=== PATIENT | male | born 1960 | race Caucasian/White ===

== ENCOUNTER 2023-10-23 06:37 | Inpatient (IN) | payer OTHER, SELFPAY ==
[2023-10-23] VITALS (85 sets, daily range): BP systolic 65–123; BP diastolic 31–94; BMI 23.8; BMI 25.6
--- NOTE | 2023-10-23 04:37 | ED.GENMED ---
History of Present Illness
General
Chief Complaint: Fever
Source: patient and ambulance crew
Exam Limitations: none
Time Seen by Provider: 10/23/23 04:33
Nursing documentation reviewed up to this point in time: agreed with
Travel History
Have you had any contact with someone who has COVID-19?: Unable to Answer
Do you have any symptoms of coronavirus? Fever > 100 degrees, chills, cough, shortness of breath, sore throat, loss of taste or smell, muscle aches, or headache?: Unable to Answer
History of Present Illness
History of Present Illness:
63-year-old male presents emergency department due to weakness. He woke up with a fever and his heart rate was in the 150s. Temperature by EMS 101.5. EMS gave 1700 mL normal saline en route. He was also given push dose epinephrine, and Benadryl.
On Tuesday he had a prostate ablation, aqua ablation at [facility].
Past History
Past History
ED Past Medical History: None
ED Past Surgical History: Orthopedic (lumbar laminectomy, right knee) and Urological (Aqua ablation prostate)
Social History
Tobacco: Non-smoker
Alcohol: None
Living: with family
Review of Systems
Review of Systems
Allergies reviewed?: Yes
All Other Systems: Not applicable
Constitutional: Reports fever
EENT: Reports no symptoms
Respiratory: Reports no symptoms
Cardiac: Reports no symptoms
ABD/GI: Reports vomiting
: Reports no symptoms
Musculoskeletal: Reports no symptoms
Skin: Reports no symptoms
Neurological: Reports weakness
Endocrine: Reports no symptoms
Hematologic/Lymphatic: Reports no symptoms
Psychiatric: Reports no symptoms
Phy Exam
Physical Exam
Physical Exam:
Physical Exam
General: Appears uncomfortable, hypotensive 91/43, temperature 98.9 orally
Neck: supple. no meningeal signs. normal posterior pharynx
Heart: s1/s2 tachycardia, no murmur. equal radial
pulses.
HEENT: Pupils equal round reactive to light, EOMI
Lungs: no acute respiratory distress. clear bilaterally
Abdomen: normal bowel sounds. not tender. no CVAT
Neuro: alert and oriented. no focal neurological deficits cranial nerves II through XII intact
Skin: no rash
Psychiatric: well kept. interactive and cooperative
Extremities: no edema. no calf tenderness. negative homans. good distal pulses
Course
Orders/Labs/Results
Orders:
Orders
10/23/23 04:33
Ondansetron Injectable [Zofran] 4 mg IV NOW STA
10/23/23 04:34
Straight cath- Treatment ONCE
Acetaminophen [Tylenol/Feverall] 650 mg RECTAL NOW STA
NORepinephrine 4 MG/250 ML [Levophed] 4 mg in 250 ml IV NOW
Initial dose in mcg/min, then titrate:: 4
Titrate to keep:: MAP > 65 mmHg
Titrate by mcg/min:: 1-2 mcg/min
Frequency of titrations (minutes):: 5
Maximum dose in ICU in mcg/min:: 30
Maximum dose in IMU in mcg/min:: 8
Maximum dose in IVU in mcg/min:: 4
Begin to taper infusion when:: Remained at goal for 4hrs
Taper by mcg/min:: 1-2 mcg/min
Frequency of taper (minutes) if patient maintains goal:: 30
Taper to off?: Yes
If infusion off & no longer maintaining goal:: Contact Provider
10/23/23 04:35
CR Chest Portable - 1 View Urgent
Comment:
Reason For Exam: fever
Reason Study Needs to be Portable: Patient Unstable
10/23/23 04:42
Complete Blood Count/With Diff Urgent
Comprehensive Metabolic Panel Urgent
Lactic Acid Q4H
Comment: CANCEL 2nd LACTIC ACID IF 1st LACTIC ACID IS LESS THAN 2
Lipase Urgent
Magnesium Urgent
Comment: ADD ON
Manual Differential Urgent
PTT Urgent
Prothrombin Time Urgent
Blood Culture Q30M
[place] Source: Blood/Venous
Specimen Description:
10/23/23 04:59
Urinalysis Reflex To Culture Urgent
Date Specimen was Collected: 10/23/23
Time Specimen was Collected: 04:53
Urine Microscopic Reflex Cult Urgent
10/23/23 05:01
COVID-19 Antigen Urgent
Source: Nasal Swab
Influenza A+B Rapid Molecular Urgent
[place] Source: Nasal Swab
Specimen Description:
0.9% Sodium Chloride 1000 ml [Nss] 1,000 ml IV BOLUS
Piperacillin/Tazo 4.5 Gram [Zosyn] 4.5 gram in 100 ml IV NOW
10/23/23 05:06
Vancomycin [Vancocin] 2,000 mg 0.9% Sodium Chloride 500 ml [Nss] 500 ml IV NOW
10/23/23 05:07
Blood Culture Q30M
[place] Source: Blood/Venous
Specimen Description:
10/23/23 05:23
Lidocaine 2% [Lidocaine Uro-Jet 2%] 1 syringe .ROUTE .K-MED ONE
10/23/23 06:27
Admit/Transfer Patient As Directed
Co-Sign Provider:
Level of Care: Inpatient admission
Assign to:: ICU
Physician / Group: Matthias
Diagnosis: Septic Shock
Reason for Hospitalization: Septic Shock
Expected length of stay greater than two midnights?: Yes
ELOS- Estimated Length of Stay in days: 5
I certify the patient meets the requirements for IP care: Yes
10/23/23 06:29
Code Status As Directed
Resuscitation Status: Full Code
10/23/23 08:45
Lactic Acid Q4H
Comment: CANCEL 2nd LACTIC ACID IF 1st LACTIC ACID IS LESS THAN 2
Abnormal Lab Results
10/23/23 10/23/23
04:42 04:59
WBC 1.7 L* 10^3/uL
(4.8-10.8)
RBC 3.94 L 10^6/uL
(4.70-6.10)
Hgb 12.2 L g/dL
(13.0-18.0)
Hct 35.2 L %
(39.0-52.0)
Band Neutrophils 14 H %
(0-3)
Lymphocytes (Manual) 12 L %
(20-51)
PT 23.4 H Sec
(11.4-14.6)
APTT 65.4 H Sec
(23.4-35.0)
Potassium 3.2 L mmol/L
(3.5-5.1)
Chloride 112 H mmol/L
(98-107)
Carbon Dioxide 17 L mmol/L
(22-30)
BUN 22 H mg/dl
(9-20)
Creatinine 2.3 H mg/dL
(0.7-1.3)
Glucose 108 H mg/dl
(70-99)
Lactic Acid 9.1 H* mmol/L
(0.7-2.0)
Calcium 8.2 L mg/dl
(8.4-10.2)
AST 424 H U/L
(17-59)
ALT 190 H U/L
(0-50)
Alkaline Phosphatase 152 H U/L
(38-126)
Total Protein 5.2 L g/dl
(6.3-8.2)
Albumin 3.2 L g/dl
(3.5-5.0)
Ur Occult Blood Reflex 3+ A
(Negative)
Urine RBC >100 A /HPF
(0-2)
Urine Albumin (Reflex) 3+ A
(Neg - Trace)
10/23/23 04:42
10/23/23 04:42
Vital Signs
Initial and Last Documented VS:
Initial Vital Signs
Temp Pulse Resp BP Pulse Ox
98.9 F 123 32 91/43 97
10/23/23 04:29 10/23/23 04:29 10/23/23 04:29 10/23/23 04:29 10/23/23 04:29
Last Documented Vital Signs
Temp Pulse Resp BP Pulse Ox
103.2 F H 97 22 83/48 100
10/23/23 04:46 10/23/23 06:55 10/23/23 06:55 10/23/23 06:55 10/23/23 06:55
MDM/Problems Addressed
Differential Diagnosis Includes:
Sepsis, UTI
MDM/Problems Addressed:
63-year-old male with sepsis, UTI likely, probably related to recent instrumentation from prostate procedure. Admit to hospitalist, Avalos catheter placed by Dr. Michaud.
Chronic conditions affecting care: Other (BPH)
Acute Exacerbation and/or Progression of Chronic Illness: Other (BPH)
*Radiology
Radiology exam reviewed: preliminary read by ED provider (Chest x-ray viral pattern)
*Pulse Oximetry
Patient hypoxic: no
*EKG
Interpreted by ED Provider?: NA
*Licensed Mortgage Loan Officer Interpretation
Rate: normal
Interpretation: normal
Heart Rate: 97
Rhythm: sinus
*Critical Care Note
Total Time (30-74mins, 75-104mins- exclusive of procedures): 30
comment:
Critical care statement: A total of 30 minutes of critical care time was provided for this patient. This includes management of unstable vital signs, evaluation of the patient at bedside, reviewing the patient's pertinent medical records, discussion
with consultants, review of old EKGs and review of pertinent medical records. This time with separate from time utilized to perform the aforementioned documented procedures
Patient Management
Social determinants of health affecting care: Living situation and Strong social support
Discussion with other providers: Hospitalist and International Organizer (Urology)
Escalation/DeEscalation of care consider admission/obs:
Admit indicated
ED Attending Note
-
Portions of this chart may have been created with voice recognition software.� Occasional wrong word or��sound alike� substitutions may have occurred due to the inherent limitations of voice recognition software.
Discharge Plan
Departure
Patient Disposition: Admit
Date of Disposition: 10/23/23
Time of Disposition: 05:13
Admit to: ICU
Presentation/result/management discussed w/ accepting MD/DO: Hospitalist
Patient with high blood pressure during this ER visit?: No
Condition: Fair
Discharge Problem:
Sepsis, Leukopenia, Hematuria
Interventions
Interventions:
*Risk Screen - Suicide Last Done: 10/23/23 04:33
*General Assessment Last Done: 10/23/23 04:33
*Neglect/Abuse Screening Last Done: 10/23/23 04:33
*ED COVID-19 Vaccine History Last Done: 10/23/23 04:33
ED- Neurological Assessment Last Done: 10/23/23 05:12
ED-Skin Assessment Last Done: 10/23/23 05:12
[2023-10-23] MEDS: ZOFRAN 4 MG IV ×2 (04:38→10:39)
[2023-10-23] MEDS: LEVOPHED 250 IV ×5 (04:45→21:05)
[2023-10-23] MEDS: TYLENOL/FEVERALL 650 MG RECTAL (04:47)
[2023-10-23 04:54] LABS: Hematocrit 35.2 % (39.0-52.0); Hemoglobin 12.2 g/dL (13.0-18.0); Mean Corp Hgb Conc. 34.7 g/dL (33.0-37.0); Mean Corpuscular Volume 89.3 fL (80.0-94.0); Mean Platelet Volume 9.7 fL (7.4-10.4); Platelet Count 230 10^3/uL (130-400); Red Blood Cell Count 3.94 10^6/uL (4.70-6.10); Red Cell Dist. Width 12.3 % (11.5-14.5)
[2023-10-23 04:58] LABS: White Blood Cell Count 1.7 10^3/uL (4.8-10.8)
[2023-10-23 05:06] LABS: INR 2.05; PT 23.4 Sec (11.4-14.6)
[2023-10-23 05:07] LABS: APTT 65.4 Sec (23.4-35.0)
[2023-10-23] MEDS: ZOSYN 100 IV (05:07)
[2023-10-23] MEDS: NSS 1000 IV ×3 (05:07→11:54)
[2023-10-23 05:10] LABS: Lactic Acid 9.1 mmol/L (0.7-2.0)
[2023-10-23 05:15] LABS: ALT (SGPT) 190 U/L (0-50); AST (SGOT) 424 U/L (17-59); Albumin 3.2 g/dl (3.5-5.0); Alkaline Phosphatase 152 U/L (38-126); Blood Urea Nitrogen 22 mg/dl (9-20); Calcium 8.2 mg/dl (8.4-10.2); Carbon Dioxide 17 mmol/L (22-30); Chloride 112 mmol/L (98-107); Estimated Creatinine Clearance 41 ml/min; Glucose 108 mg/dl (70-99); Lipase 115 U/L (23-300); Potassium 3.2 mmol/L (3.5-5.1); Total Bilirubin 1.1 mg/dl (0.2-1.3); Total Protein 5.2 g/dl (6.3-8.2); eGFR 31.13
[2023-10-23 05:21] LABS: Sodium 142 mmol/L (135-145)
[2023-10-23 05:24] LABS: Urine Albumin 3+ (Neg - Trace); Urine Bilirubin Negative (Negative); Urine Character Bloody (Clear); Urine Color Red; Urine Glucose Negative (Negative); Urine Ketone Negative (Negative); Urine Leukocyte Negative (Negative); Urine Nitrite Negative (Negative); Urine Occult Blood 3+ (Negative); Urine Specific Gravity 1.015 (<1.030); Urine Urobilinogen Negative (Neg - 1+)
[2023-10-23 05:28] LABS: COVID-19 Antigen Negative (Negative)
[2023-10-23] MEDS: VANCOCIN 540 MG IV (05:36)
[2023-10-23 05:40] LABS: Urine Red Blood Cell >100 /HPF (0-2)
[2023-10-23 05:51] LABS: Absolute Neutrophils -Man Diff 1.4 10^3/uL (1.4-6.5); Band Neutrophils 14 % (0-3); Lymphocytes 12 % (20-51); Monocytes 2 % (2-9); Normal RBC Morphology Yes; Platelets Checked Yes; Segmented Neutrophils 72 % (42-75); Total Cells Counted 100
--- NOTE | 2023-10-23 06:36 | HPS.HSE ---
Family Physician
-
Family Physician: Ron Ba
Chief Complaint
-
Fevers / Chills
History of Present Illness
Patient is a 63y M with PMH significant for BPH who presents to ED complaining of fevers and chills. Patient presented to [facility] for aqua ablation of the prostate on Tuesday. On Tuesday, he developed a large bladder clot which required return
to the OR for evacuation. He was discharged to home on and his urine has remained clear since that time. He removed his Avalos catheter around 4-5 PM this evening. He had dinner consisting of 2 glasses of wine and pizza / stromboli. He
felt well when he went to bed around 10 PM.
Patient states that he woke around 1 AM in cold sweat. He was flushed and had shaking chills. His symptoms persisted / gradually worsened over the next few hours and patient was brought to the ED for further evaluation.
Patient complains of discomfort, but it is genera myalgias / diffuse aches and pains. No localized pain / tenderness / etc.
He has urinated since Avalos was removed and urine here in the ED is grossly bloody appearing.
Patient denies any cough or diarrhea. He did have N/V at home and one episode here in the ED.
Medical History
Past Medical History
Past Medical History: Reports Other
Additional Past Medical History:
BPH
DDD / DJD
Past Surgical History: Reports Other
Additional Past Surgical History:
Lumbar Discectomy x 2
Knee Arthroscopy
Right MARY LOU
Appendectomy
Social History
Tobacco: Non-smoker
Alcohol: Occasional
Drug: None
Personal:
Living: With Family
Family History
Family History: Not pertinent
Allergies / Home Medications
Allergies reflects when Allergies were last updated in [facility].
Home Medications with original date entered in [facility]
Allergy/Medication List:
Allergies
Allergy/AdvReac Type Severity Reaction Status Date / Time
NKA - No Known Allergies Allergy Unknown Uncoded 10/23/23 04:48
Home Medications
oxybutynin chloride 5 mg tablet,extended release 24 hr 5 mg PO DAILY 10/23/23
phenazopyridine 100 mg tablet 200 mg PO TID PRN pain 10/23/23
Review of Systems
-
History Source: Patient and Family
A 12 point ROS was completed and negative except as noted: Yes
Constitutional: Reports Fever, Fatigue and Chills
EENT: Denies Sore Throat
Respiratory: Reports Trouble Breathing; Denies Cough
Cardiac: Reports Diaphoresis; Denies Chest Pain, Palpitations or Syncope
Abdomen/GI: Reports Nausea and Vomiting; Denies Abdominal Pain, Diarrhea, Constipated, Bloody Stools or Black Stools
: Reports Bleeding; Denies Dysuria or Flank Pain
Musculoskeletal: Reports Muscle Pain; Denies Edema
Neurological: Reports Headache; Denies Dizzy
Psych: Denies Depression or Anxiety
Physical Exam
Vital Signs
Vital Signs
Temp Pulse Resp BP Pulse Ox
103.2 F H 102 29 96/51 90
10/23/23 04:46 10/23/23 06:05 10/23/23 06:05 10/23/23 06:05 10/23/23 06:05
Physical Exam
General: Other (63y M in moderate distress due to chills / myalgias.)
HEENT: PERRLA and Other (Dry MM.)
Respiratory: Clear; No Wheezes, Rales or Rhonchi
Cardiac: S1/S2 and Tachycardia; No Murmur
GI: Soft, Non Distended, Normal Bowel Sounds and Other (Mildly diffusely tender. No rebound / guarding. Pos bowel sounds.)
Genito-urinary: No costovertebral tender
Musculoskeletal: No Clubbing, No Cyanosis and No Edema
Neuro: Awake, Alert and Oriented
Laboratory Results
-
10/23/23 04:42
10/23/23 04:42
Laboratory Results
PT 23.4 Sec (11.4-14.6) H 10/23/23 04:42
INR 2.05 10/23/23 04:42
APTT 65.4 Sec (23.4-35.0) H 10/23/23 04:42
Lactic Acid 9.1 mmol/L (0.7-2.0) H* 10/23/23 04:42
Total Bilirubin 1.1 mg/dl (0.2-1.3) 10/23/23 04:42
AST 424 U/L (17-59) H 10/23/23 04:42
ALT 190 U/L (0-50) H 10/23/23 04:42
Alkaline Phosphatase 152 U/L (38-126) H 10/23/23 04:42
Lipase 115 U/L (23-300) 10/23/23 04:42
Impression/Plan
-
A/P: Patient is a 63y M with PMH significant for BPH s/p aqua ablation of the prostate on 10/18/23 who presents to ED with fevers / chills.
Septic Shock
- Admit for further evaluation and treatment.
- Patient presents with fever to 103.2, leukopenia, tachycardia and hypotension refractory to volume replacement.
- Suspected source of infection is likely given recent intervention.
- Urology evaluating in the ED for Avalos placement / further recommendations.
- Continue IV abx with Zosyn.
- Aggressive IVF support.
- Pressor support to maintain MAP > 65.
- Supportive care including antipyretics, pain control, etc.
- Follow-up culture data and adjust treatment as needed.
- Check CT A/P for further evaluation.
- Filler Leaf Cutter Long evaluation.
- Follow for clinical improvement.
Hematuria
s/p Aqua Ablation of the Prostate on 10/18/23
- Gross hematuria noted in the ED.
- Urology to place Avalos.
- source seems most likely for sepsis as noted above.
[place]
- SCr = 2.3 with no prior history of renal disease.
- Likely secondary to septic shock, hypoperfusion, etc.
- +/- component of obstructive uropathy - follow for results of Avalos placement.
- IVF support / Avalos drainage as noted above.
- Follow for return to baseline renal function.
Abnormal LFTs
- Also likely secondary to septic shock / decreased perfusion.
- Perhaps some degree of alcohol component with 2 glasses of wine last PM.
- Follow for improvement.
- f/u results of CT scan to rule out other etiology.
Hypokalemia
- Replace via IV route for now.
- Check magnesium.
- Follow for improvement.
DVT Prophylaxis: SCDs
Code Status: Full
[2023-10-23] MEDS: EMLA CREAM 2 GRAM TOPICAL (07:18)
[2023-10-23] MEDS: VALIUM INJECTION 5 MG IV (07:21)
[2023-10-23 07:25] LABS: Magnesium 1.7 mg/dl (1.6-2.3)
--- NOTE | 2023-10-23 07:36 | CON.MD ---
Consultation - Medical
-
see dictated note
pt with long hx of prostatism- elevated psa and at least one epidose of retention
very large gland
underwent aqua-ablation at [facility] on tuesday- taken back to OR tue for cysto/clot retention and fulguration- remained on cbi- discharged tuesday- was to keep march until tuesday- but removed last night because of discomfort
said urine had generally been clear
brought to ER by ambulance
febrile- hypotensive
has received fluids and on pressors/antibx
had straight cath for urine- reports very bloody
in pain all over- but asking for water
exam
abd benign
3 way march placed- advanced into bladder easily- 50cc of blood drained- but then with hand irrigation no clots/irrigated easily and on moderate drip cbi urine clear
plan
reviewed with pt/ and med team
being admitted to med service/icu for presumptive urosepsis
cx's obtained
ct scan to r/o other process
continue march/cbi/antispasmodics
will follow
[2023-10-23] MEDS: KCL 270 MEQ IV (07:40)
--- NOTE | 2023-10-23 08:22 | W.PN.HOSP.TC ---
Today's Communication/Plan
-
Add on cortisol level
Keep MAP over 65 mmHg with IV fluids and pressors
Repeat BMP in a few hours-change fluids to fluids with bicarb
Follow lactate
Continue antibiotics
Follow cultures
Repeat PT/INR
Replace electrolytes
Assessment / Plan
Assessment / Plan
63-year-old male prostate recently was seen at [facility] for aqua ablation of prostate on Tuesday. Tuesday had large bladder clot which required evacuation in the OR. He was discharged home on . Catheter was removed on 10/22/2023. Patient
was supposed to probably on 10/23/2023. business objects he woke up with fevers and chills. Urine bloody appearing in the ER
Awake alert and conversant
Muscular discomfort
No abdominal pain, no right upper quadrant tenderness
Cardiovascular system S1-S2 appreciated
Chest clear to auscultation
Abdomen soft and nontender
CBI with pink urine
No pedal edema
CT of the abdomen and pelvis mild asymmetric left adrenal gland diffuse thickening and. Renal fat stranding possible adrenal congestion. 1 mm calcific focus in each kidney no ureteral calculus no hydronephrosis. Mild perinephric soft tissue
stranding left greater than right nonspecific. Possible mid small bowel ileus/nonspecific enteritis. No small bowel obstruction. Avalos catheter in the bladder. Diffuse bladder wall thickening indicating cystitis. General prostatic enlargement.
# Septic shock
-Seen in ICU
-Likely source
-Chest x-ray reviewed by me-mild interstitial prominence-normal echo 10/26/2022. COVID and influenza negative.
-Continue IV antibiotics-Zosyn. Also got a dose of Vanco in the ER
-IV fluids-maintain MAP over 65
-Pressors-Levophed
-CT abdomen pelvis as above
-Add on a cortisol level
-Urology evaluation
# Leukopenia-likely secondary to sepsis-follow
# Lactic acidosis
# Hematuria
-Status post aqua ablation of the prostate 10/18/2023 at [facility]
-Large clot in the bladder on 10/19/2023 needed OR evacuation
-Avalos placed in the [id number] urine on CBI
# Acute kidney injury-creatinine 2.3
-Likely secondary to septic shock and renal hypoperfusion/prerenal
-Also rule out postrenal-Avalos catheter placed
-Continue IV fluids and keep MAP over 65 mmHg
-Follow creatinine
# Coagulopathy-repeat labs
# Elevated LFTs-likely secondary to septic shock and decreased perfusion
-Follow clinically for improvement
-CT scan of the abdomen and pelvis
# Hypokalemia-replace and also replace magnesium
# History of back surgery for disc herniation
# Alcohol use 3 to 4 glasses 3 times a week
# DVT prophylaxis-SCDs given bleeding
# Full code
D/W RN
D/W at bed side
Total Critical Care Time 31 minutes. I was immediately available to the patient and staff. I personally examined, reviewed labs, diagnostic images/reports, interpretations, treatment plans, discussed patient care with other providers and family ,
entered orders as appropriate and documented the medical record.
Anticipated Discharge: > 48 hours
Subjective/Interval History
-
Date of Service: October 23, 2023
Objective Data
-
Labs:
Laboratory Results
10/23/23
04:42
WBC 1.7 L*
Hgb 12.2 L
Hct 35.2 L
Plt Count 230
PT 23.4 H
INR 2.05
APTT 65.4 H
Sodium 142
Potassium 3.2 L
Chloride 112 H
Carbon Dioxide 17 L
BUN 22 H
Creatinine 2.3 H
Glucose 108 H
Calcium 8.2 L
Total Bilirubin 1.1
AST 424 H
ALT 190 H
Alkaline Phosphatase 152 H
Vital Signs:
Vital Signs
Temp Pulse Resp BP Pulse Ox
103.2 F H 97 22 83/48 100
10/23/23 04:46 10/23/23 06:55 10/23/23 06:55 10/23/23 06:55 10/23/23 06:55
I&O
10/22/23 10/23/23 10/24/23
06:59 06:59 06:59
Output Total 1999
Balance -1999
--- NOTE | 2023-10-23 08:37 | EDRN ---
Care of patient assumed at 7am at shift change, pt on Levophed, Vancomycin, CBI. Started Kcl, took pt to CT scan and then to ICU bed [id number]
--- NOTE | 2023-10-23 09:16 | CON.INTV ---
Consultation
Consultation Request
Date/Time Consultation Requested: 10/23/2023828
Date/Time Consultation Performed: 10/23/2023954
Requesting Provider: Dr. Rizzo
Performing Provider: Dr. Ballesteros
Reason for Consultation: Shock on vasopressors
Medical History
-
History of Present Illness:
63-year-old male never smoker with a past medical history of below who presents with tachycardia, and fever. He had a recent prostate ablation done on Tuesday at [place]. March catheter was removed yesterday and patient reports he has been
urinating, however this morning he awoken with fever and his heart rate was elevated. EMS says heart rate was in 150s and temperature 101.5F. En route here to the ER, he was given a 200mcg push dose of epinephrine, 4 mg Zofran and 50 mg Benadryl
plus 1.7L of IVF (per ORDER SCHEDULE CLERK per her report). In the ER he was febrile to 103.2 �F, tachycardic to 110, hypotensive to 90/47, and saturating 92% on room air. Labs showed hypokalemia 3.2, metabolic acidosis with preserved anion gap, creatinine 2.3,
WBC 1.7 with 14% bands and ANC of 1400. COVID antigen was negative. Urinalysis showed >100 RBCs with no evidence of UTI. CXR showed no focal consolidation, however there was mild�moderate interstitial prominence in the mid�lower lung zones. CT
abdomen/pelvis without contrast showed mild perinephric soft tissue stranding (left greater than sign right), and suspected mild small bowel ileus versus nonspecific enteritis without evidence of bowel obstruction. Also 1 mm calcific focus in each
kidney with differential including arterial calcification versus nonobstructive calculi. No ureteral calculus seen or hydronephrosis seen. Diffuse urinary bladder wall thickening suggested, indicative of cystitis. Also generalized prostatic
enlargement. Patient was given IV fluids with 1 L NS 0.9%, antibiotics with vancomycin/Zosyn, and due to persistent hypotension with BP in the 80s/40s, Levophed was started. Patient being admitted to the ICU and air brush artist service is consulted
for additional management/recommendations.
Pt was seen by me at bedside. He feels weak. Remains on levophed and vasopressin, and SBP in low 90s-low 100s. He is awake, alert, denies SOB, chest pain, abd pain, N/V/f/c. He says he was admitted to [facility] on Tuesday where
they did the prostate ablation, and had a march in since that operation. That evening there was a large blood clot in his bladder causing bladder obstruction, so they had to go back to OR for cystoscopy with clot retention and fulguration. He
remained on CBI and DC'd home on Tuesday. Was told to keep March until Tuesday but his (an RN) removed it 1 day early due to discomfort. When his symptoms started at home he was nauseous, was vomiting and thought he had food poisoning. He then
got concerned when his symptoms got worse and he developed severe chills/rigors, and that is when he called 911 and was brought here to the hospital. He denies having a rash at the time that his symptoms started.
PMHx: BPH; DDD; Raynaud's phenomenon
PSHx: Herniated disc surgery � L4-5 (February 2016); back surgery; right knee surgery; hip surgery; prostate ablation (September 2022); appendectomy; cataracts
Past Medical History
Past Medical History: Other (Above as per HPI)
Past Surgical History: Other (Above as per HPI)
Social History
Tobacco: Non-smoker
Alcohol: None
Drug: None
Personal:
Living: With Family
Family History
Family History: Reviewed & Not Pertinent
Allergies / Home Medications
Allergies
Allergy/AdvReac Type Severity Reaction Status Date / Time
NKA - No Known Allergies Allergy Unknown Uncoded 10/23/23 04:48
Home Medications
Medication Instructions Recorded Confirmed Last Taken Type
docusate sodium 100 mg capsule 100 mg PO DAILY PRN constipation 10/23/23 10/23/23 10/23/23 History
oxybutynin chloride 5 mg 5 mg PO DAILY 10/23/23 10/23/23 Unknown History
tablet,extended release 24 hr
phenazopyridine 100 mg tablet 200 mg PO TID PRN pain 10/23/23 10/23/23 Unknown History
Review of Systems
-
History Source: Patient
All other systems: Negative unless noted (12 point ROS performed and is negative unless mentioned above.)
Vitals / Labs / Diagnostic Testing
Vital Signs
Temp Pulse Resp BP Pulse Ox
98.5 F 86 22 117/57 95
10/23/23 09:38 10/23/23 10:30 10/23/23 10:30 10/23/23 10:30 10/23/23 10:42
Lab Data
10/23/23 04:42
Laboratory Results
10/23/23
04:42
PT 23.4 H
INR 2.05
APTT 65.4 H
Microbiology
10/23/23 05:01 Nasal Swab Influenza Types A & B (VANESA) - Final
Negative for Influenza A & B, NAAT
Negative results must be combined with clinical observations
and patient history.
Nucleic Acid Amplification test (NAAT)performed on the
[employer] platform.
Diagnostic Testing:
Physical Exam
-
HEENT: Normocephalic and Anicteric
Cardiovascular: S1/S2 and Peripheral Edema (negative)
Respiratory: Clear, Wheeze (negative), Rales (negative), Rhonchi (negative) and Accessory Resp Muscle Use (negative)
GI: Soft, Non Distended, Non Tender and Normal Bowel Sounds
Neurology: AO x 3
Skin: Warm and Dry
General: Other (3-way march on CBI with pink colored urine this AM) and Other (appears uncomfortable)
Assessment
-
Assessment: 63-year-old male never smoker with a PMHx of BPH and DDD presents with tachycardia and fever. He had a recent prostate ablation done on Tuesday at [place]. March catheter was removed yesterday and patient reports he has been urinating,
however this morning he awoken with fever and his heart rate was elevated. EMS says heart rate was in 150s and temperature 101.5F. En route here to the ER, he was given a 200mcg push dose of epinephrine, 4 mg Zofran and 50 mg Benadryl plus 1.7L of
IVF (per ORDER SCHEDULE CLERK per her report). He was febrile in the ER and tachycardic, also hypotensive. Labs showed lactic acidosis with leukopenia and bandemia. CT abdomen/pelvis was concerning for perinephric stranding bilaterally and possible small bowel
ileus versus nonspecific enteritis. Patient given fluids with 1 L NS 0.9% as well as antibiotics however patient remained hypotensive requiring Levophed. Patient admitted to the ICU and air brush artist services consulted for additional
management/recommendations.
Chronic conditions PHYSICIAN CODING SPECIALIST: BPH, DDD
Impression:
#Septic shock due to UTI/pyelo
#Complicated UTI/pyelo with recent prostate ablation c/b clot s/p retention and fulguration
#Acute respiratory failure with hypoxemia due to sepsis with acute organ dysfunction
#Hypokalemia
#Enteritis vs mild small bowel ileus - he did endorse nausea/vomiting PHYSICIAN CODING SPECIALIST
#Acute kidney injury
#Lactic acidosis
#Elevated LFTs
#Leukopenia with mild neutropenia
#Anemia
#BPH with recent prostate ablation now on CBI
Plan:
- Continue vasopressors and insert PICC
- Broad-spectrum antibiotics (zosyn) and follow-up infectious workup with urine and blood cultures
- Urology consulted --> they placed 3-way march and he is currently on CBI on moderate drip rate
- Maintain SpO2 >90-94% with supplemental O2 as needed
- pain control
- Trend serum Cr and UOP with goal >0.5cc/kg/hr (may be difficult to accurately quantify I/O as he is on CBI at a moderate rate)
- anti-pyretics as needed with tylenol; avoid NSAIDs given recent bladder clot
- anti-emetics as needed
- Maintain MAP>65
- trend ANC
- Transfuse blood products as needed to keep Hb>7, plt>50k and INR<1.8
- Replete K>4, Mg>2, PO4>3
- Maintain euglycemia with goal BG 140�180
- DVT prophylaxis
Critical care statement: A total of 40 minutes of critical care time was provided for this patient today. This includes management of unstable vital signs, evaluation of the patient at bedside, reviewing the patient's pertinent medical records
including radiographs, microbiology, laboratory evaluations, and discussion with primary team, consultants, pharmacy, nutrition, physical therapy, case management, charge nurse, critical care nursing, and respiratory therapy.
Data:
CXR 10-23-2023: No focal dense consolidation. However, mild to moderate interstitial prominence is noted in the mid to lower lung zones, right greater than left. The upper lung zones are clear. Cannot exclude viral respiratory syndrome.
CT A/P 10-23-2023:
Mild asymmetric left adrenal gland diffuse thickening and periadrenal fat stranding. Although nonspecific, this could reflect adrenal congestion as result of physiologic stress. No focal adrenal mass.
1 mm calcific focus in each kidney. . Differential includes arterial calcification versus nonobstructing calculi. No ureteral calculus, bilaterally. No hydronephrosis to suggest obstructive uropathy. There is, however, mild perinephric soft tissue
stranding, left slightly greater than right. Nonspecific. Cannot exclude changes related to urinary tract infection.
Possible mild small bowel ileus or nonspecific enteritis. No evidence to suggest bowel obstruction.
March catheter within the urinary bladder, which is collapsed. Diffuse urinary bladder wall thickening suggested. This could indicate cystitis. Generalized prostatic enlargement.
[2023-10-23] MEDS: DETROL LA 4 MG PO (09:21)
[2023-10-23] MEDS: MORPHINE SULFATE 2 MG IV (09:22)
--- NOTE | 2023-10-23 09:40 | PTCARENOTE ---
all vss from prior to 829 from ED
[2023-10-23] MEDS: PROTONIX IV 40 MG IV (10:09)
[2023-10-23] MEDS: NSS (PRESERVATIVE FREE) 10 ML IV (10:09)
[2023-10-23] MEDS: MAGNESIUM SULFATE 102 GRAMS IV (10:09)
[2023-10-23] MEDS: PITRESSIN 100 IV ×2 (10:10→19:39)
--- NOTE | 2023-10-23 10:35 | PTCARENOTE ---
Received pt from ED around 829 with CBI infusing, vanco and k rider via peripheral access. Pt c/o all over feeling weak, c/o back pain, denied sob/nausea/bladder or back spasms, shortly after pt got clearance for clear liquids, guzzled some amparo
kanwal and felt nauseous. Gave zofran with improvement. Admisstion completed. Otherwise see flowsheet.
--- NOTE | 2023-10-23 11:38 | W.PN.UPDATE ---
Update Note
Progress Note Update
Got called by nurse to patient's room as right hand appears more pale and reduced pulsation in the radial artery. I went to see patient immediately and he was having pain at the right hand where the IV was located on the dorsal aspect. Pressors
were being instilled through there as well as potassium repletion. Both these drips were switched to the other hand. I was able to palpate a radial pulse but it was +1, where as his left radial pulse is +2 to +3. Heating pad on his right hand to
help with the pain. Considering he received only 2.7 L total IV fluids including fluids given to him en route to the hospital, I will administer another liter bolus in an effort to wean off the vasopressors. I will also start stress dose steroids
as he remains on Levophed and vasopressin. Advised RN to not use vasopressors on that right hand IV anymore. Additional IV access is needed, vasopressor should only be used on a larger vein preferably in the AC. He may require central line due to
inadequate IV access and frequent blood draws.
[2023-10-23] MEDS: SOLU-CORTEF 50 MG IV ×2 (11:55→17:37)
[2023-10-23] MEDS: ZOSYN 50 IV ×2 (11:56→17:37)
[2023-10-23 11:58] LABS: Cortisol, Random 71.1 ug/dl
--- NOTE | 2023-10-23 12:05 | VATNOTE ---
Called to assess pt's IV site in his R hand. Per PCN Candelaria Hidalgo pt's hand is white and c/o numbness/burning sensation. Upon assessment, pt hand noted to be pale, pt c/o of burning sensation, and IV site in tact. IV site flushed without issue,
no s/s of infiltration. IV discontinued and warm blanket wrapped around pt's hand. After discussing with pt, states that he has 'that thing where the blood rushes out of his hands when they get cold.' Ice had been applied to hand after complaints of
burning secondary to potassium infusion. After heat applied for a few minutes, pink color returned to extremity and pt stated it was feeling better. New access started in pt's L forearm to replace discontinued R hand line.
[2023-10-23] MEDS: TYLENOL 650 MG PO (12:49)
[2023-10-23 13:47] LABS: INR 1.78; PT 21.1 Sec (11.4-14.6)
[2023-10-23 13:48] LABS: Creatine Phosphokinase 394 U/L (55-170)
[2023-10-23 13:53] LABS: Blood Urea Nitrogen 33 mg/dl (9-20); Calcium 7.9 mg/dl (8.4-10.2); Carbon Dioxide 14 mmol/L (22-30); Chloride 109 mmol/L (98-107); Estimated Creatinine Clearance 26 ml/min; Glucose 168 mg/dl (70-99); Potassium 4.5 mmol/L (3.5-5.1); Sodium 138 mmol/L (135-145); eGFR 18.18
[2023-10-23 14:33] LABS: Magnesium 1.8 mg/dl (1.6-2.3); Phosphorus 2.1 mg/dl (2.5-4.5)
[2023-10-23] MEDS: SODIUM BICARBONATE 1150 MEQ IV (14:40)
--- NOTE | 2023-10-23 15:27 | PTCARENOTE ---
IV team at bedside to place picc line, having difficulty threading wire. They will be trying again
--- NOTE | 2023-10-23 15:48 | W.PN.UPDATE ---
Update Note
Progress Note Update
Maintained on 2 pressors still.
Positive blood cultures ysdab-[id number]-ysexdsqk bacilli
Repeat blood cultures tomorrow
Continue antibiotics
Lactate coming down
INR better
Repeat lactate
--- NOTE | 2023-10-23 15:49 | PTCARENOTE ---
Dr Loya called and was given update.
[2023-10-23 17:01] LABS: Lactic Acid 4.6 mmol/L (0.7-2.0)
--- NOTE | 2023-10-23 17:17 | PTCARENOTE ---
Dr Ballesteros in to see pt, reviewed cxr s/p picc and said picc was ok to use. IV switched to picc after lactic acid drawn and sent. Peripheral sites removed per protocol.
[2023-10-23] MEDS: NEUTRA-PHOS POWDER PACKET 250 MG PO ×2 (17:37→21:49)
--- NOTE | 2023-10-23 18:15 | PTCARENOTE ---
urine that had been pink is now yellow via cbi, pressors remain as charted, bicarb gtt has been increased to 100 ml/hr. Pt flushed, tired, but otherwise no changes. Has been tolerating clear liquids with some intermittent nausea, no vomiting.
and son at bedside and updated.
--- NOTE | 2023-10-23 21:00 | PTCARENOTE ---
Pt resting comfortably. Oriented/sleepy. Afebrile, Tylenol given on previous shift for rigors. NSR ST on monitor. FLASHER ADJUSTER being controlled with VASO/LEVO via left UE PICC. Lactic sent as ordered, trending down. Room air, tachypnea at times. Lungs
decreased, encouraged to take deep breaths. CBI infusing as ordered, pink yellow urine. Will continue to monitor.
[2023-10-23] MEDS: COLACE 100 MG PO (21:49)
[2023-10-23 22:16] LABS: Lactic Acid 4.3 mmol/L (0.7-2.0)
[2023-10-24] VITALS (55 sets, daily range): BP systolic 68–151; BP diastolic 48–104; BMI 26.0
[2023-10-24] MEDS: ZOSYN 50 IV ×2 (00:59→05:32)
[2023-10-24] MEDS: SOLU-CORTEF 50 MG IV ×5 (00:59→23:49)
--- NOTE | 2023-10-24 01:00 | PTCARENOTE ---
Temp 101.3, PO. Tylenol given as ordered. Will monitor.
[2023-10-24] MEDS: LEVOPHED 250 IV ×2 (01:03→09:11)
[2023-10-24] MEDS: SODIUM BICARBONATE 1150 MEQ IV ×2 (01:03→11:17)
[2023-10-24] MEDS: TYLENOL 650 MG PO (01:09)
[2023-10-24 01:26] LABS: Glucose - Point of Care 138 mg/dl (70-99)
[2023-10-24] MEDS: ZOFRAN 4 MG IV ×2 (02:25→16:17)
[2023-10-24] MEDS: VALIUM INJECTION 5 MG IV ×2 (03:22→21:16)
[2023-10-24 04:04] LABS: Hematocrit 27.2 % (39.0-52.0); Mean Corp Hgb Conc. 36.8 g/dL (33.0-37.0); Mean Corpuscular Hgb 31.6 pg (27.0-31.0); Mean Corpuscular Volume 86.1 fL (80.0-94.0); Mean Platelet Volume 11.1 fL (7.4-10.4); Platelet Count 142 10^3/uL (130-400); Red Blood Cell Count 3.16 10^6/uL (4.70-6.10); Red Cell Dist. Width 12.5 % (11.5-14.5); White Blood Cell Count 21.5 10^3/uL (4.8-10.8)
[2023-10-24 04:10] LABS: ALT (SGPT) 160 U/L (0-50); AST (SGOT) 192 U/L (17-59); Albumin 2.4 g/dl (3.5-5.0); Alkaline Phosphatase 94 U/L (38-126); Blood Urea Nitrogen 53 mg/dl (9-20); Calcium 7.3 mg/dl (8.4-10.2); Carbon Dioxide 13 mmol/L (22-30); Chloride 102 mmol/L (98-107); Estimated Creatinine Clearance 16 ml/min; Glucose 142 mg/dl (70-99); Magnesium 1.4 mg/dl (1.6-2.3); Phosphorus 2.8 mg/dl (2.5-4.5); Potassium 4.7 mmol/L (3.5-5.1); Sodium 132 mmol/L (135-145); Total Bilirubin 1.3 mg/dl (0.2-1.3); Total Protein 4.3 g/dl (6.3-8.2); eGFR 10.05
[2023-10-24 04:13] LABS: INR 1.84; PT 21.6 Sec (11.4-14.6)
[2023-10-24 04:50] LABS: Hepatitis C Antibody Negative (Negative)
--- NOTE | 2023-10-24 05:00 | PTCARENOTE ---
Pt with elevated temp, RR 30s, tachycardia. Spoke with DRUG SAFETY ASSISTANT Shameka regarding alcohol history on top of sepsis. Valium given along with Ofirmev. Labs sent and treated with AMP of bicarb & Mag rider. Repeat lactic at 0900. Will monitor.
[2023-10-24] MEDS: MAGNESIUM SULFATE 50 IV (05:32)
[2023-10-24] MEDS: SODIUM BICARBONATE 50 MEQ IV ×4 (05:32→17:50)
[2023-10-24] MEDS: OFIRMEV 100 IV ×2 (05:57→20:06)
--- NOTE | 2023-10-24 06:02 | W.PN.URO.CBU ---
Today's Communication / Plan
-
continue march and cbi
continue supportive medical care
Assessment / Plan
-
post op gram negative spesis after aqua-ablation
hematuria- well managed with cbi
now developing renal failure
ct scan did not indicated any evid of obstruction/abscess or leak
from urologic standpoint- continue march and cbi
antibx pending cx's
may need renal consult with rising cr level
hgb down- no active indication of gu bleeding- transfuse as needed
Diagnosis
-
Date of Service: October 24, 2023
-
Patient Diagnosis:
s/p aqua-ablation
post op sepsis
hematuria
renal failure
Subjective
-
pt asleep after being sedated
blood cx's gram negative rods
wbc up
cr rising
still on pressors
Objective
-
Vital Signs
Temp Pulse Resp BP Pulse Ox
101.3 F H 106 37 94/58 93
10/24/23 01:33 10/24/23 02:30 10/24/23 02:30 10/24/23 02:30 10/24/23 02:30
Intake and Output
10/22/23 10/23/23 10/24/23
06:59 06:59 06:59
Intake Total 5955.1 / 5955.1
Output Total 3475 / 3475
Balance 2480.1 / 2480.1
Intake:
Oral fluids 540 / 540
IV fluids (Total) 3995.1 / 3995.1
Nss 1,000 ml @ 150 mls/hr IV . 900 / 900
Q6H40M MICHAEL Rx#:[id number]
Sterile Water For Injection 1275 / 1275
1000 ml 1,000 ml @ 100 mls/hr
IV .P10M06I MICHAEL with Sodium
Bicarbonate 150 Meq Rx#:
[id number]
kcl 270.0 / 270.0
levo 1297.1 / 1297.1
mag 100 / 100
vaso 153 / 153
IV piggybacks 1420 / 1420
Output:
Drain Output (Total) 1999
True Urine Output from CBI 1475 / 1475
Laboratory Results
10/24/23 03:29
10/24/23 03:29
Physical Exam
-
General - ill appearing
Abdomen - soft, non-tender
Genitalia - 3 way march in pace- urine willian on slow drip cbi
--- NOTE | 2023-10-24 07:37 | W.PN.INTV ---
Today's Communication / Plan
Recommendations
O2
IVFs
Atbs
Pressors
HC
Assessment
-
Assessment: 63-year-old male never smoker with a PMHx of BPH and DDD presents with tachycardia and fever. He had a recent prostate ablation done on Tuesday at [place]. March catheter was removed yesterday and patient reports he has been urinating,
however this morning he awoken with fever and his heart rate was elevated. EMS says heart rate was in 150s and temperature 101.5F. En route here to the ER, he was given a 200mcg push dose of epinephrine, 4 mg Zofran and 50 mg Benadryl plus 1.7L of
IVF (per KNITTING MACHINE TENDER per her report). He was febrile in the ER and tachycardic, also hypotensive. Labs showed lactic acidosis with leukopenia and bandemia. CT abdomen/pelvis was concerning for perinephric stranding bilaterally and possible small bowel
ileus versus nonspecific enteritis. Patient given fluids with 1 L NS 0.9% as well as antibiotics however patient remained hypotensive requiring Levophed. Patient admitted to the ICU and keno writer / runner services consulted for additional
management/recommendations.
Chronic conditions SHOP FITTER: BPH, DDD
Impression:
#Septic shock due to E coli bacteriemia, suspected origin from UTI/pyelo (UCx GNB)
#Complicated UTI/pyelo with recent prostate ablation c/b clot s/p retention and fulguration
#Acute respiratory failure with hypoxemia due to sepsis with acute organ dysfunction
#Hypokalemia
#Enteritis vs mild small bowel ileus - he did endorse nausea/vomiting SHOP FITTER
#Acute kidney injury
#Metabolic/lLactic acidosis
#Elevated LFTs
#Leukopenia with mild neutropenia
#Anemia
#BPH with recent prostate ablation now on CBI
Plan:
- Continue vasopressors: NE/vasopressin
LUE PICC placed
- Broad-spectrum antibiotics: zosyn since adm, transitioned to meropenem 10-24 per ID
Follow-up infectious workup with urine and blood cultures
U cx GNB
Blood cxs positive for E coli 10-23
Started empiric stress dose CS: HC 50 mg IV q6, continue
- Urology following --> placed 3-way march and he is currently on CBI on moderate drip rate
Tolterodine po
- Maintain SpO2 >90-94% with supplemental O2 as needed
Currently on O2 NC 3L, POx 95%
- pain control
[place] with Cr trending up
Trend serum Cr and UOP with goal >0.5cc/kg/hr (try to accurately quantify I/O as he is on CBI at a moderate rate, d/w RN)
Metabolic/lactic acidosis, hyperkalemia
Continue bicarbonate gtt
Nephrology following, may need CRRT
Refractory hypocalcemia in spite of 2 g Ca, redose 10-24
Likely cause is sepsis
- anti-pyretics as needed with tylenol; avoid NSAIDs given recent bladder clot and [place]
- anti-emetics as needed
- Transfuse blood products as needed to keep Hb>7, plt>50k and INR<1.8
- Replete K>4, Mg>2, PO4>3
- Maintain euglycemia with goal BG 140�180
- DVT prophylaxis
GI proph: IV PPI
Full code status
Guarded prognosis at this juncture
D/w MDT
Critical care time: 35 min
Data:
CXR 10-23-2023: No focal dense consolidation. However, mild to moderate interstitial prominence is noted in the mid to lower lung zones, right greater than left. The upper lung zones are clear. Cannot exclude viral respiratory syndrome.
CT A/P 10-23-2023:
Mild asymmetric left adrenal gland diffuse thickening and periadrenal fat stranding. Although nonspecific, this could reflect adrenal congestion as result of physiologic stress. No focal adrenal mass.
1 mm calcific focus in each kidney. . Differential includes arterial calcification versus nonobstructing calculi. No ureteral calculus, bilaterally. No hydronephrosis to suggest obstructive uropathy. There is, however, mild perinephric soft tissue
stranding, left slightly greater than right. Nonspecific. Cannot exclude changes related to urinary tract infection.
Possible mild small bowel ileus or nonspecific enteritis. No evidence to suggest bowel obstruction.
March catheter within the urinary bladder, which is collapsed. Diffuse urinary bladder wall thickening suggested. This could indicate cystitis. Generalized prostatic enlargement.
Subjective Dataa
Subjective Data
Date of Service:
Date of Service: October 24, 2023
Chief Complaint: Dynamics Ax Technical Architect Follow Up
Subjective:
Continues on pressors, CS, atbs,IVFs
Received LUE PICC
General malaise continues
Review of Systems
Cardiopulmonary: Dyspnea, Cough (n), Chest Pain (n) and Edema (n)
GI: Abdominal Pain (n)
Neuro: Weakness
Objective Data
Data Reviewed
Vital Signs / I&O / Oxygen:
Vital Signs
Temp Pulse Resp BP Pulse Ox
100.1 F 98 24 92/58 94
10/24/23 05:00 10/24/23 06:00 10/24/23 06:00 10/24/23 06:00 10/24/23 06:00
Intake and Output
10/23/23 10/24/23 10/25/23
06:59 06:59 06:59
Intake Total 6651.0 / 6651.0
Output Total 4025 / 4025
Balance 2626.0 / 2626.0
SaO2 94
Physical Exam
General: Respiratory Distress (very mild)
HEENT: Normocephalic and Moist Mucous Membranes
Cardiovascular: Regular Rhythm, Murmur (n), Peripheral Edema (n) and Calf Tenderness (n)
Respiratory: Clear, Non-Labored Respirations and Stridor (n)
GI: Soft, Non Distended and Non Tender
Neurology: Awake, Oriented and No Motor Deficits
Skin: Dry
Labs/Micro/Reports
Lab Data
10/24/23 03:29
10/24/23 03:29
Laboratory Results
10/23/23 10/24/23
13:22 03:29
PT 21.1 H 21.6 H
INR 1.78 1.84
Microbiology
10/23/23 05:07 Blood/Venous Blood Culture - Preliminary
Positive culture in progress
10/23/23 05:07 Blood/Venous Gram Stain - Preliminary
10/23/23 04:42 Blood/Venous Blood Culture - Preliminary
Positive culture in progress
10/23/23 04:42 Blood/Venous Gram Stain - Preliminary
10/23/23 05:01 Nasal Swab Influenza Types A & B (VANESA) - Final
Negative for Influenza A & B, NAAT
Negative results must be combined with clinical observations
and patient history.
Nucleic Acid Amplification test (NAAT)performed on the
[employer] platform.
[2023-10-24] MEDS: COLACE PO ×2 (07:40→19:12)
[2023-10-24] MEDS: NSS (PRESERVATIVE FREE) 10 ML IV (08:02)
[2023-10-24] MEDS: DETROL LA 4 MG PO (08:02)
[2023-10-24] MEDS: PROTONIX IV 40 MG IV (08:02)
--- NOTE | 2023-10-24 09:00 | PTCARENOTE ---
Rec'd pt at 0700 resting in bed needing to use the bedpan. Rec'd pt moaning stating he just doesn't feel well. Denied pain but admits to generalized achiness. Rec'd Ofermiv at 0600. Denies a headache. Speech is clear. ZHAO. Skin is pale pink wm and
dry. Does have dk purple area on R hand. Respirs are tachypnic in the 20's. Rec'd pt on simple mask that was changed to 4l nc at 0800 with sats of 94-95%. BS are decreased at the bases with bibase crackles. Monitor SR-ST. VS as documented. Rec'd pt
on IV Levophed at 15 mcg and Vasopressin at 0.03units. Currently titrating Levophed to MAP of 65. Both infusing along with Bicarb gtt via L TL PICC. + pulses. PT and DP pulses are weak but + with the doppler. No edema. Denies chest pain. Abd is
soft- pt states he has no appetite. On the bedpan twice this morning for a large then mod amt of loose brownish mucoid stool. NSS CBI continues via 3way march. Urine is yellow. Repositioned. Skin care given. Dr. Bhandari in seeing pt currently. Will send
labs shortly. Call damon in reach.
--- NOTE | 2023-10-24 09:09 | CON.ID ---
Consultation
-
Date/Time Consultation Requested: October 24, 2023 08
Date/Time Consultation Performed: October 24, 2023 0910
Requesting Provider: Dr. Poonam Loya
Performing Provider: Dr. Melissa Walton
Reason for Consultation: Septic shock
Chief Complaint / Past History
Chief Complaint
Fever and chills
History of Present Illness
63-year-old male with BPH who recently underwent aqua ablation of the prostate on October 18 at [facility]. Postprocedure complicated by gross hematuria with clots requiring OR cystoscopy and evacuation on October 19. He was
discharged to home on October 20. Urine was clear. However he was complaining of bladder discomfort from the Avalos. The Avalos was removed on October 22 at home. Bladder felt much improved. However that evening he suddenly developed chills,
fever and weakness. He came to the ER right away and October 23. Temperature 103.2, white count of 1.7, lactic acid 9.0, patient noted to be in [place]. Patient was hypotensive requiring 2 pressors. He was started on Zosyn. Straight cath in the ED
showed gross hematuria. Three-way Avalos catheter placed for bladder irrigation. Today patient reports he still feels very poorly. He does not feel any better. No history of recurrent UTIs. He reports no recent antibiotic. Since being in the
hospital his had loose stools today. No abdominal pain.
Past History
Additional Past Medical History:
BPH s/p aqua ablation 10/18/23
DJD
Right total hip replacement
Appendectomy
Arthroscopic knee surgery
Lumbar discectomy x 2
Allergy History:
NKA - No Known Allergies Allergy (Uncoded 10/23/23 04:48)
Unknown
Medications Reviewed: Yes
Current Antibiotics:
Zosyn
Social History
Tobacco: Non-Smoker
Alcohol: None
Drug: None
Personal:
Family History
Family History: Not Pertinent
Review of Systems
Review of Systems
General: Fever, Chills and Change in Appetite
HEENT: Negative Sinus Problems, Headache or Pharyngitis
Cardiovascular: Negative Chest Pain
Respiratory: Negative Dyspnea or Cough
Gasteroenterology: Negative Nausea or Vomiting
Endocrine: Weakness and Fatigue
Neurological: Negative Headache or Dizziness
All systems: All other systems were reviewed and were negative
Vital Signs
Temp Pulse Resp BP Pulse Ox
98.7 F 98 24 92/58 94
10/24/23 07:59 10/24/23 06:00 10/24/23 06:00 10/24/23 06:00 10/24/23 06:00
Selected Entries
10/24/23
01:33
Temp 101.3 F H
Physical Exam
Physical Exam
Constitutional: Acutely Ill
Eyes: No Conjunctival Hemorrhage and Sclera Anicteric
Oral: Negative No Thrush
Cardiovascular: Regular Rate and S1/S2
Pulmonary: Clear
Gastrointestinal: Soft, Non Tender, Non Distended and Normal Bowel Sounds
Genito-Urinary: Avalos and Turbid Urine; Negative CVA Tenderness
Extremities: Negative Edema
Neurological: AO x 3
Lab / Diagnostic Study Results
10/24/23 03:29
10/24/23 03:29
Total Counted 100 10/23/23 04:42
Abs Neuts (Manual) 1.4 10^3/uL (1.4-6.5) 10/23/23 04:42
Segmented Neutrophils 72 % (42-75) 10/23/23 04:42
Band Neutrophils 14 % (0-3) H 10/23/23 04:42
Lymphocytes (Manual) 12 % (20-51) L 10/23/23 04:42
PT 21.6 Sec (11.4-14.6) H 10/24/23 03:29
INR 1.84 10/24/23 03:29
Lactic Acid 5.0 mmol/L (0.7-2.0) H* 10/24/23 03:29
Microbiology Results
Micro:
10/23/23 05:07 Blood Culture - Preliminary
Blood/Venous Escherichia coli
Gram Stain - Preliminary
10/23/23 04:42 Blood Culture - Preliminary
Blood/Venous Escherichia coli
Gram Stain - Final
10/24/23 03:29 Blood Culture - Pending
Blood/Venous
10/23/23 04:59 Urine Culture - Pending
Urine
10/23/23 05:01 Influenza Types A & B (VANESA) - Final
Nasal Swab Negative for Influenza A & B, NAAT
Negative results must be combined with clinical observations
and patient history.
Nucleic Acid Amplification test (NAAT)performed on the
[email or web address] platform.
10/23/23 CXR: No acute disease of the chest.
10/23/23 CT a/p: 1 mm calcific focus in each kidney. . Differential includes arterial calcification versus nonobstructing calculi. No ureteral calculus, bilaterally. No hydronephrosis to suggest obstructive uropathy. There is, however, mild
perinephric soft tissue stranding, left slightly greater than right. Nonspecific. Cannot exclude changes related to urinary tract infection. Possible mild small bowel ileus or nonspecific enteritis. No evidence to suggest bowel obstruction. Avalos
catheter within the urinary bladder, which is collapsed. Diffuse urinary bladder wall thickening suggested. This could indicate cystitis. Generalized prostatic enlargement.
Assessment / Plan
# E. coli bacteremia from source, recent BPH procedure 10/18 at [facility]
# Septic shock
# [place] due to septic shock
- Replace Zosyn with meropenem pending susceptibility data.
Abx dose renally adjusted.
-Repeat blood cx's x 2
- Follow temps/wbc/vitals.
Care Review
Plan reviewed with: Nurse (Mita)
[2023-10-24] MEDS: NEUTRA-PHOS POWDER PACKET PO (09:17)
--- NOTE | 2023-10-24 09:22 | CON.MD ---
Consultation - Medical
-
Assessment
-Septic shock
-Ecoli sepsis s/p prostate aquaablation
-hypotension
-metabolic/lactic acidosis
-hypomagnesemia
-urinary retention
-[place]
Plan
-continue IVF
-bicarb amp
-serial BMP
-follow phos
-concentrate pressors
-keep MAP>65
-CBI per urology
-d/w potential for dialysis, would use CRRT if needed
-Abx per primary team
-follow LFTs
-critical care time 31 minutes
-[id number]
--- NOTE | 2023-10-24 09:40 | PTCARENOTE ---
Per Dr. Bhandari goal for MAP is 68. Currently at 18 mcg
[2023-10-24 09:54] LABS: Glycohemoglobin (HgbA1c) 5.7 % (4.0-5.6)
--- NOTE | 2023-10-24 10:05 | PTCARENOTE ---
States he is generally achy. 1 amp 50 meq Na HCO3 given IV via L PICC. Labs sent. IV fluids increased at 0930 to 150 mls/hr. Will continue to monitor.
[2023-10-24 10:39] LABS: Albumin 2.6 g/dl (3.5-5.0); Blood Urea Nitrogen 57 mg/dl (9-20); Calcium 6.6 mg/dl (8.4-10.2); Carbon Dioxide 16 mmol/L (22-30); Chloride 100 mmol/L (98-107); Estimated Creatinine Clearance 14 ml/min; Glucose 122 mg/dl (70-99); Phosphorus 5.3 mg/dl (2.5-4.5); Potassium 5.2 mmol/L (3.5-5.1); Sodium 131 mmol/L (135-145); eGFR 8.19
[2023-10-24] MEDS: STERILE WATER FOR INJECTION 20 ML IV (11:18)
[2023-10-24] MEDS: MERREM 1000 MG IV (11:19)
[2023-10-24] MEDS: LEVOPHED 258 MG IV ×2 (11:20→20:08)
--- NOTE | 2023-10-24 11:23 | W.PN.HOSP.TC ---
Today's Communication/Plan
-
IV fluids with bicarb
Follow labs
Nephrology and ID evaluations requested this morning
Keep MAP over 65 mmHg
Assessment / Plan
Assessment / Plan
63-year-old male prostate recently was seen at [facility] for aqua ablation of prostate on Tuesday. Tuesday had large bladder clot which required evacuation in the OR. He was discharged home on . Catheter was removed on 10/22/2023. Patient
was supposed to probably on 10/23/2023. 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 Urine bloody appearing in the ER
Awake alert and conversant
Muscular discomfort
No abdominal pain, no right upper quadrant tenderness
Cardiovascular system S1-S2 appreciated
Chest clear to auscultation
Abdomen soft and nontender
CBI with pink urine
No pedal edema
CT of the abdomen and pelvis mild asymmetric left adrenal gland diffuse thickening and. Renal fat stranding possible adrenal congestion. 1 mm calcific focus in each kidney no ureteral calculus no hydronephrosis. Mild perinephric soft tissue
stranding left greater than right nonspecific. Possible mid small bowel ileus/nonspecific enteritis. No small bowel obstruction. Avalos catheter in the bladder. Diffuse bladder wall thickening indicating cystitis. General prostatic enlargement.
# Septic shock
-Gram-negative bacteremia
-Likely source
-Chest x-ray reviewed by me-mild interstitial prominence-normal echo 10/26/2022. COVID and influenza negative.
-Continue IV antibiotics-Zosyn changed to meropenem pending cultures
-Repeat blood cultures
-IV fluids-maintain MAP over 65
-Pressors-Levophed, vasopressin
-CT abdomen pelvis as above
-Cortisol levels are okay do not think needs stress doses but leave up to floor molder
-ID and nephrology consulted
# Leukocytosis/leukopenia-secondary sepsis
# Lactic acidosis-follow with IV fluids and pressors
Fluids with bicarb
# Hematuria
-Status post aqua ablation of the prostate 10/18/2023 at [facility]
-Large clot in the bladder on 10/19/2023 needed OR evacuation
-Avalos placed in the [id number] urine on CBI
# Acute kidney injury-creatinine 5.9
-Likely secondary to septic shock and renal hypoperfusion/prerenal
-Also rule out postrenal-Avalos catheter placed
-Continue IV fluids and keep MAP over 65 mmHg
-Follow creatinine
-Nephrology evaluation
-May need dialysis temporarily if not improving
# Coagulopathy-secondary to sepsis-follow
# Hyponatremia
# Elevated LFTs-likely secondary to septic shock and decreased perfusion
-Improving
-CT scan of the abdomen and pelvis
# Hypokalemia-replace
# Hypomagnesemia-replace
# History of back surgery for disc herniation
# Hypoalbuminemia
# Alcohol use 3 to 4 glasses 3 times a week
# DVT prophylaxis-SCDs given bleeding
# Full code
D/W RN
Discussed with ICU team
Total Critical Care Time 32 minutes. I was immediately available to the patient and staff. I personally examined, reviewed labs, diagnostic images/reports, interpretations, treatment plans, discussed patient care with other providers and family ,
entered orders as appropriate and documented the medical record.
Anticipated Discharge: > 48 hours
Subjective/Interval History
-
Date of Service: October 24, 2023
Objective Data
-
Labs:
Laboratory Results
10/24/23 10/24/23 10/24/23
03:29 10:13 16:00
WBC 21.5 H
Hgb 10.0 L
Hct 27.2 L
Plt Count 142 D
PT 21.6 H
INR 1.84
Sodium 132 L 131 L Pending
Potassium 4.7 5.2 H Pending
Chloride 102 100 Pending
Carbon Dioxide 13 L* 16 L Pending
BUN 53 H 57 H Pending
Creatinine 5.9 H* 7.0 H* Pending
Glucose 142 H 122 H Pending
Calcium 7.3 L 6.6 L* Pending
Total Bilirubin 1.3
AST 192 H
ALT 160 H
Alkaline Phosphatase 94
Vital Signs:
Vital Signs
Temp Pulse Resp BP Pulse Ox
98.7 F 84 23 97/57 97
10/24/23 07:59 10/24/23 10:30 10/24/23 10:30 10/24/23 10:30 10/24/23 10:30
I&O
10/23/23 10/24/23 10/25/23
06:59 06:59 06:59
Intake Total 6651.0 / 6816.3 829.9 / 829.9
Output Total 4025 / 4025
Balance 2626.0 / 2791.3 829.9 / 829.9
[2023-10-24] MEDS: NOVOLIN R 10 UNITS IV (11:40)
[2023-10-24] MEDS: DEXTROSE 50% SYRINGE 25 GRAMS IV (11:43)
[2023-10-24 11:51] LABS: Glucose - Point of Care 97 mg/dl (70-99)
[2023-10-24] MEDS: CALCIUM GLUCONATE 290 MG IV (11:56)
[2023-10-24] MEDS: MORPHINE SULFATE 2 MG IV (11:59)
--- NOTE | 2023-10-24 12:15 | PTCARENOTE ---
Dozing off and on. Dr. Bhandari updated earlier on 1000 labs. Per MD orders -1140 given Regular Insulin 10 units IV along with 25 gms of D50 at 1143. 50 meq Sodium Bicarb given at 1150 and Ca++ Gluconate 4 gm rider hung at 1200. Levophed changed to
double concentrated- remains at 20 mcg. Does moan intermittently and admits to generalized achiness and being uncomfortable. Medicated at 1200 with Morphine 2 mg IV. in to see pt and updated. Call damon remains in reach.
--- NOTE | 2023-10-24 13:55 | PTCARENOTE ---
Dozing intermittently. Still moans when awake. Needs reassurance. Levophed decreased to [address] Bhandari on Urine output of 100 mls for the day.
--- NOTE | 2023-10-24 14:16 | PTCARENOTE ---
Starting to wean the Levophed as BP MAP permits. Pt c/o light sensitivity eye shield given
--- NOTE | 2023-10-24 15:54 | CM ---
TC to spouse.
Patient lives with spouse in a 2 story home.
Independent prior to admission.
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
Patient also has a row machine at home.
Keeps very active.
No hx vn or skilled.
Watching BUN/Creat.
Plan: home no needs anticipated.
--- NOTE | 2023-10-24 16:20 | PTCARENOTE ---
Resting. Light sensitivity has subsided. C/O nausea- Medicated currently with Zofran 4 mg IV. Back on bedpan for small amt of brown, loose, liquid less mucoid stool. Respirs are shallow and fast but non-labored. O2 decreased to 2l nc with sats of
97%. Weaning IV Levophed as BP permits. Currently at 14 mcg. Labs sent as ordered. No changes. Call damon in reach. Pt frequently updated on plan of care.
[2023-10-24 16:33] LABS: Lactic Acid 6.4 mmol/L (0.7-2.0)
[2023-10-24 16:38] LABS: Blood Urea Nitrogen 62 mg/dl (9-20); Calcium 7.3 mg/dl (8.4-10.2); Carbon Dioxide 17 mmol/L (22-30); Chloride 97 mmol/L (98-107); Estimated Creatinine Clearance 13 ml/min; Glucose 99 mg/dl (70-99); Potassium 5.1 mmol/L (3.5-5.1); Sodium 129 mmol/L (135-145); eGFR 7.91
[2023-10-24] MEDS: PITRESSIN 100 IV (16:58)
[2023-10-24 17:47] LABS: Glucose - Point of Care 93 mg/dl (70-99)
[2023-10-24] MEDS: CALCIUM GLUCONATE 100 IV (17:49)
[2023-10-24] MEDS: FLUSH (NSS) 2 FLUSH IV (17:50)
--- NOTE | 2023-10-24 17:50 | PTCARENOTE ---
Dr. Bhandari updated on 1600 labs and orders obtained. Bicarb gtt dc'd at 1730. Currently 1 amp NaHCO3 given. Calcium Gluconate 2 gm rider hung. Carefully weaning Levophed keeping MAP >68. Currently at 12 mcg.Pt dozes intermittently but when awake states
he just feels weak and tired. Had some additional dry heaving despite earlier Zofran that has since subsided. Respirs when dozing are in the 24-25 range and when awake closer to 30 with more audible grunting/moaning. Sats 95%. CBI is yellowish with
very light pink tinge. Will continue to monitor
[2023-10-24] MEDS: SODIUM BICARBONATE IV (19:29)
--- NOTE | 2023-10-24 21:00 | PTCARENOTE ---
Pt anxious, all questions answered regarding plan of care. Febrile, Ofirmev given. Remains on Vaso and Levo, titrating levo to clinical endpoints. Labs q6h. 2L nasal cannula, crackles at bases, tachypneic. Intermittent nausea. Zofran PRN. CBI as
ordered. Will monitor and support pt.
[2023-10-24 23:00] LABS: Lactic Acid 7.1 mmol/L (0.7-2.0)
[2023-10-24 23:18] LABS: Blood Urea Nitrogen 77 mg/dl (9-20); Calcium 7.5 mg/dl (8.4-10.2); Carbon Dioxide 17 mmol/L (22-30); Chloride 92 mmol/L (98-107); Estimated Creatinine Clearance 12 ml/min; Glucose 74 mg/dl (70-99); Potassium 5.1 mmol/L (3.5-5.1); Sodium 130 mmol/L (135-145)
[2023-10-25] VITALS (56 sets, daily range): BP systolic 101–138; BP diastolic 59–88; BMI 26.8
[2023-10-25] MEDS: VALIUM INJECTION 5 MG IV ×2 (00:46→17:43)
[2023-10-25] MEDS: ZOFRAN 4 MG IV (00:46)
[2023-10-25] MEDS: DILAUDID 0.5 MG IV (03:18)
[2023-10-25 03:29] LABS: Hematocrit 29.2 % (39.0-52.0); Hemoglobin 10.3 g/dL (13.0-18.0); Mean Corp Hgb Conc. 35.3 g/dL (33.0-37.0); Mean Corpuscular Hgb 31.3 pg (27.0-31.0); Mean Corpuscular Volume 88.8 fL (80.0-94.0); Mean Platelet Volume 12.3 fL (7.4-10.4); Platelet Count 81 10^3/uL (130-400); Red Blood Cell Count 3.29 10^6/uL (4.70-6.10); Red Cell Dist. Width 12.9 % (11.5-14.5); White Blood Cell Count 25.8 10^3/uL (4.8-10.8)
[2023-10-25 03:46] LABS: Lactic Acid 6.9 mmol/L (0.7-2.0)
[2023-10-25 04:27] LABS: ALT (SGPT) 135 U/L (0-50); AST (SGOT) 160 U/L (17-59); Albumin 2.7 g/dl (3.5-5.0); Alkaline Phosphatase 94 U/L (38-126); Blood Urea Nitrogen 79 mg/dl (9-20); Calcium 7.1 mg/dl (8.4-10.2); Carbon Dioxide 15 mmol/L (22-30); Chloride 97 mmol/L (98-107); Glucose 84 mg/dl (70-99); Magnesium 1.8 mg/dl (1.6-2.3); Potassium 5.4 mmol/L (3.5-5.1); Sodium 132 mmol/L (135-145); Total Protein 4.6 g/dl (6.3-8.2)
[2023-10-25] MEDS: MAGNESIUM SULFATE 102 GRAMS IV (04:46)
[2023-10-25] MEDS: CALCIUM GLUCONATE 100 IV (04:46)
[2023-10-25 04:48] LABS: Estimated Creatinine Clearance 13 ml/min; eGFR 7.42
--- NOTE | 2023-10-25 05:02 | PTCARENOTE ---
Pt in new onset AFIB 120-130. BP 112/78 on 2 pressors. WHEEL BLOCKER Burgos aware. EKG done. Mag and Calcium repleted, along with AMP bicarb. Cards consulted. Await further orders. Will monitor.
[2023-10-25] MEDS: SOLU-CORTEF 50 MG IV (05:09)
[2023-10-25] MEDS: SODIUM BICARBONATE 50 MEQ IV (05:09)
--- NOTE | 2023-10-25 07:26 | W.PN.INTV ---
Today's Communication / Plan
Recommendations
O2
Atbs
Diuretic
Lyte replacement
Assessment
-
Assessment: 63-year-old male never smoker with a PMHx of BPH and DDD presents with tachycardia and fever. He had a recent prostate ablation done on Tuesday at [place]. March catheter was removed yesterday and patient reports he has been urinating,
however this morning he awoken with fever and his heart rate was elevated. EMS says heart rate was in 150s and temperature 101.5F. En route here to the ER, he was given a 200mcg push dose of epinephrine, 4 mg Zofran and 50 mg Benadryl plus 1.7L of
IVF (per SKEIN YARN DYER per her report). He was febrile in the ER and tachycardic, also hypotensive. Labs showed lactic acidosis with leukopenia and bandemia. CT abdomen/pelvis was concerning for perinephric stranding bilaterally and possible small bowel
ileus versus nonspecific enteritis. Patient given fluids with 1 L NS 0.9% as well as antibiotics however patient remained hypotensive requiring Levophed. Patient admitted to the ICU and professor of political science services consulted for additional
management/recommendations.
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
Impression:
#Septic shock due to E coli bacteriemia, suspected origin from UTI/pyelo (UCx GNB)
#Complicated UTI/pyelo with recent prostate ablation c/b clot s/p retention and fulguration
#Acute respiratory failure with hypoxemia due to sepsis with acute organ dysfunction
#Hypokalemia
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
#Acute kidney injury
#Metabolic/lLactic acidosis
#Elevated LFTs
#Leukopenia with mild neutropenia
#Anemia
#BPH with recent prostate ablation now on CBI
Plan:
- Continue vasopressors: NE currently at low dose/vasopressin
LUE PICC placed
- Broad-spectrum antibiotics: zosyn since adm, transitioned to meropenem 10-24 per ID
Follow-up infectious workup with urine and blood cultures
U cx E coli
Blood cxs positive for E coli 10-23, keating-S, atbs changed to high dose ceftriaxone 10-25
Started empiric stress dose CS: HC 50 mg IV q6, will d/c 10-25. Normal random cortisol
- Urology following --> placed 3-way march and he is currently on CBI on moderate drip rate
Tolterodine po
- Maintain SpO2 >90-94% with supplemental O2 as needed
Currently on O2 NC 3L, POx 95%
New onset AFib
HR low 120s, no hypotensive on low dose NE, will wean down as tolerated (vasopressin on hold since 7 am)
Not for AC as d/w Urology
- pain control
[place] with Cr trending up
Trend serum Cr and UOP with goal >0.5cc/kg/hr (try to accurately quantify I/O as he is on CBI at a moderate rate, d/w RN)
Metabolic/lactic acidosis, hyperkalemia
Diuretic trial 10-25
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
Refractory hypocalcemia in spite of 2 g Ca, redose
Likely cause is sepsis
Transaminitis, mild, likely due to sepsis, improving
- anti-pyretics as needed with tylenol; avoid NSAIDs given recent bladder clot and [place]
- anti-emetics as needed
- Transfuse blood products as needed to keep Hb>7, plt>50k and INR<1.8
- Replete K>4, Mg>2, PO4>3
- Maintain euglycemia with goal BG 140�180
- DVT prophylaxis
GI proph: IV PPI
Full code status
Guarded prognosis at this juncture
D/w MDT
Critical care time: 35 min
Data:
CXR 10-23-2023: No focal dense consolidation. However, mild to moderate interstitial prominence is noted in the mid to lower lung zones, right greater than left. The upper lung zones are clear. Cannot exclude viral respiratory syndrome.
CT A/P 10-23-2023:
Mild asymmetric left adrenal gland diffuse thickening and periadrenal fat stranding. Although nonspecific, this could reflect adrenal congestion as result of physiologic stress. No focal adrenal mass.
1 mm calcific focus in each kidney. . Differential includes arterial calcification versus nonobstructing calculi. No ureteral calculus, bilaterally. No hydronephrosis to suggest obstructive uropathy. There is, however, mild perinephric soft tissue
stranding, left slightly greater than right. Nonspecific. Cannot exclude changes related to urinary tract infection.
Possible mild small bowel ileus or nonspecific enteritis. No evidence to suggest bowel obstruction.
March catheter within the urinary bladder, which is collapsed. Diffuse urinary bladder wall thickening suggested. This could indicate cystitis. Generalized prostatic enlargement.
Subjective Dataa
Subjective Data
Date of Service:
Date of Service: October 25, 2023
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
Subjective:
Continues on NE
Continues on low flow O2, 2L, POx 92%
CBI drainage clear
Review of Systems
General: Other (limited historian due to acuity)
Objective Data
Data Reviewed
Vital Signs / I&O / Oxygen:
Vital Signs
Temp Pulse Resp BP Pulse Ox
97.2 F 111 14 115/84 92
10/25/23 04:00 10/25/23 07:00 10/25/23 07:00 10/25/23 07:00 10/25/23 07:00
Intake and Output
10/24/23 10/25/23 10/26/23
06:59 06:59 06:59
Intake Total 6651.0 / 6816.3 3530.1 / 3530.1
Output Total 4025 / 4025 400 / 400
Balance 2626.0 / 2791.3 3130.1 / 3130.1
SaO2 92
Nasal Cannula flow liters per 2
minute
Physical Exam
General: Respiratory Distress (very mild)
HEENT: Normocephalic and Moist Mucous Membranes
Cardiovascular: Regular Rhythm, Murmur (n), Peripheral Edema (n) and Calf Tenderness (n)
Respiratory: Clear, Non-Labored Respirations and Stridor (n)
GI: Soft, Non Distended and Non Tender
Neurology: Awake, Oriented and No Motor Deficits
Skin: Dry
Labs/Micro/Reports
Lab Data
10/25/23 03:14
10/25/23 03:14
Microbiology
10/24/23 03:29 Blood/Venous Blood Culture - Preliminary
No Growth in 24 hours- Final report to follow
10/23/23 04:59 Urine Urine Culture - Preliminary
Gram negative bacilli
10/23/23 04:42 Blood/Venous Blood Culture - Preliminary
Escherichia coli
10/23/23 04:42 Blood/Venous Gram Stain - Final
10/23/23 05:07 Blood/Venous Blood Culture - Preliminary
Escherichia coli
10/23/23 05:07 Blood/Venous Gram Stain - Final
10/23/23 05:01 Nasal Swab Influenza Types A & B (VANESA) - Final
Negative for Influenza A & B, NAAT
Negative results must be combined with clinical observations
and patient history.
Nucleic Acid Amplification test (NAAT)performed on the
[employer] platform.
--- NOTE | 2023-10-25 07:42 | W.PN.URO.CBU ---
Today's Communication / Plan
-
continue march and cbi
continue medical support
Assessment / Plan
-
post op gram negative spesis- ECOLI- after aqua-ablation
hematuria- well managed with cbi
now developing renal failure
ct scan did not indicated any evid of obstruction/abscess or leak- abd exam benign and pt with no specific abd complaints
from urologic standpoint- continue march and cbi
HE IS NOT A CANDIDATE FOR ANTICOAGULATION AT THE CURRENT TIME GIVEN RECENT SURGERY AND ALREADY UNDERGOING A TAKEBACK FOR BLEEDING- asa would be ok
continuing broad spectrum antibx and medical suppost
may need dialysis- no evid of obstruction on ct scan
I did speak to his surgeon dr reid at [facility]- he did not have any other specific rec and has been communicating with pt's
left message for yesterday and today
Diagnosis
-
Date of Service: October 25, 2023
-
Patient Diagnosis:
s/p aqua-ablation
post op sepsis- ecoli
hematuria
renal failure
Subjective
-
no specific events but no sig improvement
did go into afib overnight
wbc remain elevated
cr also rising
urine clear on minimal drip cbi
no abd pain and exam benign
Objective
-
Vital Signs
Temp Pulse Resp BP Pulse Ox
97.2 F 111 14 115/84 92
10/25/23 04:00 10/25/23 07:00 10/25/23 07:00 10/25/23 07:00 10/25/23 07:00
Intake and Output
10/24/23 10/25/23 10/26/23
06:59 06:59 06:59
Intake Total 6651.0 / 6816.3 3530.1 / 3530.1
Output Total 4025 / 4025 400 / 400
Balance 2626.0 / 2791.3 3130.1 / 3130.1
Intake:
Oral fluids 540 / 540 350 / 350
IV fluids (Total) 4491.0 / 4656.3 2830.1 / 2830.1
Marcela Gluconate 390 / 390
Nss 1,000 ml @ 150 mls/hr IV . 900 / 900
Q6H40M MICHAEL Rx#:[id number]
Sterile Water For Injection 1575 / 1675 1500 / 1500
1000 ml 1,000 ml @ 100 mls/hr
IV .[id number] MICHAEL with Sodium
Bicarbonate 150 Meq Rx#:
[id number]
kcl 270.0 / 270.0
levo 1466.0 / 1522.3 724.1 / 724.1
mag 100 / 100
vaso 180 / 189 216 / 216
IV piggybacks 1620 / 1620 350 / 350
Output:
Drain Output (Total) 1999 / 1999
True Urine Output from CBI 2024 / 2024 400 / 400
Laboratory Results
10/25/23 03:14
10/25/23 03:14
Physical Exam
-
General - no acute distress
Abdomen - soft, non-tender
Genitalia - normal- [address]
Skin - warm & dry with no rash
Neuro - AOx3, no motor deficits
Extremities - no clubbing, no cyanosis, no edema
[2023-10-25] MEDS: DETROL LA 4 MG PO (08:49)
[2023-10-25] MEDS: NSS (PRESERVATIVE FREE) 10 ML IV (08:49)
[2023-10-25] MEDS: COLACE PO (08:49)
[2023-10-25] MEDS: PROTONIX IV 40 MG IV (08:49)
--- NOTE | 2023-10-25 09:18 | W.PN.NEPH.PH ---
Today's Communication / Plan
-
lasix trial
Assessment/Plan
-
Assessment
-Septic shock
-Ecoli sepsis s/p prostate aquaablation
-hypotension
-metabolic/lactic acidosis
-hypomagnesemia
-urinary retention
-[place]
Plan
-no IVF
-bicarb amp
-serial BMP/lactate
-concentrate pressors
-keep MAP>65
-CBI per urology
-no emergent HD needs currently
-Abx per primary team
-follow LFTs
-critical care time 31 minutes
-
-
Date of Service: October 25, 2023
CC / HPI / ROS
-
Chief Complaint:
[place]
History of Present Illness:
[place]/Cr stable 7.6
critically ill in ICU on pressors, but down to one
acidosis persists
lactic acidosis persists
K slightly high 5.4
CBI continues
on abx for ecoli sepsis
afib overnight
Review of Systems:
no CP/SOB
mild suprapubic discomfort
Labs
-
Labs:
WBC 25.8 10^3/uL (4.8-10.8) H 10/25/23 03:14
RBC 3.29 10^6/uL (4.70-6.10) L 10/25/23 03:14
Hgb 10.3 g/dL (13.0-18.0) L 10/25/23 03:14
Hct 29.2 % (39.0-52.0) L 10/25/23 03:14
Plt Count 81 10^3/uL (130-400) L D 10/25/23 03:14
Sodium 132 mmol/L (135-145) L 10/25/23 03:14
Potassium 5.4 mmol/L (3.5-5.1) H 10/25/23 03:14
Chloride 97 mmol/L (98-107) L 10/25/23 03:14
Carbon Dioxide 15 mmol/L (22-30) L 10/25/23 03:14
BUN 79 mg/dl (9-20) H 10/25/23 03:14
Creatinine 7.6 mg/dL (0.7-1.3) H* 10/25/23 03:14
eGFR 7.42 10/25/23 03:14
Glucose 84 mg/dl (70-99) 10/25/23 03:14
Calcium 7.1 mg/dl (8.4-10.2) L 10/25/23 03:14
Phosphorus 5.3 mg/dl (2.5-4.5) H 10/24/23 10:13
Albumin 2.7 g/dl (3.5-5.0) L 10/25/23 03:14
Physical Exam
-
Vital Signs:
Vital Signs
Temp Pulse Resp BP Pulse Ox
97.6 F 111 14 115/84 92
10/25/23 08:12 10/25/23 07:00 10/25/23 07:00 10/25/23 07:00 10/25/23 07:00
Cardiovascular:: Regular rate and rhythm
Respiratory:: Bilateral: Coarse
Lung Excursion:: Normal
Abdomen:: Nontender and Soft
Bowel Sounds:: Normal (high pitched)
Extremity Edema:: +1: Bilateral:
--- NOTE | 2023-10-25 09:43 | W.PN.HOSP.TC ---
Addendum entered and electronically signed by Poonam Loya MD 10/25/23 15:10:
LFTS - qualify as shock liver
Addendum entered and electronically signed by Poonam Loya MD 10/25/23 11:40:
Met with patient's and son at bedside and reviewed his medical condition. Updated. All questions answered to the best of my knowledge.
Original Note:
Today's Communication/Plan
-
AB
Lasix
ECHO
Cards eval
Assessment / Plan
Assessment / Plan
63-year-old male prostate recently was seen at [facility] for aqua ablation of prostate on Tuesday. Tuesday had large bladder clot which required evacuation in the OR. He was discharged home on . Catheter was removed on 10/22/2023. Patient
was supposed to probably on 10/23/2023. 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 Urine bloody appearing in the ER
Awake alert and conversant
Muscular discomfort
No abdominal pain, no right upper quadrant tenderness
Cardiovascular system S1-S2 irregular
Chest decreased at bases
Abdomen distended, bs diminished
CBI with pink urine
No pedal edema
CT of the abdomen and pelvis mild asymmetric left adrenal gland diffuse thickening and. Renal fat stranding possible adrenal congestion. 1 mm calcific focus in each kidney no ureteral calculus no hydronephrosis. Mild perinephric soft tissue
stranding left greater than right nonspecific. Possible mid small bowel ileus/nonspecific enteritis. No small bowel obstruction. Avalos catheter in the bladder. Diffuse bladder wall thickening indicating cystitis. General prostatic enlargement.
# Septic shock
-E Coli Sepsis
-Likely source
-Chest x-ray reviewed by me-mild interstitial prominence-normal echo 10/26/2022. COVID and influenza negative.
-Continue IV antibiotics-Zosyn changed to meropenem to Rocephin
-Repeat blood cultures neg
-Maintain MAP over 65
-Pressors-Levophed, Off vasopressin
-CT abdomen pelvis as above
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
-ID ,Urology and nephrology also following
#New Afib
Rates acceptable now
Not a candidate for AC per D/W Urology given recent bleed
will get an echo
Cards eval
# Leukocytosis/leukopenia-secondary sepsis
Partially also from steroids
# Mucous in stool and diarrhea, Bloating
Possible ileus
Check C diff
# Lactic acidosis-follow with IV fluids and pressors
Fluids with bicarb
# Hematuria
-Status post aqua ablation of the prostate 10/18/2023 at [facility]
-Large clot in the bladder on 10/19/2023 needed OR evacuation
-Avalos placed in the [id number] urine on CBI
# Acute kidney injury-creatinine 5.9
-Likely secondary to septic shock and renal hypoperfusion/prerenal
-ATN Possible
-Also rule out postrenal-Avalos catheter placed
-Keep MAP over 65 mmHg
-Follow creatinine
-May need dialysis temporarily if not improving
-Trial of Lasix today
# Coagulopathy-secondary to sepsis-follow
# Hyponatremia-Volume OL now
Lasix
# Elevated LFTs-likely secondary to septic shock and decreased perfusion
-Improving
-CT scan of the abdomen and pelvis
# Hypokalemia-replaced, now hyper
# Hypomagnesemia-replaced
# History of back surgery for disc herniation
# Hypoalbuminemia
# Alcohol use 3 to 4 glasses 3 times a week
# DVT prophylaxis-SCDs given bleeding
# Full code
D/W Urology
Discussed with ICU team
Left a message for
Total Critical Care Time 31 minutes. I was immediately available to the patient and staff. I personally examined, reviewed labs, diagnostic images/reports, interpretations, treatment plans, discussed patient care with other providers and left
message for family , entered orders as appropriate and documented the medical record.
Anticipated Discharge: > 48 hours
Subjective/Interval History
-
Date of Service: October 25, 2023
Objective Data
-
Labs:
Laboratory Results
10/24/23 10/25/23 10/25/23
22:34 03:14 08:13
WBC 25.8 H
Hgb 10.3 L
Hct 29.2 L
Plt Count 81 L D
PT Pending
INR Pending
Sodium 130 L 132 L
Potassium 5.1 5.4 H
Chloride 92 L 97 L
Carbon Dioxide 17 L 15 L
BUN 77 H 79 H
Creatinine 7.7 H* 7.6 H*
Glucose 74 84
Calcium 7.5 L 7.1 L
Total Bilirubin 1.0
AST 160 H
ALT 135 H
Alkaline Phosphatase 94
10/25/23 10/25/23
09:42 15:00
WBC
Hgb
Hct
Plt Count
PT
INR
Sodium Pending Pending
Potassium Pending Pending
Chloride Pending Pending
Carbon Dioxide Pending Pending
BUN Pending Pending
Creatinine Pending Pending
Glucose Pending Pending
Calcium Pending Pending
Total Bilirubin
AST
ALT
Alkaline Phosphatase
Vital Signs:
Vital Signs
Temp Pulse Resp BP Pulse Ox
97.6 F 111 14 115/84 92
10/25/23 08:12 10/25/23 07:00 10/25/23 07:00 10/25/23 07:00 10/25/23 07:00
I&O
10/24/23 10/25/23 10/26/23
06:59 06:59 06:59
Intake Total 6651.0 / 6816.3 3530.1 / 3539.5 68.2 / 68.2
Output Total 4025 / 4025 400 / 400
Balance 2626.0 / 2791.3 3130.1 / 3139.5 68.2 / 68.2
--- NOTE | 2023-10-25 09:46 | W.PN.ID1 ---
Date of Service
Date of Service: October 25, 2023
Today's Communication
Narrow meropenem to cefttriaxone.
Assessment / Plan
# E. coli bacteremia from source, recent prostate ablation procedure 10/18 at [facility]
# Septic shock
remains on one pressor; fever trending down, leukocytosis trending up
# [place] worse
-Repeat blood cx's x 2 neg to date.
-Narrow meropenem to ceftriaxone.
- Remains critically ill.
- Follow temps/wbc/vitals.
#Additional Past Medical History:
BPH s/p aqua ablation 10/18/23
DJD
Right total hip replacement
Appendectomy
Arthroscopic knee surgery
Lumbar discectomy x 2
Allergy History:
Chief Complaint
-: Clinical Sepsis and Bacteremia
Subjective / Review of Systems
Drowsy/tired.
Vital Signs / Physical Exam
Vital Signs
Vital Signs
Temp Pulse Resp BP Pulse Ox
97.6 F 111 14 115/84 92
10/25/23 08:12 10/25/23 07:00 10/25/23 07:00 10/25/23 07:00 10/25/23 07:00
Physical Exam
Constitutional: Acutely Ill
Eyes: Sclera Anicteric
Cardiovascular: S1/S2 and Other (tachycardic)
Pulmonary: Clear (anterior)
Gastrointestinal: Soft, Non Tender and Non Distended
Genito-Urinary: Avalos and Clear Urine
Extremities: Negative Edema
Neurological: Other (drowsy)
Objective Data
Lab Data
Lab Results
10/25/23 03:14
PT 21.6 Sec (11.4-14.6) H 10/24/23 03:29
INR 1.84 10/24/23 03:29
APTT 65.4 Sec (23.4-35.0) H 10/23/23 04:42
Estimated Creat Clear 13 ml/min 10/25/23 03:14
Lactic Acid 6.9 mmol/L (0.7-2.0) H* 10/25/23 03:14
Total Bilirubin 1.0 mg/dl (0.2-1.3) 10/25/23 03:14
AST 160 U/L (17-59) H 10/25/23 03:14
ALT 135 U/L (0-50) H 10/25/23 03:14
Alkaline Phosphatase 94 U/L (38-126) 10/25/23 03:14
Most recent labs reviewed.
Micro Results:
10/23/23 05:07 Blood Culture - Preliminary
Blood/Venous Escherichia coli
Gram Stain - Final
10/23/23 04:42 Blood Culture - Final
Blood/Venous Escherichia coli
Gram Stain - Final
10/23/23 04:59 Urine Culture - Preliminary
Urine Escherichia coli
10/24/23 03:29 Blood Culture - Preliminary
Blood/Venous No Growth in 24 hours- Final report to follow
10/25/23 03:14 Blood Culture - Pending
Blood/Venous
10/23/23 05:01 Influenza Types A & B (VANESA) - Final
Nasal Swab Negative for Influenza A & B, NAAT
Negative results must be combined with clinical observations
and patient history.
Nucleic Acid Amplification test (NAAT)performed on the
[employer] platform.
10/23/23 CXR: No acute disease of the chest.
10/23/23 CT a/p: 1 mm calcific focus in each kidney. . Differential includes arterial calcification versus nonobstructing calculi. No ureteral calculus, bilaterally. No hydronephrosis to suggest obstructive uropathy. There is, however, mild
perinephric soft tissue stranding, left slightly greater than right. Nonspecific. Cannot exclude changes related to urinary tract infection. Possible mild small bowel ileus or nonspecific enteritis. No evidence to suggest bowel obstruction. Avalos
catheter within the urinary bladder, which is collapsed. Diffuse urinary bladder wall thickening suggested. This could indicate cystitis. Generalized prostatic enlargement.
[2023-10-25 10:27] LABS: Lactic Acid 5.1 mmol/L (0.7-2.0)
[2023-10-25 10:28] LABS: INR 1.21; PT 15.6 Sec (11.4-14.6)
[2023-10-25] MEDS: ROCEPHIN 2000 MG IV (10:28)
[2023-10-25] MEDS: LASIX 80 MG IV (10:28)
[2023-10-25] MEDS: STERILE WATER FOR INJECTION 20 ML IV (10:28)
[2023-10-25 10:33] LABS: Blood Urea Nitrogen 87 mg/dl (9-20); Carbon Dioxide 18 mmol/L (22-30); Chloride 97 mmol/L (98-107); Glucose 96 mg/dl (70-99); Magnesium 2.3 mg/dl (1.6-2.3); Potassium 5.2 mmol/L (3.5-5.1); Sodium 131 mmol/L (135-145)
[2023-10-25 10:47] LABS: Estimated Creatinine Clearance 11 ml/min; eGFR 6.58
[2023-10-25 12:00] LABS: Glucose - Point of Care 92 mg/dl (70-99)
--- NOTE | 2023-10-25 12:55 | W.PN.CD ---
Today's Communication / Plan
-
Consult to be dictated
Suggest:
- If AFib persists once off Levophed for a period of time then we will consider a short course of amiodarone
- Echo once heart rate better controlled
- No anticoagulation needed chronically. If we cardiovert him after AFib duration exceeds 48 hrs we will need 28 days of anticoagulation but urology does not feel he is ready for anticoagulation
Impression / Plan
-
New onset AFib with rapid ventricular response precipitated by urologic sepsis
- [id number] is zero.
- I would not say he has vascular disease based on an elevated coronary calcium score with no significant CAD at cor angio. But if a point is awarded for that his score would be 1.
Sepsis from E. Coli bacteremia after recent prostate procedure
Prostate cancer
Physical Exam
Vital Signs/Labs
Vital Signs
Temp Pulse Resp BP Pulse Ox
97.8 F 122 16 112/76 95
10/25/23 11:22 10/25/23 11:30 10/25/23 11:30 10/25/23 11:30 10/25/23 11:30
10/24/23 10/25/23 10/26/23
06:59 06:59 06:59
Actual Weight 99.3 kg 102.4 kg
10/25/23 03:14
PT 15.6 Sec (11.4-14.6) H 10/25/23 10:06
INR 1.21 10/25/23 10:06
APTT 65.4 Sec (23.4-35.0) H 10/23/23 04:42
Magnesium 2.3 mg/dl (1.6-2.3) 10/25/23 10:06
Data Reviewed
-
Date of Service: October 25, 2023
--- NOTE | 2023-10-25 13:22 | PTCARENOTE ---
Pt assisted oob to chair. Initially lightheaded, but recovered without intervention. Increased belching while sitting on side of bed. Tolerated well. Sats 89-90 while in chair. Instructed on use of IS to encourage deep breathing. Echo
currently held given rapid afib. Weaning levo as able. Dr Bhandari updated to am labs, I/O etc
--- NOTE | 2023-10-25 13:44 | W.PN.UPDATE ---
Update Note
Progress Note Update
RTSP: d/w pt, , and son. progressive [place], essentially anuric. remains hypotense on pressors. He will need to start diaylsis, will do CRRT given hypotension.
They are in agreement.
--- NOTE | 2023-10-25 14:27 | PN.CDI ---
Addendum entered and electronically signed by Poonam Loya MD 10/25/23 15:09:
ask urology
Original Note:
CDI
- -
CDI:
Physician Documentation Request
Admit Date: 10/23/23 06:37
Dear Doctor Shalini,
Please review the following and provide your response in the progress notes.
Clinical Indicators:
Pt admitted with Septic Shock 2/2 UTI
Documented per ED, ' sepsis, UTI likely, probably related to recent instrumentation from prostate procedure...'
Progress note 10/23, ' aqua ablation of prostate on Tuesday. Tuesday had large bladder clot which required evacuation in the OR. He was discharged home on . Catheter was removed on 10/22/2023. ...'
Please provide the suspected Etiology of the documented UTI:
Multifactorial due to Recent Avalos Catheter / instrumentation from prostate procedure.
Due to recent Avalos catheter
Due to recent instrumentation from prostate procedure
Other
Use of terms such as suspected, likely, concern for, or probable (associated with a specific diagnosis that is being evaluated, monitored, or treated as if it exists) are acceptable and can be coded in the inpatient setting, when documented at the
time of discharge.
Thank you,
Radha Hunter RN
CDI Specialist
[facility]
Please use your independent medical judgment in providing your response.
--- NOTE | 2023-10-25 14:36 | PN.CDI ---
CDI
- -
CDI:
Physician Documentation Request
Admit Date: 10/23/23 06:37
Dear Doctor Shalini,
Please review the following and provide your response in the progress notes.
Clinical Indicators:
Pt admitted with Septic Shock 2/2 UTI
Documented per H&P, Progress notes 10/23-10/25,' Abnormal LFTs Also likely secondary to septic shock / decreased perfusion.'
Pt was on multiple pressors /LFTs below
10/23/23 10/23/23 10/24/23
04:42 04:42 03:29
AST 424 H 192 H
ALT 190 H
10/24/23 10/25/23 10/25/23
03:29 03:14 03:14
AST 160 H
ALT 160 H 135 H
Based on the above, could you clarify in the progress notes, the appropriate diagnosis, if significant, that supports the above abnormalities and additional evaluation, monitoring and/or treatment rendered:
Shock liver
Elevated LFTs only
Other
Use of terms such as suspected, likely, concern for, or probable (associated with a specific diagnosis that is being evaluated, monitored, or treated as if it exists) are acceptable and can be coded in the inpatient setting, when documented at the
time of discharge.
Thank you,
Radha Hunter RN
CDI Specialist
[place] [facility]
Please use your independent medical judgment in providing your response.
--- NOTE | 2023-10-25 14:44 | CM ---
CM following re: discharge planning.
Discussed in Rounds, reviewed pt's chart, met with pt. pt's spouse and pt's son at bedside. Per Rounds meeting, CRRT will be started today, nephrology and cardiology following.
Pt admitted feeling awful, support offered and provided. Both pt and his family are aware of treatment plan, expressed their agreement.
Pt's spouse stated she works as outpatient physical therapist here at and she would like her gets the best PT/OT upon the discharge.
Pt will be evaluated by PT and OT to determine a level of care at discharge.
D/c plan: uncertain at this time and will depend on pt's progress.
CM will follow with discharge plan updates as hospitalization progresses.
[2023-10-25] MEDS: RFP-400 Hemodialysis Solution (K+ 2 mEq/L) 15000 ML CRRT-IRR (15:38)
--- NOTE | 2023-10-25 16:41 | PTCARENOTE ---
CRRT initiated as ordered. Labs entered for 2200 per protocol. Pt is sleeping comfortably Weaning levo as tolerated
--- NOTE | 2023-10-25 17:01 | W.PN.UPDATE ---
Update Note
Progress Note Update
Seen on CRRT. no issues.
-100ml/hr
2K
BP stable, still weaning pressors
anuric
[2023-10-25 17:51] LABS: Glucose - Point of Care 80 mg/dl (70-99)
--- NOTE | 2023-10-25 17:59 | PTCARENOTE ---
pt now off pressors. was c/o bladder/abd spasms, valium given with improvement in symptoms. Pt encouraged to use IS. Then assisted with turning to his side. called and was given update
--- NOTE | 2023-10-25 20:00 | PTCARENOTE ---
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 intermittent tremors noted, denies pain, afebrile. Afib HR 120-140, L PICC WNL, no gtt infusing. Sat 96% on 2LNC. RIJ HD cath with CRRT per MD order, tolerating. 3 way march with CBI,
output appears clear. pt assisted with repositioning, POC discussed, updated on phone. call marisol w/patient.
--- NOTE | 2023-10-25 22:00 | PTCARENOTE ---
pt initially with no UO, 3 way march appeared clear, now appears yellow, dumped march for 800cc after 350cc in for CBI, UF increased, will monitor pt output from march and adjust UF accordingly.
[2023-10-25 22:25] LABS: Hemoglobin 9.9 g/dL (13.0-18.0); Mean Corp Hgb Conc. 36.7 g/dL (33.0-37.0); Mean Corpuscular Volume 84.6 fL (80.0-94.0); Red Blood Cell Count 3.19 10^6/uL (4.70-6.10); Red Cell Dist. Width 13.2 % (11.5-14.5); White Blood Cell Count 27.7 10^3/uL (4.8-10.8)
[2023-10-25 22:38] LABS: Mean Platelet Volume 12.2 fL (7.4-10.4); Platelet Count 56 10^3/uL (130-400)
[2023-10-25 22:51] LABS: Blood Urea Nitrogen 97 mg/dl (9-20); Calcium 6.9 mg/dl (8.4-10.2); Carbon Dioxide 22 mmol/L (22-30); Chloride 94 mmol/L (98-107); Glucose 82 mg/dl (70-99); Magnesium 2.3 mg/dl (1.6-2.3); Phosphorus 7.3 mg/dl (2.5-4.5); Potassium 4.3 mmol/L (3.5-5.1); Sodium 132 mmol/L (135-145)
[2023-10-25 22:57] LABS: Estimated Creatinine Clearance 13 ml/min; eGFR 7.66
--- NOTE | 2023-10-25 23:15 | PTCARENOTE ---
pt am labs w/K+ 5.2, CRRT started today, 2200 sched labs K+ 4.3, dialysate to switch from K+ 2meq/L to K+4 meq/L per Dr Bhandari, verbal order sent to pharmacy.
[2023-10-25 23:38] LABS: Glucose - Point of Care 81 mg/dl (70-99)
[2023-10-26] VITALS (55 sets, daily range): BP systolic 95–143; BP diastolic 56–98; BMI 26.7
[2023-10-26] MEDS: RFP-401 Hemodialysis Solution (K+ 4 mEq/L) 20000 ML CRRT-IRR (01:10)
--- NOTE | 2023-10-26 02:50 | PTCARENOTE ---
CRRT filter clotted around 0145, unsuccessful attempts made to return blood, disconnected, new cartridge.
--- NOTE | 2023-10-26 05:20 | PTCARENOTE ---
turned, am care, repositioned, no changes in assessment.
[2023-10-26 05:31] LABS: INR 1.13; Lactic Acid 2.2 mmol/L (0.7-2.0); PT 14.7 Sec (11.4-14.6)
[2023-10-26 05:41] LABS: ALT (SGPT) 92 U/L (0-50); AST (SGOT) 77 U/L (17-59); Albumin 2.3 g/dl (3.5-5.0); Alkaline Phosphatase 141 U/L (38-126); Blood Urea Nitrogen 93 mg/dl (9-20); Calcium 6.9 mg/dl (8.4-10.2); Carbon Dioxide 23 mmol/L (22-30); Chloride 97 mmol/L (98-107); Glucose 70 mg/dl (70-99); Magnesium 2.4 mg/dl (1.6-2.3); Phosphorus 6.1 mg/dl (2.5-4.5); Sodium 133 mmol/L (135-145); Total Bilirubin 1.2 mg/dl (0.2-1.3); Total Protein 4.2 g/dl (6.3-8.2)
[2023-10-26 05:51] LABS: Hematocrit 26.9 % (39.0-52.0); Hemoglobin 9.6 g/dL (13.0-18.0); Mean Corp Hgb Conc. 35.7 g/dL (33.0-37.0); Mean Corpuscular Volume 86.8 fL (80.0-94.0); Platelet Count 42 10^3/uL (130-400); Red Cell Dist. Width 13.2 % (11.5-14.5); White Blood Cell Count 21.4 10^3/uL (4.8-10.8)
[2023-10-26 05:56] LABS: Estimated Creatinine Clearance 13 ml/min; eGFR 7.91
[2023-10-26 06:30] LABS: Glucose - Point of Care 72 mg/dl (70-99)
--- NOTE | 2023-10-26 06:58 | W.PN.URO.CBU ---
Today's Communication / Plan
-
antibx
dialysis
supportive medical care
continue cbi for now to prevent hematuria/clotting given minimal urine outpt
Assessment / Plan
-
post op gram negative spesis- ECOLI- after aqua-ablation
hematuria- well managed with cbi
renal failure- no evidence of hydro on ct and no flank pain c/w obstruction
ct scan did not indicated any evid of obstruction/abscess or leak- abd exam benign
from urologic standpoint- continue march and cbi
HE IS NOT A CANDIDATE FOR ANTICOAGULATION AT THE CURRENT TIME GIVEN RECENT SURGERY AND ALREADY UNDERGOING A TAKEBACK FOR BLEEDING- asa would be ok
continuing broad spectrum antibx and medical support
dialysis initiated- no evid of obstruction on ct scan
I did speak to his surgeon dr reid at [facility]- he did not have any other specific rec and has been communicating with pt's
spoke to yesterday and updated from urologic perspective
Diagnosis
-
Date of Service: October 26, 2023
-
Patient Diagnosis:
s/p aqua-ablation
post op sepsis- ecoli
hematuria
renal failure
Subjective
-
pt currently on dialysis
ecoli sepsis- keating sensitive
no sig urine output- although some yellow urine is now noted in bag along with cbi- no sig hematuria
no fevers last 24hrs/wbc slight improvement/off pressors and holding BP
c/o of abd distension- exam benign- abd film c/w mild ileus
Objective
-
Vital Signs
Temp Pulse Resp BP Pulse Ox
98.0 F 131 17 126/76 98
10/26/23 03:35 10/26/23 06:00 10/26/23 06:00 10/26/23 06:00 10/26/23 06:00
Intake and Output
10/24/23 10/25/23 10/26/23
06:59 06:59 06:59
Intake Total 6651.0 / 6816.3 3530.1 / 3539.5 130.8 / 130.8
Output Total 4025 / 4025 400 / 400 1246 / 1246
Balance 2626.0 / 2791.3 3130.1 / 3139.5 -1115.2 / -1115.2
Intake:
Oral fluids 540 / 540 350 / 350
IV fluids (Total) 4491.0 / 4656.3 2830.1 / 2839.5 90.8 / 90.8
Marcela Gluconate 390 / 390
Nss 1,000 ml @ 150 mls/hr IV . 900 / 900
[id number] MICHAEL Rx#:[id number]
Sterile Water For Injection 1575 / 1675 1500 / 1500
1000 ml 1,000 ml @ 100 mls/hr
IV .[id number] MICHAEL with Sodium
Bicarbonate 150 Meq Rx#:
[id number]
kcl 270.0 / 270.0
levo 1466.0 / 1522.3 724.1 / 733.5 90.8 / 90.8
mag 100 / 100
vaso 180 / 189 216 / 216
IV piggybacks 1620 / 1620 350 / 350 40 / 40
Output:
Drain Output (Total) 1999
True Urine Output from CBI 2024 400 / 400 135 / 135
CRRT - Actual ultrafiltration 1111 / 1111
volume
Laboratory Results
10/26/23 06:00
Physical Exam
-
General - ill appearing
Abdomen - soft, mildly distended- no rebound or guarding
Genitalia - normal- [address]
Skin - warm & dry with no rash
Neuro - AOx3, no motor deficits
Extremities - no clubbing, no cyanosis, no edema
[2023-10-26] MEDS: CALCIUM GLUCONATE 290 MG IV (07:23)
--- NOTE | 2023-10-26 08:00 | W.PN.INTV ---
Today's Communication / Plan
Recommendations
O2
Atbs
CRRT
Hem eval
Assessment
-
Assessment: 63-year-old male never smoker with a PMHx of BPH and DDD presents with tachycardia and fever. He had a recent prostate ablation done on 10-18 at [facility]. March catheter was removed yesterday and patient reports he has been
urinating, however this morning he awoken with fever and his heart rate was elevated. EMS says heart rate was in 150s and temperature 101.5F. En route here to the ER, he was given a 200mcg push dose of epinephrine, 4 mg Zofran and 50 mg Benadryl
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 He was febrile in the ER and tachycardic, also hypotensive. Labs showed lactic acidosis with leukopenia and bandemia. CT abdomen/pelvis was concerning for perinephric stranding bilaterally and
possible small bowel ileus versus nonspecific enteritis. Patient given fluids with 1 L NS 0.9% as well as antibiotics however patient remained hypotensive requiring Levophed. 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
additional management/recommendations.
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
Impression:
#Septic shock due to E coli bacteriemia, suspected origin from UTI/pyelo (UCx GNB)
#Complicated UTI/pyelo with recent prostate ablation c/b clot s/p retention and fulguration
#Acute respiratory failure with hypoxemia due to sepsis with acute organ dysfunction
#Hypokalemia
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
#Acute kidney injury
#Metabolic/lLactic acidosis
#Elevated LFTs
#Leukopenia with mild neutropenia
Thrombocytopenia
#Anemia
#BPH with recent prostate ablation now on CBI
Plan:
- Continue vasopressors: NE low dose/vasopressin off since 10-25
LUE PICC placed
- Broad-spectrum antibiotics: zosyn since adm, transitioned to meropenem 10-24 per ID
Follow-up infectious workup with urine and blood cultures
U cx E coli
Blood cxs positive for E coli 10-23, keating-S, atbs changed to high dose ceftriaxone 10-25
Started empiric stress dose CS: HC 50 mg IV q6, will d/c 10-25. Normal random cortisol
- Urology following --> placed 3-way march and he is currently on CBI on moderate drip rate
Tolterodine po
- Maintain SpO2 >90-94% with supplemental O2 as needed
Currently on O2 NC 3L, POx 95%
New onset AFib
HR low 120s, no hypotensive on low dose NE, will wean down as tolerated (vasopressin on hold since 7 am)
Not for AC as d/w Urology
- pain control
V[place] with Cr trending up
Trend serum Cr and UOP with goal >0.5cc/kg/hr (try to accurately quantify I/O as he is on CBI at a moderate rate, d/w RN)
Metabolic/lactic acidosis, hyperkalemia
Diuretic trial 10-25
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
Interim thrombocytopenia since 10-25, worsening
Multifactorial: sepsis, CRRT, ceftriaxone
Has not received heparin since adm
Had a brief adm to [facility] from 10-18 to for prostate ablation
Hem consulted 10-26
Refractory hypocalcemia in spite of 2 g Ca, redose
Likely cause is sepsis
Transaminitis, mild, likely due to sepsis, improving
- anti-pyretics as needed with tylenol; avoid NSAIDs given recent bladder clot and V[place]
- anti-emetics as needed
- Transfuse blood products as needed to keep Hb>7, plt>50k and INR<1.8
- Replete K>4, Mg>2, PO4>3
- Maintain euglycemia with goal BG 140�180
- DVT prophylaxis
GI proph: IV PPI
Full code status
Guarded prognosis at this juncture
D/w MDT
D/w in detail with Mr and Mrs Romero and their son at bedside, all questions answered to their satisfaction with information available
Critical care time: 35 min
Data:
CXR 10-23-2023: No focal dense consolidation. However, mild to moderate interstitial prominence is noted in the mid to lower lung zones, right greater than left. The upper lung zones are clear. Cannot exclude viral respiratory syndrome.
CT A/P 10-23-2023:
Mild asymmetric left adrenal gland diffuse thickening and periadrenal fat stranding. Although nonspecific, this could reflect adrenal congestion as result of physiologic stress. No focal adrenal mass.
1 mm calcific focus in each kidney. . Differential includes arterial calcification versus nonobstructing calculi. No ureteral calculus, bilaterally. No hydronephrosis to suggest obstructive uropathy. There is, however, mild perinephric soft tissue
stranding, left slightly greater than right. Nonspecific. Cannot exclude changes related to urinary tract infection.
Possible mild small bowel ileus or nonspecific enteritis. No evidence to suggest bowel obstruction.
March catheter within the urinary bladder, which is collapsed. Diffuse urinary bladder wall thickening suggested. This could indicate cystitis. Generalized prostatic enlargement.
Subjective Dataa
Subjective Data
Date of Service:
Date of Service: October 26, 2023
Chief Complaint: Antenna Rigger Follow Up
Objective Data
Data Reviewed
Vital Signs / I&O / Oxygen:
Vital Signs
Temp Pulse Resp BP Pulse Ox
97.4 F 131 17 126/76 98
10/26/23 07:48 10/26/23 06:00 10/26/23 06:00 10/26/23 06:00 10/26/23 06:00
Intake and Output
10/25/23 10/26/23 10/27/23
06:59 06:59 06:59
Intake Total 3530.1 / 3539.5 130.8 / 130.8
Output Total 400 / 400 1246 / 1344 98 / 98
Balance 3130.1 / 3139.5 -1115.2 / -1213.2 -98 / -98
SaO2 98
Nasal Cannula flow liters per 2
minute
Physical Exam
General: Respiratory Distress (very mild)
HEENT: Normocephalic and Moist Mucous Membranes
Cardiovascular: Regular Rhythm, Murmur (n), Peripheral Edema (n) and Calf Tenderness (n)
Respiratory: Clear, Non-Labored Respirations and Stridor (n)
GI: Soft, Non Distended and Non Tender
Neurology: Awake, Oriented and No Motor Deficits
Skin: Dry
Labs/Micro/Reports
Lab Data
10/26/23 06:00
Laboratory Results
10/25/23 10/26/23
10:06 04:20
PT 15.6 H 14.7 H
INR 1.21 1.13
Microbiology
10/24/23 03:29 Blood/Venous Blood Culture - Preliminary
No Growth in 48 hours- Final report to follow
10/25/23 03:14 Blood/Venous Blood Culture - Preliminary
No Growth in 24 hours- Final report to follow
10/23/23 05:07 Blood/Venous Blood Culture - Preliminary
Escherichia coli
10/23/23 05:07 Blood/Venous Gram Stain - Final
10/23/23 04:42 Blood/Venous Blood Culture - Final
Escherichia coli
10/23/23 04:42 Blood/Venous Gram Stain - Final
10/23/23 04:59 Urine Urine Culture - Preliminary
Escherichia coli
10/23/23 05:01 Nasal Swab Influenza Types A & B (VANESA) - Final
Negative for Influenza A & B, NAAT
Negative results must be combined with clinical observations
and patient history.
Nucleic Acid Amplification test (NAAT)performed on the
[employer] platform.
[2023-10-26] MEDS: NSS (PRESERVATIVE FREE) 10 ML IV (08:34)
[2023-10-26] MEDS: DETROL LA 2 MG PO (08:34)
[2023-10-26] MEDS: PROTONIX IV 40 MG IV (08:35)
--- NOTE | 2023-10-26 09:11 | W.PN.HOSP.TC ---
Today's Communication/Plan
-
AB
CRRT
Watch BP
Stool studies
Assessment / Plan
Assessment / Plan
63-year-old male prostate recently was seen at [facility] for aqua ablation of prostate on Tuesday. Tuesday had large bladder clot which required evacuation in the OR. He was discharged home on . Catheter was removed on 10/22/2023. Patient
was supposed to probably on 10/23/2023. 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 Urine bloody appearing in the ER
Awake alert and conversant
Muscular discomfort
No abdominal pain, no right upper quadrant tenderness
Cardiovascular system S1-S2 irregular
Chest decreased at bases
Abdomen distended, bs diminished
CBI with clear urine
No pedal edema
CT of the abdomen and pelvis mild asymmetric left adrenal gland diffuse thickening and. Renal fat stranding possible adrenal congestion. 1 mm calcific focus in each kidney no ureteral calculus no hydronephrosis. Mild perinephric soft tissue
stranding left greater than right nonspecific. Possible mid small bowel ileus/nonspecific enteritis. No small bowel obstruction. Avalos catheter in the bladder. Diffuse bladder wall thickening indicating cystitis. General prostatic enlargement.
# Septic shock
-E Coli Sepsis
-Likely source
-Chest x-ray reviewed by me-mild interstitial prominence-normal echo 10/26/2022. COVID and influenza negative.
-Continue IV antibiotics-Zosyn changed to meropenem to Rocephin
-Repeat blood cultures neg
-Maintain MAP over 65
-Off Pressors-Levophed and vasopressin
-CT abdomen pelvis as above
-Cortisol levels , off HC
-ID ,Urology and nephrology also following
#New Afib
Rates acceptable now
Not a candidate for AC per D/W Urology given recent bleed
will get an echo repeated later when HR stable
Cards eval appreciated.
# Leukocytosis/leukopenia-secondary sepsis
Partially also from steroids
# Mucous in stool and diarrhea, Bloating
Possible ileus
Check C diff and cultures
# Lactic acidosis-almost normalized
# Hematuria
-Status post aqua ablation of the prostate 10/18/[address] [facility]
-Large clot in the bladder on 10/19/2023 needed OR evacuation
-Avalos placed in the [id number] urine on CBI
-Clear now
# Acute kidney injury-creatinine 5.9
-Likely secondary to septic shock and renal hypoperfusion/prerenal
-ATN Possible
-Also rule out postrenal-Avalos catheter placed
-Keep MAP over 65 mmHg
-Follow creatinine
-Trial of Lasix on 10/25/2023 did not help make urine
-Urine output 411
-CRRT started on 10/25/2023
# Coagulopathy-secondary to sepsis-follow
# Hyponatremia-Volume OL now
Lasix
# Thrombocytopenia secondary to sepsis
# Anemia likely secondary to acute blood loss secondary to hematuria
# Elevated LFTs-likely secondary to septic shock and decreased perfusion
-Improving
-CT scan of the abdomen and pelvis
# Hypokalemia-replaced, now hyper
# Vitamin D deficiency-replace
# Hypomagnesemia-replaced
# History of back surgery for disc herniation
# Hypoalbuminemia
# Alcohol use 3 to 4 glasses 3 times a week
# DVT prophylaxis-SCDs given bleeding
# Full code
Discussed with ICU team
Total Critical Care Time 32 minutes. I was immediately available to the patient and staff. I personally examined, reviewed labs, diagnostic images/reports, interpretations, treatment plans, discussed patient care with other providers and left
message for family , entered orders as appropriate and documented the medical record.
Anticipated Discharge: > 48 hours
Subjective/Interval History
-
Date of Service: October 26, 2023
Objective Data
-
Labs:
Laboratory Results
10/25/23 10/26/23 10/26/23
22:19 04:20 06:00
WBC 27.7 H 21.4 H
Hgb 9.9 L 9.6 L
Hct 27.0 L 26.9 L
Plt Count 56 L D 42 L D
PT 14.7 H
INR 1.13
Sodium 132 L 133 L Cancelled
Potassium 4.3 4.0 Cancelled
Chloride 94 L 97 L Cancelled
Carbon Dioxide 22 23 Cancelled
BUN 97 H 93 H Cancelled
Creatinine 7.4 H* 7.2 H* Cancelled
Glucose 82 70 Cancelled
Calcium 6.9 L* 6.9 L* Cancelled
Total Bilirubin 1.2 Cancelled
AST 77 H Cancelled
ALT 92 H Cancelled
Alkaline Phosphatase 141 H Cancelled
10/26/23 10/26/23 10/26/23
10:00 16:00 22:00
WBC Pending Pending Pending
Hgb Pending Pending Pending
Hct Pending Pending Pending
Plt Count Pending Pending Pending
PT
INR
Sodium
Potassium
Chloride
Carbon Dioxide
BUN
Creatinine
Glucose
Calcium
Total Bilirubin
AST
ALT
Alkaline Phosphatase
Vital Signs:
Vital Signs
Temp Pulse Resp BP Pulse Ox
97.4 F 126 19 109/85 95
10/26/23 07:48 10/26/23 08:30 10/26/23 08:30 10/26/23 08:30 10/26/23 08:30
I&O
10/25/23 10/26/23 10/27/23
06:59 06:59 06:59
Intake Total 3530.1 / 3539.5 130.8 / 130.8
Output Total 400 / 400 1246 / 1344 595 / 595
Balance 3130.1 / 3139.5 -1115.2 / -1213.2 -595 / -595
--- NOTE | 2023-10-26 09:19 | PN.CDI ---
CDI
- -
CDI:
Physician Documentation Request
Admit Date: 10/23/23 06:37
Dear Doctor
Please review the following and provide your response in the progress notes.
Clinical Indicators:
Pt admitted with Septic Shock 2/2 UTI
Documented per ED, ' sepsis, UTI likely, probably related to recent instrumentation from prostate procedure...'
Progress note 10/23, ' aqua ablation of prostate on Tuesday. Tuesday had large bladder clot which required evacuation in the OR. He was discharged home on . Catheter was removed on 10/22/2023. ...'
Progress note 10/26, ' post op gram negative spesis- ECOLI- after aqua-ablation..'
Please provide the suspected Etiology of the documented UTI:
Multifactorial due to Recent Avalos Catheter / instrumentation from prostate procedure.
Due to recent Avalos catheter
Due to recent instrumentation from prostate procedure
Other
Use of terms such as suspected, likely, concern for, or probable (associated with a specific diagnosis that is being evaluated, monitored, or treated as if it exists) are acceptable and can be coded in the inpatient setting, when documented at the
time of discharge.
Thank you,
Radha Hunter RN
CDI Specialist
[facility]
Please use your independent medical judgment in providing your response.
--- NOTE | 2023-10-26 09:42 | W.PN.CD ---
Addendum entered and electronically signed by Naga Diallo MD 10/26/23 11:20:
-
Our new A-fib guidelines July 2023 will permit proceeding to cardioversion without prior transesophageal echocardiogram given his low risk score but the newest guidelines favor anticoagulation for all patients for 4 weeks without interruption.
At this patient clinical only tolerating atrial fibrillation we will not proceed with elective cardioversion. Urgent cardioversion can be pursued if there is clinical decline related to poor control of A-fib heart rate. I still am hopeful that he
will convert to sinus rhythm as he clinically improves. Will use amiodarone for heart rate control.
We will not proceed with elective cardioversion.
-
-
Original Note:
Today's Communication / Plan
-
Anticipate cardioversion today and short course amiodarone.
Impression / Plan
-
New onset AFib with rapid ventricular response precipitated by urologic sepsis
- QAE7LY7-ACLy is zero.
- I would not say he has vascular disease based on an elevated coronary calcium score with no significant CAD at cor angio. But if a point is awarded for that his score would be 1.
- Afib started about 0300 to 0400 on 10/25/2023. The newest AFib guidelines from Jul 2023 permit this approach but note more data available for earlier cardioversion. No known benefit of preprocedure ITALO in this setting. I will quote the patient
less than a 1% risk of stroke. The benefit of cardioversion seem to outweigh the small risks.
Sepsis from E. Coli bacteremia after recent prostate procedure
Acute severe renal failure requiring hemodialysis
Correction BPH (Not prostate cancer)
Physical Exam
Vital Signs/Labs
Vital Signs
Temp Pulse Resp BP Pulse Ox
97.4 F 126 19 109/85 95
10/26/23 07:48 10/26/23 08:30 10/26/23 08:30 10/26/23 08:30 10/26/23 08:30
10/25/23 10/26/23 10/27/23
06:59 06:59 06:59
Actual Weight 102.4 kg 102.2 kg
10/26/23 06:00
PT 14.7 Sec (11.4-14.6) H 10/26/23 04:20
INR 1.13 10/26/23 04:20
APTT 65.4 Sec (23.4-35.0) H 10/23/23 04:42
Magnesium 2.4 mg/dl (1.6-2.3) H 10/26/23 04:20
Physical Exam
Constitutional: No acute distress
EENT: Anicteric
Cardiovascular: Rhythm/rate is irregular
Respiratory: Respiratory effort normal and Lungs clear to auscul.
GI: Soft and Distention absent
Neuro/Psych: AO x 3
Data Reviewed
-
Date of Service: October 26, 2023
[2023-10-26] MEDS: CORDARONE 518 MG IV (09:58)
[2023-10-26] MEDS: CORDARONE 103 MG IV (09:58)
--- NOTE | 2023-10-26 10:04 | PTCARENOTE ---
amiod bolus initiated with drip to follow per protocol
[2023-10-26] MEDS: ROCEPHIN 2000 MG IV (10:10)
[2023-10-26] MEDS: STERILE WATER FOR INJECTION 20 ML IV (10:11)
--- NOTE | 2023-10-26 11:43 | W.PN.NEPH.PH ---
Today's Communication / Plan
-
resume CRRT once line functions
Assessment/Plan
-
Assessment
-Septic shock
-Ecoli sepsis s/p prostate aquaablation
-hypotension
-metabolic/lactic acidosis
-hypomagnesemia
-urinary retention
-V[place]
Plan
V[place]-suspect ATN now on CRRT initiated on 10/25
monitor UOP, off CRRT now
line clotted today, heparin lock of the catheter and retry CRRT-no IVF
no heparin with thrombocytopenia
off pressors since last night
-CBI per urology
-Abx per primary team
afib with RVR per cards, no CV at this time-on Amio gtt
-d/w nursing
-
-
Date of Service: October 26, 2023
CC / HPI / ROS
-
Chief Complaint:
V[place]
History of Present Illness:
V[place]/Cr peak at 8.4
off pressor, bp stable
acidosis improving
lactic acidosis better
CBI continues
on abx for ecoli sepsis
afib still
sodium 133, plt low 42k
leucocytosis 21.4 better
Review of Systems:
no CP/SOB
nausea+
Labs
-
Labs:
Sodium Cancelled 10/26/23 06:00
Potassium Cancelled 10/26/23 06:00
Chloride Cancelled 10/26/23 06:00
Carbon Dioxide Cancelled 10/26/23 06:00
BUN Cancelled 10/26/23 06:00
Creatinine Cancelled 10/26/23 06:00
eGFR Cancelled 10/26/23 06:00
Glucose Cancelled 10/26/23 06:00
Calcium Cancelled 10/26/23 06:00
Albumin Cancelled 10/26/23 06:00
Physical Exam
-
Vital Signs:
Vital Signs
Temp Pulse Resp BP Pulse Ox
97.4 F 122 16 118/80 94
10/26/23 07:48 10/26/23 10:00 10/26/23 10:00 10/26/23 10:00 10/26/23 10:00
Cardiovascular:: Irregular rate and rhythm
Respiratory:: Bilateral: CTA
Lung Excursion:: Normal
Abdomen:: Nontender and Soft
Extremity Edema:: None: Bilateral: (trace)
Avalos Catheter: Yes
--- NOTE | 2023-10-26 11:59 | PTCARENOTE ---
Pt was reading high arterial pressures, clotting noted on filter, attempted to flush line which did not clear alarm. attempted to give back blood, but alarm persisted. when attempting to disconnect and manually flush line, clot noted on circuit.
dr troncoso made aware. Heparin currently indwelling to attempt to clear line. Labs drawn and set per protocol. Amio gtt continues. Pt remains afib. Otherwise no changes.
[2023-10-26 12:04] LABS: Glucose - Point of Care 84 mg/dl (70-99)
[2023-10-26 12:06] LABS: Hematocrit 27.7 % (39.0-52.0); Hemoglobin 9.6 g/dL (13.0-18.0); Mean Corp Hgb Conc. 34.7 g/dL (33.0-37.0); Mean Corpuscular Hgb 30.6 pg (27.0-31.0); Mean Corpuscular Volume 88.2 fL (80.0-94.0); Red Blood Cell Count 3.14 10^6/uL (4.70-6.10); Red Cell Dist. Width 13.3 % (11.5-14.5); White Blood Cell Count 21.9 10^3/uL (4.8-10.8)
[2023-10-26 12:25] LABS: Mean Platelet Volume 13.2 fL (7.4-10.4)
[2023-10-26 12:26] LABS: Platelet Count 29 10^3/uL (130-400)
--- NOTE | 2023-10-26 12:51 | W.PN.ID1 ---
Date of Service
Date of Service: October 26, 2023
Today's Communication
Continue Ceftriaxone.
Assessment / Plan
# E. coli bacteremia from source, recent prostate ablation procedure 10/18 at [facility]
# Septic shock off pressors
Fever resolved.
Leukocytosis trending down.
# [place] - now on CRRT
# New Afib with RVR
# Acute thrombocytopenia (preceded ceftriaxone), continues to trend down. ? due to sepsis
-Repeat blood cx's x 2 neg to date.
- Continue ceftriaxone (d4 abx).
-Follow wbc.
#Additional Past Medical History:
BPH s/p aqua ablation 10/18/23
DJD
Right total hip replacement
Appendectomy
Arthroscopic knee surgery
Lumbar discectomy x 2
Allergy History:
Chief Complaint
-: Clinical Sepsis and Bacteremia
Subjective / Review of Systems
Drowsy
Vital Signs / Physical Exam
Vital Signs
Vital Signs
Temp Pulse Resp BP Pulse Ox
98.0 F 111 17 118/76 98
10/26/23 11:47 10/26/23 12:00 10/26/23 12:00 10/26/23 12:00 10/26/23 12:00
Physical Exam
Constitutional: Acutely Ill
Eyes: Sclera Anicteric
Cardiovascular: Irregular Rate and Other (tachycardic)
Pulmonary: Clear (anteriorly)
Gastrointestinal: Soft, Non Tender and Non Distended
Genito-Urinary: Avalos; Negative Hematuria
Extremities: Negative Edema
Objective Data
Lab Data
PT 14.7 Sec (11.4-14.6) H 10/26/23 04:20
INR 1.13 10/26/23 04:20
APTT 65.4 Sec (23.4-35.0) H 10/23/23 04:42
Estimated Creat Clear Cancelled 10/26/23 06:00
Lactic Acid 2.2 mmol/L (0.7-2.0) H 10/26/23 04:20
Total Bilirubin Cancelled 10/26/23 06:00
AST Cancelled 10/26/23 06:00
ALT Cancelled 10/26/23 06:00
Alkaline Phosphatase Cancelled 10/26/23 06:00
Most recent labs reviewed.
Micro Results:
10/26/23 08:28 C. difficile GDH Antigen & Toxins - Final
Feces/Stool Negative for toxigenic C.difficile
- Final
Negative for Norovirus GI and GII.
10/23/23 05:07 Blood Culture - Final
Blood/Venous Escherichia coli
Gram Stain - Final
10/26/23 08:28 Salmonella/Shigella Culture - Pending
Feces/Stool Campylobacter Culture - Pending
Shiga Toxin Test - Pending
10/23/23 04:59 Urine Culture - Final
Urine Escherichia coli
10/24/23 03:29 Blood Culture - Preliminary
Blood/Venous No Growth in 48 hours- Final report to follow
10/25/23 03:14 Blood Culture - Preliminary
Blood/Venous No Growth in 24 hours- Final report to follow
10/23/23 04:42 Blood Culture - Final
Blood/Venous Escherichia coli
Gram Stain - Final
10/23/23 05:01 Influenza Types A & B (VANESA) - Final
Nasal Swab Negative for Influenza A & B, NAAT
Negative results must be combined with clinical observations
and patient history.
Nucleic Acid Amplification test (NAAT)performed on the
[employer] platform.
10/23/23 CXR: No acute disease of the chest.
10/23/23 CT a/p: 1 mm calcific focus in each kidney. . Differential includes arterial calcification versus nonobstructing calculi. No ureteral calculus, bilaterally. No hydronephrosis to suggest obstructive uropathy. There is, however, mild
perinephric soft tissue stranding, left slightly greater than right. Nonspecific. Cannot exclude changes related to urinary tract infection. Possible mild small bowel ileus or nonspecific enteritis. No evidence to suggest bowel obstruction. Avalos
catheter within the urinary bladder, which is collapsed. Diffuse urinary bladder wall thickening suggested. This could indicate cystitis. Generalized prostatic enlargement.
Care Review
Plan reviewed with: Physician (Dr. Basurto)
[2023-10-26 13:16] LABS: Blood Urea Nitrogen 90 mg/dl (9-20); Calcium 7.6 mg/dl (8.4-10.2); Carbon Dioxide 23 mmol/L (22-30); Chloride 96 mmol/L (98-107); Glucose 76 mg/dl (70-99); Magnesium 2.4 mg/dl (1.6-2.3); Phosphorus 5.2 mg/dl (2.5-4.5); Potassium 3.9 mmol/L (3.5-5.1); Sodium 132 mmol/L (135-145)
[2023-10-26 13:32] LABS: Estimated Creatinine Clearance 14 ml/min; eGFR 8.48
[2023-10-26] MEDS: DRISDOL (VITAMIN D2) 50000 UNITS PO (14:09)
[2023-10-26 14:27] LABS: Fibrinogen 339 MG/DL (199-459)
[2023-10-26 14:28] LABS: APTT 52.7 Sec (23.4-35.0)
--- NOTE | 2023-10-26 14:40 | PTCARENOTE ---
pt is having echo at bedside.
--- NOTE | 2023-10-26 15:30 | PTCARENOTE ---
Pt assisted oob to chair to eat. He tolerated well, but is weak.
[2023-10-26] MEDS: NEURONTIN PO (16:10)
--- NOTE | 2023-10-26 16:10 | PTCARENOTE ---
pt assisted back back to bed with the help of Vippra from IR. IR at bedside to replace HD catheter. Pt enjoyed clear liquids, also drank supplement that was provided. Will initiate CRRT once placed.
--- NOTE | 2023-10-26 17:45 | PTCARENOTE ---
Pt is back on CRRT. Vitals are stable. Pt has been sleeping since catheter exchange. Amio gtt has also been reduced to 0.5mg/hr per protocol. Pt remains afib rates 100-130s. BP remains stable off pressors. CBI continues. Urine is not bloody.
Otherwise no changes.
[2023-10-26 18:09] LABS: Glucose - Point of Care 166 mg/dl (70-99)
--- NOTE | 2023-10-26 18:37 | W.PN.NEPH.HD ---
Assessment
-
Pt seen on CRRT -restarted ~ ago
temp line exchanged by IR, appt help
dialysate 1.5lit/hr
bld flow 250-300cc/min
net neg 100cc/hr
BP stable
CVC functions well
no heparin
d/w nursing
Progress Note - Hemodialysis
-
Date of Service: October 26, 2023
--- NOTE | 2023-10-26 20:19 | PTCARENOTE ---
Handoff report received from off going RN. Bedside gtt and CRRT reconciliation completed. Amiodarone gtt at 0.5 mg/hr (16.7ml/hr). The patient is asleep but arousable to verbal commands. AAOx4 and able to make his needs known. Plan of care for the
shift reviewed with the patient. Questions regarding CRRT continuation answered. Pt's Afib on the monitor with HR 110. +2 generalized edema. Clear breath sounds. SpO2 at 95% on 2L/O2. IS max 2000 ml x3 attempts. Audible BS. CBI on going. All needs
are met at this time. Full assessment as noted on the flowsheet.
[2023-10-26 23:07] LABS: Hematocrit 26.6 % (39.0-52.0); Hemoglobin 9.6 g/dL (13.0-18.0); Mean Corp Hgb Conc. 36.1 g/dL (33.0-37.0); Mean Corpuscular Hgb 30.9 pg (27.0-31.0); Mean Corpuscular Volume 85.5 fL (80.0-94.0); Mean Platelet Volume 13.2 fL (7.4-10.4); Red Blood Cell Count 3.11 10^6/uL (4.70-6.10); Red Cell Dist. Width 13.3 % (11.5-14.5); White Blood Cell Count 21.7 10^3/uL (4.8-10.8)
[2023-10-26 23:14] LABS: Platelet Count 24 10^3/uL (130-400)
[2023-10-26 23:22] LABS: Blood Urea Nitrogen 83 mg/dl (9-20); Calcium 7.3 mg/dl (8.4-10.2); Carbon Dioxide 24 mmol/L (22-30); Chloride 100 mmol/L (98-107); Glucose 76 mg/dl (70-99); Magnesium 2.6 mg/dl (1.6-2.3); Phosphorus 5.1 mg/dl (2.5-4.5); Potassium 4.1 mmol/L (3.5-5.1); Sodium 131 mmol/L (135-145)
[2023-10-26 23:35] LABS: Estimated Creatinine Clearance 15 ml/min; eGFR 9.29
[2023-10-27] VITALS (39 sets, daily range): BP systolic 105–165; BP diastolic 69–97; BMI 26.1
[2023-10-27 00:13] LABS: Glucose - Point of Care 66 mg/dl (70-99)
[2023-10-27 00:24] LABS: Glucose - Point of Care 77 mg/dl (70-99)
--- NOTE | 2023-10-27 00:26 | PTCARENOTE ---
Patient reassessed. Lethargic but remains AAOx4. Questions about lab resulted answered. CUSTOM SEAMSTRESS made aware of lab results. Pt's fingerstick BG 66. 4 oz orange juice provided. Recheck BG 77. The patient remains in Afib with HR 119. Amiodarone gtt ongoing.
--- NOTE | 2023-10-27 04:54 | PTCARENOTE ---
Patient reassessed. Remains in AFib and 2L/o2. No other changes from previous assessment.
[2023-10-27 05:00] LABS: Ionized Calcium 1.02 mMOL/L (1.15-1.33)
[2023-10-27 05:02] LABS: Hematocrit 28.3 % (39.0-52.0); Hemoglobin 10.1 g/dL (13.0-18.0); Mean Corp Hgb Conc. 35.7 g/dL (33.0-37.0); Mean Corpuscular Hgb 30.9 pg (27.0-31.0); Mean Corpuscular Volume 86.5 fL (80.0-94.0); Mean Platelet Volume 13.5 fL (7.4-10.4); Red Blood Cell Count 3.27 10^6/uL (4.70-6.10); Red Cell Dist. Width 13.2 % (11.5-14.5); White Blood Cell Count 22.2 10^3/uL (4.8-10.8)
[2023-10-27 05:04] LABS: Platelet Count 22 10^3/uL (130-400)
[2023-10-27 05:11] LABS: Lactic Acid 1.1 mmol/L (0.7-2.0)
[2023-10-27 05:32] LABS: Blood Urea Nitrogen 80 mg/dl (9-20); Calcium 7.6 mg/dl (8.4-10.2); Carbon Dioxide 24 mmol/L (22-30); Chloride 97 mmol/L (98-107); Estimated Creatinine Clearance 16 ml/min; Glucose 98 mg/dl (70-99); Magnesium 2.6 mg/dl (1.6-2.3); Potassium 3.8 mmol/L (3.5-5.1); Sodium 131 mmol/L (135-145); eGFR 9.66
[2023-10-27] MEDS: CALCIUM GLUCONATE 100 IV (06:17)
[2023-10-27] MEDS: CORDARONE 518 MG IV (06:20)
[2023-10-27 06:24] LABS: Glucose - Point of Care 86 mg/dl (70-99)
[2023-10-27] MEDS: PROTONIX IV 40 MG IV (07:48)
[2023-10-27] MEDS: VITAMIN D3 (cholecalciferol) 25 MCG PO (07:48)
[2023-10-27] MEDS: NEURONTIN 100 MG PO ×2 (07:48→19:52)
[2023-10-27] MEDS: DETROL LA 2 MG PO (07:48)
[2023-10-27] MEDS: NSS (PRESERVATIVE FREE) 10 ML IV (07:49)
--- NOTE | 2023-10-27 07:54 | W.PN.INTV ---
Today's Communication / Plan
Recommendations
Atb
HD
Amiod
BB
Pain control
Assessment
-
Assessment: 63-year-old male never smoker with a PMHx of BPH and DDD presents with tachycardia and fever. He had a recent prostate aqua ablation done on 10-18 at [place]. March catheter was removed yesterday and patient reports he has been
urinating, however this morning he awoken with fever and his heart rate was elevated. EMS says heart rate was in 150s and temperature 101.5F. En route here to the ER, he was given a 200mcg push dose of epinephrine, 4 mg Zofran and 50 mg Benadryl
plus 1.7L of IVF (per BATTERY TEST ENGINEER per her report). He was febrile in the ER and tachycardic, also hypotensive. Labs showed lactic acidosis with leukopenia and bandemia. CT abdomen/pelvis was concerning for perinephric stranding bilaterally and
possible small bowel ileus versus nonspecific enteritis. Patient given fluids with 1 L NS 0.9% as well as antibiotics however patient remained hypotensive requiring Levophed. Patient admitted to the ICU and male impersonator services consulted for
additional management/recommendations.
Chronic conditions IT ARCHITECTURE CONSULTANT: BPH, DDD
Impression:
#Septic shock due to E coli bacteriemia, suspected origin from UTI/pyelo (UCx GNB)
#Complicated UTI/pyelo with recent prostate ablation c/b clot s/p retention and fulguration
#Acute respiratory failure with hypoxemia due to sepsis with acute organ dysfunction
#Hypokalemia
#Enteritis vs mild small bowel ileus - he did endorse nausea/vomiting IT ARCHITECTURE CONSULTANT
#Acute kidney injury
#Metabolic/lactic acidosis
#Elevated LFTs
#Leukopenia with mild neutropenia
Thrombocytopenia
#Anemia
#BPH with recent prostate ablation now on CBI
Plan:
- NE low dose/vasopressin off since 10-25
LUE PICC placed
- Broad-spectrum antibiotics: zosyn since adm, transitioned to meropenem 10-24 per ID
Follow-up infectious workup with urine and blood cultures
U cx E coli
Blood cxs positive for E coli 10-23, keating-S, atbs changed to high dose ceftriaxone 10-25
Started empiric stress dose CS upon adm: HC 50 mg IV q6, will d/c 10-25. Normal random cortisol
- Urology following --> placed 3-way march and he is currently on CBI on moderate drip rate
Tolterodine po
- Maintain SpO2 >90-94% with supplemental O2 as needed
Currently on RA, POx 93%
New onset AFib 10-25
Not for AC as d/w Urology
IV amiodarone
Oral BB
TSH pending
Pain control, low dose hydromorphone
[place] with Cr trending up
Trend serum Cr and UOP with goal >0.5cc/kg/hr (try to accurately quantify I/O as he is on CBI at a moderate rate)
Metabolic/lactic acidosis, hyperkalemia
Diuretic trial 10-25
Nephrology following, started SAMPLE WASHER 10-25
Difficulties with CRRT due to circuit clotting
To change to regular HD 10-28
Interim thrombocytopenia since 10-25, worsening
Multifactorial: sepsis, CRRT
Normal fibrinogen
Has not received heparin since adm
Had a brief adm to [facility] from 10-18 to for prostate ablation
Hem consulted, following plt, no transfusion unless plt<20 or active bleeding. Checking direct plt abs, antiphospholipid abs
Refractory hypocalcemia in spite of 2 g Ca, redose and 10-27
Likely cause is sepsis
Transaminitis, mild, likely due to sepsis, improving
- anti-pyretics as needed with tylenol; avoid NSAIDs given recent bladder clot and VIRGINIA
- anti-emetics as needed
- Transfuse blood products as needed to keep Hb>7, plt>50k and INR<1.8
- Replete K>4, Mg>2, PO4>3
- Maintain euglycemia with goal BG 140�180
- DVT prophylaxis
GI proph: IV PPI, changed to po 10-27
Full code status
Guarded prognosis at this juncture
D/w MDT
D/w in detail with Mr and Mrs Romero and their son at bedside, all questions answered to their satisfaction with information available
Critical care time: 35 min
Data:
CXR 10-23-2023: No focal dense consolidation. However, mild to moderate interstitial prominence is noted in the mid to lower lung zones, right greater than left. The upper lung zones are clear. Cannot exclude viral respiratory syndrome.
CT A/P 10-23-2023:
Mild asymmetric left adrenal gland diffuse thickening and periadrenal fat stranding. Although nonspecific, this could reflect adrenal congestion as result of physiologic stress. No focal adrenal mass.
1 mm calcific focus in each kidney. . Differential includes arterial calcification versus nonobstructing calculi. No ureteral calculus, bilaterally. No hydronephrosis to suggest obstructive uropathy. There is, however, mild perinephric soft tissue
stranding, left slightly greater than right. Nonspecific. Cannot exclude changes related to urinary tract infection.
Possible mild small bowel ileus or nonspecific enteritis. No evidence to suggest bowel obstruction.
March catheter within the urinary bladder, which is collapsed. Diffuse urinary bladder wall thickening suggested. This could indicate cystitis. Generalized prostatic enlargement.
Subjective Dataa
Subjective Data
Date of Service:
Date of Service: October 27, 2023
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
Subjective:
Events noted, clotted CRRT circuit again, RIJ HD cath exchanged yesterday afternoon
CRRT resumed, circuit clotted again
Review of Systems
General: Fever (n), Sweats (n), Chills (n) and Satisfactory Appetite (n)
HEENT: Epistaxis (n) and Dysphagia (n)
Cardiopulmonary: Dyspnea (mild), Cough (n), Wheezing (n) and Chest Pain
GI: Abdominal Pain (n), Nausea (n) and Vomiting (n)
Neuro: Weakness
Objective Data
Data Reviewed
Vital Signs / I&O / Oxygen:
Vital Signs
Temp Pulse Resp BP Pulse Ox
97.6 F 110 23 135/80 94
10/27/23 04:56 10/27/23 04:48 10/27/23 04:48 10/27/23 04:48 10/27/23 04:48
Intake and Output
10/26/23 10/27/23 10/28/23
06:59 06:59 06:59
Intake Total 130.8 / 130.8 1154.9 / 1245.6 90.7 / 90.7
Output Total 1246 / 1344 2683 / 2744 61 / 61
Balance -1115.2 / -1213.2 -1528.1 / -1498.4 29.7 / 29.7
SaO2 94
Nasal Cannula flow liters per 2
minute
Physical Exam
General: Respiratory Distress (very mild)
HEENT: Normocephalic and Moist Mucous Membranes
Cardiovascular: Regular Rhythm, Murmur (n), Peripheral Edema (n), Calf Tenderness (n) and Other (RIJ HD cath)
Respiratory: Clear, Non-Labored Respirations and Stridor (n)
GI: Soft, Non Distended and Non Tender
Neurology: Awake, Oriented and No Motor Deficits
Skin: Dry
Labs/Micro/Reports
Laboratory Results
10/26/23
14:00
APTT 52.7 H
Microbiology
10/24/23 03:29 Blood/Venous Blood Culture - Preliminary
No Growth in 72 hours- Final report to follow
10/25/23 03:14 Blood/Venous Blood Culture - Preliminary
No Growth in 48 hours- Final report to follow
10/26/23 08:28 Feces/Stool C. difficile GDH Antigen & Toxins - Final
Negative for toxigenic C.difficile
10/26/23 08:28 Feces/Stool - Final
Negative for Norovirus GI and GII.
10/23/23 05:07 Blood/Venous Blood Culture - Final
Escherichia coli
10/23/23 05:07 Blood/Venous Gram Stain - Final
10/23/23 04:59 Urine Urine Culture - Final
Escherichia coli
10/23/23 04:42 Blood/Venous Blood Culture - Final
Escherichia coli
10/23/23 04:42 Blood/Venous Gram Stain - Final
--- NOTE | 2023-10-27 08:51 | W.PN.HOSP.TC ---
Addendum entered and electronically signed by Poonam Loya MD 10/27/23 09:19:
D/W and updated.
Original Note:
Today's Communication/Plan
-
Amiodarone
Consider low-dose of metoprolol
CRRT
Replace electrolytes
Follow platelets
Continue antibiotics
Encourage IS
Assessment / Plan
Assessment / Plan
63-year-old male prostate recently was seen at [facility] for aqua ablation of prostate on Tuesday. Tuesday had large bladder clot which required evacuation in the OR. He was discharged home on . Catheter was removed on 10/22/2023. Patient
was supposed to probably on 10/23/2023. rayon tester he woke up with fevers and chills. Urine bloody appearing in the ER
Awake alert and conversant
No abdominal pain, no right upper quadrant tenderness, mild distention bowel sounds appreciated
Cardiovascular system S1-S2 irregular, sm apex
Chest decreased at bases
CBI with clear urine
Mild anasarca
CT of the abdomen and pelvis mild asymmetric left adrenal gland diffuse thickening and. Renal fat stranding possible adrenal congestion. 1 mm calcific focus in each kidney no ureteral calculus no hydronephrosis. Mild perinephric soft tissue
stranding left greater than right nonspecific. Possible mid small bowel ileus/nonspecific enteritis. No small bowel obstruction. Avalos catheter in the bladder. Diffuse bladder wall thickening indicating cystitis. General prostatic enlargement.
Echo 10/26/2023-normal LV systolic function. EF 55% mild concentric LVH. Mild to moderate MR. Mild TR
# Septic shock
-E Coli Sepsis
- source
-Likely secondary to recent procedure
-Continue IV antibiotics-Zosyn changed to meropenem to Rocephin
-Repeat blood cultures neg
-Maintain MAP over 65
-Off Pressors-Levophed and vasopressin
-CT abdomen pelvis as above
-Cortisol levels , off HC
-ID ,Urology and nephrology also following
#New Afib
Rates slightly high
Not a candidate for AC per D/W Urology given recent bleed
Consider rate controlling [id number] metoprolol
Amiodarone running
# Leukocytosis/leukopenia-secondary sepsis
Partially also from steroids
# Mucous in stool and diarrhea, Bloating
Possible ileus
C. difficile negative, norovirus negative
# Lactic acidosis-almost normalized
# Hematuria
-Status post aqua ablation of the prostate 10/18/2023 at [facility]
-Large clot in the bladder on 10/19/2023 needed OR evacuation
-Avalos placed in the [place]-gqii-yvssrut urine on CBI
-Clear now
# Acute kidney injury-creatinine 6.3
-Likely secondary to septic shock and renal hypoperfusion/prerenal
-ATN Possible
-Also rule out postrenal-Avalos catheter placed
-Keep MAP over 65 mmHg
-Follow creatinine
-Trial of Lasix on 10/25/2023 did not help make urine
-CRRT started on 10/25/2023
# Coagulopathy-secondary to sepsis-follow
# Hyponatremia-Volume OL now
# Thrombocytopenia secondary to sepsis
Normal fibrinogen level
Possibly also consumptive from clotting of the filter
# Anemia likely secondary to acute blood loss secondary to hematuria
# Elevated LFTs-likely secondary to septic shock and decreased perfusion
-Improving
-CT scan of the abdomen and pelvis
# Hypokalemia-replaced,
# Hypocalcemia-p.o. replacement given ceftriaxone
Replace vitamin D
# Vitamin D deficiency-replace
# Hypomagnesemia-replaced
# History of back surgery for disc herniation
# Hypoalbuminemia
# Alcohol use 3 to 4 glasses 3 times a week
# DVT prophylaxis-SCDs given bleeding
# Full code
Left message for
D/W Cards
Discussed with ICU team
Total Critical Care Time 31 minutes. I was immediately available to the patient and staff. I personally examined, reviewed labs, diagnostic images/reports, interpretations, treatment plans, discussed patient care with other providers and left
message for family , entered orders as appropriate and documented the medical record.
Anticipated Discharge: > 48 hours
Subjective/Interval History
-
Date of Service: October 27, 2023
Objective Data
-
Labs:
Laboratory Results
10/26/23 10/27/23 10/27/23
23:00 04:49 04:50
WBC 21.7 H 22.2 H
Hgb 9.6 L 10.1 L
Hct 26.6 L 28.3 L
Plt Count 24 L* 22 L*
Sodium 131 L 131 L
Potassium 4.1 3.8
Chloride 100 97 L
Carbon Dioxide 24 24
BUN 83 H 80 H
Creatinine 6.3 H* 6.1 H*
Glucose 76 98
Calcium 7.3 L 7.6 L
10/27/23 10/27/23 10/27/23
11:00 17:00 23:00
WBC Pending Pending Pending
Hgb Pending Pending Pending
Hct Pending Pending Pending
Plt Count Pending Pending Pending
Sodium Pending Pending Pending
Potassium Pending Pending Pending
Chloride Pending Pending Pending
Carbon Dioxide Pending Pending Pending
BUN Pending Pending Pending
Creatinine Pending Pending Pending
Glucose Pending Pending Pending
Calcium Pending Pending Pending
Vital Signs:
Vital Signs
Temp Pulse Resp BP Pulse Ox
98.0 F 122 25 134/75 94
10/27/23 07:30 10/27/23 08:30 10/27/23 08:30 10/27/23 08:30 10/27/23 08:30
I&O
10/26/23 10/27/23 10/28/23
06:59 06:59 06:59
Intake Total 130.8 / 130.8 1154.9 / 1245.6 338.4 / 338.4
Output Total 1246 / 1344 2683 / 2744 380 / 380
Balance -1115.2 / -1213.2 -1528.1 / -1498.4 -41.6 / -41.6
--- NOTE | 2023-10-27 08:53 | PTCARENOTE ---
recd pt CRRT/CVVHD continues, see flowsheet. CBI continues. taking oral fluids, using IS with encouragement. amio infusing, remains afib VR 110 range. asking questions of providers, staff, answered - support given. taken to room air with sats
remaining mid 90s. on bedpan for small green/clear liquid. Hyperactive bowel sounds. repositioned.
--- NOTE | 2023-10-27 09:05 | W.PN.CD ---
Today's Communication / Plan
-
add metoprolol tartrate 25mg bid
Impression / Plan
-
New onset AFib with rapid ventricular response precipitated by urologic sepsis
-echo: EF 55%, mild/mod MR
- [id number] is zero.
- I would not say he has vascular disease based on an elevated coronary calcium score with no significant CAD at cor angio. But if a point is awarded for that his score would be 1.
- no AC, especially given hematuria
-BP was low previously: continue IV amiodarone for rate control
-BP better today: add metoprolol tartrate 25mg bid, and may be able to titrate this, and stop amiodarone based on BP trend
Sepsis from E. Coli bacteremia after recent prostate procedure: continues on IV Abx
Acute severe renal failure requiring hemodialysis: now on CRRT with close monitoring in ICU
BPH (Not prostate cancer)
CCT 32 minutes
Physical Exam
Vital Signs/Labs
Vital Signs
Temp Pulse Resp BP Pulse Ox
98.0 F 122 25 134/75 94
10/27/23 07:30 10/27/23 08:30 10/27/23 08:30 10/27/23 08:30 10/27/23 08:30
10/26/23 10/27/23 10/28/23
06:59 06:59 06:59
Actual Weight 102.2 kg 99.9 kg
PT 14.7 Sec (11.4-14.6) H 10/26/23 04:20
INR 1.13 10/26/23 04:20
APTT 52.7 Sec (23.4-35.0) H 10/26/23 14:00
Magnesium 2.6 mg/dl (1.6-2.3) H 10/27/23 04:49
Physical Exam
Constitutional: No acute distress
EENT: Moist mucous membranes
Cardiovascular: Pedal edema is absent, JVD pressure is normal, Systolic murmur absent and Rhythm/rate is irregular
Respiratory: Respiratory effort normal and Lungs clear to auscul.
GI: Soft and Distention absent
Neuro/Psych: Other (lethargic but arousable)
Data Reviewed
-
Date of Service: October 27, 2023
EKG: Other (Tele: A fib 110s)
Echo: Report Reviewed by me (EF 55%, mild/mod MR)
Labs: Labs Reviewed by me
Old Records: Reviewed
Critical Care Time (in minutes): 32
--- NOTE | 2023-10-27 09:31 | PN.CDI ---
CDI
- -
CDI:
Physician Documentation Request
Admit Date: 10/23/23 06:37
Dear Doctor
Please review the following and provide your response in the progress notes.
Clinical Indicators:
Pt admitted with Septic Shock 2/2 UTI
Documented per ED, ' sepsis, UTI likely, probably related to recent instrumentation from prostate procedure...'
Progress note 10/23, ' aqua ablation of prostate on Tuesday. Tuesday had large bladder clot which required evacuation in the OR. He was discharged home on . Catheter was removed on 10/22/2023. ...'
Progress note 10/26, ' post op gram negative spesis- ECOLI- after aqua-ablation..'
Please provide the suspected Etiology of the documented UTI:
Multifactorial due to Recent Avalos Catheter / instrumentation from prostate procedure.
Due to recent Avalos catheter
Due to recent instrumentation from prostate procedure
Other
Use of terms such as suspected, likely, concern for, or probable (associated with a specific diagnosis that is being evaluated, monitored, or treated as if it exists) are acceptable and can be coded in the inpatient setting, when documented at the
time of discharge.
Thank you,
Radha Hunter RN
CDI Specialist
[place] [facility]
Please use your independent medical judgment in providing your response.
--- NOTE | 2023-10-27 09:47 | W.PN.ID1 ---
Date of Service
Date of Service: October 27, 2023
Today's Communication
Continue ceftriaxone.
Assessment / Plan
# E. coli bacteremia from source, recent prostate ablation procedure 10/18 at [facility]
# s/p Septic shock off pressors
-Fever resolved.
-Leukocytosis stable
-Repeat blood cx's x 2 neg
- Continue ceftriaxone (d5 abx).
-Follow wbc.
# Acute thrombocytopenia (preceded ceftriaxone), continues to trend down.
Unclear source. Stool negative shigatoxin. Hem/Onc on board.
# [place] - on CRRT to HD
# New Afib with RVR, on amiodarone
#Additional Past Medical History:
BPH s/p aqua ablation 10/18/23
DJD
Right total hip replacement
Appendectomy
Arthroscopic knee surgery
Lumbar discectomy x 2
Allergy History:
Chief Complaint
-: Clinical Sepsis and Bacteremia
Subjective / Review of Systems
Feeling a little better.
Vital Signs / Physical Exam
Vital Signs
Vital Signs
Temp Pulse Resp BP Pulse Ox
98.0 F 122 25 134/75 94
10/27/23 07:30 10/27/23 08:30 10/27/23 08:30 10/27/23 08:30 10/27/23 08:30
Physical Exam
Constitutional: Comfortable
Eyes: Sclera Anicteric
Cardiovascular: Irregular Rate, S1/S2 and Other (Tachycardic)
Pulmonary: Clear (anteriorly)
Gastrointestinal: Soft, Non Tender, Non Distended and Normal Bowel Sounds
Genito-Urinary: Avalos and Clear Urine
Extremities: Negative Edema
Lines: HD Cath (intact)
Objective Data
Lab Data
PT 14.7 Sec (11.4-14.6) H 10/26/23 04:20
INR 1.13 10/26/23 04:20
APTT 52.7 Sec (23.4-35.0) H 10/26/23 14:00
Estimated Creat Clear 16 ml/min 10/27/23 04:49
Lactic Acid 1.1 mmol/L (0.7-2.0) 10/27/23 04:50
Total Bilirubin Cancelled 10/26/23 06:00
AST Cancelled 10/26/23 06:00
ALT Cancelled 10/26/23 06:00
Alkaline Phosphatase Cancelled 10/26/23 06:00
Most recent labs reviewed.
Micro Results:
10/26/23 08:28 Salmonella/Shigella Culture - Pending
Feces/Stool Campylobacter Culture - Pending
Shiga Toxin Test - Final
No E. coli Shiga Toxin 1 or 2 detected.
10/24/23 03:29 Blood Culture - Preliminary
Blood/Venous No Growth in 72 hours- Final report to follow
10/25/23 03:14 Blood Culture - Preliminary
Blood/Venous No Growth in 48 hours- Final report to follow
10/26/23 08:28 C. difficile GDH Antigen & Toxins - Final
Feces/Stool Negative for toxigenic C.difficile
- Final
Negative for Norovirus GI and GII.
10/23/23 05:07 Blood Culture - Final
Blood/Venous Escherichia coli
Gram Stain - Final
10/23/23 04:59 Urine Culture - Final
Urine Escherichia coli
10/23/23 04:42 Blood Culture - Final
Blood/Venous Escherichia coli
Gram Stain - Final
10/23/23 05:01 Influenza Types A & B (VANESA) - Final
Nasal Swab Negative for Influenza A & B, NAAT
Negative results must be combined with clinical observations
and patient history.
Nucleic Acid Amplification test (NAAT)performed on the
[employer] platform.
10/23/23 CXR: No acute disease of the chest.
10/23/23 CT a/p: 1 mm calcific focus in each kidney. . Differential includes arterial calcification versus nonobstructing calculi. No ureteral calculus, bilaterally. No hydronephrosis to suggest obstructive uropathy. There is, however, mild
perinephric soft tissue stranding, left slightly greater than right. Nonspecific. Cannot exclude changes related to urinary tract infection. Possible mild small bowel ileus or nonspecific enteritis. No evidence to suggest bowel obstruction. Avalos
catheter within the urinary bladder, which is collapsed. Diffuse urinary bladder wall thickening suggested. This could indicate cystitis. Generalized prostatic enlargement.
--- NOTE | 2023-10-27 09:48 | PTCARENOTE ---
effluent pressures increased approx 0915, rest of circuit evaluated, within approx 10 min alarming no flow, attempt to flush access and resume ineffective. circuit clotted, disconnected per protocol, removed. Dr. Ramos notified, to evaluate
shortly for CRRT vs HD. Holding on therapies for now. Pt seen by Shalini Torres, Anton, Sherine. on bedpan again for small amt mucoid liquid pale green. sleeping when observed and undisturbed.
[2023-10-27] MEDS: LOPRESSOR 25 MG PO ×2 (09:58→19:52)
[2023-10-27] MEDS: ROCEPHIN 2000 MG IV (10:03)
[2023-10-27] MEDS: STERILE WATER FOR INJECTION 20 ML IV (10:03)
--- NOTE | 2023-10-27 10:19 | CON.ONC ---
Impression
Impression
Thrombocytopenia with septicemia
Anemia
E. coli sepsis
Exposure to cephalosporin antibiotics
Acute renal failure
Recent prostate procedure with hematuria complication
Atrial fibrillation
Plan
Plan
No indication of heparin exposure
Suspect primary etiology acute septicemia
Evaluate for direct platelet antibodies
Transfuse platelet count less than 20 K or with active bleeding
Anemia also likely secondary to acute illness now with superimposed acute renal failure
Evaluate substrates given low albumin
Patient History
History of Present Illness
63-year-old male with BPH who recently underwent aqua ablation of the prostate on October 18 at [facility].� Postprocedure complicated by gross hematuria with clots requiring OR cystoscopy and evacuation on October 19.� He was
discharged to home on October 20 with Avalos intact.�He suddenly developed chills, fever and weakness and presented to the emergency room on October 23.� Temperature 103.2, white count of 1.7, lactic acid 9.0, patient noted to be in [place].� Patient was
hypotensive requiring 2 pressors.� He was started on Zosyn.� Straight cath in the ED showed gross hematuria.� Three-way Avalos catheter placed for bladder irrigation which is now clear despite thrombocytopenia. Today patient reports he still feels
slightly improved. Platelet count began to fall prior to antibiotic exposure suggesting a clear component associated with septicemia.
Past-Medical/Surgical History
Past Medical History
BPH s/p aqua ablation 10/18/23
DJD
Right total hip replacement
Appendectomy
Arthroscopic knee surgery
Lumbar discectomy x 2
Allergy History:
NKA - No Known Allergies Allergy (Uncoded 10/23/23 04:48)
Unknown
Social History
Tobacco: Non-Smoker
Alcohol: None
Drug: None
Personal:
Family History
Family History: Not Pertinent
Patient Medication
Medication Instructions Recorded Confirmed Last Taken Type
docusate sodium 100 mg capsule 100 mg PO DAILY PRN constipation 10/23/23 10/23/23 10/23/23 History
oxybutynin chloride 5 mg 5 mg PO DAILY Urinary Issue 10/23/23 10/23/23 Unknown History
tablet,extended release 24 hr
phenazopyridine 100 mg tablet 200 mg PO TID PRN pain 10/23/23 10/23/23 Unknown History
Active Medications
Generic Name Dose Route Start Last Admin
Trade Name Freq PRN Reason Stop Dose Admin
Acetaminophen 650 mg 10/23/23 08:29 10/24/23 01:09
Acetaminophen 325 Mg Tablet PO 11/20/23 08:28 650 mg
Q4HPRN PRN Administration
Mild Pain / Temp > 101
Calcium Carbonate 500 mg 10/27/23 16:00
Calcium Carbonate 500 Mg Tablet PO 11/24/23 15:59
TID MICHAEL
Ceftriaxone Sodium 2,000 mg 10/25/23 10:00 10/27/23 10:03
Ceftriaxone 2,000 Mg/20 Ml Vial IV 2,000 mg
Q24H MICHAEL Administration
Cholecalciferol 25 mcg 10/27/23 08:00 10/27/23 07:48
Cholecalciferol (Vitamin D3) 25 Mcg Tablet (1,000 Units) PO 11/24/23 07:59 25 mcg
DAILY MICHAEL Administration
Dextrose 12.5 grams 10/23/23 21:01
Dextrose 50% (0.5 Grams/Ml) 50 Ml Syringe IV 11/20/23 21:00
[id number] PRN
hypoglycemia
Protocol
Diazepam 5 mg 10/23/23 06:51 10/25/23 17:43
Diazepam 10 Mg/2 Ml Inj IV 11/20/23 06:50 5 mg
Q4HPRN PRN Administration
refractory bladder spasms
Docusate Sodium 100 mg 10/25/23 10:53
Docusate Sodium 100 Mg Capsule PO 11/22/23 10:52
BIDPRN PRN
CONSTIPATION
Gabapentin 100 mg 10/26/23 15:00 10/27/23 07:48
Gabapentin 100 Mg Capsule PO 11/23/23 14:59 100 mg
BID MICHAEL Administration
Glucagon 1 mg 10/23/23 21:01
Glucagon 1 Mg Vial IM 11/20/23 21:00
PRN PRN
hypoglycemia
Protocol
Hemodialysis Solution 0 ml 10/26/23 16:30
Nxstage Rfp-401 (K+ 4 Meq/L) Hemodialysis Solution 5 L Bag CRRT-IRR 10/27/23 16:29
ORDERED RATE MICHAEL
Hydromorphone HCl 0.5 mg 10/24/23 20:03 10/25/23 03:18
Hydromorphone 0.5 Mg/0.5 Ml Syringe IV 11/07/23 20:02 0.5 mg
Q4HPRN PRN Administration
severe pain
Hydromorphone HCl 0.25 mg 10/26/23 12:28
Hydromorphone 0.5 Mg/0.5 Ml Syringe IV 11/09/23 12:27
Q4HPRN PRN
MODERATE PAIN
Potassium Chloride 40 meq in 100 mls @ 50 mls/hr 10/25/23 15:00
Kcl IV 11/22/23 14:59
Q4HPRN PRN
K+ level < 3.6 mEq/L
Magnesium Sulfate 4 gram in 100 mls @ 50 mls/hr 10/25/23 15:00
Magnesium Sulfate IV 11/22/23 14:59
Q4HPRN PRN
Mag level < 2 mg/dL
Potassium Phosphate 40 meq/ 259.0909 mls @ 64.773 mls/hr 10/25/23 15:00
Sodium Chloride IV 11/22/23 14:59
PRN PRN
Phos < 2.7 and K+ < 3.6
Sodium Phosphate 40 meq/ 260 mls @ 65 mls/hr 10/25/23 15:00
Dextrose IV 11/22/23 14:59
PRN PRN
Phosphorus < 2.7 mg/dL
Sodium Chloride 50 mls @ 0 mls/hr 10/26/23 16:22
Nss CRRT-ART
PRN PRN
circuit clotting
As Directed
Amiodarone HCl 900 mg/ 518 mls @ 17.267 mls/hr 10/27/23 10:16
Dextrose/Water IV 10/28/23 16:15
NOW STA
Protocol
0.5 MG/MIN
Insulin Aspart 0 units 10/24/23 00:00 10/27/23 06:14
Insulin Aspart Low Resistance 300 Units/3 Ml Pen.Injctr SC 11/21/23 00:00 Not Given
Q6 MICHAEL
Protocol
Lidocaine/Prilocaine 2 gram 10/23/23 06:51 10/23/23 07:18
Lidocaine 2.5%/Prilocaine 2.5% (Cream) 5 Gram Tube TOPICAL 11/20/23 06:50 2 gram
DAILYPRN PRN Administration
penis pain
Metoprolol Tartrate 25 mg 10/27/23 10:00 10/27/23 09:58
Metoprolol 25 Mg Regular Release Tablet PO 11/24/23 09:59 25 mg
BID MICHAEL Administration
Ondansetron HCl 4 mg 10/23/23 08:29 10/25/23 00:46
Ondansetron 4 Mg/2 Ml Vial IV 11/20/23 08:28 4 mg
Q6HPRN PRN Administration
nausea and vomiting
Pantoprazole Sodium 40 mg 10/23/23 08:29 10/27/23 07:48
Pantoprazole Sodium 40 Mg/10 Ml Vial IV 11/20/23 08:28 40 mg
DAILY MICHAEL Administration
Sennosides 17.2 mg 10/25/23 10:53
Sennosides (Senokot) 8.6 Mg Tablet PO 11/22/23 10:52
HSPRN PRN
CONSTIPATION
Sodium Chloride 0 flush 10/23/23 08:00 10/24/23 17:50
Sodium Chloride 0.9% (Flush) Syringe IV 11/20/23 07:59 2 flush
PER PROTOCOL MICHAEL Administration
Sodium Chloride 10 ml 10/23/23 08:29 10/27/23 07:49
Sodium Chloride 0.9% (Preservative Free) 10 Ml Vial IV 11/20/23 08:28 10 ml
DAILY MICHAEL Administration
Sodium Chloride 0 flush 10/26/23 16:22
Sodium Chloride 0.9% (Flush) Syringe IV 11/23/23 16:21
PRN PRN
disconnect from dialysis
Sterile Water 20 ml 10/25/23 10:00 10/27/23 10:03
Sterile Water For Injection 20 Ml Vial IV 11/22/23 09:59 20 ml
Q24H MICHAEL Administration
Tolterodine Tartrate 2 mg 10/26/23 08:00 10/27/23 07:48
Tolterodine 2 Mg Extended Release Capsule PO 11/23/23 07:59 2 mg
DAILY MICHAEL Administration
Review of Systems
-
Review of Systems
General: Fever, Chills and Change in Appetite
HEENT: Negative Sinus Problems, Headache or Pharyngitis
Cardiovascular: Negative Chest Pain
Respiratory: Negative Dyspnea or Cough
Gasteroenterology: Negative Nausea or Vomiting
Endocrine: Weakness and Fatigue
Neurological: Negative Headache or Dizziness
All systems: All other systems were reviewed and were negative
Physical Exam
-
Physical Exam
Constitutional: Acutely Ill
Eyes: No Conjunctival Hemorrhage and Sclera Anicteric
Oral: Negative No Thrush
Cardiovascular: Regular Rate and S1/S2
Pulmonary: Clear
Gastrointestinal: Soft, Non Tender, Non Distended and Normal Bowel Sounds
Genito-Urinary: Avalos and Turbid CBI clear
Extremities: Negative Edema
Skin: No new lesions catheter site without bruising/oozing
Neurological: AO x 3
Labs
Lab Results
WBC 22.2 10^3/uL (4.8-10.8) H 10/27/23 04:50
RBC 3.27 10^6/uL (4.70-6.10) L 10/27/23 04:50
Hgb 10.1 g/dL (13.0-18.0) L 10/27/23 04:50
Hct 28.3 % (39.0-52.0) L 10/27/23 04:50
MCV 86.5 fL (80.0-94.0) 10/27/23 04:50
MCH 30.9 pg (27.0-31.0) 10/27/23 04:50
MCHC 35.7 g/dL (33.0-37.0) 10/27/23 04:50
RDW 13.2 % (11.5-14.5) 10/27/23 04:50
Plt Count 22 10^3/uL (130-400) L* 10/27/23 04:50
MPV 13.5 fL (7.4-10.4) H 10/27/23 04:50
Creatinine 6.1 mg/dL (0.7-1.3) H* 10/27/23 04:49
Vital Signs
Vital Signs
Temp Pulse Resp BP Pulse Ox
98.0 F 119 23 145/90 93
10/27/23 07:30 10/27/23 10:15 10/27/23 10:15 10/27/23 10:00 10/27/23 10:15
--- NOTE | 2023-10-27 10:46 | W.PN.NEPH.PH ---
Today's Communication / Plan
-
HD tomorrow
Assessment/Plan
-
Assessment
-Septic shock
-Ecoli sepsis s/p prostate aquaablation
-hypotension
-metabolic/lactic acidosis
-hypomagnesemia
-urinary retention
-[place]
Plan
[place]-suspect ATN , CRRT initiated on 10/25
difficult to measure UOP on CBI, filter clotted hence off CRRT now
line exchange 10/26 functionig well
plan IHD tomorrow
no heparin with thrombocytopenia
BP stable , remains in afib
-CBI per urology
-Abx per primary team
-d/w nursing
-
-
Date of Service: October 27, 2023
CC / HPI / ROS
-
Chief Complaint:
[place]
History of Present Illness:
[place]/Cr peak at 8.4
off pressor, bp stable
acidosis improved
CBI continues
on abx for ecoli sepsis
afib still
sodium 133, plt low 22k
leucocytosis 22 same
Review of Systems:
no CP/SOB
falls sleep easily
Labs
-
Labs:
eGFR 9.66 10/27/23 04:49
Albumin Cancelled 10/26/23 06:00
Physical Exam
-
Vital Signs:
Vital Signs
Temp Pulse Resp BP Pulse Ox
98.0 F 119 23 145/90 93
10/27/23 07:30 10/27/23 10:15 10/27/23 10:15 10/27/23 10:00 10/27/23 10:15
Cardiovascular:: Regular rate and rhythm
Respiratory:: Bilateral: CTA
Lung Excursion:: Normal
Abdomen:: Nontender and Soft
Extremity Edema:: None: Bilateral:
Avalos Catheter: Yes
Other Findings::
UE edema improving
--- NOTE | 2023-10-27 11:33 | W.PN.URO.CBU ---
Today's Communication / Plan
-
continue march and cbi
continue ICU/medical support
Assessment / Plan
-
post op gram negative spesis- ECOLI- after aqua-ablation
hematuria- well managed with cbi
renal failure- no evidence of hydro on ct and no flank pain c/w obstruction
ct scan did not indicated any evid of obstruction/abscess or leak- abd exam benign
from urologic standpoint- continue march and cbi
HE IS NOT A CANDIDATE FOR ANTICOAGULATION AT THE CURRENT TIME GIVEN RECENT SURGERY AND ALREADY UNDERGOING A TAKEBACK FOR BLEEDING
continuing broad spectrum antibx and medical support
dialysis initiated- no evid of obstruction on ct scan
I did speak to his surgeon dr reid at [facility]- he did not have any other specific rec and has been communicating with pt's
will follow
Diagnosis
-
Date of Service: October 27, 2023
-
Patient Diagnosis:
s/p aqua-ablation
post op sepsis- ecoli
hematuria
renal failure
NOTE- URINARY TRACT INFECTION/SEPSIS SUSPECT DUE TO RECENT PROSTATE PROCEDURE AND MARCH CATHETER REQUIREMENT
Subjective
-
pt looks better
off pressors- systolic blood pressure now above 130's
still in rapid afib- on amiod drip
has element of DIC with dropping platelet count
no fevers- wbc still elevated but lactic acid normalizing
urine clear on slow drip cbi- some minimal urine output
Objective
-
Vital Signs
Temp Pulse Resp BP Pulse Ox
98.0 F 119 23 145/90 93
10/27/23 07:30 10/27/23 10:15 10/27/23 10:15 10/27/23 10:00 10/27/23 10:15
Intake and Output
01/31/24 02/01/24 02/02/24
06:59 06:59 06:59
Intake Total 130.8 / 130.8 1154.9 / 1245.6 691.2 / 691.2
Output Total 1246 / 1344 2683 / 2744 689 / 689
Balance -1115.2 / -1213.2 -1528.1 / -1498.4 2.2 / 2.2
Intake:
Oral fluids 620 / 620 250 / 250
Amount of oral supplement(s) 240 / 240
consumed
IV fluids (Total) 90.8 / 90.8 534.9 / 551.3 66.3 / 66.3
amio 534.9 / 551.3 66.3 / 66.3
levo 90.8 / 90.8
IV piggybacks 40 / 40 134.9 / 134.9
Output:
Liquid stool amount 50 / 50 30 / 30
Rectum 50 / 50 30 / 30
True Urine Output from CBI 135 / 135 275 / 215 30 / 30
CRRT - Actual ultrafiltration 1111 / 1209 6058 / 5829 629 / 629
volume
Other:
Number of unmeasured liquid
stools
Rectum 1
Laboratory Results
10/27/23 23:00
10/27/23 23:00
Review of Systems
-
Constitutional: Fatigue
Respiratory: No Symptoms
Cardiac: No Symptoms
Abdomen/GI: No Symptoms and Other (bloated)
Physical Exam
-
General - looks better, no acute distress
Abdomen - soft, non-tender
Genitalia - normal- [address] way [address]
Skin - warm & dry with no rash
Neuro - AOx3, no motor deficits
[2023-10-27 12:07] LABS: Glucose - Point of Care 103 mg/dl (70-99)
--- NOTE | 2023-10-27 13:15 | PTCARENOTE ---
family present, OOB eating lunch, gait was steady on transfer. discussed plan of care.
[2023-10-27 13:18] LABS: APTT 41.3 Sec (23.4-35.0)
--- NOTE | 2023-10-27 13:59 | PTCARENOTE ---
ambulated in hallway, back to bed, presently resting.
--- NOTE | 2023-10-27 14:18 | CM ---
M following re: discharge planning.
Discussed in Rounds, reviewed pt's chart, met with pt. Pt's spouse and pt's son at bedside. Per Rounds meeting, HD tomorrow, nephrology and cardiology following. Per RN pt was walking on the henry without any difficulties.
Pt will be evaluated by PT and OT to determine a level of care at discharge.
D/c plan: most likely home with family vs outpatient PT/OT
CM will follow with discharge plan updates as hospitalization progresses.
[2023-10-27 15:01] LABS: Iron 37 ug/dl (49-181)
[2023-10-27 15:03] LABS: Imm Run PTT 1:10 Mix 41.6 SEC
[2023-10-27 15:04] LABS: 60 Min PTT 1:10 Mix 54.1 SEC; 60 Min PTT 1:2 Mix 43.2; 60 Minute PTT Control 39.8 SEC; Control Immediate PTT 40.2 SEC; Imm Run PTT 1:2 Mix 36.1
[2023-10-27 15:10] LABS: Percent Saturation 17 % (20-50); Total Iron Binding Capacity 210 ug/dl (261-462)
[2023-10-27 16:04] LABS: Folate 4.5 ng/ml (2.76-20); Vitamin B12 > 1000 pg/ml (239-931)
[2023-10-27] MEDS: OSCAL CAL 500 500 MG PO ×2 (17:22→21:40)
[2023-10-27 17:33] LABS: Glucose - Point of Care 93 mg/dl (70-99)
--- NOTE | 2023-10-27 19:20 | PTCARENOTE ---
ambulated to bathroom, BM on toilet, washed face and brushed teeth. gait steady, slow. to chair, presently eating dinner, in good spirits. CBI continues. for HD tomorrow, orders noted in computer.
--- NOTE | 2023-10-27 20:17 | PTCARENOTE ---
Bedside report received from off going RN. The patient is OOB to chair and eating his dinner tray. Pt remains on Amiodarone gtt at 0.5 mg (16.7ml/hr) via left PICC line. The patient is AAOx4 and able to make his needs know. Patient transferred back
to the bed. HR 130s and Afib on the monitor. HR settled to 110s-120s once the patient settled in the bed. Weak movement but pt is motivated. Questions answered. Clear breath sounds on room air. SpO2 @ 94%. Audible BS. Fluid restriction communicated
with the patient. CBI is ongoing. All needs are met at this time. Safety measures in place. Bed in the lowest position. Call damon and personal belongings are within reach.
[2023-10-27 23:26] LABS: Glucose - Point of Care 197 mg/dl (70-99)
[2023-10-28] VITALS (32 sets, daily range): BP systolic 107–139; BP diastolic 65–91; BMI 26.4
--- NOTE | 2023-10-28 00:26 | PTCARENOTE ---
Patient reassessed. Asleep but arouses to verbal and tactile stimuli. HR 102 and afib. RR 18. SpO2 @95% on room air. Even chest rise. Unlabored breathing. CBI continued.
[2023-10-28 03:42] LABS: Hematocrit 28.4 % (39.0-52.0); Hemoglobin 10.1 g/dL (13.0-18.0); Mean Corp Hgb Conc. 35.6 g/dL (33.0-37.0); Mean Corpuscular Hgb 30.5 pg (27.0-31.0); Mean Corpuscular Volume 85.8 fL (80.0-94.0); Mean Platelet Volume 13.6 fL (7.4-10.4); Red Blood Cell Count 3.31 10^6/uL (4.70-6.10); Red Cell Dist. Width 13.5 % (11.5-14.5); White Blood Cell Count 25.2 10^3/uL (4.8-10.8)
[2023-10-28 04:04] LABS: Platelet Count 30 10^3/uL (130-400)
[2023-10-28 04:38] LABS: Blood Urea Nitrogen 87 mg/dl (9-20); Calcium 7.8 mg/dl (8.4-10.2); Carbon Dioxide 21 mmol/L (22-30); Chloride 95 mmol/L (98-107); Estimated Creatinine Clearance 13 ml/min; Glucose 102 mg/dl (70-99); Magnesium 2.7 mg/dl (1.6-2.3); Phosphorus 4.5 mg/dl (2.5-4.5); Potassium 4.1 mmol/L (3.5-5.1); Sodium 129 mmol/L (135-145); eGFR 7.54
--- NOTE | 2023-10-28 04:56 | PTCARENOTE ---
Patient reassessed. AAOx4 with generalized weakness. Patient able to turn and reposition. Patient cleansed with CHG wipes and pads changed. Remains Afib on the monitor. CBI ongoing. No changes from the previous assessment.
--- NOTE | 2023-10-28 08:05 | PTCARENOTE ---
Assumed care of pt at 0715 following shift report. Pt asleep and woken to name for physical assessment and comfort care. Denies any c/o pain. No SOB on RA w/ Pox 93%. CBI running at parameters marked by . Pt aware of plans for HD this AM.
Urologist in room to talk w/ pt. Call marisol w/in pt reach.
--- NOTE | 2023-10-28 08:40 | W.PN.URO.CBU ---
Today's Communication / Plan
-
continue medical support/march and cbi
Assessment / Plan
-
post op gram negative spesis- ECOLI- after aqua-ablation
hematuria- well managed with cbi
renal failure- no evidence of hydro on ct and no flank pain c/w obstruction
ct scan did not indicated any evid of obstruction/abscess or leak- abd exam benign
from urologic standpoint- continue march and cbi
continuing broad spectrum antibx and medical support
dialysis initiated- no evid of obstruction on ct scan
is clinically much improved- but still with elevated wbc
would continue current medical support- if no decline in wbc in next 24-48hrs- consider repeat ct of chest/abd/pelvis- would have to be done without contrast so somewhat limited
if urine outpt improves also revisit anticoagulation
will follow
Diagnosis
-
Date of Service: October 28, 2023
-
Patient Diagnosis:
s/p aqua-ablation
post op sepsis- ecoli
hematuria
renal failure
NOTE- URINARY TRACT INFECTION/SEPSIS SUSPECT DUE TO RECENT PROSTATE PROCEDURE AND MARCH CATHETER REQUIREMENT
Subjective
-
pt feels ok today and looks much better
af- still afib but lower rate and bp's good
did make about 400cc of urine
wbc still elevated
exam benign
Objective
-
Vital Signs
Temp Pulse Resp BP Pulse Ox
97.8 F 107 14 116/88 93
10/28/23 08:00 10/28/23 08:00 10/28/23 08:00 10/28/23 08:00 10/28/23 08:05
Intake and Output
10/27/23 10/28/23 10/29/23
06:59 06:59 06:59
Intake Total 1154.9 / 1245.6 1505.2 / 1521.9 33.4 / 33.4
Output Total 2683 / 2744 1089 / 1089
Balance -1528.1 / -1498.4 416.2 / 432.9 33.4 / 33.4
Intake:
Oral fluids 620 / 620 730 / 730
Amount of oral supplement(s) 240 / 240
consumed
IV fluids (Total) 534.9 / 551.3 400.3 / 417.0 33.4 / 33.4
amio 534.9 / 551.3 400.3 / 417.0 33.4 / 33.4
IV piggybacks 134.9 / 134.9
Output:
Liquid stool amount 50 / 50 30 / 30
Rectum 50 / 50 30 / 30
True Urine Output from CBI 275 / 215 430 / 430
CRRT - Actual ultrafiltration 2358 / 2479 629 / 629
volume
Other:
Number of unmeasured liquid
stools
Rectum 1
Laboratory Results
10/28/23 03:29
10/28/23 03:29
Review of Systems
-
Constitutional: Fatigue
Respiratory: No Symptoms
Cardiac: No Symptoms
Abdomen/GI: No Symptoms
Physical Exam
-
General - no acute distress
Abdomen - soft, non-tender
Genitalia - normal- [address]
Skin - warm & dry with no rash
Neuro - AOx3, no motor deficits
Extremities - no clubbing, no cyanosis, no edema
[2023-10-28 08:43] LABS: Glucose - Point of Care 108 mg/dl (70-99)
--- NOTE | 2023-10-28 08:53 | W.PN.INTV ---
Today's Communication / Plan
Recommendations
IS
HD
BB
CBI
Stable for IMU
Assessment
-
Assessment: 63-year-old male never smoker with a PMHx of BPH and DDD presents with tachycardia and fever. He had a recent prostate aqua ablation done on 10-18 at [facility]. March catheter was removed yesterday and patient reports he has been
urinating, however this morning he awoken with fever and his heart rate was elevated. EMS says heart rate was in 150s and temperature 101.5F. En route here to the ER, he was given a 200mcg push dose of epinephrine, 4 mg Zofran and 50 mg Benadryl
plus 1.7L of IVF (per CITRUS FRUIT COLORER per her report). He was febrile in the ER and tachycardic, also hypotensive. Labs showed lactic acidosis with leukopenia and bandemia. CT abdomen/pelvis was concerning for perinephric stranding bilaterally and
possible small bowel ileus versus nonspecific enteritis. Patient given fluids with 1 L NS 0.9% as well as antibiotics however patient remained hypotensive requiring Levophed. Patient admitted to the ICU and flight paramedic services consulted for
additional management/recommendations.
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
Impression:
#Septic shock due to E coli bacteriemia/UTI
#Complicated UTI/pyelo with recent prostate ablation c/b clot s/p retention and fulguration
#Acute respiratory failure with hypoxemia due to sepsis with acute organ dysfunction
#Hypokalemia
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
#Acute kidney injury
#Metabolic/lactic acidosis
#Elevated LFTs
#Leukopenia with mild neutropenia
Thrombocytopenia
#Anemia
#BPH with recent prostate ablation now on CBI
Plan:
- NE low dose/vasopressin, both off since 10-25
LUE PICC placed
- Broad-spectrum antibiotics: zosyn since , transitioned to meropenem 10-24 per ID
Follow-up infectious workup with urine and blood cultures
U cx E coli
Blood cxs positive for E coli 10-23, keating-S, atbs changed to high dose ceftriaxone 10-25
Blood cxs 10-24 and so far negative
Started empiric stress dose CS upon adm: HC 50 mg IV q6, will d/c 10-25. Normal random cortisol
- Urology following --> placed 3-way march and contines CBI on moderate drip rate
Tolterodine po
- Maintain SpO2 >90-94% with supplemental O2 as needed
Currently on RA, POx 95%
IS encouraged
New onset AFib 10-25
Not for AC as d/w Urology
IV amiodarone, now d/c 10-28
Oral BB: metoprolol, dosing increased 10-28
TSH normal
Observing off AC due to thrombocytopenia and hematuria
Pain control, low dose hydromorphone
[place] with Cr trending up
Trend serum Cr and UOP with goal >0.5cc/kg/hr (try to accurately quantify I/O as he is on CBI at a moderate rate)
Metabolic/lactic acidosis, hyperkalemia
Diuretic trial 10-25
Nephrology following, started LATEX FASHIONS DESIGNER 10-25
Difficulties with CRRT due to circuit clotting
Started regular HD 10-28
Interim thrombocytopenia since 10-25, worsening
Multifactorial: sepsis, CRRT
Normal fibrinogen
Has not received heparin since adm
Had a brief adm to [facility] from 10-18 to for prostate ablation
Hem consulted, following plt, no transfusion unless plt<20 or active bleeding. Checking direct plt abs, antiphospholipid abs
Hypocalcemia in spite of 2 g Ca, IV redosed and 10-27, currently on oral supplementation
Likely cause is sepsis
Transaminitis, mild, likely due to sepsis, resolving
- anti-pyretics as needed with tylenol; avoid NSAIDs given recent bladder clot and VIRGINIA
- anti-emetics as needed
Off brief use of gabapentin for hiccups
- Transfuse blood products as needed to keep Hb>7, plt>50k and INR<1.8
- Maintain euglycemia with goal BG 140�180
- DVT pharmacoprophylaxis on hold due to thrombocytopenia and hematuria
GI proph: IV PPI, changed to po 10-27, continue for now given thrombocytopenia
Full code status
D/w MDT
D/w in detail with Mr and Mrs Romero and their son at bedside, all questions answered to their satisfaction with information available
Stable for transfer to IMU level of care, will sign off then
Data:
CXR 10-23-2023: No focal dense consolidation. However, mild to moderate interstitial prominence is noted in the mid to lower lung zones, right greater than left. The upper lung zones are clear. Cannot exclude viral respiratory syndrome.
CT A/P 10-23-2023:
Mild asymmetric left adrenal gland diffuse thickening and periadrenal fat stranding. Although nonspecific, this could reflect adrenal congestion as result of physiologic stress. No focal adrenal mass.
1 mm calcific focus in each kidney. . Differential includes arterial calcification versus nonobstructing calculi. No ureteral calculus, bilaterally. No hydronephrosis to suggest obstructive uropathy. There is, however, mild perinephric soft tissue
stranding, left slightly greater than right. Nonspecific. Cannot exclude changes related to urinary tract infection.
Possible mild small bowel ileus or nonspecific enteritis. No evidence to suggest bowel obstruction.
March catheter within the urinary bladder, which is collapsed. Diffuse urinary bladder wall thickening suggested. This could indicate cystitis. Generalized prostatic enlargement.
Subjective Dataa
Subjective Data
Date of Service:
Date of Service: October 28, 2023
Chief Complaint: Fitness Specialist Follow Up
Subjective:
No major events reported overnight
Tolerating extended hemodialysis this morning
Off O2, respiratory núñez stable
Did PT yesterday, was able to walk in the hallways with the help of a walker
Review of Systems
General: Fever (n), Sweats (n), Chills (n) and Satisfactory Appetite (n)
HEENT: Dysphagia (n)
Cardiopulmonary: Dyspnea, Cough (n), Wheezing (n), Chest Pain and Hemoptysis (n)
GI: Abdominal Pain (n), Nausea (n) and Vomiting
Neuro: Weakness
Objective Data
Data Reviewed
Vital Signs / I&O / Oxygen:
Vital Signs
Temp Pulse Resp BP Pulse Ox
97.8 F 107 14 116/88 93
10/28/23 08:00 10/28/23 08:00 10/28/23 08:00 10/28/23 08:00 10/28/23 08:38
Intake and Output
10/27/23 10/28/23 10/29/23
06:59 06:59 06:59
Intake Total 1154.9 / 1245.6 1505.2 / 1521.9 33.4 / 33.4
Output Total 2683 / 2744 1089 / 1089
Balance -1528.1 / -1498.4 416.2 / 432.9 33.4 / 33.4
SaO2 93
Nasal Cannula flow liters per 2
minute
Physical Exam
General: Respiratory Distress (very mild)
HEENT: Normocephalic and Moist Mucous Membranes
Cardiovascular: Regular Rhythm, Murmur (n), Peripheral Edema (n), Calf Tenderness (n) and Other (RIJ HD cath)
Respiratory: Clear, Non-Labored Respirations and Stridor (n)
GI: Soft, Non Distended and Non Tender
Neurology: Awake, AO x 3 and No Motor Deficits
Skin: Dry
Labs/Micro/Reports
Lab Data
10/28/23 03:29
10/28/23 03:29
Laboratory Results
10/27/23
12:56
APTT 41.3 H
Microbiology
10/24/23 03:29 Blood/Venous Blood Culture - Preliminary
No Growth in 4 days- Final report to follow
10/25/23 03:14 Blood/Venous Blood Culture - Preliminary
No Growth in 72 hours- Final report to follow
10/26/23 08:28 Feces/Stool Salmonella/Shigella Culture - Preliminary
Culture in Progress
10/26/23 08:28 Feces/Stool Campylobacter Culture - Preliminary
Culture in Progress
10/26/23 08:28 Feces/Stool Shiga Toxin Test - Final
No E. coli Shiga Toxin 1 or 2 detected.
10/26/23 08:28 Feces/Stool C. difficile GDH Antigen & Toxins - Final
Negative for toxigenic C.difficile
10/26/23 08:28 Feces/Stool - Final
Negative for Norovirus GI and GII.
10/23/23 05:07 Blood/Venous Blood Culture - Final
Escherichia coli
10/23/23 05:07 Blood/Venous Gram Stain - Final
10/23/23 04:59 Urine Urine Culture - Final
Escherichia coli
10/23/23 04:42 Blood/Venous Blood Culture - Final
Escherichia coli
10/23/23 04:42 Blood/Venous Gram Stain - Final
[2023-10-28] MEDS: EPOGEN 4000 UNITS IV (09:19)
--- NOTE | 2023-10-28 09:35 | W.PN.NEPH.HD ---
Assessment
-
Seen on HD. no complaints. VSS, no pressors. Access temp CVC
Progress Note - Hemodialysis
-
Date of Service: October 28, 2023
Duration: 30 minutes and 3 hours
Potassium Bath: 3
Calcium Bath: 2.5
Opti-Dialyzer: 160
Ultrafiltration: Other (2kg)
Blood Flow: 400
Dialysate Flow: 600
Heparin: no
EPO: 4000 UNITS
[2023-10-28 09:49] LABS: Hepatitis B Surface Antigen Negative (Negative)
[2023-10-28 10:08] LABS: Hepatitis B Core Ab, Total Negative (Negative); Hepatitis B Surface Antibody Negative
--- NOTE | 2023-10-28 10:36 | W.PN.HOSP.TC ---
Today's Communication/Plan
-
Dialysis
Once CBI is stopped we will get it good idea on the urine output
He is making some urine
Continue antibiotics
Supportive care
Encourage incentive spirometry
Advance diet
Assessment / Plan
Assessment / Plan
63-year-old male prostate recently was seen at [facility] for aqua ablation of prostate on Tuesday. Tuesday had large bladder clot which required evacuation in the OR. He was discharged home on . Catheter was removed on 10/22/2023. Patient
was supposed to probably on 10/23/2023. 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 Urine bloody appearing in the ER
Awake alert and conversant
No abdominal pain, no right upper quadrant tenderness, mild distention bowel sounds appreciated
Cardiovascular system S1-S2 irregular, sm apex
Chest decreased at bases
CBI with clear urine
Anasarca
CT of the abdomen and pelvis mild asymmetric left adrenal gland diffuse thickening and. Renal fat stranding possible adrenal congestion. 1 mm calcific focus in each kidney no ureteral calculus no hydronephrosis. Mild perinephric soft tissue
stranding left greater than right nonspecific. Possible mid small bowel ileus/nonspecific enteritis. No small bowel obstruction. Avalos catheter in the bladder. Diffuse bladder wall thickening indicating cystitis. General prostatic enlargement.
Echo 10/26/2023-normal LV systolic function. EF 55% mild concentric LVH. Mild to moderate MR. Mild TR
# Septic shock
-E Coli Sepsis
- source
-Likely secondary to recent procedure
-Continue IV antibiotics-Zosyn changed to meropenem to Rocephin
-Repeat blood cultures neg
-Maintain MAP over 65
-Off Pressors-Levophed and vasopressin
-CT abdomen pelvis as above
-Cortisol levels , off HC
-ID ,Urology and nephrology also following
#New Afib
Rates slightly high
Not a candidate for AC per D/W Urology given recent bleed
Consider rate controlling [id number] metoprolol
Amiodarone running
# Leukocytosis/leukopenia-secondary sepsis
Unclear why white count went up
# Mucous in stool and diarrhea, Bloating
Possible ileus
C. difficile negative, norovirus negative
Cultures pending
# Lactic acidosis-almost normalized
# Hematuria
-Status post aqua ablation of the prostate 10/18/2023 at [facility]
-Large clot in the bladder on 10/19/2023 needed OR evacuation
-Avalos placed in the [id number] urine on CBI
-Clear now
# Acute kidney injury-creatinine 6.3
-Likely secondary to septic shock and renal hypoperfusion/prerenal
-ATN Possible
-Also rule out postrenal-Avalos catheter placed
-Keep MAP over 65 mmHg
-Follow creatinine
-Trial of Lasix on 10/25/2023 did not help make urine
-CRRT started on 10/25/2023
-HD started 2-11-19
# Coagulopathy-secondary to sepsis-follow
# Hyponatremia-Volume OL now
# Thrombocytopenia secondary to sepsis
Normal fibrinogen level
Possibly also consumptive from clotting of the filter
Getting better
# Anemia likely secondary to acute blood loss secondary to hematuria
# Elevated LFTs-likely secondary to septic shock and decreased perfusion
-Improving
-CT scan of the abdomen and pelvis
# Hypokalemia-replaced,
# Hypocalcemia-p.o. replacement given ceftriaxone
Replace vitamin D
# Vitamin D deficiency-replace
# Hypomagnesemia-replaced
# History of back surgery for disc herniation
# Hypoalbuminemia
# Alcohol use 3 to 4 glasses 3 times a week
# DVT prophylaxis-SCDs given bleeding
# Full code
D/W Cards
Spoke to and updated. She is very appreciative of all the care the patient is receiving for 2 weeks in hospital. All questions were answered.
Discussed with ICU team
Total Critical Care Time 31 minutes. I was immediately available to the patient and staff. I personally examined, reviewed labs, diagnostic images/reports, interpretations, treatment plans, discussed patient care with other providers and left
message for family , entered orders as appropriate and documented the medical record.
Anticipated Discharge: > 48 hours
Subjective/Interval History
-
Date of Service: October 28, 2023
Objective Data
-
Labs:
Laboratory Results
10/28/23
03:29
WBC 25.2 H
Hgb 10.1 L
Hct 28.4 L
Plt Count 30 L D
Sodium 129 L
Potassium 4.1
Chloride 95 L
Carbon Dioxide 21 L
BUN 87 H
Creatinine 7.5 H*
Glucose 102 H
Calcium 7.8 L
Vital Signs:
Vital Signs
Temp Pulse Resp BP Pulse Ox
97.8 F 107 14 116/88 93
10/28/23 08:00 10/28/23 08:00 10/28/23 08:00 10/28/23 08:00 10/28/23 08:38
I&O
10/27/23 10/28/23 10/29/23
06:59 06:59 06:59
Intake Total 1154.9 / 1245.6 1505.2 / 1521.9 33.4 / 33.4
Output Total 2683 / 2744 1089 / 1089
Balance -1528.1 / -1498.4 416.2 / 432.9 33.4 / 33.4
--- NOTE | 2023-10-28 10:39 | PTCARENOTE ---
HD continues w/o complication. Pt tolerating well. Pt used bedpan to pass moderate amount of clear mucous per rectum. No complaints received or changes noted from previous assessment findings.
--- NOTE | 2023-10-28 11:12 | W.PN.CD ---
Today's Communication / Plan
-
I stopped amiodarone
I increased metoprolol
High risk situation
Impression / Plan
-
New onset AFib with rapid ventricular response precipitated by urologic sepsis
- BP will allow more BB. Will stop Amio
- If AFib persists we can pursue cardioversion once he is a candidtate for systemic anticoagulation
- [id number] zero
Mild to moderate mitral regurgitation
Elevated coronary calcium score but no obstructive CAD ([facility])
E. Coli sepsis from after recent prostate procedure for BPH (outside hospital, aqua ablation with subsequent return to OR for bleeding
Acute severe renal failure requiring hemodialysis
- Presumably from sepsis
Severe thrombocytopenia
- Presumable from sepsis
BPH
Multifactorial anemia
Subjective:
No CP or dyspnea, no palps
Physical Exam
Vital Signs/Labs
Vital Signs
Temp Pulse Resp BP Pulse Ox
97.8 F 107 14 116/88 93
10/28/23 08:00 10/28/23 08:00 10/28/23 08:00 10/28/23 08:00 10/28/23 08:38
10/27/23 10/28/23 10/29/23
06:59 06:59 06:59
Actual Weight 99.9 kg 100.9 kg
10/28/23 03:29
10/28/23 03:29
PT 14.7 Sec (11.4-14.6) H 10/26/23 04:20
INR 1.13 10/26/23 04:20
APTT 41.3 Sec (23.4-35.0) H 10/27/23 12:56
Magnesium 2.7 mg/dl (1.6-2.3) H 10/28/23 03:29
TSH 4.20 uIU/ml (0.47-4.68) 02/01/24 12:56
Physical Exam
Constitutional: No acute distress
EENT: Anicteric
Cardiovascular: Rhythm/rate is irregular and Rub absent
GI: Soft and Distention absent
Neuro/Psych: Alert
Data Reviewed
-
Date of Service: October 28, 2023
--- NOTE | 2023-10-28 12:01 | W.PN.ID1 ---
Date of Service
Date of Service: October 28, 2023
Today's Communication
Continue ceftriaxone for now.
Assessment / Plan
# E. coli bacteremia from source, recent prostate ablation procedure 10/18 at [facility]
# s/p Septic shock off pressors
-Fever resolved.
-Leukocytosis persists
-Repeat blood cx's x 2 neg
- Continue ceftriaxone (d6 abx).
-Follow wbc.
# Acute thrombocytopenia (preceded ceftriaxone), slight improvement.
- Stool negative shiga toxin. Hem/Onc on board.
# [place] - now on HD
# New Afib with RVR, off amiodarone
#Additional Past Medical History:
BPH s/p aqua ablation 10/18/23
DJD
Right total hip replacement
Appendectomy
Arthroscopic knee surgery
Lumbar discectomy x 2
Allergy History:
Chief Complaint
-: Clinical Sepsis and Bacteremia
Subjective / Review of Systems
Feels OK.
Vital Signs / Physical Exam
Vital Signs
Vital Signs
Temp Pulse Resp BP Pulse Ox
97.8 F 118 14 127/69 97
10/28/23 08:00 10/28/23 11:30 10/28/23 11:30 10/28/23 11:30 10/28/23 11:30
Physical Exam
Constitutional: Comfortable
Eyes: No Conjunctival Hemorrhage and Sclera Anicteric
Cardiovascular: Irregular Rate and Other (tachycardic)
Gastrointestinal: Soft, Non Tender and Non Distended
Genito-Urinary: Avalos and Clear Urine
Extremities: Negative Edema
Neurological: AO x 3
Objective Data
Lab Data
Lab Results
10/28/23 03:29
10/28/23 03:29
PT 14.7 Sec (11.4-14.6) H 10/26/23 04:20
INR 1.13 10/26/23 04:20
APTT 41.3 Sec (23.4-35.0) H 10/27/23 12:56
Estimated Creat Clear 13 ml/min 10/28/23 03:29
Lactic Acid 1.1 mmol/L (0.7-2.0) 10/27/23 04:50
Total Bilirubin Cancelled 10/26/23 06:00
AST Cancelled 10/26/23 06:00
ALT Cancelled 10/26/23 06:00
Alkaline Phosphatase Cancelled 10/26/23 06:00
Most recent labs reviewed.
Micro Results:
10/26/23 08:28 Salmonella/Shigella Culture - Final
Feces/Stool No Salmonella, Shigella, Aeromonas or Plesiomonas species
isolated.
Campylobacter Culture - Final
No Campylobacter species isolated.
Shiga Toxin Test - Final
No E. coli Shiga Toxin 1 or 2 detected.
10/24/23 03:29 Blood Culture - Preliminary
Blood/Venous No Growth in 4 days- Final report to follow
10/25/23 03:14 Blood Culture - Preliminary
Blood/Venous No Growth in 72 hours- Final report to follow
10/26/23 08:28 C. difficile GDH Antigen & Toxins - Final
Feces/Stool Negative for toxigenic C.difficile
- Final
Negative for Norovirus GI and GII.
10/23/23 05:07 Blood Culture - Final
Blood/Venous Escherichia coli
Gram Stain - Final
10/23/23 04:59 Urine Culture - Final
Urine Escherichia coli
10/23/23 04:42 Blood Culture - Final
Blood/Venous Escherichia coli
Gram Stain - Final
10/23/23 05:01 Influenza Types A & B (VANESA) - Final
Nasal Swab Negative for Influenza A & B, NAAT
Negative results must be combined with clinical observations
and patient history.
Nucleic Acid Amplification test (NAAT)performed on the
[employer] ID NOW platform.
10/23/23 CXR: No acute disease of the chest.
10/23/23 CT a/p: 1 mm calcific focus in each kidney. . Differential includes arterial calcification versus nonobstructing calculi. No ureteral calculus, bilaterally. No hydronephrosis to suggest obstructive uropathy. There is, however, mild
perinephric soft tissue stranding, left slightly greater than right. Nonspecific. Cannot exclude changes related to urinary tract infection. Possible mild small bowel ileus or nonspecific enteritis. No evidence to suggest bowel obstruction. Avalos
catheter within the urinary bladder, which is collapsed. Diffuse urinary bladder wall thickening suggested. This could indicate cystitis. Generalized prostatic enlargement.
[2023-10-28] MEDS: PROTONIX 40 MG PO (12:10)
[2023-10-28] MEDS: DETROL LA 2 MG PO (12:10)
[2023-10-28] MEDS: VITAMIN D3 (cholecalciferol) 25 MCG PO (12:11)
[2023-10-28] MEDS: OSCAL CAL 500 500 MG PO ×3 (12:11→21:08)
[2023-10-28] MEDS: LOPRESSOR 50 MG PO ×2 (12:12→19:55)
[2023-10-28] MEDS: ROCEPHIN 2000 MG IV (12:13)
[2023-10-28] MEDS: STERILE WATER FOR INJECTION 20 ML IV (12:13)
[2023-10-28 12:39] LABS: Glucose - Point of Care 88 mg/dl (70-99)
[2023-10-28] MEDS: NEURONTIN PO (13:14)
[2023-10-28] MEDS: LOPRESSOR PO (13:14)
--- NOTE | 2023-10-28 13:17 | PTCARENOTE ---
HD completed. Pt reports feeling fatigued and declined offer to assist w/ getting OOB 'maybe later'. Amio d/c'ed per order. Ordered PO meds administered including Lopressor. Pt used bedpan to pass small amount clear mucous per rectum. Pt's and
son here to visit- updated on plan of care and questions answered.
--- NOTE | 2023-10-28 14:06 | CM ---
CM following re: discharge planning.
Discussed in Rounds, reviewed pt's chart, met with pt. Pt's spouse and pt's son at bedside. Per Rounds meeting, continue medical support/Avalos and cbi, dialysis.
Pt will be evaluated by PT and OT to determine a level of care at discharge.
D/c plan: most likely home with family vs outpatient PT/OT
CM will follow with discharge plan updates as hospitalization progresses.
--- NOTE | 2023-10-28 15:38 | PTCARENOTE ---
Pt OOB to chair w/ assist. Pt c/o initial lightheadedness upon sitting at bedside but reported resolved w/in <1min. Generalized weakness noted. Pt's and son continue to visit. Pt sitting in chair, encouraged to use IS. No complaints or changes
from previous assessment findings.
[2023-10-28 23:49] LABS: Beta-2-Glycoprotein I Ab. IgA <10 SAU (<=20); Beta-2-Glycoprotein I Ab. IgG <10 SGU (<=20); Beta-2-Glycoprotein I Ab. IgM <10 SMU (<=20)
[2023-10-29] VITALS (25 sets, daily range): BP systolic 120–145; BP diastolic 70–101; BMI 26.5
[2023-10-29 04:12] LABS: Hematocrit 29.4 % (39.0-52.0); Hemoglobin 10.1 g/dL (13.0-18.0); Mean Corp Hgb Conc. 34.4 g/dL (33.0-37.0); Mean Corpuscular Hgb 30.2 pg (27.0-31.0); Mean Platelet Volume 12.9 fL (7.4-10.4); Platelet Count 74 10^3/uL (130-400); Red Blood Cell Count 3.34 10^6/uL (4.70-6.10); Red Cell Dist. Width 13.4 % (11.5-14.5); White Blood Cell Count 33.3 10^3/uL (4.8-10.8)
[2023-10-29 04:40] LABS: ALT (SGPT) 61 U/L (0-50); AST (SGOT) 49 U/L (17-59); Albumin 2.4 g/dl (3.5-5.0); Alkaline Phosphatase 641 U/L (38-126); Blood Urea Nitrogen 56 mg/dl (9-20); Calcium 7.6 mg/dl (8.4-10.2); Carbon Dioxide 26 mmol/L (22-30); Chloride 96 mmol/L (98-107); Estimated Creatinine Clearance 14 ml/min; Glucose 90 mg/dl (70-99); Potassium 4.4 mmol/L (3.5-5.1); Sodium 127 mmol/L (135-145); Total Bilirubin 0.6 mg/dl (0.2-1.3); Total Protein 4.6 g/dl (6.3-8.2); eGFR 8.79
--- NOTE | 2023-10-29 05:10 | PTCARENOTE ---
10/28/23 - received pt from dayshift RN, assessments completed and charted.
pt offers no complaints of pain, only mild nausea and believes its because of his frequent bowel movements and does not want any zofran.
v/s stable, pt afebrile, and CBI running with no issue, clear yellow urine in bag.
pt has 200 ml out of 1200 FR left until morning.
10/29/23- pt sleeping comfortably, no c/o pain or discomfort. pt states he feels weak and worn out from dialysis.
labs drawn and sent, no new orders at this time.
[2023-10-29] MEDS: DETROL LA 2 MG PO (07:37)
[2023-10-29] MEDS: VITAMIN D3 (cholecalciferol) 25 MCG PO (07:38)
[2023-10-29] MEDS: PROTONIX 40 MG PO (07:38)
[2023-10-29] MEDS: LOPRESSOR 50 MG PO ×2 (07:38→20:23)
--- NOTE | 2023-10-29 07:39 | W.PN.HOSP.TC ---
Today's Communication/Plan
-
cont abx
follow cultures
start valacyclovir for new herpetic lesions nostril
trend wbc
Assessment / Plan
Assessment / Plan
Physical
General: Awake alert and conversant
HEENT: new herpetic like lesions noted nostril area.
Pulm: clear to auscultation bilateral
CVS:Irregularly Irregular tachy
Abd: soft nontender bowel sounds present
: CBI with clear urine
Neuro: AOx3
63-year-old male prostate recently was seen at [facility] for aqua ablation of prostate on Tuesday. Tuesday had large bladder clot which required evacuation in the OR. He was discharged home on . Catheter was removed on 10/22/2023. Early
morning he woke up with fevers and chills. Urine bloody appearing in the ER.
CT of the abdomen and pelvis mild asymmetric left adrenal gland diffuse thickening and. Renal fat stranding possible adrenal congestion. 1 mm calcific focus in each kidney no ureteral calculus no hydronephrosis. Mild perinephric soft tissue
stranding left greater than right nonspecific. Possible mid small bowel ileus/nonspecific enteritis. No small bowel obstruction. Avalos catheter in the bladder. Diffuse bladder wall thickening indicating cystitis. General prostatic enlargement.
MRI Noted Post-ablation changes of the prostate without convincing evidence for intraprostatic abscess.
Moderate free fluid in the pelvis, likely reactive.
Findings throughout the prostate gland peripheral zone compatible with PI-RADS 2 (the presence of clinically significant cancer is unlikely).
Moderate to severe BPH changes.
Echo 10/26/2023-normal LV systolic function. EF 55% mild concentric LVH. Mild to moderate MR. Mild TR
# Septic shock
# Leukocytosis/leukopenia-secondary sepsis
-E Coli Sepsis
- source
-Likely secondary to recent procedure
-Continue IV antibiotics-Zosyn changed to meropenem then Rocephin, continued as per ID
-Repeat blood and urine cultures positive for E. coli, repeat blood cultures ngtd
-Maintain MAP over 65
-Off Pressors-Levophed and vasopressin
-CT MRI abdomen pelvis as above
-ID ,Urology and nephrology eval appreciated
10/29 New Herpetic Lesions Nostril Area
discussed with ID, started Valacyclovir renally dosed
#New Afib
tachy but HR consistently<120
Not a candidate for AC per D/W Urology given recent bleed
Cardio eval appreciated, cont metoprolol tartarate 50 mg BID
# Mucous in stool and diarrhea, Bloating
Possible ileus
C. difficile negative, norovirus negative
repeat Cultures pending
# Lactic acidosis-resolved
# Hematuria
-Status post aqua ablation of the prostate 10/18/2023 at [facility]
-Large clot in the bladder on 10/19/2023 needed OR evacuation
-Avalos placed in the ZA-gwms-bdriujl urine on CBI
-Clear now
# Acute kidney injury-creatinine 6.3
-Likely secondary to septic shock and renal hypoperfusion/prerenal
-ATN Possible
-Also rule out postrenal-Avalos catheter placed
-Keep MAP over 65 mmHg
-Follow creatinine
-Trial of Lasix on 10/25/2023 did not help make urine
-CRRT started on 10/25/2023
-HD started 2-224
# Coagulopathy-secondary to sepsis-follow
# Hyponatremia-Volume OL now
# Thrombocytopenia secondary to sepsis
Normal fibrinogen level
Possibly also consumptive from clotting of the filter
improving
Hematology eval appreciated
# Anemia likely secondary to acute blood loss secondary to hematuria, also iron deficiency, anemia of chronic disease, and sepsis contributing
# Elevated LFTs-likely secondary to septic shock and decreased perfusion
-Improving
# Hypokalemia- monitor and replete as necessary
# Hypocalcemia-p.o. replacement given ceftriaxone
Replace vitamin D
# Vitamin D deficiency-replace
# Hypomagnesemia-replaced
# History of back surgery for disc herniation
# Hypoalbuminemia
# Alcohol use 3 to 4 glasses 3 times a week
# DVT prophylaxis-SCDs given bleeding
# Full code
discussed with patient and his
Total Critical Care Time 45 minutes. I was immediately available to the patient and staff. I personally examined, reviewed labs, diagnostic images/reports, interpretations, treatment plans, discussed patient care with other providers and left
message for family , entered orders as appropriate and documented the medical record.
Anticipated Discharge: > 48 hours
Subjective/Interval History
-
Date of Service: October 29, 2023
No acute distress. New lesions nostril area developed appears herpetic <1 day onset per patient and his at bedside.
Objective Data
-
Labs:
Laboratory Results
10/29/23
04:00
WBC 33.3 H
Hgb 10.1 L
Hct 29.4 L
Plt Count 74 L D
Sodium 127 L
Potassium 4.4
Chloride 96 L
Carbon Dioxide 26
BUN 56 H
Creatinine 6.6 H*
Glucose 90
Calcium 7.6 L
Total Bilirubin 0.6
AST 49
ALT 61 H
Alkaline Phosphatase 641 H
Vital Signs:
Vital Signs
Temp Pulse Resp BP Pulse Ox
97.6 F 110 17 123/73 97
10/29/23 07:28 10/29/23 06:00 10/29/23 06:00 10/29/23 06:00 10/29/23 06:00
I&O
10/28/23 10/29/23 10/30/23
06:59 06:59 06:59
Intake Total 1505.2 / 1521.9 900.2 / 900.2
Output Total 1089 / 1089 550 / 550
Balance 416.2 / 432.9 350.2 / 350.2
[2023-10-29] MEDS: OSCAL CAL 500 500 MG PO ×3 (07:41→20:22)
[2023-10-29] MEDS: ZOFRAN 4 MG IV (07:41)
[2023-10-29 07:55] LABS: Glucose - Point of Care 87 mg/dl (70-99)
--- NOTE | 2023-10-29 08:19 | W.PN.CD ---
Today's Communication / Plan
-
- Continue metoprolol tartrate 50 mg twice daily; A-fib is fairly rate-controlled overall, given current underlying clinical condition.
- Cardiology will continue to follow heart rate control peripherally.
Impression / Plan
-
New onset AFib with rapid ventricular response precipitated by urologic sepsis
- Continue metoprolol tartrate 50 mg twice daily; A-fib is fairly rate-controlled overall, given current underlying clinical condition.
- If AFib persists we can pursue cardioversion once he is a candidtate for systemic anticoagulation
- [id number] zero
Mild to moderate mitral regurgitation
-Clinically stable.
Elevated coronary calcium score but no obstructive CAD ([facility])
E. Coli sepsis from after recent prostate procedure for BPH (outside hospital, aqua ablation with subsequent return to OR for bleeding
-Acute severe renal failure requiring hemodialysis
-Continue management as per primary team.
[place]:
-Management as per Nephrology.
Severe thrombocytopenia:
- Presumable from sepsis
- Improved today.
BPH/Hematuria:
-On CBI; management as per Urology.
Multifactorial anemia
Subjective:
No major events overnight. No cardiac complaints this a.m.
Physical Exam
Vital Signs/Labs
Vital Signs
Temp Pulse Resp BP Pulse Ox
97.6 F 110 17 123/73 97
10/29/23 07:28 10/29/23 06:00 10/29/23 06:00 10/29/23 06:00 10/29/23 06:00
10/28/23 10/29/23 10/30/23
06:59 06:59 06:59
Actual Weight 100.9 kg 101.3 kg
10/29/23 04:00
10/29/23 04:00
PT 14.7 Sec (11.4-14.6) H 10/26/23 04:20
INR 1.13 10/26/23 04:20
APTT 41.3 Sec (23.4-35.0) H 10/27/23 12:56
Magnesium 2.7 mg/dl (1.6-2.3) H 10/28/23 03:29
TSH 4.20 uIU/ml (0.47-4.68) 10/27/23 12:56
Physical Exam
Constitutional: No acute distress and Comfortable
EENT: Anicteric
Cardiovascular: Systolic murmur absent, Rhythm/rate is irregular, Pedal edema present (Trace-1+) and S1S2 is normal
Respiratory: Respiratory effort normal and Lungs clear to auscul.
GI: Soft
Neuro/Psych: AO x 3
Other: Skin (Warm, dry, intact)
Data Reviewed
-
Date of Service: October 29, 2023
EKG: Tracing Personally Visualized and interpreted (EKG: A-fib)
Medical Tests (PFT, Pathology etc): Discussed with Patient
Labs: Labs Reviewed by me
Critical Care Time (in minutes): 35
--- NOTE | 2023-10-29 08:54 | W.PN.INTV ---
Today's Communication / Plan
Recommendations
Atb
Follow cxs
CBI
IMU
Assessment
-
Assessment: 63-year-old male never smoker with a PMHx of BPH and DDD presents with tachycardia and fever. He had a recent prostate aqua ablation done on 10-18 at [place]. March catheter was removed yesterday and patient reports he has been
urinating, however this morning he awoken with fever and his heart rate was elevated. EMS says heart rate was in 150s and temperature 101.5F. En route here to the ER, he was given a 200mcg push dose of epinephrine, 4 mg Zofran and 50 mg Benadryl
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 He was febrile in the ER and tachycardic, also hypotensive. Labs showed lactic acidosis with leukopenia and bandemia. CT abdomen/pelvis was concerning for perinephric stranding bilaterally and
possible small bowel ileus versus nonspecific enteritis. Patient given fluids with 1 L NS 0.9% as well as antibiotics however patient remained hypotensive requiring Levophed. Patient admitted to the ICU and director banking services consulted for
additional management/recommendations.
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
Impression:
#Septic shock due to E coli bacteriemia/UTI
#Complicated UTI/pyelo with recent prostate ablation c/b clot s/p retention and fulguration
#Acute respiratory failure with hypoxemia due to sepsis with acute organ dysfunction
#Hypokalemia
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
#Acute kidney injury
#Metabolic/lactic acidosis
#Elevated LFTs
#Leukopenia with mild neutropenia
Thrombocytopenia
#Anemia
#BPH with recent prostate ablation now on CBI
Plan:
- NE low dose/vasopressin, both off since 10-25
LUE PICC placed
- Broad-spectrum antibiotics: zosyn since adm, transitioned to meropenem 10-24 per ID
Follow-up infectious workup with urine and blood cultures
U cx E coli
Blood cxs positive for E coli 10-23, keating-S, atbs changed to high dose ceftriaxone 10-25
Blood cxs 10-24 and 30 so far negative
Chest x-ray remains clear
Leukocytosis increasing
Repeat blood cxs 10-29
Started empiric stress dose CS upon adm: HC 50 mg IV q6, d/c 10-25. Normal random cortisol
- Urology following --> placed 3-way march and contines CBI on moderate drip rate
Tolterodine po
MRI pelvis 10-29:
Post-ablation changes of the prostate without convincing evidence for intraprostatic abscess.
Moderate free fluid in the pelvis, likely reactive.
Findings throughout the prostate gland peripheral zone compatible with PI-RADS 2 (the presence of clinically significant cancer is unlikely).
Moderate to severe BPH changes.
- Maintain SpO2 >90-94% with supplemental O2 as needed
Currently on RA, POx 95%
IS encouraged
New onset AFib 10-25
Not for AC as d/w Urology
IV amiodarone, now d/c 10-28
Oral BB: metoprolol, dosing increased 10-28
TSH normal
Observing off AC due to thrombocytopenia and hematuria
Cards following, if AFib persists could pursue CV once candidate for full AC
Pain control, low dose hydromorphone
[place] with Cr trending up
Trend serum Cr and UOP with goal >0.5cc/kg/hr (try to accurately quantify I/O as he is on CBI at a moderate rate)
Metabolic/lactic acidosis, hyperkalemia
Diuretic trial 10-25
Nephrology following, started CRISIS CLINICIAN 10-25
Difficulties with CRRT due to circuit clotting
Started regular HD 10-28
Interim thrombocytopenia since 10-25, worsening initially
Multifactorial: sepsis, CRRT
Normal fibrinogen
Has not received heparin since adm
Had a brief adm to [facility] from 10-18 to for prostate ablation
Hem consulted, following plt, no transfusion unless plt<20 or active bleeding. Checking direct plt abs, antiphospholipid abs
Thrombocytopenia now improving, 73L on 10-29
Hypocalcemia in spite of 2 g Ca, IV redosed and 10-27, currently on oral supplementation
Likely cause is sepsis
Transaminitis, mild, likely due to sepsis, resolving
- anti-pyretics as needed with tylenol; avoid NSAIDs given recent bladder clot and VIR[place]
- anti-emetics as needed
Off brief use of gabapentin for hiccups
- Transfuse blood products as needed to keep Hb>7, plt>50k and INR<1.8
- Maintain euglycemia with goal BG 140�180
- DVT pharmacoprophylaxis on hold due to thrombocytopenia and hematuria
GI proph: IV PPI, changed to po 10-27, continue for now given thrombocytopenia
Full code status
D/w MDT
D/w in detail with Mr and Mrs Heather and their son at bedside, all questions answered to their satisfaction with information available
Stable for transfer to IMU level of care since 10-28
Reconsult prn
Data:
CXR 10-23-2023: No focal dense consolidation. However, mild to moderate interstitial prominence is noted in the mid to lower lung zones, right greater than left. The upper lung zones are clear. Cannot exclude viral respiratory syndrome.
CT A/P 10-23-2023:
Mild asymmetric left adrenal gland diffuse thickening and periadrenal fat stranding. Although nonspecific, this could reflect adrenal congestion as result of physiologic stress. No focal adrenal mass.
1 mm calcific focus in each kidney. . Differential includes arterial calcification versus nonobstructing calculi. No ureteral calculus, bilaterally. No hydronephrosis to suggest obstructive uropathy. There is, however, mild perinephric soft tissue
stranding, left slightly greater than right. Nonspecific. Cannot exclude changes related to urinary tract infection.
Possible mild small bowel ileus or nonspecific enteritis. No evidence to suggest bowel obstruction.
March catheter within the urinary bladder, which is collapsed. Diffuse urinary bladder wall thickening suggested. This could indicate cystitis. Generalized prostatic enlargement.
Subjective Dataa
Subjective Data
Date of Service:
Date of Service: October 29, 2023
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
Subjective:
No major events reported
Hemodynamically stable, afebrile
Reported loose stool earlier today
Increasing leukocytosis
Blood cultures repeated, C. difficile ordered and pending collection
Review of Systems
General: Fever (n), Sweats (n), Chills (n) and Satisfactory Appetite (n)
HEENT: Epistaxis and Dysphagia
Cardiopulmonary: Dyspnea on Exertion, Cough, Wheezing, Edema and Hemoptysis
GI: Abdominal Pain (n), Nausea, Vomiting and Diarrhea
Neuro: Weakness
Objective Data
Data Reviewed
Vital Signs / I&O / Oxygen:
Vital Signs
Temp Pulse Resp BP Pulse Ox
97.6 F 115 23 125/85 94
10/29/23 07:28 10/29/23 08:00 10/29/23 08:00 10/29/23 08:00 10/29/23 08:06
Intake and Output
10/28/23 10/29/23 10/30/23
06:59 06:59 06:59
Intake Total 1505.2 / 1521.9 900.2 / 900.2 240 / 240
Output Total 1089 / 1089 550 / 550 100 / 100
Balance 416.2 / 432.9 350.2 / 350.2 140 / 140
SaO2 94
Nasal Cannula flow liters per 2
minute
Physical Exam
General: Respiratory Distress (very mild)
HEENT: Normocephalic and Moist Mucous Membranes
Cardiovascular: Regular Rhythm, Murmur (n), Peripheral Edema (n), Calf Tenderness (n) and Other (RIJ HD cath)
Respiratory: Clear, Non-Labored Respirations and Stridor (n)
GI: Soft, Non Distended and Non Tender
Neurology: Awake, AO x 3 and No Motor Deficits
Skin: Dry
Labs/Micro/Reports
Lab Data
10/29/23 04:00
10/29/23 04:00
Microbiology
10/24/23 03:29 Blood/Venous Blood Culture - Final
No Growth - Final Report
10/25/23 03:14 Blood/Venous Blood Culture - Preliminary
No Growth in 4 days- Final report to follow
10/26/23 08:28 Feces/Stool Salmonella/Shigella Culture - Final
No Salmonella, Shigella, Aeromonas or Plesiomonas species
isolated.
10/26/23 08:28 Feces/Stool Campylobacter Culture - Final
No Campylobacter species isolated.
10/26/23 08:28 Feces/Stool Shiga Toxin Test - Final
No E. coli Shiga Toxin 1 or 2 detected.
10/26/23 08:28 Feces/Stool C. difficile GDH Antigen & Toxins - Final
Negative for toxigenic C.difficile
10/26/23 08:28 Feces/Stool - Final
Negative for Norovirus GI and GII.
10/23/23 05:07 Blood/Venous Blood Culture - Final
Escherichia coli
10/23/23 05:07 Blood/Venous Gram Stain - Final
10/23/23 04:59 Urine Urine Culture - Final
Escherichia coli
--- NOTE | 2023-10-29 09:32 | PTCARENOTE ---
Pt received in bed @ 0700. AAOx3. Drowsy. Sleeping intermittently but rouses with verbal stimuli. Denying pain. SaO2 95% on room air. Lungs diminished. A Fib on cafeteria monitor. HR 90s - 120s. Scheduled Lopressor 50mg PO BID administered. +1 LE
pitting edema. Peripheral pulses palpable. Abdomen round. (+) bowel sounds. Pt expressing poor appetite and nausea. PRN Zofran administered. CBI infusing at set rate. Clear yellow output. Skin intact. (L) TL PICC; (+) blood return through all
lumens, flushed. (R) IJ HD catheter in place.
--- NOTE | 2023-10-29 09:41 | W.PN.NEPH.PH ---
Today's Communication / Plan
-
HD tuesday
Assessment/Plan
-
Assessment
-Septic shock
-Ecoli sepsis s/p prostate aquaablation
-hypotension
-metabolic/lactic acidosis
-hypomagnesemia
-urinary retention
-[place]
Plan
[place]-suspect ATN , CRRT initiated on 10/25
difficult to measure UOP on CBI
next HD tuesday
follow BMP, Cr trend, there is still hope that he will recover
-
-
Date of Service: October 29, 2023
CC / HPI / ROS
-
Chief Complaint:
[place]
History of Present Illness:
tolerated HD yesterday
BP stable
acidosis improved
CBI continues
on abx for ecoli sepsis
afib still
Na low 127
Review of Systems:
no CP/SOB
Labs
-
Labs:
WBC 33.3 10^3/uL (4.8-10.8) H 10/29/23 04:00
RBC 3.34 10^6/uL (4.70-6.10) L 10/29/23 04:00
Hgb 10.1 g/dL (13.0-18.0) L 10/29/23 04:00
Hct 29.4 % (39.0-52.0) L 10/29/23 04:00
Plt Count 74 10^3/uL (130-400) L D 10/29/23 04:00
Sodium 127 mmol/L (135-145) L 10/29/23 04:00
Potassium 4.4 mmol/L (3.5-5.1) 10/29/23 04:00
Chloride 96 mmol/L (98-107) L 10/29/23 04:00
Carbon Dioxide 26 mmol/L (22-30) 10/29/23 04:00
BUN 56 mg/dl (9-20) H 10/29/23 04:00
Creatinine 6.6 mg/dL (0.7-1.3) H* 10/29/23 04:00
eGFR 8.79 10/29/23 04:00
Glucose 90 mg/dl (70-99) 10/29/23 04:00
Calcium 7.6 mg/dl (8.4-10.2) L 10/29/23 04:00
Phosphorus 4.5 mg/dl (2.5-4.5) 10/28/23 03:29
Albumin 2.4 g/dl (3.5-5.0) L 10/29/23 04:00
Physical Exam
-
Vital Signs:
Vital Signs
Temp Pulse Resp BP Pulse Ox
97.6 F 115 23 125/85 96
10/29/23 07:28 10/29/23 08:00 10/29/23 08:00 10/29/23 08:00 10/29/23 08:55
Cardiovascular:: Regular rate and rhythm
Respiratory:: Bilateral: Coarse
Lung Excursion:: Normal
Abdomen:: Nontender and Soft
Bowel Sounds:: Normal
Extremity Edema:: None: Bilateral:
[2023-10-29 09:53] LABS: Cardiolipin IgA Antibody <10 APL (<=11); Cardiolipin IgM Antibody <10 MPL (<=12); Cardiolipin Igg Antibody <10 GPL (<=14)
--- NOTE | 2023-10-29 09:56 | W.PN.URO.CBU ---
Today's Communication / Plan
-
continue march and cbi to expedite elimination of E. coli from urinary tract
Leukocytosis has worsened
Recommend imaging to determine if a prostatic abscess is present: MRI is best; transrectal U/S would be second choice; CT likely would be of limited value due to contraindication to iodine-based contrast
Assessment / Plan
-
E. coli urosepsis- after aqua-ablation
hematuria- well managed with cbi
renal failure- no evidence of hydro on ct and no flank pain c/w obstruction
Diagnosis
-
Date of Service: October 29, 2023
-
Patient Diagnosis:
s/p aqua-ablation
post op sepsis- ecoli
hematuria
renal failure
NOTE- URINARY TRACT INFECTION/SEPSIS SUSPECT DUE TO RECENT PROSTATE PROCEDURE AND MARCH CATHETER REQUIREMENT
Subjective
-
feeling better
Objective
-
Vital Signs
Temp Pulse Resp BP Pulse Ox
97.6 F 115 23 125/85 96
10/29/23 07:28 10/29/23 08:00 10/29/23 08:00 10/29/23 08:00 10/29/23 08:55
Intake and Output
10/28/23 10/29/23 10/30/23
06:59 06:59 06:59
Intake Total 1505.2 / 1521.9 900.2 / 900.2 240 / 240
Output Total 1089 / 1089 550 / 550 100 / 100
Balance 416.2 / 432.9 350.2 / 350.2 140 / 140
Intake:
Oral fluids 730 / 730 800 / 800 240 / 240
Amount of oral supplement(s) 240 / 240
consumed
IV fluids (Total) 400.3 / 417.0 100.2 / 100.2
amio 400.3 / 417.0 100.2 / 100.2
IV piggybacks 134.9 / 134.9
Output:
Liquid stool amount
Rectum
True Urine Output from CBI 430 / 430 550 / 550 100 / 100
CRRT - Actual ultrafiltration 629 / 629
volume
Laboratory Results
10/29/23 04:00
10/29/23 04:00
Physical Exam
-
General - well developed, well nourished, no acute distress
Genitalia - CBI outflow is clear
[2023-10-29] MEDS: ROCEPHIN 2000 MG IV (10:13)
[2023-10-29] MEDS: STERILE WATER FOR INJECTION 20 ML IV (10:14)
[2023-10-29 11:02] LABS: Platelet Antibody, Direct IgG Negative (Negative); Platelet Antibody, Direct IgM Negative (Negative)
--- NOTE | 2023-10-29 11:14 | W.PN.ID1 ---
Date of Service
Date of Service: October 29, 2023
Today's Communication
Check bcx's x 2, stool C. diff, CXR.
Assessment / Plan
# E. coli bacteremia from source, recent prostate ablation procedure 10/18 at [facility]
# s/p Septic shock off pressors
-Repeat blood cx's x 2 neg
- Continue ceftriaxone (d7 abx).
# Leukocytosis continues to trend up.
- Diarrhea - repeat check stool for C.diff,
-repeat blood cx's.
- Ordered CXR
- Follow wbc.
# Acute thrombocytopenia (preceded ceftriaxone), improving.
- Stool negative shiga toxin. Hem/Onc on board.
# [place] - now on HD
# New Afib with RVR, off amiodarone
#Additional Past Medical History:
BPH s/p aqua ablation 10/18/23
DJD
Right total hip replacement
Appendectomy
Arthroscopic knee surgery
Lumbar discectomy x 2
Allergy History:
Chief Complaint
-: Leukocytosis and Bacteremia
Subjective / Review of Systems
Feels stable. + diarrhea. no abd pain. No cough/SOB.
Vital Signs / Physical Exam
Vital Signs
Vital Signs
Temp Pulse Resp BP Pulse Ox
98.1 F 106 24 131/77 94
10/29/23 11:05 10/29/23 11:00 10/29/23 11:00 10/29/23 11:00 10/29/23 11:00
Physical Exam
Constitutional: No Acute Distress and Comfortable
Eyes: No Conjunctival Hemorrhage
Cardiovascular: Irregular Rate and Other (tachy)
Pulmonary: Other (decreased BS at bases)
Gastrointestinal: Soft, Non Tender, Non Distended and Normal Bowel Sounds
Genito-Urinary: Avalos and Clear Urine; Negative CVA Tenderness
Extremities: Negative Edema
Neurological: AO x 3
Lines: HD Cath (intact)
Objective Data
Lab Data
Lab Results
10/29/23 04:00
10/29/23 04:00
PT 14.7 Sec (11.4-14.6) H 10/26/23 04:20
INR 1.13 10/26/23 04:20
APTT 41.3 Sec (23.4-35.0) H 10/27/23 12:56
Estimated Creat Clear 14 ml/min 10/29/23 04:00
Lactic Acid 1.1 mmol/L (0.7-2.0) 10/27/23 04:50
Total Bilirubin 0.6 mg/dl (0.2-1.3) 10/29/23 04:00
AST 49 U/L (17-59) 10/29/23 04:00
ALT 61 U/L (0-50) H 10/29/23 04:00
Alkaline Phosphatase 641 U/L (38-126) H 10/29/23 04:00
Most recent labs reviewed.
Micro Results:
10/24/23 03:29 Blood Culture - Final
Blood/Venous No Growth - Final Report
10/25/23 03:14 Blood Culture - Preliminary
Blood/Venous No Growth in 4 days- Final report to follow
10/26/23 08:28 Salmonella/Shigella Culture - Final
Feces/Stool No Salmonella, Shigella, Aeromonas or Plesiomonas species
isolated.
Campylobacter Culture - Final
No Campylobacter species isolated.
Shiga Toxin Test - Final
No E. coli Shiga Toxin 1 or 2 detected.
10/26/23 08:28 C. difficile GDH Antigen & Toxins - Final
Feces/Stool Negative for toxigenic C.difficile
- Final
Negative for Norovirus GI and GII.
10/23/23 05:07 Blood Culture - Final
Blood/Venous Escherichia coli
Gram Stain - Final
10/23/23 04:59 Urine Culture - Final
Urine Escherichia coli
10/23/23 04:42 Blood Culture - Final
Blood/Venous Escherichia coli
Gram Stain - Final
10/23/23 05:01 Influenza Types A & B (VANESA) - Final
Nasal Swab Negative for Influenza A & B, NAAT
Negative results must be combined with clinical observations
and patient history.
Nucleic Acid Amplification test (NAAT)performed on the
[employer] platform.
10/23/23 CXR: No acute disease of the chest.
10/23/23 CT a/p: 1 mm calcific focus in each kidney. . Differential includes arterial calcification versus nonobstructing calculi. No ureteral calculus, bilaterally. No hydronephrosis to suggest obstructive uropathy. There is, however, mild
perinephric soft tissue stranding, left slightly greater than right. Nonspecific. Cannot exclude changes related to urinary tract infection. Possible mild small bowel ileus or nonspecific enteritis. No evidence to suggest bowel obstruction. Avalos
catheter within the urinary bladder, which is collapsed. Diffuse urinary bladder wall thickening suggested. This could indicate cystitis. Generalized prostatic enlargement.
--- NOTE | 2023-10-29 12:19 | W.PN.ONC ---
Today's Communication / Plan
-
Antibodies typically associated with ITP have been negative Occluding direct platelet and APL
Platelets appear to be recovering as the patient improves
CBI fluid appears clear
Transfuse platelet count less than 20 K or with active bleeding
Anemia consistent with underlying illness AOCD superimposed iron deficiency
No parenteral iron in the face of acute septicemia
Impression
Impression
Thrombocytopenia with septicemia
Anemia
E. coli sepsis
Exposure to cephalosporin antibiotics
Acute renal failure
Recent prostate procedure with hematuria complication
Atrial fibrillation
Subjective/Objective
Subjective/Objective
Still feels poorly
Vital Signs:
Vital Signs
Temp Pulse Resp BP Pulse Ox
98.1 F 106 24 131/77 94
10/29/23 11:05 10/29/23 11:00 10/29/23 11:00 10/29/23 11:00 10/29/23 11:00
PE: Unchanged
Lab Results:
Laboratory Data
WBC 33.3 10^3/uL (4.8-10.8) H 10/29/23 04:00
Hgb 10.1 g/dL (13.0-18.0) L 10/29/23 04:00
Plt Count 74 10^3/uL (130-400) L D 10/29/23 04:00
PT 14.7 Sec (11.4-14.6) H 10/26/23 04:20
INR 1.13 10/26/23 04:20
APTT 41.3 Sec (23.4-35.0) H 10/27/23 12:56
eGFR 8.79 10/29/23 04:00
[2023-10-29 13:09] LABS: Glucose - Point of Care 120 mg/dl (70-99)
--- NOTE | 2023-10-29 13:51 | PTCARENOTE ---
Pt reassessed. No changes observed. Taken to MRI of Pelvis and returned, results pending. Pt with scabs noted in left nare, extending to columella and towards right nare. Dr. De La Cruz assessed at bedside and relayed to Dr. Walton. New order for Valtrex
500mg PO Q12H.
[2023-10-29] MEDS: VISBIOME 1 CAP PO (14:13)
[2023-10-29] MEDS: VALTREX 500 MG PO (14:13)
[2023-10-29 18:01] LABS: Glucose - Point of Care 140 mg/dl (70-99)
--- NOTE | 2023-10-29 18:25 | PTCARENOTE ---
Pt reassessed. No changes throughout shift. Drowsy. Sleeping intermittently, rouses with verbal stimuli. AAOx3. Assisted offered throughout day to get out of bed and activity encouraged. Pt refused. Pt with loose bowel movements. C. Diff sample sent
and pending. Blood cultures x2 sent. G cloth bath provided and linens changed. CBI draining clear yellow.
--- NOTE | 2023-10-29 20:45 | PTCARENOTE ---
Assumed care of pt at 1900. Pt is A/O x4 with flat affect. Cooperative with care. No c/o pain. AFib on monitor, 90s-110s, SpO2 95-96% on RA. CBI ongoing, urine straw colored at this time. Physical assessment completed, see nursing shift assessment
flowsheet for full details. Call damon and personal items within reach.
[2023-10-29 21:25] LABS: Glucose - Point of Care 94 mg/dl (70-99)
[2023-10-30] VITALS (26 sets, daily range): BP systolic 110–155; BP diastolic 63–104; BMI 26.2
--- NOTE | 2023-10-30 00:45 | PTCARENOTE ---
Assessment unchanged. Pt with one small loose BM-brown, gelatinous/mucoid. CHG cloth bath done and all linens changed. Remains in AFib on monitor, 90s-110s.
[2023-10-30] MEDS: ZOFRAN 4 MG IV ×3 (03:00→15:37)
[2023-10-30 03:37] LABS: Phosphatidylserine Ab, IgA 0 APS (0-19); Phosphatidylserine Ab, IgG 0 GPS (0-15); Phosphatidylserine Ab, IgM 3 MPS (0-21)
[2023-10-30 05:15] LABS: ALT (SGPT) 52 U/L (0-50); AST (SGOT) 41 U/L (17-59); Albumin 2.3 g/dl (3.5-5.0); Alkaline Phosphatase 408 U/L (38-126); Blood Urea Nitrogen 78 mg/dl (9-20); Calcium 7.8 mg/dl (8.4-10.2); Carbon Dioxide 22 mmol/L (22-30); Chloride 93 mmol/L (98-107); Estimated Creatinine Clearance 11 ml/min; Glucose 88 mg/dl (70-99); Potassium 4.8 mmol/L (3.5-5.1); Sodium 126 mmol/L (135-145); Total Bilirubin 0.5 mg/dl (0.2-1.3); Total Protein 4.4 g/dl (6.3-8.2); eGFR 6.49
--- NOTE | 2023-10-30 05:37 | PTCARENOTE ---
Assessment unchanged. CBI ongoing. Medicated for nausea with IV Zofran x1, see EMAR for details. Remains AFib 90s-110s on monitor. SPO2 94-96% on RA. Pt has been sleeping most of the shift.
--- NOTE | 2023-10-30 06:30 | W.PN.URO.CBU ---
Today's Communication / Plan
-
no new input
Assessment / Plan
-
E. coli urosepsis- after aqua-ablation
hematuria- well managed with cbi
renal failure- no evidence of hydro on ct and no flank pain c/w obstruction
no MRI evidence of prostatic abscess
Diagnosis
-
Date of Service: October 30, 2023
-
Patient Diagnosis:
s/p aqua-ablation
post op sepsis- ecoli
hematuria
renal failure
NOTE- URINARY TRACT INFECTION/SEPSIS SUSPECT DUE TO RECENT PROSTATE PROCEDURE AND RIBEIRO CATHETER REQUIREMENT
Objective
-
Vital Signs
Temp Pulse Resp BP Pulse Ox
98.6 F 112 18 141/85 96
10/30/23 03:18 10/30/23 06:00 10/30/23 06:00 10/30/23 06:00 10/30/23 06:00
Intake and Output
10/28/23 10/29/23 10/30/23
06:59 06:59 06:59
Intake Total 1505.2 / 1521.9 900.2 / 900.2 960 / 960
Output Total 1089 / 1089 550 / 550 775 / 775
Balance 416.2 / 432.9 350.2 / 350.2 185 / 185
Intake:
Oral fluids 730 / 730 800 / 800 960 / 960
Amount of oral supplement(s) 240 / 240
consumed
IV fluids (Total) 400.3 / 417.0 100.2 / 100.2
amio 400.3 / 417.0 100.2 / 100.2
IV piggybacks 134.9 / 134.9
Output:
Liquid stool amount 30 / 30
Rectum 30 / 30
True Urine Output from CBI 430 / 430 550 / 550 775 / 775
CRRT - Actual ultrafiltration 629 / 629
volume
Laboratory Results
10/30/23 04:11
10/30/23 04:11
MRI: enlarged, heterogenous prostate without evidence of abscess
Physical Exam
-
Ribeiro with clear outflow CBI
[2023-10-30] MEDS: VITAMIN D3 (cholecalciferol) 25 MCG PO (07:39)
[2023-10-30] MEDS: PROTONIX 40 MG PO (07:39)
[2023-10-30] MEDS: OSCAL CAL 500 500 MG PO ×3 (07:39→20:01)
[2023-10-30] MEDS: VISBIOME 1 CAP PO (07:39)
[2023-10-30] MEDS: DETROL LA 2 MG PO (07:39)
[2023-10-30] MEDS: LOPRESSOR 50 MG PO ×2 (07:39→20:01)
--- NOTE | 2023-10-30 07:51 | W.PN.HOSP.TC ---
Today's Communication/Plan
-
trend wbc
cont abx as per ID
cont rate control metoprolol
HD as per nephro
Assessment / Plan
Assessment / Plan
Physical
General: Awake alert and conversant
HEENT: herpetic like lesions noted nostril area.
Pulm: clear to auscultation bilateral
CVS:Irregularly Irregular tachy
Abd: soft nontender bowel sounds present
: CBI with clear urine
Neuro: AOx3
63-year-old male prostate recently was seen at [facility] for aqua ablation of prostate on Tuesday. Tuesday had large bladder clot which required evacuation in the OR. He was discharged home on . Catheter was removed on 10/22/2023. Early
morning he woke up with fevers and chills. Urine bloody appearing in the ER.
CT of the abdomen and pelvis mild asymmetric left adrenal gland diffuse thickening and. Renal fat stranding possible adrenal congestion. 1 mm calcific focus in each kidney no ureteral calculus no hydronephrosis. Mild perinephric soft tissue
stranding left greater than right nonspecific. Possible mid small bowel ileus/nonspecific enteritis. No small bowel obstruction. Avalos catheter in the bladder. Diffuse bladder wall thickening indicating cystitis. General prostatic enlargement.
MRI Noted Post-ablation changes of the prostate without convincing evidence for intraprostatic abscess.
Moderate free fluid in the pelvis, likely reactive.
Findings throughout the prostate gland peripheral zone compatible with PI-RADS 2 (the presence of clinically significant cancer is unlikely).
Moderate to severe BPH changes.
Echo 10/26/2023-normal LV systolic function. EF 55% mild concentric LVH. Mild to moderate MR. Mild TR
# Septic shock
# Leukocytosis/leukopenia-secondary sepsis
-E Coli Sepsis
- source
-Likely secondary to recent procedure
-Continue IV antibiotics-Zosyn changed to meropenem then Rocephin, later transitioned to oral abx cefuroxime 500 mg QD till 11/05/23 as per ID
-Repeat blood and urine cultures positive for E. coli, repeat blood cultures ngtd
-Maintain MAP over 65
-Off Pressors-Levophed and vasopressin
-CT MRI abdomen pelvis as above
-ID ,Urology and nephrology eval appreciated
10/29 New Herpetic Lesions Nostril Area
discussed with ID, started Valacyclovir renally dosed, completed recommended 2 doses
#New Afib
tachy but HR consistently<120
Not a candidate for AC per D/W Urology given recent bleed
Cardio eval appreciated, cont metoprolol tartarate 50 mg BID
# Mucous in stool and diarrhea, Bloating
Possible ileus
C. difficile negative, norovirus negative
repeat Cultures NGTD
imodium prn started
# Lactic acidosis-resolved
# Hematuria
-Status post aqua ablation of the prostate 10/18/2023 at [facility]
-Large clot in the bladder on 10/19/2023 needed OR evacuation
-Avalos placed in the [id number] urine on CBI
-Clear now
# Acute kidney injury-creatinine 6.3
-Likely secondary to septic shock and renal hypoperfusion/prerenal
-ATN Possible
-Also rule out postrenal-Avalos catheter placed
-Keep MAP over 65 mmHg
-Follow creatinine
-Trial of Lasix on 10/25/2023 did not help make urine
-CRRT started on 10/25/2023
-HD started 2-2-24
# Coagulopathy-secondary to sepsis-follow
# Hyponatremia-Volume OL now
# Thrombocytopenia secondary to sepsis
Normal fibrinogen level
Possibly also consumptive from clotting of the filter
improving
Hematology eval appreciated
# Anemia likely secondary to acute blood loss secondary to hematuria, also iron deficiency, anemia of chronic disease, and sepsis contributing
# Elevated LFTs-likely secondary to septic shock and decreased perfusion
-Improving
# Hypokalemia- monitor and replete as necessary
# Hypocalcemia-p.o. replacement given ceftriaxone
Replace vitamin D
# Vitamin D deficiency-replace
# Hypomagnesemia-replaced
# History of back surgery for disc herniation
# Hypoalbuminemia
# Alcohol use 3 to 4 glasses 3 times a week
# DVT prophylaxis-SCDs given bleeding
# Full code
PT/OT eval requested
Downgraded to IMU
discussed with patient and his
I spent a total of 55 minutes with the patient or on the floor. More than 50% of this time involved counseling and coordination of care.
Anticipated Discharge: 24 - 48 hours
Subjective/Interval History
-
Date of Service: October 30, 2023
reports significant fatigue, worse compared to yesterday. Denies pain
Objective Data
-
Labs:
Laboratory Results
10/30/23
04:11
WBC 32.7 H
Hgb 9.8 L
Hct 28.6 L
Plt Count 152 D
Sodium 126 L
Potassium 4.8
Chloride 93 L
Carbon Dioxide 22
BUN 78 H
Creatinine 8.5 H*
Glucose 88
Calcium 7.8 L
Total Bilirubin 0.5
AST 41
ALT 52 H
Alkaline Phosphatase 408 H
Vital Signs:
Vital Signs
Temp Pulse Resp BP Pulse Ox
96.6 F L 112 18 141/85 96
10/30/23 07:44 10/30/23 06:00 10/30/23 06:00 10/30/23 06:00 10/30/23 06:00
I&O
10/29/23 10/30/23 10/31/23
06:59 06:59 06:59
Intake Total 900.2 / 900.2 960 / 960
Output Total 550 / 550 775 / 775
Balance 350.2 / 350.2 185 / 185
--- NOTE | 2023-10-30 08:51 | PTCARENOTE ---
Pt received in bed @ 0700. Drowsy. Rouses to verbal stimuli. AAOx3. Denying pain. Assisted OOB to chair x1 with rolling walker. Pt expressing generalized weakness. SaO2 95% on room air. Diminished breath sounds. A Fib on potline monitor. HR 100s -
110s. +2 pitting LE edema. Abdomen round. (+) bowel sounds. Expressing poor appetite. Stool sample sent for C. Diff testing returned (-). CBI draining clear yellow. Abrasion to (L) nare.
[2023-10-30 08:55] LABS: Glucose - Point of Care 84 mg/dl (70-99)
[2023-10-30] MEDS: ROCEPHIN 2000 MG IV (09:14)
[2023-10-30] MEDS: STERILE WATER FOR INJECTION 20 ML IV (09:14)
--- NOTE | 2023-10-30 09:25 | W.PN.ONC ---
Today's Communication / Plan
-
Thrombocytopenia resolved
Reactive leukocytosis persists
Hemoglobin is stable 9.8 g/dL
No direct platelet antibody noted
No evidence of low-level inhibitor noted on mixing study
No anticardiolipin or beta-2 glycoprotein antibody
CBI clear
Continues with dialysis
Impression
Impression
Thrombocytopenia with septicemia
Anemia
E. coli sepsis
Exposure to cephalosporin antibiotics
Acute renal failure
Recent prostate procedure with hematuria complication
Atrial fibrillation
Subjective/Objective
Subjective/Objective
Patient sitting in a chair. Continues to complain of feeling poorly. He has nausea and anorexia. No shortness of breath.
Vital Signs:
Vital Signs
Temp Pulse Resp BP Pulse Ox
96.6 F L 103 18 139/90 99
10/30/23 07:44 10/30/23 08:45 10/30/23 08:45 10/30/23 08:45 10/30/23 08:45
PE: Essentially unchanged no active bleeding in atrial fibrillation
Lab Results:
Laboratory Data
WBC 32.7 10^3/uL (4.8-10.8) H 10/30/23 04:11
Hgb 9.8 g/dL (13.0-18.0) L 10/30/23 04:11
Plt Count 152 10^3/uL (130-400) D 10/30/23 04:11
PT 14.7 Sec (11.4-14.6) H 10/26/23 04:20
INR 1.13 10/26/23 04:20
APTT 41.3 Sec (23.4-35.0) H 10/27/23 12:56
eGFR 6.49 10/30/23 04:11
--- NOTE | 2023-10-30 09:27 | W.PN.NEPH.PH ---
Today's Communication / Plan
-
HD tomorrow
Assessment/Plan
-
Assessment
-Septic shock
-Ecoli sepsis s/p prostate aquaablation
-hypotension
-metabolic/lactic acidosis
-hypomagnesemia
-urinary retention
-[place]
Plan
no indication of renal recovery at this time
next HD tomorrow
eventually will need temp to tunnelled HD CVC once WBC improves/no infectious concerns
-
-
Date of Service: October 30, 2023
CC / HPI / ROS
-
Chief Complaint:
[place]
History of Present Illness:
tolerated HD tuesday
BP stable
acidosis improved
CBI continues
on abx for ecoli sepsis
afib still
Na low 126
WBC remains elevated stable
Review of Systems:
no CP/SOB
Labs
-
Labs:
WBC 32.7 10^3/uL (4.8-10.8) H 10/30/23 04:11
RBC 3.22 10^6/uL (4.70-6.10) L 10/30/23 04:11
Hgb 9.8 g/dL (13.0-18.0) L 10/30/23 04:11
Hct 28.6 % (39.0-52.0) L 10/30/23 04:11
Plt Count 152 10^3/uL (130-400) D 10/30/23 04:11
Sodium 126 mmol/L (135-145) L 10/30/23 04:11
Potassium 4.8 mmol/L (3.5-5.1) 10/30/23 04:11
Chloride 93 mmol/L (98-107) L 10/30/23 04:11
Carbon Dioxide 22 mmol/L (22-30) 10/30/23 04:11
BUN 78 mg/dl (9-20) H 10/30/23 04:11
Creatinine 8.5 mg/dL (0.7-1.3) H* 10/30/23 04:11
eGFR 6.49 10/30/23 04:11
Glucose 88 mg/dl (70-99) 10/30/23 04:11
Calcium 7.8 mg/dl (8.4-10.2) L 10/30/23 04:11
Phosphorus 4.5 mg/dl (2.5-4.5) 10/28/23 03:29
Albumin 2.3 g/dl (3.5-5.0) L 10/30/23 04:11
Physical Exam
-
Vital Signs:
Vital Signs
Temp Pulse Resp BP Pulse Ox
96.6 F L 103 18 139/90 99
10/30/23 07:44 10/30/23 08:45 10/30/23 08:45 10/30/23 08:45 10/30/23 08:45
Cardiovascular:: Regular rate and rhythm
Respiratory:: Bilateral: Coarse
Lung Excursion:: Normal
Abdomen:: Nontender and Soft
Bowel Sounds:: Normal
Extremity Edema:: None: Bilateral:
--- NOTE | 2023-10-30 11:11 | W.PN.ID1 ---
Date of Service
Date of Service: October 30, 2023
Today's Communication
Transition ceftriaxone (d8 abx) to po cefuroxime 500mg qd till 11/05/23.
Assessment / Plan
# E. coli bacteremia from source, recent prostate ablation procedure 10/18 at [facility]
# s/p Septic shock off pressors
-Repeat blood cx's x 2 neg
- Transition ceftriaxone (d8 abx) to po cefuroxime 500mg qd till 11/05/23.
# Leukocytosis trending up.
- Repeat C.diff neg
-repeat blood cx's neg to date
- CXR negative
- Follow wbc.
# Acute thrombocytopenia (preceded ceftriaxone), improving.
- Stool negative shiga toxin. Hem/Onc on board.
# Herpes labialis
-s/p 2 doses of valacyclovir
# [place] - now on HD
# New Afib with RVR, off amiodarone
#Additional Past Medical History:
BPH s/p aqua ablation 10/18/23
DJD
Right total hip replacement
Appendectomy
Arthroscopic knee surgery
Lumbar discectomy x 2
Allergy History:
Chief Complaint
-: Leukocytosis and Bacteremia
Subjective / Review of Systems
Sitting up in chair. Avalos out. Not making urine.
Vital Signs / Physical Exam
Vital Signs
Vital Signs
Temp Pulse Resp BP Pulse Ox
96.6 F L 103 18 139/90 99
10/30/23 07:44 10/30/23 08:45 10/30/23 08:45 10/30/23 08:45 10/30/23 08:45
Physical Exam
Constitutional: No Acute Distress and Comfortable
Head: Other (left nare with dry dark red cluster of lesions)
Cardiovascular: Irregular Rate and S1/S2
Pulmonary: Clear
Gastrointestinal: Soft, Non Tender, Non Distended and Normal Bowel Sounds
Genito-Urinary: Negative CVA Tenderness
Extremities: Negative Edema
Neurological: AO x 3
Objective Data
Lab Data
Lab Results
10/30/23 04:11
PT 14.7 Sec (11.4-14.6) H 10/26/23 04:20
INR 1.13 10/26/23 04:20
APTT 41.3 Sec (23.4-35.0) H 10/27/23 12:56
Estimated Creat Clear 11 ml/min 10/30/23 04:11
Lactic Acid 1.1 mmol/L (0.7-2.0) 10/27/23 04:50
Total Bilirubin 0.5 mg/dl (0.2-1.3) 10/30/23 04:11
AST 41 U/L (17-59) 10/30/23 04:11
ALT 52 U/L (0-50) H 10/30/23 04:11
Alkaline Phosphatase 408 U/L (38-126) H 10/30/23 04:11
Most recent labs reviewed.
Micro Results:
10/29/23 15:48 C. difficile GDH Antigen & Toxins - Final
Feces/Stool Negative for toxigenic C.difficile
10/25/23 03:14 Blood Culture - Final
Blood/Venous No Growth - Final Report
10/29/23 13:43 Blood Culture - Pending
Blood/Venous
10/29/23 13:26 Blood Culture - Pending
Blood/Venous
10/24/23 03:29 Blood Culture - Final
Blood/Venous No Growth - Final Report
10/26/23 08:28 Salmonella/Shigella Culture - Final
Feces/Stool No Salmonella, Shigella, Aeromonas or Plesiomonas species
isolated.
Campylobacter Culture - Final
No Campylobacter species isolated.
Shiga Toxin Test - Final
No E. coli Shiga Toxin 1 or 2 detected.
10/26/23 08:28 C. difficile GDH Antigen & Toxins - Final
Feces/Stool Negative for toxigenic C.difficile
- Final
Negative for Norovirus GI and GII.
10/23/23 05:07 Blood Culture - Final
Blood/Venous Escherichia coli
Gram Stain - Final
10/23/23 04:59 Urine Culture - Final
Urine Escherichia coli
10/23/23 04:42 Blood Culture - Final
Blood/Venous Escherichia coli
Gram Stain - Final
10/23/23 05:01 Influenza Types A & B (VANESA) - Final
Nasal Swab Negative for Influenza A & B, NAAT
Negative results must be combined with clinical observations
and patient history.
Nucleic Acid Amplification test (NAAT)performed on the
[employer] platform.
10/23/23 CXR: No acute disease of the chest.
10/23/23 CT a/p: 1 mm calcific focus in each kidney. . Differential includes arterial calcification versus nonobstructing calculi. No ureteral calculus, bilaterally. No hydronephrosis to suggest obstructive uropathy. There is, however, mild
perinephric soft tissue stranding, left slightly greater than right. Nonspecific. Cannot exclude changes related to urinary tract infection. Possible mild small bowel ileus or nonspecific enteritis. No evidence to suggest bowel obstruction. Avalos
catheter within the urinary bladder, which is collapsed. Diffuse urinary bladder wall thickening suggested. This could indicate cystitis. Generalized prostatic enlargement.
Care Review
Plan reviewed with: Physician (Dr. De La Cruz)
[2023-10-30 12:28] LABS: % Basophils 0.4 % (0-2); % Eosinophils 0.4 % (0-6); % Immature Granulocytes 10.8 % (0-0.5); % Lymphocytes 12.2 % (20.5-51.1); % Monocytes 11.4 % (1.7-9.3); % Neutrophils 64.8 % (42.2-75.2); Absolute Basophils 0.1 10^3/uL (0-0.2); Absolute Eosinophils 0.1 10^3/uL (0-0.7); Absolute Immature Granulocytes 3.5 10^3/uL (0-0.05); Absolute Lymphocytes 3.9 10^3/uL (1.2-3.4); Absolute Monocytes 3.7 10^3/uL (0.1-0.6); Absolute Neutrophils 20.8 10^3/uL (1.4-6.5); Hemoglobin 10.5 g/dL (13.0-18.0); Mean Corpuscular Hgb 30.3 pg (27.0-31.0); Mean Corpuscular Volume 86.5 fL (80.0-94.0); Mean Platelet Volume 11.7 fL (7.4-10.4); Nucleated Red Blood Cells % 0 % (-); Platelet Count 200 10^3/uL (130-400); Red Blood Cell Count 3.47 10^6/uL (4.70-6.10); Red Cell Dist. Width 13.3 % (11.5-14.5); White Blood Cell Count 32.1 10^3/uL (4.8-10.8)
[2023-10-30] MEDS: VALTREX 500 MG PO (13:11)
[2023-10-30] MEDS: IMODIUM 2 MG PO (15:37)
[2023-10-30] MEDS: CEFTIN 500 MG PO (17:49)
--- NOTE | 2023-10-30 22:57 | PTCARENOTE ---
Assumed care of pt at 1900. Pt is A/O x4, pleasant and cooperative with care, slightly flat affect. No c/o pain. AFib on monitor, 100-110s, SpO2 96% on RA. Physical assessment completed, see nursing shift assessment flowsheet for full details. CBI
ongoing, urine straw colored. Pt is IMU level of care. Call damon and personal items within reach.
[2023-10-31] VITALS (37 sets, daily range): BP systolic 120–166; BP diastolic 68–113; PULSE 101–128; O2SAT 96–97; BMI 26.8
[2023-10-31] MEDS: TYLENOL 650 MG PO ×2 (01:12→11:08)
[2023-10-31 03:57] LABS: Hematocrit 25.6 % (39.0-52.0); Hemoglobin 9.1 g/dL (13.0-18.0); Mean Corp Hgb Conc. 35.5 g/dL (33.0-37.0); Mean Corpuscular Hgb 30.5 pg (27.0-31.0); Mean Corpuscular Volume 85.9 fL (80.0-94.0); Mean Platelet Volume 11.7 fL (7.4-10.4); Platelet Count 235 10^3/uL (130-400); Red Blood Cell Count 2.98 10^6/uL (4.70-6.10); Red Cell Dist. Width 13.3 % (11.5-14.5); White Blood Cell Count 27.9 10^3/uL (4.8-10.8)
[2023-10-31 04:49] LABS: ALT (SGPT) 48 U/L (0-50); AST (SGOT) 47 U/L (17-59); Albumin 2.3 g/dl (3.5-5.0); Alkaline Phosphatase 337 U/L (38-126); Blood Urea Nitrogen 93 mg/dl (9-20); Calcium 7.7 mg/dl (8.4-10.2); Carbon Dioxide 19 mmol/L (22-30); Chloride 91 mmol/L (98-107); Glucose 89 mg/dl (70-99); Potassium 4.8 mmol/L (3.5-5.1); Sodium 123 mmol/L (135-145); Total Bilirubin 0.6 mg/dl (0.2-1.3); Total Protein 4.5 g/dl (6.3-8.2)
[2023-10-31 05:01] LABS: Estimated Creatinine Clearance 11 ml/min; eGFR 6.06
--- NOTE | 2023-10-31 07:02 | W.PN.HOSP.TC ---
Today's Communication/Plan
-
trend wbc
cont abx as per ID
cont rate control metoprolol
HD as per nephro
CBI as urology
PT/OT
Assessment / Plan
Assessment / Plan
Physical
General: Awake alert and conversant
HEENT: herpetic like lesions noted nostril area.
Pulm: clear to auscultation bilateral
CVS:Irregularly Irregular tachy
Abd: soft nontender bowel sounds present
: CBI with clear urine
Neuro: AOx3
63-year-old male prostate recently was seen at [facility] for aqua ablation of prostate on Tuesday. Tuesday had large bladder clot which required evacuation in the OR. He was discharged home on . Catheter was removed on 10/22/2023. Early
morning he woke up with fevers and chills. Urine bloody appearing in the ER.
CT of the abdomen and pelvis mild asymmetric left adrenal gland diffuse thickening and. Renal fat stranding possible adrenal congestion. 1 mm calcific focus in each kidney no ureteral calculus no hydronephrosis. Mild perinephric soft tissue
stranding left greater than right nonspecific. Possible mid small bowel ileus/nonspecific enteritis. No small bowel obstruction. Avalos catheter in the bladder. Diffuse bladder wall thickening indicating cystitis. General prostatic enlargement.
MRI Noted Post-ablation changes of the prostate without convincing evidence for intraprostatic abscess.
Moderate free fluid in the pelvis, likely reactive.
Findings throughout the prostate gland peripheral zone compatible with PI-RADS 2 (the presence of clinically significant cancer is unlikely).
Moderate to severe BPH changes.
Echo 10/26/2023-normal LV systolic function. EF 55% mild concentric LVH. Mild to moderate MR. Mild TR
# Septic shock
# Leukocytosis/leukopenia-secondary sepsis
-E Coli Sepsis
- source
-Likely secondary to recent procedure
-Continue IV antibiotics-Zosyn changed to meropenem then Rocephin, later transitioned to oral abx cefuroxime 500 mg QD till 11/05/23 as per ID
-blood and urine cultures positive for E. coli, repeat blood cultures ngtd
-Maintain MAP over 65
-Off Pressors-Levophed and vasopressin, downgraded to IMU
-CT MRI abdomen pelvis as above
-ID ,Urology and nephrology eval appreciated
10/29 New Herpetic Lesions Nostril Area
discussed with ID, started Valacyclovir renally dosed, completed recommended 2 doses
resolving
#New Afib
tachy but HR consistently<120
Not a candidate for AC per D/W Urology given recent bleed
Cardio eval appreciated, cont metoprolol tartarate 50 mg BID, low chadvasc score, anticoagulation not indicated at this time.
# Mucous in stool and diarrhea, Bloating
Possible ileus
C. difficile negative, norovirus negative
repeat Cultures NGTD
imodium prn started with subsequent improvement
# Lactic acidosis-resolved
# Hematuria
-Status post aqua ablation of the prostate 10/18/2023 at [facility]
-Large clot in the bladder on 10/19/2023 needed OR evacuation
-Avalos placed in the [id number] urine on CBI
-Clear now
will maintain CBI while an inpatient to expedite elimination of infection and any blood, as per Urology
# Acute kidney injury-creatinine 6.3
-Likely secondary to septic shock and renal hypoperfusion/prerenal
-ATN Possible
-Also rule out postrenal-Vaalos catheter placed
-Keep MAP over 65 mmHg
-Follow creatinine
-Trial of Lasix on 10/25/2023 did not help make urine
-CRRT started on 10/25/2023
-HD started 2-2-24
# Coagulopathy-secondary to sepsis-follow
# Hyponatremia-Volume OL now
# Thrombocytopenia secondary to sepsis
Normal fibrinogen level
Possibly also consumptive from clotting of the filter
improving
Hematology eval appreciated
# Anemia likely secondary to acute blood loss secondary to hematuria, also iron deficiency, anemia of chronic disease, and sepsis contributing
-H&H stable
# Elevated LFTs-likely secondary to septic shock and decreased perfusion
-Improving
# Hypokalemia- monitor and replete as necessary
# Hypocalcemia-p.o. replacement given ceftriaxone
Replace vitamin D
# Vitamin D deficiency-replace
# Hypomagnesemia-replaced
# History of back surgery for disc herniation
# Hypoalbuminemia
# Alcohol use 3 to 4 glasses 3 times a week
# DVT prophylaxis-SCDs given recent bleeding/hematuria/anemia
# Full code
PT/OT eval appreciated HH
discussed with patient and his
I spent a total of 57 minutes with the patient or on the floor. More than 50% of this time involved counseling and coordination of care.
Anticipated Discharge: 24 - 48 hours
Subjective/Interval History
-
Date of Service: October 31, 2023
no acute distress. Continues to report general malaise/fatigue.
Objective Data
-
Labs:
Laboratory Results
10/31/23
03:28
WBC 27.9 H
Hgb 9.1 L
Hct 25.6 L
Plt Count 235
Sodium 123 L
Potassium 4.8
Chloride 91 L
Carbon Dioxide 19 L
BUN 93 H
Creatinine 9.0 H*
Glucose 89
Calcium 7.7 L
Total Bilirubin 0.6
AST 47
ALT 48
Alkaline Phosphatase 337 H
Vital Signs:
Vital Signs
Temp Pulse Resp BP Pulse Ox
97.4 F 104 17 142/79 97
10/31/23 05:35 10/31/23 06:00 10/31/23 06:00 10/31/23 04:01 10/31/23 06:00
I&O
10/30/23 10/31/23 11/01/23
06:59 06:59 06:59
Intake Total 960 / 960 1440 / 1440
Output Total 775 / 775 850 / 850
Balance 185 / 185 590 / 590
--- NOTE | 2023-10-31 07:50 | W.PN.CD ---
Today's Communication / Plan
-
Continue with metoprolol 50 BID for rate control
Follow up with his emergency department technician Dr. Wilton Cervantes in 2-4 weeks.
- If still in AFib AND he is at that time a candidate for anticoagulation then Dr. Cervantes may pursue anticoagulation and rhythm control
Cardiology will sign off
[employer] message sent to his emergency department technician
Impression / Plan
-
New onset AFib with rapid ventricular response precipitated by urologic sepsis
- Continue metoprolol tartrate 50 mg twice daily; A-fib is fairly rate-controlled overall, given current underlying clinical condition.
- If AFib persists his emergency department technician can pursue cardioversion once he is a candidate for systemic anticoagulation
- [id number] zero
Mild to moderate mitral regurgitation
-Clinically stable.
Elevated coronary calcium score but no obstructive CAD ([facility])
E. Coli sepsis from after recent prostate procedure for BPH (outside hospital, aqua ablation with subsequent return to OR for bleeding)
-Acute severe renal failure requiring hemodialysis
-Continue management as per primary team
[place]=> stage 5
- Hemodialysis
-Management as per Nephrology.
Resolved severe thrombocytopenia:
- Presumable from sepsis
BPH/Hematuria:
-On CBI; management as per Urology.
Multifactorial anemia
Subjective:
No major events overnight. No cardiac complaints this a.m.
Physical Exam
Vital Signs/Labs
Vital Signs
Temp Pulse Resp BP Pulse Ox
97.4 F 103 26 137/84 97
10/31/23 05:35 10/31/23 07:30 10/31/23 07:30 10/31/23 07:30 10/31/23 07:30
10/30/23 10/31/23 11/01/23
06:59 06:59 06:59
Actual Weight 100.1 kg 102.5 kg
10/31/23 03:28
10/31/23 03:28
PT 14.7 Sec (11.4-14.6) H 10/26/23 04:20
INR 1.13 10/26/23 04:20
APTT 41.3 Sec (23.4-35.0) H 10/27/23 12:56
Magnesium 2.7 mg/dl (1.6-2.3) H 10/28/23 03:29
TSH 4.20 uIU/ml (0.47-4.68) 10/27/23 12:56
Physical Exam
Constitutional: No acute distress
Cardiovascular: Rhythm/rate is irregular and S1S2 is normal
Respiratory: Respiratory effort normal and Lungs clear to auscul.
GI: Soft and Distention absent
Neuro/Psych: AO x 3
Data Reviewed
-
Date of Service: October 31, 2023
--- NOTE | 2023-10-31 08:02 | W.PN.NEPH.HD ---
Assessment
-
Patient seen on Hd
sbp stable at 128, remains in AFIB
Hd via temp catheter
remains on CBI
Progress Note - Hemodialysis
-
Date of Service: October 31, 2023
Duration: 30 minutes and 3 hours
Potassium Bath: 2
Calcium Bath: 2.5
Opti-Dialyzer: 160
Ultrafiltration: Other (1.5kg)
Blood Flow: 400
Dialysate Flow: 600
Heparin: none
EPO: 10K
--- NOTE | 2023-10-31 08:19 | PTCARENOTE ---
patient received at 0700 AAO x3 Denies pain. A/fib 70's VSS ( see records). Abdomen soft non-tender. [address] Way Avalos draining clear urine. CBI infusing . Will continue to monitor strict I/O. Left upper PICC line dressing intact; PICC line flushed
without difficulties, + blood return. RT Temporary cath. Dialysis in progress call damon within reach
--- NOTE | 2023-10-31 08:53 | W.PN.URO.CBU ---
Today's Communication / Plan
-
will maintain CBI while an inpatient to expedite elimination of infection and any blood
Assessment / Plan
-
E. coli urosepsis- after aqua-ablation
hematuria- well managed with cbi
renal failure- no evidence of hydro on ct and no flank pain c/w obstruction
no MRI evidence of prostatic abscess
Diagnosis
-
Date of Service: October 31, 2023
-
Patient Diagnosis:
s/p aqua-ablation
post op sepsis- ecoli
hematuria
renal failure
NOTE- URINARY TRACT INFECTION/SEPSIS SUSPECT DUE TO RECENT PROSTATE PROCEDURE AND RIBEIRO CATHETER REQUIREMENT
Subjective
-
being dialysed
Objective
-
Vital Signs
Temp Pulse Resp BP Pulse Ox
97.4 F 103 26 137/84 97
10/31/23 07:25 10/31/23 07:30 10/31/23 07:30 10/31/23 07:30 10/31/23 07:30
Intake and Output
10/30/23 10/31/23 11/01/23
06:59 06:59 06:59
Intake Total 960 / 960 1440 / 1440
Output Total 775 / 775 850 / 850
Balance 185 / 185 590 / 590
Intake:
Oral fluids 960 / 960 1440 / 1440
Output:
Urine, Voided 0 / 0
True Urine Output from CBI 775 / 775 850 / 850
Laboratory Results
10/31/23 03:28
10/31/23 03:28
Physical Exam
-
General - no acute distress
Genitalia - Ribeiro with almost clear outflow
[2023-10-31] MEDS: EPOGEN 4000 UNITS IV (09:10)
[2023-10-31] MEDS: OSCAL CAL 500 500 MG PO ×3 (11:08→20:02)
[2023-10-31] MEDS: LOPRESSOR 50 MG PO ×2 (11:08→20:02)
[2023-10-31] MEDS: VITAMIN D3 (cholecalciferol) 25 MCG PO (11:09)
[2023-10-31] MEDS: PROTONIX 40 MG PO (11:11)
[2023-10-31] MEDS: VISBIOME 1 CAP PO (11:11)
[2023-10-31] MEDS: DETROL LA 2 MG PO (11:13)
[2023-10-31] MEDS: HEPARIN 2000 UNITS INTRACATH (11:18)
--- NOTE | 2023-10-31 12:04 | W.PN.ID1 ---
Date of Service
Date of Service: October 31, 2023
Today's Communication
continue po cefuroxime 500mg qd till 11/05/23.
Assessment / Plan
# E. coli bacteremia from source, recent prostate ablation procedure 10/18 at [facility]
# s/p Septic shock off pressors
-Repeat blood cx's x 2 neg
- s/p 8 days ceftriaxone
- continue po cefuroxime 500mg qd till 11/05/23.
# Leukocytosis trending down.
- Repeat C.diff neg
-repeat blood cx's neg to date
- CXR negative
- Follow wbc.
# Herpes labialis
-s/p 2 doses of valacyclovir
# [place] - now on HD
# New Afib with RVR, off amiodarone
#Additional Past Medical History:
BPH s/p aqua ablation 10/18/23
DJD
Right total hip replacement
Appendectomy
Arthroscopic knee surgery
Lumbar discectomy x 2
Allergy History:
Chief Complaint
-: Leukocytosis and Bacteremia
Subjective / Review of Systems
No complaints.
Vital Signs / Physical Exam
Vital Signs
Vital Signs
Temp Pulse Resp BP Pulse Ox
97.4 F 109 26 130/80 97
10/31/23 07:25 10/31/23 11:08 10/31/23 07:30 10/31/23 11:08 10/31/23 07:30
Physical Exam
Constitutional: No Acute Distress
Head: Other (left nare crusting lesions)
Cardiovascular: Irregular Rate, S1/S2 and Other (tachy)
Pulmonary: Clear
Gastrointestinal: Soft, Non Tender, Non Distended and Normal Bowel Sounds
Neurological: AO x 3
Objective Data
Lab Data
Lab Results
10/31/23 03:28
10/31/23 03:28
PT 14.7 Sec (11.4-14.6) H 10/26/23 04:20
INR 1.13 10/26/23 04:20
APTT 41.3 Sec (23.4-35.0) H 10/27/23 12:56
Estimated Creat Clear 11 ml/min 10/31/23 03:28
Lactic Acid 1.1 mmol/L (0.7-2.0) 10/27/23 04:50
Total Bilirubin 0.6 mg/dl (0.2-1.3) 10/31/23 03:28
AST 47 U/L (17-59) 10/31/23 03:28
ALT 48 U/L (0-50) 10/31/23 03:28
Alkaline Phosphatase 337 U/L (38-126) H 10/31/23 03:28
Most recent labs reviewed.
Micro Results:
10/29/23 13:43 Blood Culture - Preliminary
Blood/Venous No Growth in 24 hours- Final report to follow
10/29/23 13:26 Blood Culture - Preliminary
Blood/Venous No Growth in 24 hours- Final report to follow
10/29/23 15:48 C. difficile GDH Antigen & Toxins - Final
Feces/Stool Negative for toxigenic C.difficile
10/25/23 03:14 Blood Culture - Final
Blood/Venous No Growth - Final Report
10/24/23 03:29 Blood Culture - Final
Blood/Venous No Growth - Final Report
10/26/23 08:28 Salmonella/Shigella Culture - Final
Feces/Stool No Salmonella, Shigella, Aeromonas or Plesiomonas species
isolated.
Campylobacter Culture - Final
No Campylobacter species isolated.
Shiga Toxin Test - Final
No E. coli Shiga Toxin 1 or 2 detected.
10/26/23 08:28 C. difficile GDH Antigen & Toxins - Final
Feces/Stool Negative for toxigenic C.difficile
- Final
Negative for Norovirus GI and GII.
10/23/23 05:07 Blood Culture - Final
Blood/Venous Escherichia coli
Gram Stain - Final
10/23/23 04:59 Urine Culture - Final
Urine Escherichia coli
10/23/23 04:42 Blood Culture - Final
Blood/Venous Escherichia coli
Gram Stain - Final
10/23/23 05:01 Influenza Types A & B ([facility]AN[place]A) - Final
Nasal Swab Negative for Influenza A & B, NAAT
Negative results must be combined with clinical observations
and patient history.
Nucleic Acid Amplification test (NAAT)performed on the
[employer] platform.
10/23/23 CXR: No acute disease of the chest.
10/23/23 CT a/p: 1 mm calcific focus in each kidney. . Differential includes arterial calcification versus nonobstructing calculi. No ureteral calculus, bilaterally. No hydronephrosis to suggest obstructive uropathy. There is, however, mild
perinephric soft tissue stranding, left slightly greater than right. Nonspecific. Cannot exclude changes related to urinary tract infection. Possible mild small bowel ileus or nonspecific enteritis. No evidence to suggest bowel obstruction. Avalos
catheter within the urinary bladder, which is collapsed. Diffuse urinary bladder wall thickening suggested. This could indicate cystitis. Generalized prostatic enlargement.
[2023-10-31 12:08] LABS: Glucose - Point of Care 73 mg/dl (70-99)
[2023-10-31] MEDS: STERILE WATER FOR INJECTION IV (12:54)
--- NOTE | 2023-10-31 13:00 | PTCARENOTE ---
1300 patient transfer via bed to room 3345 . Report given via phone prior to transfer. IMU nursing team will notify IV team to change PICC line to peripheral lines. Family will notify regarding transfer . All belongings including phone and perianesthesia manager
transfer with patient
--- NOTE | 2023-10-31 13:21 | CM ---
CM following re: discharge planning.
Discussed in Rounds, reviewed pt's chart, met with pt. Pt's spouse and pt's son at bedside. Per Rounds meeting, remains in AFIB, Hd via temp catheter, remains on CBI
Pt will be evaluated by PT and OT to determine a level of care at discharge.
D/c plan: uncertain at this time. Still continue temporary HD, PT/OT to evaluate.
CM will follow with discharge plan updates as hospitalization progresses.
--- NOTE | 2023-10-31 14:55 | PTCARENOTE ---
Rec'd pt from ICU. AAO x3. OOB with walker with PT and walked in halls without difficulty. Denies pain. resting comfortably.
--- NOTE | 2023-10-31 16:46 | PTCARENOTE ---
RN assisted pt back to bed. Spouse at bedside, concerned over pt's heart rate being over 100. HR 100-110s. requested Dr. De La Cruz be notified to suriw. RN discussed with Dr. De La Cruz who met with pt and family at bedside. PRN Lopressor order in place
for HR consistently greater than 120 bpm
[2023-10-31] MEDS: CEFTIN 500 MG PO (17:38)
[2023-11-01] VITALS (13 sets, daily range): BP systolic 117–147; BP diastolic 62–88; PULSE 81–103; O2SAT 97; BMI 26.2
[2023-11-01] MEDS: TYLENOL 650 MG PO ×2 (02:42→13:22)
--- NOTE | 2023-11-01 02:48 | PTCARENOTE ---
Pt AAOx3, afib with controlled rate, about 90-120. 95% on RA. [address] march with CBI intact, as documented. One or two small clots noted in output. Pt heard groaning several times from nurse's station, but denies pain/discomfort, refused pharmacologic
measures. Upon hourly rounds at 02:30, pt heard groaning loudly. Upon assessment, pt c/o back pain. Pt unsure if r/t positioning or condition, but accepts tylenol, see MAR. This RN will continue to closely monitor and record I&O. Call damon placed
within reach
[2023-11-01 05:16] LABS: Hematocrit 24.9 % (39.0-52.0); Hemoglobin 8.9 g/dL (13.0-18.0); Mean Corp Hgb Conc. 35.7 g/dL (33.0-37.0); Mean Corpuscular Hgb 30.6 pg (27.0-31.0); Mean Corpuscular Volume 85.6 fL (80.0-94.0); Mean Platelet Volume 11.5 fL (7.4-10.4); Platelet Count 284 10^3/uL (130-400); Red Blood Cell Count 2.91 10^6/uL (4.70-6.10); Red Cell Dist. Width 13.1 % (11.5-14.5); White Blood Cell Count 22.5 10^3/uL (4.8-10.8)
[2023-11-01 05:49] LABS: ALT (SGPT) 39 U/L (0-50); AST (SGOT) 43 U/L (17-59); Albumin 2.3 g/dl (3.5-5.0); Alkaline Phosphatase 271 U/L (38-126); Blood Urea Nitrogen 65 mg/dl (9-20); Calcium 7.4 mg/dl (8.4-10.2); Carbon Dioxide 23 mmol/L (22-30); Chloride 91 mmol/L (98-107); Estimated Creatinine Clearance 11 ml/min; Glucose 89 mg/dl (70-99); HDL Cholesterol 23 mg/dl; LDL Cholesterol, Calculated 83 mg/dl; Potassium 4.6 mmol/L (3.5-5.1); Sodium 124 mmol/L (135-145); Total Bilirubin 0.6 mg/dl (0.2-1.3); Total Cholesterol 156 mg/dl (50-199); Total Protein 4.5 g/dl (6.3-8.2); Triglyceride 251 mg/dl (10-149); Very Low Density Lipoprotein 50 mg/dl (0-30); eGFR 6.58
--- NOTE | 2023-11-01 07:08 | W.PN.HOSP.TC ---
Today's Communication/Plan
-
cont abx as per ID
cont rate control metoprolol
HD as per nephro
CBI Avalos as per urology
PT/OT
pain controle antiemetic as necesary
Assessment / Plan
Assessment / Plan
Physical
General: Awake alert and conversant
HEENT: herpetic like lesions noted nostril area.
Pulm: clear to auscultation bilateral
CVS:Irregularly Irregular tachy
Abd: soft nontender bowel sounds present
: CBI with clear urine
Neuro: AOx3
63-year-old male prostate recently was seen at [facility] for aqua ablation of prostate on Tuesday. Tuesday had large bladder clot which required evacuation in the OR. He was discharged home on . Catheter was removed on 10/22/2023. Early
morning he woke up with fevers and chills. Urine bloody appearing in the ER.
CT of the abdomen and pelvis mild asymmetric left adrenal gland diffuse thickening and. Renal fat stranding possible adrenal congestion. 1 mm calcific focus in each kidney no ureteral calculus no hydronephrosis. Mild perinephric soft tissue
stranding left greater than right nonspecific. Possible mid small bowel ileus/nonspecific enteritis. No small bowel obstruction. Avalos catheter in the bladder. Diffuse bladder wall thickening indicating cystitis. General prostatic enlargement.
MRI Noted Post-ablation changes of the prostate without convincing evidence for intraprostatic abscess.
Moderate free fluid in the pelvis, likely reactive.
Findings throughout the prostate gland peripheral zone compatible with PI-RADS 2 (the presence of clinically significant cancer is unlikely).
Moderate to severe BPH changes.
Echo 10/26/2023-normal LV systolic function. EF 55% mild concentric LVH. Mild to moderate MR. Mild TR
# Septic shock
# Leukocytosis/leukopenia-secondary sepsis
-E Coli Sepsis
- source
-Likely secondary to recent procedure
-Continue IV antibiotics-Zosyn changed to meropenem then Rocephin, later transitioned to oral abx cefuroxime 500 mg QD till 11/05/23 as per ID
-blood and urine cultures positive for E. coli, repeat blood cultures ngtd
-Maintain MAP over 65
-Off Pressors-Levophed and vasopressin, downgraded to IMU
-CT MRI abdomen pelvis as above
-ID ,Urology and nephrology eval appreciated
10/29 New Herpetic Lesions Nostril Area
discussed with ID, started Valacyclovir renally dosed, completed recommended 2 doses
resolving
#New Afib
tachy but HR consistently<120
Not a candidate for AC per D/W Urology given recent bleed
Cardio eval appreciated, cont metoprolol tartarate 50 mg BID, low chadvasc score, anticoagulation not indicated at this time.
# Mucous in stool and diarrhea, Bloating
Possible ileus
C. difficile negative, norovirus negative
repeat Cultures NGTD
imodium prn started with subsequent improvement
# Lactic acidosis-resolved
# Hematuria
-Status post aqua ablation of the prostate 10/18/2023 at [facility]
-Large clot in the bladder on 10/19/2023 needed OR evacuation
-Avalos placed in the [id number] urine on CBI
-Clear at this time
-urology eval appreciated CBI to be discontinued at midnight possible Avalos removal tomorrow.
# Acute kidney injury-creatinine 6.3
-Likely secondary to septic shock and renal hypoperfusion/prerenal
-ATN Possible
-Also rule out postrenal-Avalos catheter placed
-Keep MAP over 65 mmHg
-Follow creatinine
-Trial of Lasix on 10/25/2023 did not help make urine
-started on HD as per nephro
# Coagulopathy-secondary to sepsis-follow
# Hyponatremia-Volume OL now
# Thrombocytopenia secondary to sepsis
Normal fibrinogen level
Possibly also consumptive from clotting of the filter
improving
Hematology eval appreciated
# Anemia likely secondary to acute blood loss secondary to hematuria, also iron deficiency, anemia of chronic disease, and sepsis contributing
-H&H stable
# Elevated LFTs-likely secondary to septic shock and decreased perfusion
-Improving
# Hypokalemia- monitor and replete as necessary
# Hypocalcemia-p.o. replacement given ceftriaxone
Replace vitamin D
# Vitamin D deficiency-replace
# Hypomagnesemia-replaced
# History of back surgery for disc herniation
# Hypoalbuminemia
# Alcohol use 3 to 4 glasses 3 times a week
# DVT prophylaxis-SCDs given recent bleeding/hematuria/anemia
# Full code
PT/OT eval appreciated HH
discussed with patient and his
I spent a total of 55 minutes with the patient or on the floor. More than 50% of this time involved counseling and coordination of care.
Anticipated Discharge: 24 - 48 hours
Subjective/Interval History
-
Date of Service: November 01, 2023
Reports poor sleep overnight due to back pain with associate nausea. Manageable with IV pain meds and antinausea medication. No acute distress at this time. resting comfortably in bed
Objective Data
-
Labs:
Laboratory Results
11/01/23
04:38
WBC 22.5 H
Hgb 8.9 L
Hct 24.9 L
Plt Count 284 D
Sodium 124 L
Potassium 4.6
Chloride 91 L
Carbon Dioxide 23
BUN 65 H
Creatinine 8.4 H*
Glucose 89
Calcium 7.4 L
Total Bilirubin 0.6
AST 43
ALT 39
Alkaline Phosphatase 271 H
Vital Signs:
Vital Signs
Temp Pulse Resp BP Pulse Ox
98.0 F 114 16 134/76 92
11/01/23 03:33 11/01/23 06:00 11/01/23 06:00 11/01/23 06:00 11/01/23 06:00
I&O
10/31/23 11/01/23 11/02/23
06:59 06:59 06:59
Intake Total 1440 / 1440 720 / 720
Output Total 850 / 850 2250 / 2250
Balance 590 / 590 -1530 / -1530
[2023-11-01] MEDS: VITAMIN D3 (cholecalciferol) 25 MCG PO (08:40)
[2023-11-01] MEDS: LOPRESSOR 50 MG PO ×2 (08:40→20:14)
[2023-11-01] MEDS: DETROL LA 2 MG PO (08:40)
[2023-11-01] MEDS: OSCAL CAL 500 500 MG PO ×3 (08:41→22:08)
[2023-11-01] MEDS: PROTONIX 40 MG PO (08:41)
[2023-11-01] MEDS: VISBIOME 1 CAP PO (08:41)
--- NOTE | 2023-11-01 09:21 | W.PN.ID1 ---
Date of Service
Date of Service: November 01, 2023
Today's Communication
Continue po cefuroxime 500mg qd till 11/05/23.
Assessment / Plan
# E. coli bacteremia from source, recent prostate ablation procedure 10/18 at [facility]
# s/p Septic shock off pressors
-Repeat blood cx's x 2 neg
- s/p 8 days ceftriaxone
- continue po cefuroxime 500mg qd till 11/05/23.
# Leukocytosis continues to trend down.
- Repeat C.diff neg
-repeat blood cx's neg to date
- CXR negative
- Follow wbc.
# Herpes labialis
-s/p 2 doses of valacyclovir
# [place] - now on HD
# New Afib with RVR, off amiodarone
#Additional Past Medical History:
BPH s/p aqua ablation 10/18/23
DJD
Right total hip replacement
Appendectomy
Arthroscopic knee surgery
Lumbar discectomy x 2
Allergy History:
Chief Complaint
-: Leukocytosis and Bacteremia
Subjective / Review of Systems
No complaints.
Vital Signs / Physical Exam
Vital Signs
Vital Signs
Temp Pulse Resp BP Pulse Ox
97.4 F 105 16 125/80 92
11/01/23 07:55 11/01/23 08:40 11/01/23 06:00 11/01/23 08:40 11/01/23 06:00
Physical Exam
Constitutional: No Acute Distress
Cardiovascular: Regular Rate, S1/S2 and Other (tachy)
Pulmonary: Clear
Gastrointestinal: Soft, Non Tender and Non Distended
Extremities: Negative Edema
Neurological: AO x 3
Objective Data
Lab Data
Lab Results
11/01/23 04:38
11/01/23 04:38
PT 14.7 Sec (11.4-14.6) H 10/26/23 04:20
INR 1.13 10/26/23 04:20
APTT 41.3 Sec (23.4-35.0) H 10/27/23 12:56
Estimated Creat Clear 11 ml/min 11/01/23 04:38
Lactic Acid 1.1 mmol/L (0.7-2.0) 10/27/23 04:50
Total Bilirubin 0.6 mg/dl (0.2-1.3) 11/01/23 04:38
AST 43 U/L (17-59) 11/01/23 04:38
ALT 39 U/L (0-50) 11/01/23 04:38
Alkaline Phosphatase 271 U/L (38-126) H 11/01/23 04:38
Most recent labs reviewed.
Micro Results:
10/29/23 13:43 Blood Culture - Preliminary
Blood/Venous No Growth in 48 hours- Final report to follow
10/29/23 13:26 Blood Culture - Preliminary
Blood/Venous No Growth in 48 hours- Final report to follow
10/29/23 15:48 C. difficile GDH Antigen & Toxins - Final
Feces/Stool Negative for toxigenic C.difficile
10/25/23 03:14 Blood Culture - Final
Blood/Venous No Growth - Final Report
10/24/23 03:29 Blood Culture - Final
Blood/Venous No Growth - Final Report
10/26/23 08:28 Salmonella/Shigella Culture - Final
Feces/Stool No Salmonella, Shigella, Aeromonas or Plesiomonas species
isolated.
Campylobacter Culture - Final
No Campylobacter species isolated.
Shiga Toxin Test - Final
No E. coli Shiga Toxin 1 or 2 detected.
10/26/23 08:28 C. difficile GDH Antigen & Toxins - Final
Feces/Stool Negative for toxigenic C.difficile
- Final
Negative for Norovirus GI and GII.
10/23/23 05:07 Blood Culture - Final
Blood/Venous Escherichia coli
Gram Stain - Final
10/23/23 04:59 Urine Culture - Final
Urine Escherichia coli
10/23/23 04:42 Blood Culture - Final
Blood/Venous Escherichia coli
Gram Stain - Final
10/23/23 05:01 Influenza Types A & B (VANESA) - Final
Nasal Swab Negative for Influenza A & B, NAAT
Negative results must be combined with clinical observations
and patient history.
Nucleic Acid Amplification test (NAAT)performed on the
[employer] platform.
10/23/23 CXR: No acute disease of the chest.
10/23/23 CT a/p: 1 mm calcific focus in each kidney. . Differential includes arterial calcification versus nonobstructing calculi. No ureteral calculus, bilaterally. No hydronephrosis to suggest obstructive uropathy. There is, however, mild
perinephric soft tissue stranding, left slightly greater than right. Nonspecific. Cannot exclude changes related to urinary tract infection. Possible mild small bowel ileus or nonspecific enteritis. No evidence to suggest bowel obstruction. Avalos
catheter within the urinary bladder, which is collapsed. Diffuse urinary bladder wall thickening suggested. This could indicate cystitis. Generalized prostatic enlargement.
--- NOTE | 2023-11-01 09:51 | W.PN.ONC ---
Addendum entered and electronically signed by Irene Dsouza MD 11/01/23 16:30:
Agree w/ A&P as below by SPECTROGRAPHIC ANALYST
Thrombocytopenia has recovered.
Monitor persistent leukocytosis, suspect related to sepsis
Original Note:
Today's Communication / Plan
-
CBC w/ diff daily
2/ Hgb 8.9, PLT 284
Transfuse as needed to maintain Hgb >7, PLT >20
HD as scheduled
Maintain CBI per Urology
Cefuroxime 500mg daily through 11/05/23 per ID
Supportive care
Emotional support
We will follow.
Impression
Impression
Thrombocytopenia (resolved)
Exposure to cephalosporin antibiotics
Acute anemia
E. coli septicemia
BPH s/p aqua-ablation of prostate at , hematuria/clot complications requiring OR take back
Atrial fibrillation
Acute renal failure on dialysis
Leukocytosis
Subjective/Objective
Subjective/Objective
Reviewed labs with patient this morning per his request. He has questions for [employer]aster [employer] regarding HD. TT sent to Dr. Lilly. patient denies pain.
Vital Signs:
Vital Signs
Temp Pulse Resp BP Pulse Ox
97.4 F 101 19 125/80 95
11/01/23 07:55 11/01/23 09:00 11/01/23 09:00 11/01/23 08:40 11/01/23 09:00
physical exam
aaox3, anxious
HRR tachy, lungs clear
+bowel sounds, CBI/march clear urine
Lab Results:
Laboratory Data
WBC 22.5 10^3/uL (4.8-10.8) H 11/01/23 04:38
Hgb 8.9 g/dL (13.0-18.0) L 11/01/23 04:38
Plt Count 284 10^3/uL (130-400) D 11/01/23 04:38
PT 14.7 Sec (11.4-14.6) H 10/26/23 04:20
INR 1.13 10/26/23 04:20
APTT 41.3 Sec (23.4-35.0) H 10/27/23 12:56
eGFR 6.58 11/01/23 04:38
[2023-11-01] MEDS: ZOFRAN 4 MG IV ×2 (11:17→23:55)
--- NOTE | 2023-11-01 11:25 | W.PN.NEPH.PH ---
Today's Communication / Plan
-
Hd tomorrow
Assessment/Plan
-
Assessment
-Septic shock
-Ecoli sepsis s/p prostate aqua-ablation
-Hyponatremia
-metabolic/lactic acidosis
-hypomagnesemia
-urinary retention now on CBI
-[place]
Plan
no indication of renal recovery at this time
next HD tomorrow
eventually will need temp to tunnelled HD CVC once WBC improves/no infectious concerns
Hyponatremia etiology remains elusive: FR is on
CBI to be discontinued tonight
-
-
Date of Service: November 01, 2023
CC / HPI / ROS
-
Chief Complaint:
[place]
History of Present Illness:
tolerated HD yesterday
BP stable
acidosis improved
CBI continues
on abx for ecoli sepsis
afib still
Na low 124
WBC remains elevated stable
Review of Systems:
no CP/SOB
: CBI
Labs
-
Labs:
WBC 22.5 10^3/uL (4.8-10.8) H 11/01/23 04:38
RBC 2.91 10^6/uL (4.70-6.10) L 11/01/23 04:38
Hgb 8.9 g/dL (13.0-18.0) L 11/01/23 04:38
Hct 24.9 % (39.0-52.0) L 11/01/23 04:38
Plt Count 284 10^3/uL (130-400) D 11/01/23 04:38
Sodium 124 mmol/L (135-145) L 11/01/23 04:38
Potassium 4.6 mmol/L (3.5-5.1) 11/01/23 04:38
Chloride 91 mmol/L (98-107) L 11/01/23 04:38
Carbon Dioxide 23 mmol/L (22-30) 11/01/23 04:38
BUN 65 mg/dl (9-20) H 11/01/23 04:38
Creatinine 8.4 mg/dL (0.7-1.3) H* 11/01/23 04:38
eGFR 6.58 11/01/23 04:38
Glucose 89 mg/dl (70-99) 11/01/23 04:38
Calcium 7.4 mg/dl (8.4-10.2) L 11/01/23 04:38
Phosphorus 4.5 mg/dl (2.5-4.5) 10/28/23 03:29
Albumin 2.3 g/dl (3.5-5.0) L 11/01/23 04:38
Physical Exam
-
Vital Signs:
Vital Signs
Temp Pulse Resp BP Pulse Ox
97.4 F 101 19 125/80 95
11/01/23 07:55 11/01/23 09:00 11/01/23 09:00 11/01/23 08:40 11/01/23 09:00
--- NOTE | 2023-11-01 11:46 | W.PN.URO.CBU ---
Today's Communication / Plan
-
continue medical support
cbi off at midnight
Assessment / Plan
-
E. coli urosepsis- after aqua-ablation
hematuria- well managed with cbi
renal failure- no evidence of hydro on ct and no flank pain c/w obstruction
no MRI evidence of prostatic abscess
wbc trending down- continue antibx
renal managing renal failure- continue dialysis
will stop cbi at midnight tonight- if UO adequate and clear- can review march removal
Diagnosis
-
Date of Service: November 01, 2023
-
Patient Diagnosis:
s/p aqua-ablation
post op sepsis- ecoli
hematuria
renal failure
NOTE- URINARY TRACT INFECTION/SEPSIS SUSPECT DUE TO RECENT PROSTATE PROCEDURE AND MARCH CATHETER REQUIREMENT
Subjective
-
pt looks much better and feels better
still in afib- lower rate
abd benign- eating
? urine output- but urine clear/yellow
ct and pelvic mri do not indicate any abscess or alternative source of infx- no fevers and wbc is trending down today
Objective
-
Vital Signs
Temp Pulse Resp BP Pulse Ox
97.4 F 97 17 145/75 97
11/01/23 07:55 11/01/23 11:28 11/01/23 11:28 11/01/23 11:29 11/01/23 11:35
Intake and Output
10/31/23 11/01/23 11/02/23
06:59 06:59 06:59
Intake Total 1440 / 1440 720 / 720 240 / 240
Output Total 850 / 850 2250 / 2250
Balance 590 / 590 -1530 / -1530 240 / 240
Intake:
Oral fluids 1440 / 1440 720 / 720 240 / 240
Output:
Urine, Voided 0 / 0
True Urine Output from CBI 850 / 850 2250 / 2250
Laboratory Results
11/01/23 04:38
11/01/23 04:38
Review of Systems
-
Constitutional: Fatigue
Respiratory: No Symptoms
Cardiac: No Symptoms
Abdomen/GI: No Symptoms
Physical Exam
-
General -no acute distress
Abdomen - soft, non-tender,
Genitalia - normal- march in place
Skin - warm & dry with no rash
Neuro - AOx3, no motor deficits
Extremities - no clubbing, no cyanosis, no edema
[2023-11-01 13:41] LABS: Dil. Russell Viper Venom Time 33 sec (33-44); Partial Thromboplastin Time 47 sec (32-48); Prothrombin Time 14.2 sec (12.0-15.5)
--- NOTE | 2023-11-01 14:42 | CM ---
Patient seen at bedside, now in IMU. Patient indicated that he is still planning on not needing HD nursing home. Patient plan is to go home with no needs. Patient continues to have medical treatment ongoing. Chart review indicates that patient may need
ongoing HD. CM will continue to follow for discharge planning needs.
Plan; home with VN; watch for possible HD; fdc.
--- NOTE | 2023-11-01 15:01 | PTCARENOTE ---
Rec'd pt this AM. Tylenol given for mild body aches. CBI with clear output. Educated extensively on fluid restriction. Discussed hyponatremia and HD as reasons why so important. Pt expressed understanding. Vital signs stable. Heart rate 90s to 100s
today, remains A fib.
[2023-11-01] MEDS: CEFTIN 500 MG PO (18:01)
[2023-11-01] MEDS: LIPITOR 40 MG PO (18:01)
--- NOTE | 2023-11-01 18:11 | PTCARENOTE ---
Pt's called RN in room stating that there was blood in pt's march tube. There was some pink tissue in the march tubing. It easily passed through into the bag. recalled she was told that this may happen and would be from the prostate
procedure he had. RN did notify Dr. Moeller who is on duty in [facility].
--- NOTE | 2023-11-01 20:00 | PTCARENOTE ---
Resumed care of pt sitting up in bed watching TV AAOx3. HR in the low 100's to 120's with activity, in Afib on the monitor. HR irreg. Lungs clear. POX 98% on RA. Hypo bowel, round abd. PT reports poor appetite with intermittent nausea. Denies need
for nausea medication at this time. [address] way A[address] in [address] with CBI, draining clear at this time. Pt reports understanding of discontinuing cbi at midnight. Right hand scab noted and open to air. Pt assisted to BSC without difficulty, pt just
passing gas, no bm at this time. Pt assisted back to bed and positioned self per comfort. Right IJ HD cath in place. LUE old picc site with dressing intact. Left forearm int capped. Pt denies any complaints at this time. Will continue to monitor.
[2023-11-02] VITALS (43 sets, daily range): BP systolic 126–179; BP diastolic 65–150; BMI 26.3
--- NOTE | 2023-11-02 00:21 | PTCARENOTE ---
CBI capped per MD order. Pt instructed to call RN if at any time pt becomes uncomfortable. Pt complaining of nausea at this time, PRN Zofran administered as ordered. Will continue to monitor.
[2023-11-02] MEDS: DILAUDID 0.25 MG IV (01:24)
--- NOTE | 2023-11-02 01:28 | PTCARENOTE ---
Pt moaning in bed. Pt reports inability to sleep. Pt stating he is having a lot of discomfort. Reports generalized body discomfort 04/04. PRN Medication administered as ordered. CBI remains clamped, denies any urinary issues at this time. Vital signs
stable. Will continue to monitor.
--- NOTE | 2023-11-02 07:27 | W.PN.HOSP.TC ---
Today's Communication/Plan
-
cont abx as per ID
cont rate control metoprolol
HD as per nephro
monitor off CBI as per urology
PT/OT
pain control antiemetic as necesary
Follow up bladder renal US results
Assessment / Plan
Assessment / Plan
Physical
General: Awake alert and conversant
HEENT: herpetic like lesions noted nostril area.
Pulm: clear to auscultation bilateral
CVS:Irregularly Irregular tachy
Abd: soft nontender bowel sounds present
: Avalos in place off CBI, dark orange urine in Avalos
Neuro: AOx3
63-year-old male prostate recently was seen at [facility] for aqua ablation of prostate on Tuesday. Tuesday had large bladder clot which required evacuation in the OR. He was discharged home on . Catheter was removed on 10/22/2023. Early
morning he woke up with fevers and chills. Urine bloody appearing in the ER.
CT of the abdomen and pelvis mild asymmetric left adrenal gland diffuse thickening and. Renal fat stranding possible adrenal congestion. 1 mm calcific focus in each kidney no ureteral calculus no hydronephrosis. Mild perinephric soft tissue
stranding left greater than right nonspecific. Possible mid small bowel ileus/nonspecific enteritis. No small bowel obstruction. Avalos catheter in the bladder. Diffuse bladder wall thickening indicating cystitis. General prostatic enlargement.
MRI Noted Post-ablation changes of the prostate without convincing evidence for intraprostatic abscess.
Moderate free fluid in the pelvis, likely reactive.
Findings throughout the prostate gland peripheral zone compatible with PI-RADS 2 (the presence of clinically significant cancer is unlikely).
Moderate to severe BPH changes.
Echo 10/26/2023-normal LV systolic function. EF 55% mild concentric LVH. Mild to moderate MR. Mild TR
# Septic shock
# Leukocytosis/leukopenia-secondary sepsis
-E Coli Sepsis
- source
-Likely secondary to recent procedure
-Continue IV antibiotics-Zosyn changed to meropenem then Rocephin, later transitioned to oral abx cefuroxime 500 mg QD till 11/05/23 as per ID
-blood and urine cultures positive for E. coli, repeat blood cultures ngtd
-Maintain MAP over 65
-Off Pressors-Levophed and vasopressin, subsequently downgraded to IMU 10/29
-CT MRI abdomen pelvis as above
-ID ,Urology and nephrology eval appreciated
10/29 New Herpetic Lesions Nostril Area
discussed with ID, started Valacyclovir renally dosed, completed recommended 2 doses
resolving
#Dry nose
Saunders mist nasal spray QID
discussed with nurse, respiratory therapist humidified air application requested
#New Afib
tachy but HR consistently<120
Not a candidate for AC per D/W Urology given recent bleed
Cardio eval appreciated, cont metoprolol tartarate 50 mg BID, low chadvasc score, anticoagulation not indicated at this time.
# Mucous in stool and diarrhea, Bloating
Possible ileus
C. difficile negative, norovirus negative
repeat Cultures NGTD
imodium prn started with subsequent improvement
# Lactic acidosis-resolved
# Hematuria
-Status post aqua ablation of the prostate 10/18/2023 at [facility]
-Large clot in the bladder on 10/19/2023 needed OR evacuation
-Avalos placed in the [id number] urine on CBI
-Clear at this time
-urology eval appreciated off CBI since 11/01 evening possible will come off Avalos tomorrow thurs 11/03
# Acute kidney injury-creatinine 6.3
-Likely secondary to septic shock and renal hypoperfusion/prerenal
-ATN Possible
-Also rule out postrenal-Avalos catheter placed
-Keep MAP over 65 mmHg
-Follow creatinine
-Trial of Lasix on 10/25/2023 did not help make urine
-started on HD, continue as per nephro
-11/02 Bladder Renal US results pending
# Coagulopathy-secondary to sepsis-follow
# Hyponatremia-Volume OL now
# Thrombocytopenia secondary to sepsis
Normal fibrinogen level
Possibly also consumptive from clotting of the filter
improving
Hematology eval appreciated
# Anemia likely secondary to acute blood loss secondary to hematuria, also iron deficiency, anemia of chronic disease, and sepsis contributing
-H&H stable
# Elevated LFTs-likely secondary to septic shock and decreased perfusion
-Improving/resolved
# Hypokalemia- monitor and replete as necessary
# Hypocalcemia-p.o. replacement given ceftriaxone
Replace vitamin D
# Vitamin D deficiency-replace
# Hypomagnesemia-replaced
# History of back surgery for disc herniation
# Hypoalbuminemia
# Alcohol use 3 to 4 glasses 3 times a week
# DVT prophylaxis-SCDs given recent bleeding/hematuria/anemia
# Full code
PT/OT eval appreciated HH
discussed with patient and his
I spent a total of 55 minutes with the patient or on the floor. More than 50% of this time involved counseling and coordination of care.
Anticipated Discharge: 24 - 48 hours
Subjective/Interval History
-
Date of Service: November 02, 2023
seen and examined at bedside in no acute distress resting comfortably in bed. undergoing dialysis during assessment. Some urine production noted in Avalos off CBI. Urine dark orange coloration.
Patient reports dry nose, was able to sleep ok overnight with pain meds
Objective Data
-
Labs:
Laboratory Results
11/02/23
07:00
Hgb Pending
Hct Pending
Sodium Pending
Potassium Pending
Chloride Pending
Carbon Dioxide Pending
BUN Pending
Creatinine Pending
Glucose Pending
Calcium Pending
Vital Signs:
Vital Signs
Temp Pulse Resp BP Pulse Ox
98 F 95 20 153/71 96
11/02/23 07:21 11/02/23 05:00 11/02/23 05:00 11/02/23 05:00 11/02/23 04:00
I&O
11/01/23 11/02/23 11/03/23
06:59 06:59 06:59
Intake Total 720 / 720 600 / 600
Output Total 2250 / 2250 1525 / 1525
Balance -1530 / -1530 -925 / -925
[2023-11-02 08:15] LABS: Hematocrit 24.9 % (39.0-52.0); Hemoglobin 8.6 g/dL (13.0-18.0)
--- NOTE | 2023-11-02 08:19 | W.PN.URO.CBU ---
Addendum entered and electronically signed by Alek Michaud Jr., MD 11/02/23 12:35:
wbc down again
renal u/s- no hydro
doubt that pt really had 1 liter of urine overnight given volume over last shift- but will continue march and monitor
did speak with dr reid- his operative urologist- nothing further to add at this time
Original Note:
Today's Communication / Plan
-
check wbc
check u/s
observe off cbi
Assessment / Plan
-
E. coli urosepsis- after aqua-ablation
hematuria- well managed with cbi
renal failure- no evidence of hydro on ct and no flank pain c/w obstruction
no MRI evidence of prostatic abscess
wbc trending down- continue antibx
renal managing renal failure- continue dialysis- checking u/s
cbi off- appears to be making urine which is a good sign- if output remains good and urine clears- can consider removal of march and if voiding with clear urine- revisit anticoagulation
Diagnosis
-
Date of Service: November 02, 2023
-
Patient Diagnosis:
s/p aqua-ablation
post op sepsis- ecoli
hematuria
renal failure
NOTE- URINARY TRACT INFECTION/SEPSIS SUSPECT DUE TO RECENT PROSTATE PROCEDURE AND MARCH CATHETER REQUIREMENT
Subjective
-
pt continues to look and feel better
cbi off since midnight- reported output at least one liter
urine in tubing willian
renal u/s ordered- results pending
Objective
-
Vital Signs
Temp Pulse Resp BP Pulse Ox
98 F 95 20 153/71 96
11/02/23 07:21 11/02/23 05:00 11/02/23 05:00 11/02/23 05:00 11/02/23 04:00
Intake and Output
11/01/23 11/02/23 11/03/23
06:59 06:59 06:59
Intake Total 720 / 720 600 / 600
Output Total 2250 / 2250 1525 / 1525
Balance -1530 / -1530 -925 / -925
Intake:
Oral fluids 720 / 720 600 / 600
Output:
True Urine Output from CBI 2250 / 2250 1525 / 1525
Review of Systems
-
Constitutional: Fatigue
Respiratory: No Symptoms
Cardiac: No Symptoms
Abdomen/GI: No Symptoms
Physical Exam
-
General - no acute distress
Abdomen - soft, non-tender
Genitalia - normal- march in place
[2023-11-02 08:29] LABS: Blood Urea Nitrogen 76 mg/dl (9-20); Calcium 7.6 mg/dl (8.4-10.2); Carbon Dioxide 22 mmol/L (22-30); Chloride 88 mmol/L (98-107); Glucose 79 mg/dl (70-99); Potassium 4.7 mmol/L (3.5-5.1); Sodium 123 mmol/L (135-145)
[2023-11-02] MEDS: MANNITOL 12.5 GRAMS IV ×2 (08:35→10:17)
[2023-11-02] MEDS: EPOGEN 10000 UNITS IV (08:36)
[2023-11-02 08:53] LABS: Estimated Creatinine Clearance 9 ml/min; eGFR 5.27
--- NOTE | 2023-11-02 09:39 | PTCARENOTE ---
Rsp can not humidify room and we can not have outside humidifier brought in . Pt aware
--- NOTE | 2023-11-02 09:49 | W.PN.NEPH.HD ---
Assessment
-
Seen on HD. no complaints. CBI off, some UOP VSS, access slow
get tunnelled HDCVC
Progress Note - Hemodialysis
-
Date of Service: November 02, 2023
Duration: 30 minutes
Potassium Bath: 2
Calcium Bath: 2.5
Opti-Dialyzer: 160
Ultrafiltration: Other (kg)
Blood Flow: 400
Dialysate Flow: 600
Heparin: 0
EPO: 26422 units
[2023-11-02] MEDS: LOPRESSOR 50 MG PO ×2 (10:10→19:36)
--- NOTE | 2023-11-02 10:17 | CM ---
Addendum entered by Claudette Dickinson 11/02/23 11:28:
Call from [facility] admissions
Awaiting confirmation on schedule/chair time
Will likely be midmorning Tues/Thr/Sat at [facility]
Will not start new HD on a Sat though
Pt may need to transition HD schedule during admission
Will awaiting chair confirmation
Original Note:
CM reviewed pt with nephro- Dr Bhandari
Anticipate need for new outpatient HD on dc
Bedside meeting with pt
Provider and clinic options discussed
Pt requesting referral to [facility] to due location to his home
Transportation discussed, pt plans to drive self or have family/friends assists
Declined transport resources
VN also recommended
Prefernce is [facility]
Referrals made to both [facility] and [facility] via [facility] pending
Pt remains in IMU with continues to receive abx, trial off CBI, and bedside HD
Pt requesting out of pocket costs for both HD and VN
Request included in referrals
Discharge Disposition- home with VN and new outpatient HD
[2023-11-02] MEDS: HEPARIN 2200 UNITS INTRACATH (11:18)
[2023-11-02 11:50] LABS: % Basophils 0.2 % (0-2); % Eosinophils 0.2 % (0-6); % Immature Granulocytes 7.7 % (0-0.5); % Lymphocytes 8.9 % (20.5-51.1); % Monocytes 12.8 % (1.7-9.3); % Neutrophils 70.2 % (42.2-75.2); Absolute Immature Granulocytes 1.5 10^3/uL (0-0.05); Absolute Lymphocytes 1.8 10^3/uL (1.2-3.4); Absolute Monocytes 2.5 10^3/uL (0.1-0.6); Absolute Neutrophils 13.9 10^3/uL (1.4-6.5); Hematocrit 25.2 % (39.0-52.0); Mean Corp Hgb Conc. 35.7 g/dL (33.0-37.0); Mean Corpuscular Hgb 30.5 pg (27.0-31.0); Mean Corpuscular Volume 85.4 fL (80.0-94.0); Mean Platelet Volume 11.1 fL (7.4-10.4); Nucleated Red Blood Cells % 0 % (-); Platelet Count 350 10^3/uL (130-400); Red Blood Cell Count 2.95 10^6/uL (4.70-6.10); Red Cell Dist. Width 13.1 % (11.5-14.5); White Blood Cell Count 19.8 10^3/uL (4.8-10.8)
[2023-11-02] MEDS: OCEAN, SALINE MIST 1 SPRAYS NASAL ×3 (12:08→21:24)
[2023-11-02] MEDS: PROTONIX 40 MG PO (12:09)
[2023-11-02] MEDS: VITAMIN D3 (cholecalciferol) 25 MCG PO (12:09)
[2023-11-02] MEDS: OSCAL CAL 500 500 MG PO ×3 (12:09→21:24)
[2023-11-02] MEDS: DETROL LA 2 MG PO (12:09)
[2023-11-02] MEDS: VISBIOME 1 CAP PO (12:10)
--- NOTE | 2023-11-02 13:37 | SUR.OPER ---
Pt urine red DR Michaud TT restart CBI
--- NOTE | 2023-11-02 14:02 | W.PN.ID1 ---
Date of Service
Date of Service: November 02, 2023
Today's Communication
Continue po cefuroxime 500mg qd till 11/05/23.
From ID standpoint, can place perma-Cath.
Assessment / Plan
# E. coli bacteremia from source, recent prostate ablation procedure 10/18 at [facility]
# s/p Septic shock off pressors
-Repeat blood cx's x 2 neg
- s/p 8 days ceftriaxone
- continue po cefuroxime 500mg qd till 11/05/23.
# Leukocytosis continues to trend down.
- Repeat C.diff neg
-repeat blood cx's neg to date
- CXR negative
# [place] - now on HD
- From ID standpoint, can place perm HD cath.
# Herpes labialis
-s/p 2 doses of valacyclovir
# New Afib with RVR, off amiodarone
#Additional Past Medical History:
BPH s/p aqua ablation 10/18/23
DJD
Right total hip replacement
Appendectomy
Arthroscopic knee surgery
Lumbar discectomy x 2
Allergy History:
Chief Complaint
-: Leukocytosis and Bacteremia
Subjective / Review of Systems
Feels well.
Vital Signs / Physical Exam
Vital Signs
Vital Signs
Temp Pulse Resp BP Pulse Ox
97.6 F 123 20 153/71 97
11/02/23 12:03 11/02/23 10:10 11/02/23 05:00 11/02/23 05:00 11/02/23 08:00
Physical Exam
Constitutional: No Acute Distress
Cardiovascular: Other (tachy)
Pulmonary: Clear
Gastrointestinal: Soft, Non Tender and Non Distended
Neurological: AO x 3
Objective Data
Lab Data
Lab Results
11/02/23 11:38
11/02/23 07:45
PT 14.7 Sec (11.4-14.6) H 10/26/23 04:20
INR 1.13 10/26/23 04:20
APTT 41.3 Sec (23.4-35.0) H 10/27/23 12:56
Estimated Creat Clear 9 ml/min 11/02/23 07:45
Lactic Acid 1.1 mmol/L (0.7-2.0) 10/27/23 04:50
Total Bilirubin 0.6 mg/dl (0.2-1.3) 11/01/23 04:38
AST 43 U/L (17-59) 11/01/23 04:38
ALT 39 U/L (0-50) 11/01/23 04:38
Alkaline Phosphatase 271 U/L (38-126) H 11/01/23 04:38
Most recent labs reviewed.
Micro Results:
10/29/23 13:43 Blood Culture - Preliminary
Blood/Venous No Growth in 4 days- Final report to follow
10/29/23 13:26 Blood Culture - Preliminary
Blood/Venous No Growth in 4 days- Final report to follow
10/29/23 15:48 C. difficile GDH Antigen & Toxins - Final
Feces/Stool Negative for toxigenic C.difficile
10/25/23 03:14 Blood Culture - Final
Blood/Venous No Growth - Final Report
10/24/23 03:29 Blood Culture - Final
Blood/Venous No Growth - Final Report
10/26/23 08:28 Salmonella/Shigella Culture - Final
Feces/Stool No Salmonella, Shigella, Aeromonas or Plesiomonas species
isolated.
Campylobacter Culture - Final
No Campylobacter species isolated.
Shiga Toxin Test - Final
No E. coli Shiga Toxin 1 or 2 detected.
10/26/23 08:28 C. difficile GDH Antigen & Toxins - Final
Feces/Stool Negative for toxigenic C.difficile
- Final
Negative for Norovirus GI and GII.
10/23/23 05:07 Blood Culture - Final
Blood/Venous Escherichia coli
Gram Stain - Final
10/23/23 04:59 Urine Culture - Final
Urine Escherichia coli
10/23/23 04:42 Blood Culture - Final
Blood/Venous Escherichia coli
Gram Stain - Final
10/23/23 05:01 Influenza Types A & B (VANESA) - Final
Nasal Swab Negative for Influenza A & B, NAAT
Negative results must be combined with clinical observations
and patient history.
Nucleic Acid Amplification test (NAAT)performed on the
[employer] platform.
10/23/23 CXR: No acute disease of the chest.
10/23/23 CT a/p: 1 mm calcific focus in each kidney. . Differential includes arterial calcification versus nonobstructing calculi. No ureteral calculus, bilaterally. No hydronephrosis to suggest obstructive uropathy. There is, however, mild
perinephric soft tissue stranding, left slightly greater than right. Nonspecific. Cannot exclude changes related to urinary tract infection. Possible mild small bowel ileus or nonspecific enteritis. No evidence to suggest bowel obstruction. Avalos
catheter within the urinary bladder, which is collapsed. Diffuse urinary bladder wall thickening suggested. This could indicate cystitis. Generalized prostatic enlargement.
[2023-11-02] MEDS: CEFTIN 500 MG PO (16:44)
[2023-11-02] MEDS: LIPITOR 40 MG PO (16:44)
[2023-11-03] VITALS (45 sets, daily range): BP systolic 73–176; BP diastolic 57–133; BMI 26.0
[2023-11-03 00:24] LABS: Complement C3 143 mg/dl (88-165)
[2023-11-03] MEDS: APRESOLINE 5 MG IV (01:18)
--- NOTE | 2023-11-03 01:22 | PTCARENOTE ---
Pt sleeping comfortably. BP >140 PRN Hydralazine administered as ordered. Pt denies any complaints. Will continue to monitor.
[2023-11-03 05:11] LABS: % Basophils 0.3 % (0-2); % Eosinophils 0.4 % (0-6); % Immature Granulocytes 5.6 % (0-0.5); % Lymphocytes 14.8 % (20.5-51.1); % Monocytes 18.6 % (1.7-9.3); % Neutrophils 60.3 % (42.2-75.2); Absolute Basophils 0.1 10^3/uL (0-0.2); Absolute Eosinophils 0.1 10^3/uL (0-0.7); Absolute Immature Granulocytes 0.9 10^3/uL (0-0.05); Absolute Lymphocytes 2.4 10^3/uL (1.2-3.4); Absolute Neutrophils 9.7 10^3/uL (1.4-6.5); Hematocrit 24.4 % (39.0-52.0); Hemoglobin 8.6 g/dL (13.0-18.0); Mean Corp Hgb Conc. 35.2 g/dL (33.0-37.0); Mean Corpuscular Hgb 30.5 pg (27.0-31.0); Mean Corpuscular Volume 86.5 fL (80.0-94.0); Mean Platelet Volume 10.9 fL (7.4-10.4); Nucleated Red Blood Cells % 0 % (-); Platelet Count 401 10^3/uL (130-400); Red Blood Cell Count 2.82 10^6/uL (4.70-6.10); Red Cell Dist. Width 12.9 % (11.5-14.5); White Blood Cell Count 16.1 10^3/uL (4.8-10.8)
[2023-11-03 05:37] LABS: ALT (SGPT) 35 U/L (0-50); AST (SGOT) 34 U/L (17-59); Albumin 2.4 g/dl (3.5-5.0); Alkaline Phosphatase 224 U/L (38-126); Blood Urea Nitrogen 54 mg/dl (9-20); Calcium 7.4 mg/dl (8.4-10.2); Carbon Dioxide 23 mmol/L (22-30); Chloride 90 mmol/L (98-107); Estimated Creatinine Clearance 11 ml/min; Glucose 92 mg/dl (70-99); Magnesium 2.2 mg/dl (1.6-2.3); Phosphorus 8.1 mg/dl (2.5-4.5); Potassium 4.6 mmol/L (3.5-5.1); Sodium 125 mmol/L (135-145); Total Bilirubin 0.6 mg/dl (0.2-1.3); Total Protein 4.6 g/dl (6.3-8.2); eGFR 6.39
--- NOTE | 2023-11-03 06:09 | PTCARENOTE ---
Pt converted to NSR around 2am with HR in the 70's. PT remained in NSR the remainder of the night. Pt extremely excited about it. CBI continues to infuse at slowest rate possible, urine output remains pink tinged. Pt denies any complaints. BP
130's-140's. Will continue to monitor.
--- NOTE | 2023-11-03 07:18 | W.PN.URO.CBU ---
Today's Communication / Plan
-
cbi off
Assessment / Plan
-
E. coli urosepsis- after aqua-ablation
hematuria- well managed with cbi
renal failure- no evidence of hydro on ct and no flank pain c/w obstruction
no MRI evidence of prostatic abscess
wbc trending down- continue antibx per ID
renal managing renal failure- continue dialysis- u/s confirms no obstruction- for cath today in IR
now in sinus rythym
hematuria remains an issue primary due to low urine output- have again shut off cbi and will recheck later today
start flomax
once urine clear for 24hrs- can consider removal of cath- this can not be performed however with sig hematuria
Diagnosis
-
Date of Service: November 03, 2023
-
Patient Diagnosis:
s/p aqua-ablation
post op sepsis- ecoli
hematuria
renal failure
afib
NOTE- URINARY TRACT INFECTION/SEPSIS SUSPECT DUE TO RECENT PROSTATE PROCEDURE AND MARCH CATHETER REQUIREMENT
Subjective
-
pt says is he is feeling better
cbi was turned back on yesterday around 1pm due to hematuria
urine peach colored this am
do not think made any sig urine day before although recorded as 1.5 liters- seeme to be about 100-150cc per shift at this time
WBC IS DOWN
NOW IN SINUS RHYTHM
Objective
-
Vital Signs
Temp Pulse Resp BP Pulse Ox
98.8 F 75 17 139/73 93
11/03/23 03:10 11/03/23 06:00 11/03/23 06:00 11/03/23 06:00 11/03/23 06:00
Intake and Output
11/02/23 11/03/23 11/04/23
06:59 06:59 06:59
Intake Total 600 / 600 480 / 480
Output Total 1525 / 1525 500 / 500
Balance -925 / -925 -20 / -20
Intake:
Oral fluids 600 / 600 480 / 480
Output:
Urine, March 150 / 150
True Urine Output from CBI 1525 / 1525 350 / 350
Laboratory Results
11/03/23 04:59
11/03/23 04:59
Physical Exam
-
General - no acute distress
Abdomen - soft, non-tender
Genitalia - march in place
--- NOTE | 2023-11-03 07:26 | W.PN.HOSP.TC ---
Today's Communication/Plan
-
cont abx
HD as per Nephro
Avalos as per Urology
Downgrade to Tele
discharge planning Home with VN, needs HD center placement before discharge
Assessment / Plan
Assessment / Plan
Physical
General: Awake alert and conversant
HEENT: herpetic like lesions noted nostril area improving
Pulm: clear to auscultation bilateral
CVS:NSR
Abd: soft nontender bowel sounds present
: Avalos in place, off CBI, dark orange urine in Avalos
Neuro: AOx3
63-year-old male prostate recently was seen at [facility] for aqua ablation of prostate on Tuesday. Tuesday had large bladder clot which required evacuation in the OR. He was discharged home on . Catheter was removed on 10/22/2023. Early
morning he woke up with fevers and chills. Urine bloody appearing in the ER.
CT of the abdomen and pelvis mild asymmetric left adrenal gland diffuse thickening and. Renal fat stranding possible adrenal congestion. 1 mm calcific focus in each kidney no ureteral calculus no hydronephrosis. Mild perinephric soft tissue
stranding left greater than right nonspecific. Possible mid small bowel ileus/nonspecific enteritis. No small bowel obstruction. Avalos catheter in the bladder. Diffuse bladder wall thickening indicating cystitis. General prostatic enlargement.
MRI Noted Post-ablation changes of the prostate without convincing evidence for intraprostatic abscess.
Moderate free fluid in the pelvis, likely reactive.
Findings throughout the prostate gland peripheral zone compatible with PI-RADS 2 (the presence of clinically significant cancer is unlikely).
Moderate to severe BPH changes.
Echo 10/26/2023-normal LV systolic function. EF 55% mild concentric LVH. Mild to moderate MR. Mild TR
# Septic shock
# Leukocytosis/leukopenia-secondary sepsis
-E Coli Sepsis
- source
-Likely secondary to recent procedure
-Continue IV antibiotics-Zosyn changed to meropenem then Rocephin, later transitioned to oral abx cefuroxime 500 mg QD till 11/05/23 as per ID
-blood and urine cultures positive for E. coli, repeat blood cultures ngtd
-Maintain MAP over 65
-Off Pressors-Levophed and vasopressin, subsequently downgraded to IMU 10/29
-CT MRI abdomen pelvis as above
-ID ,Urology and nephrology eval appreciated
10/29 New Herpetic Lesions Nostril Area
discussed with ID, started Valacyclovir renally dosed, completed recommended 2 doses
resolving
#Dry nose
[place] mist nasal spray QID
discussed with nurse, respiratory therapist humidified air application requested
#New Afib
tachy but HR consistently<120
Not a candidate for AC per D/W Urology given recent bleed
Cardio eval appreciated, cont metoprolol tartarate 50 mg BID, chadvasc score 0, anticoagulation not indicated at this time.
Patient since spontaneously converted back to NSR 11/03
# Mucous in stool and diarrhea, Bloating
Possible ileus
C. difficile negative, norovirus negative
repeat Cultures NGTD
imodium prn started with subsequent improvement
# Lactic acidosis-resolved
# Hematuria
-Status post aqua ablation of the prostate 10/18/2023 at [facility]
-Large clot in the bladder on 10/19/2023 needed OR evacuation
-Avalos placed in the PV-mwqt-calhoaf urine on CBI
-Clear at this time
-urology eval appreciated off CBI since 11/01 evening possible will come off Avalos tomorrow thurs 11/03
# Acute kidney injury/Renal Failure
-Likely secondary to septic shock and renal hypoperfusion/prerenal
-ATN Possible
-ruled out postrenal-Avalos catheter placed
-Keep MAP over 65 mmHg
-Follow creatinine
-Trial of Lasix on 10/25/2023 did not help make urine
-started on HD, continue as per nephro
-11/02 Bladder Renal US results appreciated no hydronephrosis, no nephrolithiasis, cystitis, Prostate Enlargement
-11/03 HD cath placed, discharge planning HD center placement home with VN when medically stable for discharge
# Coagulopathy-secondary to sepsis-follow
# Hyponatremia- volume overload, cont HD as per nephro
# Thrombocytopenia secondary to sepsis
Normal fibrinogen level
Possibly also consumptive from clotting of the filter
improving
Hematology eval appreciated
resolved
# Anemia likely secondary to acute blood loss secondary to hematuria, also iron deficiency, anemia of chronic disease, and sepsis contributing
-H&H stable
# Elevated LFTs-likely secondary to septic shock and decreased perfusion
-Improving/resolved
# Hypokalemia- monitor and replete as necessary
# Hypocalcemia
#Vit D deficiency
Vit D supplementation
monitor and replete calcium as necessary, correct for low albumin before repleting
# Hypomagnesemia-replaced
# History of back surgery for disc herniation
# Hypoalbuminemia
# Alcohol use 3 to 4 glasses 3 times a week
# DVT prophylaxis-SCDs given recent bleeding/hematuria/anemia
# Full code
PT/OT eval appreciated HH
Medically stable for downgrade to tele
discussed with patient and his
I spent a total of 55 minutes with the patient or on the floor. More than 50% of this time involved counseling and coordination of care.
Anticipated Discharge: 24 - 48 hours
Subjective/Interval History
-
Date of Service: November 03, 2023
Seen and examined at bedside in no acute distress resting comfortably in bed. Reports overall improvement in symptoms. Feels well. hematuria persists
Objective Data
-
Labs:
Laboratory Results
11/03/23
04:59
WBC 16.1 H
Hgb 8.6 L
Hct 24.4 L
Plt Count 401 H
Sodium 125 L
Potassium 4.6
Chloride 90 L
Carbon Dioxide 23
BUN 54 H
Creatinine 8.6 H*
Glucose 92
Calcium 7.4 L
Total Bilirubin 0.6
AST 34
ALT 35
Alkaline Phosphatase 224 H
Vital Signs:
Vital Signs
Temp Pulse Resp BP Pulse Ox
98.8 F 75 17 139/73 93
11/03/23 03:10 11/03/23 06:00 11/03/23 06:00 11/03/23 06:00 11/03/23 06:00
I&O
11/02/23 11/03/23 11/04/23
06:59 06:59 06:59
Intake Total 600 / 600 480 / 480
Output Total 1525 / 1525 500 / 500
Balance -925 / -925 -20 / -20
[2023-11-03] MEDS: VITAMIN D3 (cholecalciferol) 25 MCG PO (08:38)
[2023-11-03] MEDS: PROTONIX 40 MG PO (08:38)
[2023-11-03] MEDS: DETROL LA 2 MG PO (08:38)
[2023-11-03] MEDS: VISBIOME 1 CAP PO (08:38)
[2023-11-03] MEDS: OSCAL CAL 500 500 MG PO ×3 (08:38→21:08)
[2023-11-03] MEDS: OCEAN, SALINE MIST 1 SPRAYS NASAL ×3 (08:38→21:08)
[2023-11-03] MEDS: LOPRESSOR 50 MG PO ×2 (08:39→20:11)
--- NOTE | 2023-11-03 10:04 | W.PN.ID1 ---
Date of Service
Date of Service: November 03, 2023
Today's Communication
- Continue po cefuroxime 500mg qd till 11/05/23.
-ID will sign off.
Assessment / Plan
# E. coli bacteremia from source, recent prostate ablation procedure 10/18 at [facility]
# s/p Septic shock off pressors
-Repeat blood cx's x 2 neg
- s/p 8 days ceftriaxone
- Continue po cefuroxime 500mg qd till 11/05/23.
-ID will sign off.
# Leukocytosis continues to trend down.
- Repeat C.diff neg
-repeat blood cx's neg to date
- CXR negative
# [place] - now on HD
- For perm HD cath.
# Herpes labialis, scbbed, resolving
-s/p 2 doses of valacyclovir
# New Afib with RVR, off amiodarone
#Additional Past Medical History:
BPH s/p aqua ablation 10/18/23
DJD
Right total hip replacement
Appendectomy
Arthroscopic knee surgery
Lumbar discectomy x 2
Allergy History:
Chief Complaint
-: Leukocytosis and Bacteremia
Subjective / Review of Systems
No complaints.
Vital Signs / Physical Exam
Vital Signs
Vital Signs
Temp Pulse Resp BP Pulse Ox
98.9 F 82 18 147/78 95
11/03/23 07:55 11/03/23 09:00 11/03/23 09:00 11/03/23 09:00 11/03/23 09:00
Physical Exam
Constitutional: No Acute Distress
Cardiovascular: Regular Rate and S1/S2
Pulmonary: Clear
Gastrointestinal: Soft and Non Tender
Skin: Other (left nare lesions crusted)
Neurological: AO x 3
Objective Data
Lab Data
Lab Results
11/03/23 04:59
11/03/23 04:59
PT 14.7 Sec (11.4-14.6) H 10/26/23 04:20
INR 1.13 10/26/23 04:20
APTT 41.3 Sec (23.4-35.0) H 10/27/23 12:56
Estimated Creat Clear 11 ml/min 11/03/23 04:59
Lactic Acid 1.1 mmol/L (0.7-2.0) 10/27/23 04:50
Total Bilirubin 0.6 mg/dl (0.2-1.3) 11/03/23 04:59
AST 34 U/L (17-59) 11/03/23 04:59
ALT 35 U/L (0-50) 11/03/23 04:59
Alkaline Phosphatase 224 U/L (38-126) H 11/03/23 04:59
Most recent labs reviewed.
Micro Results:
10/29/23 13:43 Blood Culture - Preliminary
Blood/Venous No Growth in 4 days- Final report to follow
10/29/23 13:26 Blood Culture - Preliminary
Blood/Venous No Growth in 4 days- Final report to follow
10/29/23 15:48 C. difficile GDH Antigen & Toxins - Final
Feces/Stool Negative for toxigenic C.difficile
10/25/23 03:14 Blood Culture - Final
Blood/Venous No Growth - Final Report
10/24/23 03:29 Blood Culture - Final
Blood/Venous No Growth - Final Report
10/26/23 08:28 Salmonella/Shigella Culture - Final
Feces/Stool No Salmonella, Shigella, Aeromonas or Plesiomonas species
isolated.
Campylobacter Culture - Final
No Campylobacter species isolated.
Shiga Toxin Test - Final
No E. coli Shiga Toxin 1 or 2 detected.
10/26/23 08:28 C. difficile GD Antigen & Toxins - Final
Feces/Stool Negative for toxigenic C.difficile
- Final
Negative for Norovirus GI and GII.
10/23/23 05:07 Blood Culture - Final
Blood/Venous Escherichia coli
Gram Stain - Final
10/23/23 04:59 Urine Culture - Final
Urine Escherichia coli
10/23/23 04:42 Blood Culture - Final
Blood/Venous Escherichia coli
Gram Stain - Final
10/23/23 05:01 Influenza Types A & B (VANESA) - Final
Nasal Swab Negative for Influenza A & B, NAAT
Negative results must be combined with clinical observations
and patient history.
Nucleic Acid Amplification test (NAAT)performed on the
PromoteU platform.
10/23/23 CXR: No acute disease of the chest.
10/23/23 CT a/p: 1 mm calcific focus in each kidney. . Differential includes arterial calcification versus nonobstructing calculi. No ureteral calculus, bilaterally. No hydronephrosis to suggest obstructive uropathy. There is, however, mild
perinephric soft tissue stranding, left slightly greater than right. Nonspecific. Cannot exclude changes related to urinary tract infection. Possible mild small bowel ileus or nonspecific enteritis. No evidence to suggest bowel obstruction. Avalos
catheter within the urinary bladder, which is collapsed. Diffuse urinary bladder wall thickening suggested. This could indicate cystitis. Generalized prostatic enlargement.
--- NOTE | 2023-11-03 10:15 | W.PN.ONC ---
Addendum entered and electronically signed by Alan Kowalski DO 11/03/23 12:08:
Patient making some recovery. Appears to be in sinus rhythm today. WBC count improving. Patient was independently examined and chart reviewed. Agree with the impression and plan as outlined by PHOTOGRAPHIC PRINTER below. Persistent anemia likely secondary to
inflammation, Renal insufficiency and blood loss.
Original Note:
Today's Communication / Plan
-
HD today. Plans for perm HD cath
CBI clamped, monitor UOP/hematuria
PO cefuroxime 500mg qd till 11/05/23 per ID
Transfuse for Hbg <7, PLT <20 K or with active bleeding
Supportive care/emotional support
Impression
Impression
BPH s/p aqua-ablation of prostate at , hematuria/clot complications requiring OR take back
CBI/hematuria (resolving)
Thrombocytopenia (resolved)
Exposure to cephalosporin antibiotics
Acute anemia
E. coli septicemia
Acute renal failure on dialysis
Leukocytosis
Subjective/Objective
Subjective/Objective
patient states he is feeling better this morning. he is anticipating HD today and placement of permanent HD cath. denies acute pain
Vital Signs:
Vital Signs
Temp Pulse Resp BP Pulse Ox
98.9 F 82 18 147/78 95
11/03/23 07:55 11/03/23 09:00 11/03/23 09:00 11/03/23 09:00 11/03/23 09:00
physical exam
aaox3, dried blood noted at right nare, calm/cooperative
HRR, lungs clear/dim on RA
CBI clamped, blood-tinged willian urine in catheter bag
Lab Results:
Laboratory Data
WBC 16.1 10^3/uL (4.8-10.8) H 11/03/23 04:59
Hgb 8.6 g/dL (13.0-18.0) L 11/03/23 04:59
Plt Count 401 10^3/uL (130-400) H 11/03/23 04:59
PT 14.7 Sec (11.4-14.6) H 10/26/23 04:20
INR 1.13 10/26/23 04:20
APTT 41.3 Sec (23.4-35.0) H 10/27/23 12:56
eGFR 6.39 11/03/23 04:59
--- NOTE | 2023-11-03 11:18 | PTCARENOTE ---
Patient sent to [facility] for tunneled HD cath.
[2023-11-03] MEDS: FLUSH (NSS) 1 FLUSH IV (12:11)
[2023-11-03] MEDS: ANCEF 10 IV (12:11)
--- NOTE | 2023-11-03 13:50 | PTCARENOTE ---
Pt returned to IMU from IR s/p tunnelled HD catheter. Ambulated with assistance back to bed. HD RN in room starting treatment.
--- NOTE | 2023-11-03 14:03 | W.PN.NEPH.HD ---
Assessment
-
Seen on HD. no new complaints. VSS, access ok
no heparin. tunnelled HD CVC in place
Progress Note - Hemodialysis
-
Date of Service: November 03, 2023
Duration: 45 minutes and 3 hours
Potassium Bath: 3
Calcium Bath: 2.5
Opti-Dialyzer: 160
Ultrafiltration: Other (2kg)
Blood Flow: 400
Dialysate Flow: 600
Heparin: no
EPO: [id number] units
[2023-11-03] MEDS: OCEAN, SALINE MIST NASAL (14:12)
[2023-11-03] MEDS: EPOGEN 10000 UNITS IV (15:38)
[2023-11-03] MEDS: LIPITOR 40 MG PO (17:37)
[2023-11-03] MEDS: CEFTIN 500 MG PO (17:37)
[2023-11-03] MEDS: HEPARIN 4200 UNITS INTRACATH (17:50)
--- NOTE | 2023-11-03 23:00 | PTCARENOTE ---
Assumed care from Day RN. Pt AAOX3 appears to be resting comfortably i chair with family at bed side. Pt Avalos collecting small amount of urine, light pink. Pt has no complaints at that time. Call damon within reach. Assessment care and vitals as
charted.
[2023-11-04] VITALS (15 sets, daily range): BP systolic 130–162; BP diastolic 58–79; PULSE 82–83; O2SAT 97; BMI 25.8
[2023-11-04 04:52] LABS: Hematocrit 23.7 % (39.0-52.0); Hemoglobin 8.1 g/dL (13.0-18.0); Mean Corp Hgb Conc. 34.2 g/dL (33.0-37.0); Mean Corpuscular Hgb 29.6 pg (27.0-31.0); Mean Corpuscular Volume 86.5 fL (80.0-94.0); Mean Platelet Volume 10.8 fL (7.4-10.4); Platelet Count 389 10^3/uL (130-400); Red Blood Cell Count 2.74 10^6/uL (4.70-6.10); Red Cell Dist. Width 13.1 % (11.5-14.5); White Blood Cell Count 13.4 10^3/uL (4.8-10.8)
[2023-11-04 05:18] LABS: ALT (SGPT) 30 U/L (0-50); AST (SGOT) 33 U/L (17-59); Albumin 2.6 g/dl (3.5-5.0); Alkaline Phosphatase 210 U/L (38-126); Blood Urea Nitrogen 36 mg/dl (9-20); Calcium 7.6 mg/dl (8.4-10.2); Carbon Dioxide 25 mmol/L (22-30); Chloride 91 mmol/L (98-107); Estimated Creatinine Clearance 14 ml/min; Glucose 90 mg/dl (70-99); Magnesium 2.2 mg/dl (1.6-2.3); Phosphorus 6.7 mg/dl (2.5-4.5); Potassium 4.3 mmol/L (3.5-5.1); Sodium 128 mmol/L (135-145); Total Bilirubin 0.5 mg/dl (0.2-1.3); Total Protein 4.9 g/dl (6.3-8.2); eGFR 8.33
[2023-11-04] MEDS: APRESOLINE 5 MG IV ×2 (05:55→18:32)
[2023-11-04] MEDS: OSCAL CAL 500 500 MG PO (08:16)
[2023-11-04] MEDS: PROTONIX 40 MG PO (08:16)
[2023-11-04] MEDS: LOPRESSOR 50 MG PO ×2 (08:16→20:33)
[2023-11-04] MEDS: VISBIOME 1 CAP PO (08:16)
[2023-11-04] MEDS: VITAMIN D3 (cholecalciferol) 25 MCG PO (08:17)
[2023-11-04] MEDS: DETROL LA 2 MG PO (08:17)
--- NOTE | 2023-11-04 09:02 | W.PN.URO.CBU ---
Today's Communication / Plan
-
Will remove Ribeiro tomorrow AM
Assessment / Plan
-
E. coli urosepsis- after aqua-ablation
hematuria- resolving
renal failure- no evidence of hydro on ct and no flank pain c/w obstruction
no MRI evidence of prostatic abscess
wbc trending down- continue antibx per ID
renal managing renal failure- continue dialysis- u/s confirms no obstruction- for cath today in IR
now in sinus rythym
once urine clear for 24hrs- can consider removal of cath- this can not be performed however with sig hematuria
Diagnosis
-
Date of Service: November 04, 2023
-
Patient Diagnosis:
s/p aqua-ablation
post op sepsis- ecoli
hematuria
renal failure
afib
NOTE- URINARY TRACT INFECTION/SEPSIS SUSPECT DUE TO RECENT PROSTATE PROCEDURE AND RIBEIRO CATHETER REQUIREMENT
Subjective
-
Comfortable
Objective
-
Vital Signs
Temp Pulse Resp BP Pulse Ox
98.5 F 78 16 149/67 98
11/04/23 07:50 11/04/23 08:16 11/03/23 13:19 11/04/23 08:16 11/04/23 04:08
Intake and Output
11/03/23 11/04/23 11/05/23
06:59 06:59 06:59
Intake Total 480 / 480 650 / 650
Output Total 500 / 500 450 / 450
Balance -20 / -20 200 / 200
Intake:
Oral fluids 480 / 480 600 / 600
IV fluids (Total) 50 / 50
NSS 50 / 50
Output:
Urine, Ribeiro 150 / 150 150 / 150
Urine, Voided 300 / 300
True Urine Output from CBI 350 / 350
Laboratory Results
11/04/23 04:15
11/04/23 04:15
Review of Systems
-
Constitutional: No Symptoms
Respiratory: No Symptoms
Cardiac: No Symptoms
Abdomen/GI: No Symptoms
Neurological: No Symptoms
Physical Exam
-
General - well developed, well nourished, no acute distress
Abdomen - soft, no CVAT
Genitalia - normal with Ribeiro draining essentially clear urine
Skin - warm & dry with no rash
Neuro - AOx3, no motor deficits
--- NOTE | 2023-11-04 10:19 | W.PN.HOSP.TC ---
Today's Communication/Plan
-
March management per urology
Follow creat
Continue AB
GI eval.
Would keep patient in the hospital atleast for a day after march removed.
Assessment / Plan
Assessment / Plan
CVS: S1-S2 normal
Chest: CTA B/L
Abdomen: Soft, NT / Bowel sounds present
Extremities: No edema, normal pulses
63-year-old male prostate recently was seen at [facility] for aqua ablation of prostate on Tuesday. Tuesday had large bladder clot which required evacuation in the OR. He was discharged home on . Catheter was removed on 10/22/2023. Early
morning he woke up with fevers and chills. Urine bloody appearing in the ER.
CT of the abdomen and pelvis mild asymmetric left adrenal gland diffuse thickening and. Renal fat stranding possible adrenal congestion. 1 mm calcific focus in each kidney no ureteral calculus no hydronephrosis. Mild perinephric soft tissue
stranding left greater than right nonspecific. Possible mid small bowel ileus/nonspecific enteritis. No small bowel obstruction. March catheter in the bladder. Diffuse bladder wall thickening indicating cystitis. General prostatic enlargement.
MRI Noted Post-ablation changes of the prostate without convincing evidence for intraprostatic abscess.
Moderate free fluid in the pelvis, likely reactive.
Findings throughout the prostate gland peripheral zone compatible with PI-RADS 2 (the presence of clinically significant cancer is unlikely).
Moderate to severe BPH changes.
Echo 10/26/2023-normal LV systolic function. EF 55% mild concentric LVH. Mild to moderate MR. Mild TR
# Septic shock
# Leukocytosis/leukopenia-secondary sepsis
-E Coli Sepsis
- source
-Likely secondary to recent procedure
-Continue IV antibiotics-Zosyn changed to meropenem then Rocephin, later transitioned to oral abx cefuroxime 500 mg QD till 11/05/23 as per ID
-Blood and urine cultures positive for E. coli, repeat blood cultures ngtd
-Off Pressors-Levophed and vasopressin, subsequently downgraded to IMU 10/29
-CT MRI abdomen pelvis as above
-ID ,Urology and nephrology eval appreciated
# Acute kidney injury/Renal Failure
-Likely secondary to septic shock and renal hypoperfusion/prerenal
-ATN Possible
-Ruled out postrenal-March catheter placed
-Follow creatinine
-Serologies pending. Normal Complements
-Trial of Lasix on 10/25/2023 did not help make urine
-started on HD, continue as per nephro
-11/02 Bladder Renal US results appreciated no hydronephrosis, no nephrolithiasis, cystitis, Prostate Enlargement
-11/03 HD cath placed, discharge planning HD center placement home with VN when medically stable for discharge
#10/29 New Herpetic Lesions Nostril Area
Valacyclovir renally dosed, completed recommended 2 doses
resolving
#Loose stools- GI eval
Stool studies neg so far
#Dry nose
[place] mist nasal spray QID
humidified air application requested
#New Afib
Patient since spontaneously converted back to NSR 11/03
Not a candidate for AC per D/W Urology given recent bleed
Cardio eval appreciated, cont metoprolol tartrate 50 mg BID, chadvasc score 0, anticoagulation not indicated at this time.
# Mucous in stool and diarrhea, Bloating
Possible ileus
C. difficile negative, norovirus negative
repeat Cultures NGTD
Imodium prn started with subsequent improvement
# Lactic acidosis-resolved
# Hematuria
-Status post aqua ablation of the prostate 10/18/2023 at [facility]
-Large clot in the bladder on 10/19/2023 needed OR evacuation at [facility]
-S/P CBI here at
-Clear at this time
-urology eval appreciated off CBI since 11/01 evening possible will come off March tomorrow thurs 11/03
# Coagulopathy-secondary to sepsis-Resolved
# Hyponatremia- volume overload, cont HD as per nephro
# Thrombocytopenia secondary to sepsis
Normal fibrinogen level
Possibly also consumptive from clotting of the filter?
Hematology eval appreciated
resolved
# Anemia likely secondary to acute blood loss secondary to hematuria, also iron deficiency, anemia of chronic disease, and sepsis contributing
-H&H stable
# Elevated LFTs-likely secondary to septic shock and decreased perfusion
-Improving/resolved
# Hypokalemia- monitor and replete as necessary
# Hypocalcemia
#Vit D deficiency
Vit D supplementation
monitor and replete calcium as necessary, correct for low albumin before repleting
# Hypomagnesemia-replaced
# History of back surgery for disc herniation
# Hypoalbuminemia
# Alcohol use 3 to 4 glasses 3 times a week
# DVT prophylaxis-SCDs given recent bleeding/hematuria/anemia
# Full code
D/W Nephrology
Anticipated Discharge: > 48 hours
Subjective/Interval History
-
Date of Service: November 04, 2023
Objective Data
-
Labs:
Laboratory Results
11/04/23
04:15
WBC 13.4 H
Hgb 8.1 L
Hct 23.7 L
Plt Count 389
Sodium 128 L
Potassium 4.3
Chloride 91 L
Carbon Dioxide 25
BUN 36 H
Creatinine 6.9 H*
Glucose 90
Calcium 7.6 L
Total Bilirubin 0.5
AST 33
ALT 30
Alkaline Phosphatase 210 H
Vital Signs:
Vital Signs
Temp Pulse Resp BP Pulse Ox
98.5 F 75 16 149/67 98
11/04/23 07:50 11/04/23 10:00 11/03/23 13:19 11/04/23 08:16 11/04/23 04:08
I&O
11/03/23 11/04/23 11/05/23
06:59 06:59 06:59
Intake Total 480 / 480 650 / 650
Output Total 500 / 500 450 / 450
Balance -20 / -20 200 / 200
--- NOTE | 2023-11-04 10:44 | W.PN.NEPH.PH ---
Today's Communication / Plan
-
HD tomorrow
Maintain fluid restriction for hyponatremia
Add phosphate binder for hyperphosphatemia
Assessment/Plan
-
Assessment
-Septic shock
-Ecoli sepsis s/p prostate aqua-ablation
-Hyponatremia
-metabolic/lactic acidosis
-hypomagnesemia
-urinary retention now on CBI
-[place]
Plan
no indication of renal recovery at this time, uop less then 500
next HD tomorrow
eventually will need temp to tunnelled HD CVC once WBC improves/no infectious concerns
Hyponatremia etiology remains elusive: FR is on and Hd length extended
-
-
Date of Service: November 04, 2023
CC / HPI / ROS
-
Chief Complaint:
[place]
History of Present Illness:
tolerated HD yesterday
BP stable
on abx for ecoli sepsis
Na low 128
WBC remains elevated stable
Review of Systems:
no CP/SOB
Avalos
Labs
-
Labs:
WBC 13.4 10^3/uL (4.8-10.8) H 11/04/23 04:15
RBC 2.74 10^6/uL (4.70-6.10) L 11/04/23 04:15
Hgb 8.1 g/dL (13.0-18.0) L 11/04/23 04:15
Hct 23.7 % (39.0-52.0) L 11/04/23 04:15
Plt Count 389 10^3/uL (130-400) 11/04/23 04:15
Sodium 128 mmol/L (135-145) L 11/04/23 04:15
Potassium 4.3 mmol/L (3.5-5.1) 11/04/23 04:15
Chloride 91 mmol/L (98-107) L 11/04/23 04:15
Carbon Dioxide 25 mmol/L (22-30) 11/04/23 04:15
BUN 36 mg/dl (9-20) H 11/04/23 04:15
Creatinine 6.9 mg/dL (0.7-1.3) H* 11/04/23 04:15
eGFR 8.33 11/04/23 04:15
Glucose 90 mg/dl (70-99) 11/04/23 04:15
Calcium 7.6 mg/dl (8.4-10.2) L 11/04/23 04:15
Phosphorus 6.7 mg/dl (2.5-4.5) H 11/04/23 04:15
Albumin 2.6 g/dl (3.5-5.0) L 11/04/23 04:15
Physical Exam
-
Vital Signs:
Vital Signs
Temp Pulse Resp BP Pulse Ox
98.5 F 75 16 149/67 98
11/04/23 07:50 11/04/23 10:00 11/03/23 13:19 11/04/23 08:16 11/04/23 04:08
Cardiovascular:: Regular rate and rhythm
Respiratory:: Bilateral: CTA
Lung Excursion:: Normal
Abdomen:: Nontender and Soft
Bowel Sounds:: Normal
Extremity Edema:: None: Bilateral:
Avalos Catheter: Yes
--- NOTE | 2023-11-04 11:14 | PTCARENOTE ---
Report given to Tiara GRAY for transfer to room 2137. Belongings packed up in backpack by patient. GI consulted patient having occasional nausea and diarrhea. Avalos draining willian urine. Patient compliant with medication regimen. Denying pain when
asked. Patient edcuated about plan of care, verbalized understanding.
[2023-11-04] MEDS: OCEAN, SALINE MIST 1 SPRAYS NASAL ×3 (11:17→20:34)
[2023-11-04] MEDS: PHOSLO PO (13:00)
--- NOTE | 2023-11-04 13:29 | CON.GI ---
Addendum entered and electronically signed by Regina Mckay MD 11/04/23 17:01:
I saw and examined the patient.
The REGULATORY AFFAIRS ASSOCIATE or PA's note was reviewed and I agree with the note.
Comment: 63-year-old male with history of BPH, history of tubulovillous adenoma of the sigmoid colon presenting with E. coli bacteremia and sepsis-like picture, treated with antibiotics and stable, acute renal insufficiency, currently on
hemodialysis, brief elevation in LFTs, mainly transaminases which now are in normal range which could be related to septic shock but still elevated alkaline phosphatase, developed diarrhea during this hospital stay and GI consult called in. No
previous history of diarrhea, previous bowel movement pattern was 1 formed stool a day, good evacuation. Currently has 2-3 loose stool, abdominal bloating, good evacuation, no blood or black stool. Stool for cultures and C. difficile negative. CT
scan without oral or IV contrast showing mild nonspecific enteritis. Colonoscopy in 2010 with sigmoid tubular adenoma removed, repeat colonoscopy in 2013 showing benign polyps, currently overdue. No family history of colon cancer or colon polyps.
Current antibiotics include cefuroxime and on probiotics as well. Only other new medication is Detrol LA which can cause diarrhea 4% of the times.
Labs showing anemia with slightly low iron.
-New onset anemia during hospital visit with 2-3 loose bowel movements a day
Cannot rule out antibiotic associated diarrhea given acute onset
Abdominal x-ray without any overflow diarrhea but a lot of air noted in the colon.
Also reports nausea without any abdominal pain.
Will check stool for white cells, fecal fat and also celiac panel.
Low residue on low-lactose diet.
Okay to continue probiotics for now.
Monitor bowel movements.
If nausea continues, with history of noncontrast CT showing nonspecific enteritis, might do CT abdomen pelvis with oral contrast to evaluate small bowel better.
Will follow
Original Note:
Consultation
-
Date/Time Consultation Requested: 11/04/23 1041
Date/Time Consultation Performed: 11/04/23 1200
Requesting Provider: Dr. Loya
Performing Provider: Dr. Mckay/ROMULO Ruiz
Reason for Consultation: diarrhea
Medical History
Chief Complaint / HPI
Chief Complaint: fever/chills
History of Present Illness:
63-year-old male with past medical history significant for BPH presented to the emergency room on 10/23/2023 after having aqua ablation to the prostate at [facility] on 10/18/23. He subsequently developed a large bladder clot that required
him to return to the OR for evacuation. He came to the emergency room for fever and shaking chills. The patient was febrile to 101.5 he was also tachycardic and hypotensive with a lactic acidosis, leukopenia and bandemia. He was treated for
septic shock due to E. coli bacteremia. He was placed on antibiotics. He developed a [place] on CRRT. As well as having new onset A-fib with RVR. CT on presentation showed possible mild small bowel ileus or nonspecific enteritis. We were asked to
evaluate the patient for persistent watery stools. The patient tells me that after his second day here he developed loose to watery bowel movements. He does not have any abdominal pain associated with this. They have never been bloody. They are
currently green. He does endorse nausea that waxes and wanes. He is able to pass flatus. He denies any vomiting, melena, hematochezia, dysphagia or odynophagia. Prior to this hospitalization he has had no new medications, antibiotics, spoiled
food or recent travel. No sick contacts prior to this hospitalization. C. difficile has been negative x 2 here. Stool for Salmonella/yellow, Campylobacter and E. coli were negative on 10/28/2023. The patient had 3 watery green bowel movements today
that were small. He is not having large copious amounts of bowel movements. He is tolerating a solid diet but he states he is not eating much. Food does not cause him any discomfort.He will get full quickly or nauseous on occasions.
Past Medical History
Past Medical History: Other (BPH, DDD, DJD, colon polyp)
Past Surgical History: Other (aqua ablation prostate, lumbar discectomy, knee arthroscopy, right MARY LOU, Appy)
Social History
Tobacco: Non-Smoker
Alcohol: Occasional
Drug: None
Personal:
Living: With Family
Employment: Employed
Family History
Family History: Other (No Fam Hx of GI malignancy or IBD. )
Allergies / Home Medications
Allergy/AdvReac Type Severity Reaction Status Date / Time
No Known Allergies Allergy Verified 10/24/23 17:05
Medication Instructions Recorded
docusate sodium 100 mg capsule 100 mg PO DAILY PRN constipation 10/23/23
oxybutynin chloride 5 mg 5 mg PO DAILY Urinary Issue 10/23/23
tablet,extended release 24 hr
phenazopyridine 100 mg tablet 200 mg PO TID PRN pain 10/23/23
Review of Systems
-
All other systems: A 12 pt ROS was Negative except as stated above in HPI
Vital Signs
Temp Pulse Resp BP Pulse Ox
97.9 F 84 18 148/65 96
11/04/23 11:25 11/04/23 11:25 11/04/23 11:25 11/04/23 11:25 11/04/23 11:25
Physical Exam
Exam
General: No Apparent Distress
HEENT: Anicteric and Other (crusted herpetic lesions base of nares)
Respiratory: Clear
Cardiac: Regular Rhythm
GI: Soft, Non Tender, Non Distended and Normal Bowel Sounds
Genito-urinary: Bloody Urine (march bag)
Musculoskeletal: Edema (+ 2 B/L LE )
Skin: Warm and Dry
Neuro: AO x 3
Psych: Calm
Results
WBC 13.4 10^3/uL (4.8-10.8) H 11/04/23 04:15
Hgb 8.1 g/dL (13.0-18.0) L 11/04/23 04:15
Hct 23.7 % (39.0-52.0) L 11/04/23 04:15
MCV 86.5 fL (80.0-94.0) 11/04/23 04:15
Plt Count 389 10^3/uL (130-400) 11/04/23 04:15
Absolute Neuts (auto) 9.7 10^3/uL (1.4-6.5) H 11/03/23 04:59
PT 14.7 Sec (11.4-14.6) H 10/26/23 04:20
INR 1.13 10/26/23 04:20
APTT 41.3 Sec (23.4-35.0) H 10/27/23 12:56
Sodium 128 mmol/L (135-145) L 11/04/23 04:15
Potassium 4.3 mmol/L (3.5-5.1) 11/04/23 04:15
Chloride 91 mmol/L (98-107) L 11/04/23 04:15
Carbon Dioxide 25 mmol/L (22-30) 11/04/23 04:15
BUN 36 mg/dl (9-20) H 11/04/23 04:15
Creatinine 6.9 mg/dL (0.7-1.3) H* 11/04/23 04:15
Calcium 7.6 mg/dl (8.4-10.2) L 11/04/23 04:15
Total Bilirubin 0.5 mg/dl (0.2-1.3) 11/04/23 04:15
AST 33 U/L (17-59) 11/04/23 04:15
ALT 30 U/L (0-50) 11/04/23 04:15
Alkaline Phosphatase 210 U/L (38-126) H 11/04/23 04:15
Lipase 115 U/L (23-300) 10/23/23 04:42
Hep Bs Antibody Negative 10/28/23 03:29
Hep B Core Total Ab Negative (Negative) 10/28/23 03:29
Hepatitis C Antibody Negative (Negative) 10/24/23 03:29
Diagnostic Image Results:
Renal US 11/02/23:
1. No hydronephrosis on either side. No posterior acoustic shadowing demonstrated to suggest nephrolithiasis.
2. Diffuse wall thickening of the urinary bladder, suggestive of cystitis.
3. Prostatic enlargement. Calculated prostate volume 113 mL (normal less than 30 mL).
Electronically signed by Daniel Stover MD 11/02/2023 12:09 PM
CXR 10/29/23:
IMPRESSION:
No acute cardiopulmonary process.
Electronically signed by Bhavesh Hale 10/29/2023 1:58 PM
MRI Pelvis:
IMPRESSION:
Post-ablation changes of the prostate without convincing evidence for intraprostatic abscess.
Moderate free fluid in the pelvis, likely reactive.
Findings throughout the prostate gland peripheral zone compatible with PI-RADS 2 (the presence of clinically significant cancer is unlikely).
Moderate to severe BPH changes.
Electronically signed by Bhavesh Hale 10/29/2023 1:39 PM
Abd Xray 10/25/23:
IMPRESSION:
Stable gaseous distention of the stomach.
No acute abnormalities
Electronically signed by Gerry Mcdonough MD 10/25/2023 11:[address] Abd/Pelvis without IV/Oral Contrast 10/23/23:
IMPRESSION:
Mild asymmetric left adrenal gland diffuse thickening and periadrenal fat stranding. Although nonspecific, this could reflect adrenal congestion as result of physiologic stress. No focal adrenal mass.
1 mm calcific focus in each kidney. . Differential includes arterial calcification versus nonobstructing calculi. No ureteral calculus, bilaterally. No hydronephrosis to suggest obstructive uropathy. There is, however, mild perinephric soft tissue
stranding, left slightly greater than right. Nonspecific. Cannot exclude changes related to urinary tract infection.
Possible mild small bowel ileus or nonspecific enteritis. No evidence to suggest bowel obstruction.
March catheter within the urinary bladder, which is collapsed. Diffuse urinary bladder wall thickening suggested. This could indicate cystitis. Generalized prostatic enlargement.
Electronically signed by Hawk Vanegas MD 10/23/2023 8:49 AM
Prior GI Procedures:
EGD: Never had
Colonoscopy: 02/19/2014 ([facility]) - One diminutive polyp in the sigmoid colon. Resected
�� � � � � � � � � � and retrieved.
�� � � � � � � � � � - A tattoo was seen in the sigmoid colon. A
�� � � � � � � � � � post-polypectomy scar was found at the tattoo site.
[place]: 2011 : ([facility]) �- One 20 mm polyp in the sigmoid colon. Resected and
�� � � � � � � � � � retrieved.
�� � � � � � � � � � - One 3 mm polyp in the sigmoid colon. Resected and
�� � � � � � � � � � retrieved.
�� � � � � � � � � � - Internal hemorrhoids.
Sigmoid polyp (Hyperplastic)
Sigmoid 1.6 cm pedunculated tubulovillous adenoma. The adenomatous head is clear of the cautery stalk margin.
Assessment / Plan
-
63-year-old male with past medical history significant for BPH presented to the emergency room on 10/23/2023 after having aqua ablation to the prostate at [facility] on 10/18/23. He subsequently developed a large bladder clot that required
him to return to the OR for evacuation. He came to the emergency room for fever and shaking chills. Asked to evaluate for watery stools since 10/25/23. Patient is negative for C Diff x 2, negative for Salmonella, Shigella and Ecoli. Consider
Antibiotic induced, infectious and less likely inflammatory given acute onset. Low volume without any signs of bleeding.
Impression:
1. Diarrhea
Plan:
-Check stool for WBC, cryptosporidium and fecal fat.
-Obtain Abd Xray to eval for overflow
-Change diet to low lactose/low residue diet
-Continue probiotics
-Further recommendations to be forthcoming.
Data Reviewed
-
Radiology: Report Reviewed by me
CT Scan: Report Reviewed by me
Old Records: Reviewed
-
-
Thank you for consultation and allowing me to participate in the patient's care. Please call the coal gasification technician GI physician during the after hours with any questions or concerns.
--- NOTE | 2023-11-04 15:48 | CM ---
Reviewed the chart notes and spoke with the patient at the bedside. Shauna offered a chair time of 8am for --[facility] location. Patient requesting later chair time. Patient stated 'I would have to get up at 5am, it's to early'. Call placed
to Shauna and spoke with distribution sales representative. Shelter Case Manager will have CM Ly Wyatt who is assigned to the patient to see if another chair time is available later in the day. CM contact information provided. Awaiting call back to see
if another time is available. Patient requested CM see if [place] Kunz had a better chair time. Per Shauna, only has 8am chair time available. CM continues to be available to patient/family and is monitoring medical plan for needs at
discharge.
Plan: Discharge to home with outpatient HD to be scheduled.
[2023-11-04] MEDS: PHOSLO 667 MG PO (17:41)
[2023-11-04] MEDS: LIPITOR 40 MG PO (17:41)
[2023-11-04] MEDS: CEFTIN 500 MG PO (17:41)
[2023-11-04] MEDS: OCEAN, SALINE MIST NASAL (17:42)
[2023-11-04 17:54] LABS: Myeloperoxidase Antibody 0 AU/mL (0-19); Serine Protease-3, IgG 0 AU/mL (0-19)
[2023-11-04 21:44] LABS: ANA, IgG Reflex to HEp-2 None Detected (None Detected)
[2023-11-05] VITALS (12 sets, daily range): BP systolic 129–153; BP diastolic 65–91; BMI 25.6
[2023-11-05] MEDS: TYLENOL 650 MG PO (01:27)
[2023-11-05] MEDS: VISBIOME 1 CAP PO (08:39)
[2023-11-05] MEDS: PHOSLO 667 MG PO ×2 (08:39→18:06)
[2023-11-05] MEDS: PROTONIX 40 MG PO (08:39)
[2023-11-05] MEDS: DETROL LA 2 MG PO (08:39)
[2023-11-05] MEDS: VITAMIN D3 (cholecalciferol) 25 MCG PO (08:39)
[2023-11-05] MEDS: LOPRESSOR 50 MG PO (08:40)
[2023-11-05] MEDS: OCEAN, SALINE MIST NASAL ×3 (08:46→18:11)
--- NOTE | 2023-11-05 09:51 | W.PN.URO.CBU ---
Today's Communication / Plan
-
replace march if distention pain or pvr over 400cc
Assessment / Plan
-
E. coli urosepsis- after aqua-ablation
hematuria- resolved will do voidingb trial pt had 960cc uriinre output / 24 hours
Diagnosis
-
Date of Service: November 05, 2023
-
Patient Diagnosis:
Post Op Day:
Patient Diagnosis:
s/p aqua-ablation
post op sepsis- ecoli
hematuria
renal failure
afib
NOTE- URINARY TRACT INFECTION/SEPSIS SUSPECT DUE TO RECENT PROSTATE PROCEDURE AND MARCH CATHETER REQUIREMENT
Subjective
-
feeling better foleys uncomfortable
Objective
-
Vital Signs
Temp Pulse Resp BP Pulse Ox
98.7 F 72 16 142/72 97
11/05/23 07:08 11/05/23 08:40 11/05/23 07:08 11/05/23 08:40 11/05/23 07:08
Intake and Output
11/04/23 11/05/23 11/06/23
06:59 06:59 06:59
Intake Total 650 / 650 480 / 480
Output Total 450 / 450 950 / 950
Balance 200 / 200 -470 / -470
Intake:
Oral fluids 600 / 600 480 / 480
IV fluids (Total) 50 / 50
NSS 50 / 50
Output:
Urine, March 150 / 150 950 / 950
Urine, Voided 300 / 300
Review of Systems
-
: Difficulty Voiding
Physical Exam
-
General - well developed, well nourished, no acute distress
Chest - clear bilaterally
Abdomen - soft, non-tender, positive bowel sounds, no CVAT, no incisional pain or distention
Genitalia - normal
Rectal - normal
Skin - warm & dry with no rash
Neuro - AOx3, no motor deficits
Extremities - no clubbing, no cyanosis, no edema
Incision - clean, dry
Dressing - clean, dry, intact
Counseling
-
remove march
Care Review
Data Reviewed
Discussed with: Nursing
--- NOTE | 2023-11-05 10:40 | W.PN.HOSP.TC ---
Today's Communication/Plan
-
Labs pending
Patient made 950 mill of urine in the past 24 hours
Avalos being taken out
We need to cautiously watch for any postvoid residual as that can impair his renal function further.
Replace Avalos for PVR over 400 ml per Urology notes.
Bladder scan ordered
Assessment / Plan
Assessment / Plan
CVS: S1-S2 normal
Chest: CTA B/L
Abdomen: Soft, NT / Bowel sounds present
Extremities: No edema
63-year-old male prostate recently was seen at [facility] for aqua ablation of prostate on Tuesday. Tuesday had large bladder clot which required evacuation in the OR. He was discharged home on . Catheter was removed on 10/22/2023. Early
morning he woke up with fevers and chills. Urine bloody appearing in the ER.
CT of the abdomen and pelvis mild asymmetric left adrenal gland diffuse thickening and. Renal fat stranding possible adrenal congestion. 1 mm calcific focus in each kidney no ureteral calculus no hydronephrosis. Mild perinephric soft tissue
stranding left greater than right nonspecific. Possible mid small bowel ileus/nonspecific enteritis. No small bowel obstruction. Avalos catheter in the bladder. Diffuse bladder wall thickening indicating cystitis. General prostatic enlargement.
MRI Noted Post-ablation changes of the prostate without convincing evidence for intraprostatic abscess.
Moderate free fluid in the pelvis, likely reactive.
Findings throughout the prostate gland peripheral zone compatible with PI-RADS 2 (the presence of clinically significant cancer is unlikely).
Moderate to severe BPH changes.
Echo 10/26/2023-normal LV systolic function. EF 55% mild concentric LVH. Mild to moderate MR. Mild TR
# Septic shock
# Leukocytosis/leukopenia-secondary sepsis
-E Coli Sepsis
- source
-Likely secondary to recent procedure
-Continue IV antibiotics-Zosyn changed to meropenem then Rocephin, later transitioned to oral abx cefuroxime 500 mg QD till 11/05/23 as per ID
-Blood and urine cultures positive for E. coli, repeat blood cultures ngtd
-Off Pressors-Levophed and vasopressin, subsequently downgraded to IMU 10/29 and to tele
-CT MRI abdomen pelvis as above
# Acute kidney injury/Renal Failure
-Likely secondary to septic shock and renal hypoperfusion/prerenal
-ATN Possible
-Ruled out postrenal-Avalos catheter placed
-Follow creatinine
-Serologies pending. Normal Complements
-Trial of Lasix on 10/25/2023 did not help make urine
-started on HD, continue as per nephro
-11/02 Bladder Renal US results appreciated no hydronephrosis, no nephrolithiasis, cystitis, Prostate Enlargement
-11/03 HD cath placed, discharge planning HD center placement home with VN when medically stable for discharge
-Patient made 950 mill of urine in the past 24 hours
-Avalos being taken out
-We need to cautiously watch for any postvoid residual as that can impair his renal function further.
#10/29 New Herpetic Lesions Nostril Area
Valacyclovir renally dosed, completed recommended 2 doses
resolving
#Dry nose
Stanly mist nasal spray QID
humidified air application requested
#New Afib
Patient since spontaneously converted back to NSR 11/03
Not a candidate for AC per D/W Urology given recent bleed
Cardio eval appreciated, cont metoprolol tartrate 50 mg BID, chadvasc score 0, anticoagulation not indicated at this time.
# Mucous in stool and diarrhea, Bloating
Loose stools- GI eval appreciated
Diet changed to low lactose and low residue-patient is complaining about the diet
Will defer to GI
Stool studies neg so far
C. difficile negative, norovirus negative
repeat Cultures NGTD
Imodium prn started with subsequent improvement
? Post infectious Lactose intolerance?
# Lactic acidosis-resolved
# Hematuria
-Status post aqua ablation of the prostate 10/18/2023 at [facility]
-Large clot in the bladder on 10/19/2023 needed OR evacuation at [facility]
-S/P CBI here at
-Clear at this time
-urology eval appreciated off CBI since 11/01 evening possible will come off Avalos tomorrow thurs 11/03
# Coagulopathy-secondary to sepsis-Resolved
# Hyponatremia- volume overload, cont HD as per nephro
# Thrombocytopenia secondary to sepsis
Normal fibrinogen level
Possibly also consumptive from clotting of the filter?
Hematology eval appreciated
resolved
# Anemia likely secondary to acute blood loss secondary to hematuria, also iron deficiency, anemia of chronic disease, and sepsis contributing
-H&H stable
# Elevated LFTs-likely secondary to septic shock and decreased perfusion
-Improving/resolved
# Hypokalemia- monitor and replete as necessary
# Hypocalcemia
#Vit D deficiency
Vit D supplementation
monitor and replete calcium as necessary, correct for low albumin before repleting
# Hypomagnesemia-replaced
# History of back surgery for disc herniation
# Hypoalbuminemia
# Alcohol use 3 to 4 glasses 3 times a week
# DVT prophylaxis-SCDs given recent bleeding/hematuria/anemia
# Full code
D/W Nephrology
Discussed with nursing at bedside
Anticipated Discharge: > 48 hours
Subjective/Interval History
-
Date of Service: November 05, 2023
Objective Data
-
Labs:
Laboratory Results
11/05/23
06:00
WBC Pending
Hgb Pending
Hct Pending
Plt Count Pending
Sodium Pending
Potassium Pending
Chloride Pending
Carbon Dioxide Pending
BUN Pending
Creatinine Pending
Glucose Pending
Calcium Pending
Total Bilirubin Pending
AST Pending
ALT Pending
Alkaline Phosphatase Pending
Vital Signs:
Vital Signs
Temp Pulse Resp BP Pulse Ox
98.7 F 72 16 142/72 97
11/05/23 07:08 11/05/23 08:40 11/05/23 07:08 11/05/23 08:40 11/05/23 07:08
I&O
11/04/23 11/05/23 11/06/23
06:59 06:59 06:59
Intake Total 650 / 650 480 / 480
Output Total 450 / 450 950 / 950
Balance 200 / 200 -470 / -470
[2023-11-05 12:21] LABS: Hematocrit 23.5 % (39.0-52.0); Hemoglobin 8.3 g/dL (13.0-18.0); Mean Corp Hgb Conc. 35.3 g/dL (33.0-37.0); Mean Corpuscular Hgb 30.5 pg (27.0-31.0); Mean Corpuscular Volume 86.4 fL (80.0-94.0); Mean Platelet Volume 10.5 fL (7.4-10.4); Platelet Count 496 10^3/uL (130-400); Red Blood Cell Count 2.72 10^6/uL (4.70-6.10); White Blood Cell Count 13.4 10^3/uL (4.8-10.8)
--- NOTE | 2023-11-05 12:28 | W.PN.NEPH.HD ---
Assessment
-
Patient seen on HD
sbp 147 at current u/f
next HD Tuesday
march out this am, follow close voiding trial
Progress Note - Hemodialysis
-
Date of Service: November 05, 2023
Duration: 45 minutes and 3 hours
Potassium Bath: 3
Calcium Bath: 2.5
Opti-Dialyzer: 160
Ultrafiltration: Other (1.5kg)
Blood Flow: 400
Dialysate Flow: 600
Heparin: none
EPO: 10K
[2023-11-05] MEDS: EPOGEN 10000 UNITS IV (13:01)
--- NOTE | 2023-11-05 13:02 | W.PN.GI.CBS2 ---
Today's Communication / Plan
-
1. Diarrhea
-New onset anemia during hospital visit with 2-3 loose bowel movements a day
Cannot rule out antibiotic associated diarrhea given acute onset
Stool for white cells negative, Cryptosporidium and Giardia negative
Continue probiotics
Abdominal x-ray without any overflow diarrhea but a lot of air noted in the colon.
Also reports nausea without any abdominal pain.
Await fecal fat and also celiac panel.
Low residue on low-lactose diet.
Okay to continue probiotics for now.
Monitor bowel movements.
Seems to be improving at this time
Assessment / Plan
-
63-year-old male with past medical history significant for BPH presented to the emergency room on 10/23/2023 after having aqua ablation to the prostate at [facility] on 10/18/23. He subsequently developed a large bladder clot that required
him to return to the OR for evacuation. He came to the emergency room for fever and shaking chills. Asked to evaluate for watery stools since 10/25/23. Patient is negative for C Diff x 2, negative for Salmonella, Shigella and Ecoli. Consider
Antibiotic induced, infectious and less likely inflammatory given acute onset. Low volume without any signs of bleeding.
Impression:
1. Diarrhea
-New onset anemia during hospital visit with 2-3 loose bowel movements a day
Cannot rule out antibiotic associated diarrhea given acute onset
Stool for white cells negative, Cryptosporidium and Giardia negative
Continue probiotics
Abdominal x-ray without any overflow diarrhea but a lot of air noted in the colon.
Also reports nausea without any abdominal pain.
Await fecal fat and also celiac panel.
Low residue on low-lactose diet.
Okay to continue probiotics for now.
Monitor bowel movements.
Seems to be improving at this time
Subjective
Subjective
Date of Service: November 05, 2023
Patient reports having 1 small bowel movement last night and 1 this morning, does not take Imodium. Diarrhea somewhat improved
Objective
Data Reviewed
Laboratory Data:
Laboratory Results
11/05/23 11:54
Laboratory Results
PT 14.7 Sec (11.4-14.6) H 10/26/23 04:20
INR 1.13 10/26/23 04:20
APTT 41.3 Sec (23.4-35.0) H 10/27/23 12:56
Phosphorus 6.7 mg/dl (2.5-4.5) H 11/04/23 04:15
Magnesium Cancelled 11/05/23 06:00
Total Bilirubin 0.5 mg/dl (0.2-1.3) 11/04/23 04:15
AST 33 U/L (17-59) 11/04/23 04:15
ALT 30 U/L (0-50) 11/04/23 04:15
Alkaline Phosphatase 210 U/L (38-126) H 11/04/23 04:15
Lipase 115 U/L (23-300) 10/23/23 04:42
Vital Signs and I&O:
Vital Signs
Temp Pulse Resp BP Pulse Ox
98.3 F 71 18 150/82 97
11/05/23 11:08 11/05/23 11:08 11/05/23 11:08 11/05/23 11:08 11/05/23 11:08
I&O
11/04/23 11/05/23 11/06/23
06:59 06:59 06:59
Intake Total 650 / 650 480 / 480
Output Total 450 / 450 950 / 950
Balance 200 / 200 -470 / -470
Physical Exam
Physical Exam
GI: Soft, Non Distended and Non Tender
[2023-11-05 13:08] LABS: ALT (SGPT) 25 U/L (0-50); AST (SGOT) 33 U/L (17-59); Alkaline Phosphatase 190 U/L (38-126); Blood Urea Nitrogen 46 mg/dl (9-20); Calcium 7.8 mg/dl (8.4-10.2); Carbon Dioxide 28 mmol/L (22-30); Chloride 94 mmol/L (98-107); Estimated Creatinine Clearance 11 ml/min; Glucose 98 mg/dl (70-99); Phosphorus 6.9 mg/dl (2.5-4.5); Sodium 127 mmol/L (135-145); Total Bilirubin 0.5 mg/dl (0.2-1.3); Total Protein 5.5 g/dl (6.3-8.2); eGFR 6.22
[2023-11-05] MEDS: LOPRESSOR 5 MG IV (14:36)
--- NOTE | 2023-11-05 14:58 | W.PN.UPDATE ---
Update Note
Progress Note Update
Patient went into a rapid A-fib
EKG reviewed
Heart rate still high with Lopressor
Will order Cardizem
will inform cardiology
[2023-11-05] MEDS: CARDIZEM 5 MG IV (15:07)
--- NOTE | 2023-11-05 15:27 | W.PN.CD ---
Today's Communication / Plan
-
start diltiazem drip
Impression / Plan
-
Paroxysmal A fib
-echo 10/26/23: EF 55%, mild/moderate MR
-initially precipitated by urologic sepsis, and has now recurred later in same admission
- Continue metoprolol tartrate 50 mg twice daily
- start diltiazem drip
- [id number] zero: not on OAC
E. Coli sepsis from after recent prostate procedure for BPH (outside hospital, aqua ablation with subsequent return to OR for bleeding)
-Acute severe renal failure requiring hemodialysis
-Continue management as per primary team
Anemia: per primary team.
Mild to moderate mitral regurgitation
-Clinically stable.
Elevated coronary calcium score but no obstructive CAD ([facility])
-cont statin
Subjective:
He feels palps with the recurrence of A fib.
Physical Exam
Vital Signs/Labs
Vital Signs
Temp Pulse Resp BP Pulse Ox
98.3 F 141 18 154/87 97
11/05/23 11:08 11/05/23 15:07 11/05/23 11:08 11/05/23 15:07 11/05/23 11:08
11/04/23 11/05/23 11/06/23
06:59 06:59 06:59
Actual Weight 98.7 kg 97.778 kg
11/05/23 11:54
11/05/23 11:54
PT 14.7 Sec (11.4-14.6) H 10/26/23 04:20
INR 1.13 10/26/23 04:20
APTT 41.3 Sec (23.4-35.0) H 10/27/23 12:56
Magnesium Cancelled 11/05/23 06:00
Triglycerides 251 mg/dl (10-149) H 11/01/23 04:38
LDL Cholesterol, Calc 83 mg/dl 11/01/23 04:38
VLDL Cholesterol, Calc 50 mg/dl (0-30) H 11/01/23 04:38
HDL Cholesterol 23 mg/dl 11/01/23 04:38
TSH 4.20 uIU/ml (0.47-4.68) 10/27/23 12:56
Physical Exam
Constitutional: No acute distress and Comfortable
EENT: Moist mucous membranes
Cardiovascular: Pedal edema is absent, JVD pressure is normal, Systolic murmur absent and Rhythm/rate is irregular
Respiratory: Respiratory effort normal, Lungs clear to auscul. and Wheeze Absent
Neuro/Psych: AO x 3
Data Reviewed
-
Date of Service: November 05, 2023
EKG: Other (Tele and EKG reviewed: A fib with RVR)
Labs: Labs Reviewed by me
[2023-11-05] MEDS: CARDIZEM 125 IV (15:40)
[2023-11-05] MEDS: HEPARIN 4300 UNITS INTRACATH (15:46)
[2023-11-05 16:06] LABS: Troponin I < 0.012 ng/ml
[2023-11-05] MEDS: PHOSLO PO (16:41)
--- NOTE | 2023-11-05 16:45 | PTCARENOTE ---
March removed at 1030. Pt able to void 100mL at 1640. PVR 428mL. Urology aware. Per Dr. Sultana 'check PVR later today or tomorrow and if residual is greater than 550 or pt is symptomatic replace march'.
[2023-11-05] MEDS: CEFTIN 500 MG PO (18:06)
[2023-11-05] MEDS: LIPITOR 40 MG PO (18:06)
[2023-11-05] MEDS: LOPRESSOR 100 MG PO (18:08)
--- NOTE | 2023-11-05 18:20 | PTCARENOTE ---
At approximately 1420 pt went into Afib RVR with HRs 140s during dialysis. Pt states he can feel palpitations. EKG confirmed Afib RVR. PRN IV metop given for sustained HR greater than 120 bpm. Pt HR remained in 140s. Dr. Loya aware. 5mg IV
Cardizem ordered and given. Cards consulted. Pt started on Cardizem gtt at 5 mg/hr. Pt remained in Afib RVR with HRs in 140s. BPs stable. Cardizem gtt increased to 10mg/hr per cards order. Pt remained in Afib RVR. Cardizem gtt increased to 15mg/hr
per cards order. At approximately 1732 pt converted back into normal sinus rhythm with HRs 70s-80s. Cardizem gtt decreased down to 10mg/hr per order. PO metop increased from 50mg to 100mg. BPs remain stable. Plan to keep pt on Cardizem gtt at
10mg/hr overnight.
[2023-11-05] MEDS: OCEAN, SALINE MIST 1 SPRAYS NASAL (19:54)
[2023-11-05 22:02] LABS: Troponin I < 0.012 ng/ml
--- NOTE | 2023-11-05 22:46 | PTCARENOTE ---
pt bladder scan post void of 5 ml, and had 633 ml in bladder. Stuntman notify and Avalos cath order. 16 Fr Avalos catheter inserted and willian with sediment urine produce. Pt had 650 output. Pt tolerated procedure.
[2023-11-06] VITALS (7 sets, daily range): BP systolic 129–157; BP diastolic 65–77; BMI 24.8
[2023-11-06 04:29] LABS: Hematocrit 23.7 % (39.0-52.0); Mean Corp Hgb Conc. 33.8 g/dL (33.0-37.0); Mean Corpuscular Hgb 29.9 pg (27.0-31.0); Mean Corpuscular Volume 88.4 fL (80.0-94.0); Mean Platelet Volume 10.3 fL (7.4-10.4); Platelet Count 458 10^3/uL (130-400); Red Blood Cell Count 2.68 10^6/uL (4.70-6.10); Red Cell Dist. Width 12.8 % (11.5-14.5); White Blood Cell Count 10.5 10^3/uL (4.8-10.8)
[2023-11-06 04:56] LABS: ALT (SGPT) 19 U/L (0-50); AST (SGOT) 25 U/L (17-59); Albumin 2.5 g/dl (3.5-5.0); Alkaline Phosphatase 159 U/L (38-126); Blood Urea Nitrogen 28 mg/dl (9-20); Calcium 7.8 mg/dl (8.4-10.2); Carbon Dioxide 29 mmol/L (22-30); Chloride 92 mmol/L (98-107); Estimated Creatinine Clearance 16 ml/min; Glucose 89 mg/dl (70-99); Phosphorus 5.9 mg/dl (2.5-4.5); Potassium 4.1 mmol/L (3.5-5.1); Sodium 130 mmol/L (135-145); Total Bilirubin 0.5 mg/dl (0.2-1.3); Total Protein 4.7 g/dl (6.3-8.2); eGFR 9.85
[2023-11-06 05:04] LABS: Troponin I < 0.012 ng/ml
[2023-11-06] MEDS: LOPRESSOR 100 MG PO ×2 (08:16→20:10)
[2023-11-06] MEDS: PROTONIX 40 MG PO (08:16)
[2023-11-06] MEDS: PHOSLO 667 MG PO ×2 (08:16→18:05)
[2023-11-06] MEDS: DETROL LA 2 MG PO (08:17)
[2023-11-06] MEDS: VITAMIN D3 (cholecalciferol) 25 MCG PO (08:17)
[2023-11-06] MEDS: VISBIOME 1 CAP PO (08:17)
[2023-11-06] MEDS: OCEAN, SALINE MIST 1 SPRAYS NASAL ×2 (08:27→12:44)
--- NOTE | 2023-11-06 10:39 | W.PN.GI.CBS2 ---
Today's Communication / Plan
-
Impression:
1. Diarrhea
-New onset anemia during hospital visit with 2-3 loose bowel movements a day
Likely antibiotic associated diarrhea given acute onset
Currently diarrhea resolved
Stool for white cells negative, Cryptosporidium and Giardia negative
Continue probiotics
Abdominal x-ray without any overflow diarrhea but a lot of air noted in the colon.
Low residue on low-lactose diet.
Okay to continue probiotics for now.
Monitor bowel movements.
Seems to be improving at this time
Needs outpatient follow-up with Dr. Michele for history of tubulovillous adenoma in 2010.
Will sign off, please call back if needed
Assessment / Plan
-
63-year-old male with past medical history significant for BPH presented to the emergency room on 10/23/2023 after having aqua ablation to the prostate at [facility] on 10/18/23. He subsequently developed a large bladder clot that required
him to return to the OR for evacuation. He came to the emergency room for fever and shaking chills. Asked to evaluate for watery stools since 10/25/23. Patient is negative for C Diff x 2, negative for Salmonella, Shigella and Ecoli. Consider
Antibiotic induced, infectious and less likely inflammatory given acute onset. Low volume without any signs of bleeding.
Impression:
1. Diarrhea
-New onset anemia during hospital visit with 2-3 loose bowel movements a day
Likely antibiotic associated diarrhea given acute onset
Currently diarrhea resolved
Stool for white cells negative, Cryptosporidium and Giardia negative
Continue probiotics
Abdominal x-ray without any overflow diarrhea but a lot of air noted in the colon.
Low residue on low-lactose diet.
Okay to continue probiotics for now.
Monitor bowel movements.
Seems to be improving at this time
Needs outpatient follow-up with Dr. Michele for history of tubulovillous adenoma in 2010.
Will sign off, please call back if needed
Subjective
Subjective
Date of Service: November 06, 2023
Patient without any diarrhea today. Had 1 soft bowel movement yesterday
Objective
Data Reviewed
Laboratory Data:
Laboratory Results
11/06/23 04:15
11/06/23 04:15
Laboratory Results
PT 14.7 Sec (11.4-14.6) H 10/26/23 04:20
INR 1.13 10/26/23 04:20
APTT 41.3 Sec (23.4-35.0) H 10/27/23 12:56
Phosphorus 5.9 mg/dl (2.5-4.5) H 11/06/23 04:15
Magnesium Cancelled 11/05/23 06:00
Total Bilirubin 0.5 mg/dl (0.2-1.3) 11/06/23 04:15
AST 25 U/L (17-59) 11/06/23 04:15
ALT 19 U/L (0-50) 11/06/23 04:15
Alkaline Phosphatase 159 U/L (38-126) H 11/06/23 04:15
Lipase 115 U/L (23-300) 10/23/23 04:42
Vital Signs and I&O:
Vital Signs
Temp Pulse Resp BP Pulse Ox
99.2 F 76 16 142/67 95
11/06/23 07:30 11/06/23 08:16 11/06/23 07:30 11/06/23 08:16 11/06/23 07:30
I&O
11/05/23 11/06/23 11/07/23
06:59 06:59 06:59
Intake Total 480 / 480 1380 / 1380
Output Total 950 / 950 1730 / 1730
Balance -470 / -470 -350 / -350
Physical Exam
Physical Exam
GI: Soft and Non Distended
--- NOTE | 2023-11-06 11:01 | W.PN.NEPH.PH ---
Today's Communication / Plan
-
Follow-up BMP in a
Assessment/Plan
-
Assessment
-Septic shock
-Ecoli sepsis s/p prostate aqua-ablation
-Hyponatremia
-metabolic/lactic acidosis
-hypomagnesemia
-urinary retention now on CBI
-[place]
Plan
no indication of renal recovery at this time creatinine was 6 following dialysis on Tuesday, however urine output up to 1500 cc
next HD Tuesday
Follow-up BMP tomorrow
Patient had to have Avalos reinserted back in yesterday on 11/05/2023 for urinary retention
Hyponatremia etiology remains elusive: FR is on and Hd length extended
-
-
Date of Service: November 06, 2023
CC / HPI / ROS
-
Chief Complaint:
[place]
History of Present Illness:
tolerated HD yesterday
BP stable
on abx for ecoli sepsis
Na low 130
WBC remains elevated stable
He had to have Avalos reinserted on 11/05/2023 for urinary retention
Review of Systems:
no CP/SOB
Avalos
Labs
-
Labs:
WBC 10.5 10^3/uL (4.8-10.8) 11/06/23 04:15
RBC 2.68 10^6/uL (4.70-6.10) L 11/06/23 04:15
Hgb 8.0 g/dL (13.0-18.0) L 11/06/23 04:15
Hct 23.7 % (39.0-52.0) L 11/06/23 04:15
Plt Count 458 10^3/uL (130-400) H 11/06/23 04:15
Sodium 130 mmol/L (135-145) L 11/06/23 04:15
Potassium 4.1 mmol/L (3.5-5.1) 11/06/23 04:15
Chloride 92 mmol/L (98-107) L 11/06/23 04:15
Carbon Dioxide 29 mmol/L (22-30) 11/06/23 04:15
BUN 28 mg/dl (9-20) H 11/06/23 04:15
Creatinine 6.0 mg/dL (0.7-1.3) H* 11/06/23 04:15
eGFR 9.85 11/06/23 04:15
Glucose 89 mg/dl (70-99) 11/06/23 04:15
Calcium 7.8 mg/dl (8.4-10.2) L 11/06/23 04:15
Phosphorus 5.9 mg/dl (2.5-4.5) H 11/06/23 04:15
Albumin 2.5 g/dl (3.5-5.0) L 11/06/23 04:15
Physical Exam
-
Vital Signs:
Vital Signs
Temp Pulse Resp BP Pulse Ox
99.2 F 76 16 142/67 95
11/06/23 07:30 11/06/23 08:16 11/06/23 07:30 11/06/23 08:16 11/06/23 07:30
Cardiovascular:: Regular rate and rhythm
Respiratory:: Bilateral: CTA
Lung Excursion:: Normal
Abdomen:: Nontender and Soft
Bowel Sounds:: Normal
Extremity Edema:: None: Bilateral:
Avalos Catheter: Yes
--- NOTE | 2023-11-06 11:21 | W.PN.CD ---
Today's Communication / Plan
-
back in sinus after diltiazem drip overnight: stop diltiazem
Impression / Plan
-
Paroxysmal A fib
-echo 10/26/23: EF 55%, mild/moderate MR
-initially precipitated by urologic sepsis, and has now recurred later in same admission
- Continue metoprolol tartrate 50 mg twice daily
- [id number] zero: not on OAC
- back in sinus after diltiazem drip overnight: stop diltiazem
- to discuss with EP: ? role of AAD for a couple months
E. Coli sepsis from after recent prostate procedure for BPH (outside hospital, aqua ablation with subsequent return to OR for bleeding)
-Acute severe renal failure requiring hemodialysis
-Continue management as per primary team
Anemia: per primary team.
Mild to moderate mitral regurgitation
-Clinically stable.
Elevated coronary calcium score but no obstructive CAD ([facility])
-cont statin
Subjective:
No more palps.
Physical Exam
Vital Signs/Labs
Vital Signs
Temp Pulse Resp BP Pulse Ox
99.5 F 73 16 129/67 97
11/06/23 11:14 11/06/23 11:14 11/06/23 11:14 11/06/23 11:14 11/06/23 11:14
11/05/23 11/06/23 11/07/23
06:59 06:59 06:59
Actual Weight 97.778 kg 94.892 kg
11/06/23 04:15
11/06/23 04:15
PT 14.7 Sec (11.4-14.6) H 10/26/23 04:20
INR 1.13 10/26/23 04:20
APTT 41.3 Sec (23.4-35.0) H 10/27/23 12:56
Magnesium Cancelled 11/05/23 06:00
Triglycerides 251 mg/dl (10-149) H 11/01/23 04:38
LDL Cholesterol, Calc 83 mg/dl 11/01/23 04:38
VLDL Cholesterol, Calc 50 mg/dl (0-30) H 11/01/23 04:38
HDL Cholesterol 23 mg/dl 11/01/23 04:38
TSH 4.20 uIU/ml (0.47-4.68) 10/27/23 12:56
LAB Results
11/05/23 11/05/23 11/06/23
15:39 21:31 04:15
Troponin I < 0.012 < 0.012 < 0.012
Physical Exam
Constitutional: No acute distress and Comfortable
EENT: Moist mucous membranes
Cardiovascular: Rhythm & rate is regular, Pedal edema is absent, JVD pressure is normal and Systolic murmur absent
Respiratory: Respiratory effort normal, Lungs clear to auscul. and Wheeze Absent
GI: Soft, Distention absent and Flat
Neuro/Psych: AO x 3
Data Reviewed
-
Date of Service: November 06, 2023
EKG: Other (Tele: Afib -->NSR)
--- NOTE | 2023-11-06 11:53 | W.PN.URO.CBU ---
Today's Communication / Plan
-
start flomax voiding trial tuesday
Assessment / Plan
-
E. coli urosepsis- after aqua-ablation
hematuria- resolved failed voiding trial will add flomax and etry vt before presumed discharge
Diagnosis
-
Date of Service: November 06, 2023
-
Patient Diagnosis:
Post Op Day:
Patient Diagnosis:
Post Op Day:
Patient Diagnosis:
s/p aqua-ablation
post op sepsis- ecoli
hematuria
renal failure
afib
NOTE- URINARY TRACT INFECTION/SEPSIS SUSPECT DUE TO RECENT PROSTATE PROCEDURE AND RIBEIRO CATHETER REQUIREMENT
Subjective
-
urinarfy retention
Objective
-
Vital Signs
Temp Pulse Resp BP Pulse Ox
99.5 F 73 16 129/67 97
11/06/23 11:14 11/06/23 11:14 11/06/23 11:14 11/06/23 11:14 11/06/23 11:14
Intake and Output
11/05/23 11/06/23 11/07/23
06:59 06:59 06:59
Intake Total 480 / 480 1380 / 1380
Output Total 950 / 950 1730 / 1730
Balance -470 / -470 -350 / -350
Intake:
Oral fluids 480 / 480 1380 / 1380
Output:
Urine, Ribeiro 950 / 950 1580 / 1580
Urine, Voided 150 / 150
Laboratory Results
11/06/23 04:15
11/06/23 04:15
Review of Systems
-
: No Symptoms and Difficulty Voiding
Physical Exam
-
General - well developed, well nourished, no acute distress
Chest - clear bilaterally
Abdomen - soft, non-tender, positive bowel sounds, no CVAT, no incisional pain or distention
Genitalia - normal
Rectal - normal
Skin - warm & dry with no rash
Neuro - AOx3, no motor deficits
Extremities - no clubbing, no cyanosis, no edema
Incision - clean, dry
Dressing - clean, dry, intact
Counseling
-
start flomax
Care Review
Data Reviewed
Discussed with: Cardiology and Nursing
[2023-11-06] MEDS: FLOMAX 0.400000000000000022 MG PO (12:43)
[2023-11-06] MEDS: PHOSLO PO (12:45)
--- NOTE | 2023-11-06 13:30 | W.PN.HOSP.TC ---
Today's Communication/Plan
-
Flomax started
Making urine now
Watch creatinine
Assessment / Plan
Assessment / Plan
CVS: S1-S2 normal
Chest: CTA B/L
Abdomen: Soft, NT / Bowel sounds present
Extremities: No edema
63-year-old male prostate recently was seen at [facility] for aqua ablation of prostate on Tuesday. Tuesday had large bladder clot which required evacuation in the OR. He was discharged home on . Catheter was removed on 10/22/2023. Early
morning he woke up with fevers and chills. Urine bloody appearing in the ER.
CT of the abdomen and pelvis mild asymmetric left adrenal gland diffuse thickening and. Renal fat stranding possible adrenal congestion. 1 mm calcific focus in each kidney no ureteral calculus no hydronephrosis. Mild perinephric soft tissue
stranding left greater than right nonspecific. Possible mid small bowel ileus/nonspecific enteritis. No small bowel obstruction. March catheter in the bladder. Diffuse bladder wall thickening indicating cystitis. General prostatic enlargement.
MRI Noted Post-ablation changes of the prostate without convincing evidence for intraprostatic abscess.
Moderate free fluid in the pelvis, likely reactive.
Findings throughout the prostate gland peripheral zone compatible with PI-RADS 2 (the presence of clinically significant cancer is unlikely).
Moderate to severe BPH changes.
Echo 10/26/2023-normal LV systolic function. EF 55% mild concentric LVH. Mild to moderate MR. Mild TR
# Septic shock requiring pressors initially
# Leukocytosis/leukopenia-secondary sepsis
-E Coli Sepsis- source -Likely secondary to recent procedure
-Was on IV antibiotics-Zosyn changed to meropenem then Rocephin, later transitioned to oral abx cefuroxime 500 mg QD till 11/05/23 as per ID
-Blood and urine cultures positive for E. coli, repeat blood cultures ngtd
-CT MRI abdomen pelvis as above
# Acute kidney injury/Renal Failure
-Likely secondary to septic shock and renal hypoperfusion/prerenal
-ATN Possible
-Ruled out postrenal-March catheter placed
-Serologies pending. Normal Complements
-Trial of Lasix on 10/25/2023 did not help make urine
-started on HD, continue as per nephro
-11/02 Bladder Renal US results appreciated no hydronephrosis, no nephrolithiasis, cystitis, Prostate Enlargement
-11/03 HD cath placed, discharge planning HD center placement home with VN when medically stable for discharge
-Patient made 950 mill of urine in the past 24 hours
-March taken out 11/05/23- Had retention so march had to go back in
-Flomax started
#10/29 New Herpetic Lesions Nostril Area
Valacyclovir renally dosed, completed recommended 2 doses
resolving
#New Afib
Patient since spontaneously converted back to NSR 11/03
Not a candidate for AC per D/W Urology given recent bleed
Went bnack in Afib for short duration 11/05/23. Required Cardizem gtt. Then back in SR now
Cardio eval appreciated, Currently on metoprolol tartrate 100 mg BID, chadvasc score 0, anticoagulation not indicated at this time.
# Mucous in stool and diarrhea, Bloating
Loose stools- GI eval appreciated
Diet changed to low lactose and low residue-patient is complaining about the diet
Stool studies neg so far
C. difficile negative, norovirus negative, Giardia neg
repeat Cultures NGTD
Imodium prn started with subsequent improvement
? Post infectious Lactose intolerance?
# Lactic acidosis-resolved
# Hematuria
-Status post aqua ablation of the prostate 10/18/2023 at [facility]
-Large clot in the bladder on 10/19/2023 needed OR evacuation at [facility]
-S/P CBI here at
-Clear at this time
# Coagulopathy-secondary to sepsis-Resolved
# Hyponatremia- volume overload,
# Thrombocytopenia secondary to sepsis
Normal fibrinogen level
Possibly also consumptive from clotting of the filter?
Hematology eval appreciated
resolved
# Anemia likely secondary to acute blood loss secondary to hematuria, also iron deficiency, anemia of chronic disease, and sepsis contributing
-H&H stable
# Elevated LFTs-likely secondary to septic shock and decreased perfusion
-Improving/resolved
# Hypokalemia- monitor and replete as necessary
# Hypocalcemia
#Vit D deficiency
Vit D supplementation
monitor and replete calcium as necessary, correct for low albumin before repleting
# Hypomagnesemia-replaced
# History of back surgery for disc herniation
# Hypoalbuminemia
# Alcohol use 3 to 4 glasses 3 times a week
# DVT prophylaxis-SCDs given recent bleeding/hematuria/anemia
# Full code
Asked if his has questions, told to get in touch with me via RN if she has when she gets here.
Discussed with nursing at bedside
Anticipated Discharge: 24 - 48 hours
Subjective/Interval History
-
Date of Service: November 06, 2023
Objective Data
-
Labs:
Laboratory Results
11/06/23
04:15
WBC 10.5
Hgb 8.0 L
Hct 23.7 L
Plt Count 458 H
Sodium 130 L
Potassium 4.1
Chloride 92 L
Carbon Dioxide 29
BUN 28 H
Creatinine 6.0 H*
Glucose 89
Calcium 7.8 L
Total Bilirubin 0.5
AST 25
ALT 19
Alkaline Phosphatase 159 H
Vital Signs:
Vital Signs
Temp Pulse Resp BP Pulse Ox
99.5 F 73 16 129/67 97
11/06/23 11:14 11/06/23 11:14 11/06/23 11:14 11/06/23 11:14 11/06/23 11:14
I&O
11/05/23 11/06/23 11/07/23
06:59 06:59 06:59
Intake Total 480 / 480 1380 / 1380
Output Total 950 / 950 1730 / 1730
Balance -470 / -470 -350 / -350
--- NOTE | 2023-11-06 14:24 | CM ---
Per [facility] pt has been accepted by [facility] for VN and CM tomorrow/Tuesday will follow up with Shauna on chair time-noted pt requested alternative time. Unable to reach [facility] today, likely because it's Tuesday.
Discharge dispo home with [facility] and outpt HD.
[2023-11-06] MEDS: OCEAN, SALINE MIST NASAL ×2 (18:05→22:18)
[2023-11-06] MEDS: LIPITOR 40 MG PO (18:05)
[2023-11-07 03:38] VITALS: BP 139/71
[2023-11-07] MEDS: TYLENOL 650 MG PO ×2 (03:42→22:14)
[2023-11-07 05:10] LABS: Hematocrit 21.9 % (39.0-52.0); Hemoglobin 7.4 g/dL (13.0-18.0); Mean Corp Hgb Conc. 33.8 g/dL (33.0-37.0); Mean Corpuscular Hgb 29.8 pg (27.0-31.0); Mean Corpuscular Volume 88.3 fL (80.0-94.0); Mean Platelet Volume 10.3 fL (7.4-10.4); Platelet Count 446 10^3/uL (130-400); Red Blood Cell Count 2.48 10^6/uL (4.70-6.10); Red Cell Dist. Width 12.6 % (11.5-14.5); White Blood Cell Count 9.8 10^3/uL (4.8-10.8)
[2023-11-07 05:37] LABS: ALT (SGPT) 19 U/L (0-50); AST (SGOT) 25 U/L (17-59); Albumin 2.6 g/dl (3.5-5.0); Alkaline Phosphatase 156 U/L (38-126); Blood Urea Nitrogen 36 mg/dl (9-20); Calcium 7.7 mg/dl (8.4-10.2); Carbon Dioxide 27 mmol/L (22-30); Chloride 96 mmol/L (98-107); Estimated Creatinine Clearance 14 ml/min; Glucose 94 mg/dl (70-99); Phosphorus 6.2 mg/dl (2.5-4.5); Potassium 4.1 mmol/L (3.5-5.1); Sodium 129 mmol/L (135-145); Total Bilirubin 0.5 mg/dl (0.2-1.3); Total Protein 4.9 g/dl (6.3-8.2); eGFR 8.19
[2023-11-07 06:00] VITALS: BMI 24.6
[2023-11-07 07:35] VITALS: BP 149/71
--- NOTE | 2023-11-07 08:40 | W.PN.CD ---
Today's Communication / Plan
-
We will sign off
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
Impression / Plan
-
Paroxysmal A fib
-Precipitated by urologic sepsis
- As anticipated we are seeing much more sinus as he clinically improves
- Continue metoprolol tartrate 50 mg twice daily
- [id number] zero: not on OAC
- I would avoid toxicity of AAD
Elevated blood pressure
- Many readings normal
- If in outpatient setting HTN is found then CHADS2-VASc score will increaese to 1
Improved E. Coli sepsis from after recent prostate procedure for BPH
- (outside hospital, aqua ablation with subsequent return to OR for bleeding)
- Acute severe renal failure requiring hemodialysis
Acute renal failure requiring HD
Anemia: per primary team. Multifactorial: had bleeding post-op and now acute illness with renal failure
Mild to moderate mitral regurgitation, asymptomatic
Elevated coronary calcium score but no obstructive CAD ([facility]) => Statin
Subjective:
No more palps.
Data
Echo 10/26/2023: EF 55%, mild/moderate MR
Physical Exam
Vital Signs/Labs
Vital Signs
Temp Pulse Resp BP Pulse Ox
98.5 F 70 16 149/71 95
11/07/23 07:35 11/07/23 07:35 11/07/23 07:35 11/07/23 07:35 11/07/23 07:35
11/06/23 11/07/23 11/08/23
06:59 06:59 06:59
Actual Weight 94.892 kg 94.03 kg
11/07/23 04:42
11/07/23 04:42
PT 14.7 Sec (11.4-14.6) H 10/26/23 04:20
INR 1.13 10/26/23 04:20
APTT 41.3 Sec (23.4-35.0) H 10/27/23 12:56
Magnesium Cancelled 11/05/23 06:00
Triglycerides 251 mg/dl (10-149) H 11/01/23 04:38
LDL Cholesterol, Calc 83 mg/dl 11/01/23 04:38
VLDL Cholesterol, Calc 50 mg/dl (0-30) H 11/01/23 04:38
HDL Cholesterol 23 mg/dl 11/01/23 04:38
TSH 4.20 uIU/ml (0.47-4.68) 10/27/23 12:56
LAB Results
11/05/23 11/05/23 11/06/23
15:39 21:31 04:15
Troponin I < 0.012 < 0.012 < 0.012
Physical Exam
Constitutional: No acute distress
Cardiovascular: Rhythm & rate is regular and Pedal edema is absent
Respiratory: Respiratory effort normal and Lungs clear to auscul.
GI: Soft and Distention absent
Neuro/Psych: AO x 3
Data Reviewed
-
Date of Service: November 07, 2023
--- NOTE | 2023-11-07 09:38 | W.PN.URO.CBU ---
Today's Communication / Plan
-
remove march tuesday
Assessment / Plan
-
E. coli urosepsis- after aqua-ablation
hematuria- resolved failed voiding trial will add flomax and etry vt before presumed discharge
Diagnosis
-
Date of Service: November 07, 2023
-
Patient Diagnosis:
Post Op Day:
Patient Diagnosis:
Post Op Day:
Patient Diagnosis:
Post Op Day:
Patient Diagnosis:
s/p aqua-ablation
post op sepsis- ecoli
hematuria
renal failure
afib
NOTE- URINARY TRACT INFECTION/SEPSIS SUSPECT DUE TO RECENT PROSTATE PROCEDURE AND MARCH CATHETER REQUIREMENT
Subjective
-
awaits voiding trial
Objective
-
Vital Signs
Temp Pulse Resp BP Pulse Ox
98.5 F 70 16 149/71 95
11/07/23 07:35 11/07/23 07:35 11/07/23 07:35 11/07/23 07:35 11/07/23 07:35
Intake and Output
11/06/23 11/07/23 11/08/23
06:59 06:59 06:59
Intake Total 1380 / 1380 1080 / 1080
Output Total 1730 / 1730 1750 / 1750
Balance -350 / -350 -670 / -670
Intake:
Oral fluids 1380 / 1380 1080 / 1080
Output:
Urine, March 1580 / 1580 500 / 500
Urine, Voided 150 / 150 1250 / 1250
Other:
Number of approximated LARGE 1
amounts of urine
Laboratory Results
11/07/23 04:42
11/07/23 04:42
Review of Systems
-
: Difficulty Voiding
Physical Exam
-
General - well developed, well nourished, no acute distress
Chest - clear bilaterally
Abdomen - soft, non-tender, positive bowel sounds, no CVAT, no incisional pain or distention
Genitalia - normal
Rectal - normal
Skin - warm & dry with no rash
Neuro - AOx3, no motor deficits
Extremities - no clubbing, no cyanosis, no edema
Incision - clean, dry
Dressing - clean, dry, intact
Counseling
-
voiding trial
[2023-11-07] MEDS: FLOMAX 0.400000000000000022 MG PO (10:28)
[2023-11-07] MEDS: VISBIOME 1 CAP PO (10:28)
[2023-11-07] MEDS: LOPRESSOR 100 MG PO ×2 (10:28→20:16)
[2023-11-07] MEDS: PHOSLO 667 MG PO ×3 (10:29→17:47)
[2023-11-07] MEDS: DETROL LA 2 MG PO (10:29)
[2023-11-07] MEDS: VITAMIN D3 (cholecalciferol) 25 MCG PO (10:29)
[2023-11-07] MEDS: OCEAN, SALINE MIST 1 SPRAYS NASAL ×3 (10:29→17:47)
--- NOTE | 2023-11-07 11:21 | W.PN.NEPH.PH ---
Today's Communication / Plan
-
- follow up BMP
- plan for HD tomorrow
Assessment/Plan
-
Assessment
-Septic shock
-Ecoli sepsis s/p prostate aqua-ablation
-Hyponatremia
-metabolic/lactic acidosis
-hypomagnesemia
-urinary retention now on CBI
-[place]
Plan
no indication of renal recovery at this time creatinine 7 today, however urine output up to 1700cc
next HD Tuesday
Follow-up BMP tomorrow prior to HD
Patient had to have Avalos reinserted on 11/05/2023 for urinary retention
Hyponatremia etiology remains elusive: FR is on and HD length extended. likely from volume issues as worsens between HD treatments
-
-
Date of Service: November 07, 2023
CC / HPI / ROS
-
Chief Complaint:
[place]
History of Present Illness:
tolerated HD on Sat
BP stable
on abx for ecoli sepsis
Na low 129
WBC remains elevated stable
He had to have Avalos reinserted on 11/05/2023 for urinary retention, plan for removal tomorrow
Review of Systems:
no CP/SOB
Avalos
Labs
-
Labs:
WBC 9.8 10^3/uL (4.8-10.8) 11/07/23 04:42
RBC 2.48 10^6/uL (4.70-6.10) L 11/07/23 04:42
Hgb 7.4 g/dL (13.0-18.0) L 11/07/23 04:42
Hct 21.9 % (39.0-52.0) L 11/07/23 04:42
Plt Count 446 10^3/uL (130-400) H 11/07/23 04:42
Sodium 129 mmol/L (135-145) L 11/07/23 04:42
Potassium 4.1 mmol/L (3.5-5.1) 11/07/23 04:42
Chloride 96 mmol/L (98-107) L 11/07/23 04:42
Carbon Dioxide 27 mmol/L (22-30) 11/07/23 04:42
BUN 36 mg/dl (9-20) H 11/07/23 04:42
Creatinine 7.0 mg/dL (0.7-1.3) H* 11/07/23 04:42
eGFR 8.19 11/07/23 04:42
Glucose 94 mg/dl (70-99) 11/07/23 04:42
Calcium 7.7 mg/dl (8.4-10.2) L 11/07/23 04:42
Phosphorus 6.2 mg/dl (2.5-4.5) H 11/07/23 04:42
Albumin 2.6 g/dl (3.5-5.0) L 11/07/23 04:42
Physical Exam
-
Vital Signs:
Vital Signs
Temp Pulse Resp BP Pulse Ox
98.5 F 70 16 149/71 95
11/07/23 07:35 11/07/23 10:28 11/07/23 07:35 11/07/23 10:28 11/07/23 07:35
Cardiovascular:: Regular rate and rhythm
Respiratory:: Bilateral: CTA
Lung Excursion:: Normal
Abdomen:: Soft and Tender
Bowel Sounds:: Normal
Extremity Edema:: None: Bilateral:
Avalos Catheter: Yes
[2023-11-07 11:31] VITALS: BP 156/92
--- NOTE | 2023-11-07 11:34 | W.PN.HOSP.TC ---
Today's Communication/Plan
-
Rpt Hb
Monitor urine OP
Assessment / Plan
Assessment / Plan
CVS: S1-S2 normal
Chest: CTA B/L
Abdomen: Soft, NT / Bowel sounds present
Extremities: No edema
63-year-old male prostate recently was seen at [facility] for aqua ablation of prostate on Tuesday. Tuesday had large bladder clot which required evacuation in the OR. He was discharged home on . Catheter was removed on 10/22/2023. Early
morning he woke up with fevers and chills. Urine bloody appearing in the ER.
CT of the abdomen and pelvis mild asymmetric left adrenal gland diffuse thickening and. Renal fat stranding possible adrenal congestion. 1 mm calcific focus in each kidney no ureteral calculus no hydronephrosis. Mild perinephric soft tissue
stranding left greater than right nonspecific. Possible mid small bowel ileus/nonspecific enteritis. No small bowel obstruction. Avalos catheter in the bladder. Diffuse bladder wall thickening indicating cystitis. General prostatic enlargement.
MRI Noted Post-ablation changes of the prostate without convincing evidence for intraprostatic abscess.
Moderate free fluid in the pelvis, likely reactive.
Findings throughout the prostate gland peripheral zone compatible with PI-RADS 2 (the presence of clinically significant cancer is unlikely).
Moderate to severe BPH changes.
Echo 10/26/2023-normal LV systolic function. EF 55% mild concentric LVH. Mild to moderate MR. Mild TR
# Septic shock requiring pressors initially
# Leukocytosis/leukopenia-secondary sepsis
-E Coli Sepsis- source -Likely secondary to recent procedure
-Was on IV antibiotics-Zosyn changed to meropenem then Rocephin, later transitioned to oral abx cefuroxime 500 mg QD till 11/05/23 as per ID
-Blood and urine cultures positive for E. coli, repeat blood cultures ngtd
-CT MRI abdomen pelvis as above
# Acute kidney injury/Renal Failure
-Likely secondary to septic shock and renal hypoperfusion/prerenal
-ATN Possible
-Ruled out postrenal-Avalos catheter placed
-Serologies negative. Normal Complements
-Started on HD, continue as per nephro
-USS no obstruction
-11/03 HD cath placed
-1750 ml urine in 24 hours- Does he still need HD or wait?
-Avalos taken out 11/05/23- Had retention so Avalos had to go back in
-Flomax started
#10/29 New Herpetic Lesions Nostril Area
Valacyclovir renally dosed, completed recommended 2 doses
Resolving
#New Afib
Patient since spontaneously converted back to NSR 11/03
Not a candidate for AC per [facility] given recent bleed
Went back in Afib for short duration 11/05/23. Required Cardizem gtt. Then back in SR now
Cardio eval appreciated, Currently on metoprolol tartrate 100 mg BID, chadvasc score 0, anticoagulation not indicated at this time.
No Anti arrythmics per
# Mucous in stool and diarrhea, Bloating
Loose stools- GI eval appreciated
Diet changed to low lactose and low residue-patient is complaining about the diet
Stool studies neg so far
C. difficile negative, norovirus negative, Giardia neg
repeat Cultures NGTD
Imodium prn started with subsequent improvement
? Post infectious Lactose intolerance? Discussed to lower lactose.
# Lactic acidosis-resolved
# Hematuria
-Status post aqua ablation of the prostate 10/18/2023 at [facility]
-Large clot in the bladder on 10/19/2023 needed OR evacuation at [facility]
-S/P CBI here at
-Clear at this time
# Coagulopathy-secondary to sepsis-Resolved
# Hyponatremia- volume overload,
# Thrombocytopenia secondary to sepsis
Normal fibrinogen level
Possibly also consumptive from clotting of the filter?
Hematology eval appreciated
Resolved
# Anemia likely secondary to acute blood loss secondary to hematuria, also iron deficiency, anemia of chronic disease, and sepsis contributing
-H&H 7.4
Repeat
# Elevated LFTs-likely secondary to septic shock and decreased perfusion
-Improving/resolved
# Hypokalemia- monitor and replete as necessary
# Hypocalcemia
#Vit D deficiency
Vit D supplementation
monitor and replete calcium as necessary, correct for low albumin before repleting
# Hypomagnesemia-replaced
# History of back surgery for disc herniation
# Hypoalbuminemia
# Alcohol use 3 to 4 glasses 3 times a week
# DVT prophylaxis-SCDs given recent bleeding/hematuria/anemia
# Full code
Anticipated Discharge: > 48 hours
Subjective/Interval History
-
Date of Service: November 07, 2023
Objective Data
-
Labs:
Laboratory Results
11/07/23
04:42
WBC 9.8
Hgb 7.4 L
Hct 21.9 L
Plt Count 446 H
Sodium 129 L
Potassium 4.1
Chloride 96 L
Carbon Dioxide 27
BUN 36 H
Creatinine 7.0 H*
Glucose 94
Calcium 7.7 L
Total Bilirubin 0.5
AST 25
ALT 19
Alkaline Phosphatase 156 H
Vital Signs:
Vital Signs
Temp Pulse Resp BP Pulse Ox
97.7 F 77 18 156/92 96
11/07/23 11:31 11/07/23 11:31 11/07/23 11:31 11/07/23 11:31 11/07/23 11:31
I&O
11/06/23 11/07/23 11/08/23
06:59 06:59 06:59
Intake Total 1380 / 1380 1080 / 1080
Output Total 1730 / 1730 1750 / 1750
Balance -350 / -350 -670 / -670
[2023-11-07 12:55] LABS: Hemoglobin 8.2 g/dL (13.0-18.0)
--- NOTE | 2023-11-07 14:06 | CM ---
Reviewed the chart notes and spoke with Lalitha ([phone]) from [facility] regarding chair times. Patient now has a chair time of M-W-F at 4:30pm at the [facility]. Patient and attending updated. CM continues to be available
to patient/family and is monitoring medical plan for needs at discharge.
Plan: Discharge when medically stable to home on [facility] and HD M-W-F at [facility].
[facility]
[2023-11-07 15:00] VITALS: BP 158/77
[2023-11-07] MEDS: VITAMIN C 500 MG PO (17:47)
[2023-11-07] MEDS: LIPITOR 40 MG PO (17:49)
[2023-11-07 17:50] LABS: Fat, Fecal - Neutral Normal (Normal); Fat, Fecal - Split Normal (Normal)
[2023-11-07 19:10] VITALS: BP 143/75
[2023-11-07] MEDS: OCEAN, SALINE MIST NASAL (21:14)
[2023-11-07 23:42] VITALS: BP 132/66
[2023-11-08 03:36] VITALS: BP 134/59
[2023-11-08 06:00] VITALS: BMI 24.4
[2023-11-08 07:10] VITALS: BP 153/77
--- NOTE | 2023-11-08 07:51 | W.PN.URO.CBU ---
Today's Communication / Plan
-
TOV today
Assessment / Plan
-
sepsis after aqua-ablation- resolved/wbc normalized /off antibx
afib- back in sinus- no plan for anti-coagulation at this time
renal failure- getting HD- but urine output dramatically improved over last 72hrs- nephrology following
urinary retention- for TOV today- continue flomax
pt should be stable urologically for discharge with or without march- should follow up with [facility]/dr reid at time of discharge
Diagnosis
-
Date of Service: November 08, 2023
-
Patient Diagnosis:
s/p aqua-ablation
post op sepsis- ecoli
hematuria
renal failure
afib
urinary retention
NOTE- URINARY TRACT INFECTION/SEPSIS SUSPECT DUE TO RECENT PROSTATE PROCEDURE AND MARCH CATHETER REQUIREMENT
Subjective
-
pt looks and feels good
wbc normalized
remains in sinus
failed TOV over the weekend- march out again this am- flomax on board
Objective
-
Vital Signs
Temp Pulse Resp BP Pulse Ox
98.8 F 70 18 134/59 95
11/08/23 03:36 11/08/23 03:36 11/08/23 03:36 11/08/23 03:36 11/08/23 03:36
Intake and Output
11/07/23 11/08/23 11/09/23
06:59 06:59 06:59
Intake Total 1080 / 1080 1120 / 1120
Output Total 1750 / 1750 3155 / 3155
Balance -670 / -670 -2034 /
Intake:
Oral fluids 1080 / 1080 1120 / 1120
Output:
Urine, March 500 / 500 3155 / 3155
Urine, Voided 1250 / 1250
Other:
Number of approximated LARGE 1
amounts of urine
Physical Exam
-
General - no acute distress
[2023-11-08] MEDS: PHOSLO 667 MG PO ×2 (07:59→18:23)
[2023-11-08] MEDS: OCEAN, SALINE MIST 1 SPRAYS NASAL ×2 (07:59→21:04)
[2023-11-08 08:22] LABS: Hematocrit 23.5 % (39.0-52.0); Hemoglobin 7.9 g/dL (13.0-18.0); Mean Corp Hgb Conc. 33.6 g/dL (33.0-37.0); Mean Corpuscular Hgb 30.3 pg (27.0-31.0); Mean Platelet Volume 10.4 fL (7.4-10.4); Platelet Count 473 10^3/uL (130-400); Red Blood Cell Count 2.61 10^6/uL (4.70-6.10); Red Cell Dist. Width 12.8 % (11.5-14.5); White Blood Cell Count 10.3 10^3/uL (4.8-10.8)
[2023-11-08] MEDS: EPOGEN 10000 UNITS IV (08:52)
[2023-11-08 09:01] LABS: ALT (SGPT) 19 U/L (0-50); AST (SGOT) 25 U/L (17-59); Alkaline Phosphatase 139 U/L (38-126); Blood Urea Nitrogen 40 mg/dl (9-20); Calcium 8.5 mg/dl (8.4-10.2); Carbon Dioxide 27 mmol/L (22-30); Chloride 96 mmol/L (98-107); Estimated Creatinine Clearance 13 ml/min; Glucose 113 mg/dl (70-99); Phosphorus 6.8 mg/dl (2.5-4.5); Potassium 3.6 mmol/L (3.5-5.1); Sodium 133 mmol/L (135-145); Total Bilirubin 0.5 mg/dl (0.2-1.3); Total Protein 5.6 g/dl (6.3-8.2); eGFR 7.78
[2023-11-08 11:03] VITALS: BP 165/85
--- NOTE | 2023-11-08 11:17 | W.PN.HOSP.TC ---
Today's Communication/Plan
-
Decrease beta-blockers to 50 twice daily
May need to add additional medicines for blood pressure if pressure goes high
Chest x-ray
Bladder scan every 6 hours to check PVR x 4.
Assessment / Plan
Assessment / Plan
CVS: S1-S2 normal
Chest: CTA B/L
Abdomen: Soft, NT / Bowel sounds present
Extremities: No edema
63-year-old male prostate recently was seen at [facility] for aqua ablation of prostate on Tuesday. Tuesday had large bladder clot which required evacuation in the OR. He was discharged home on . Catheter was removed on 10/22/2023. Early
morning he woke up with fevers and chills. Urine bloody appearing in the ER.
CT of the abdomen and pelvis mild asymmetric left adrenal gland diffuse thickening and. Renal fat stranding possible adrenal congestion. 1 mm calcific focus in each kidney no ureteral calculus no hydronephrosis. Mild perinephric soft tissue
stranding left greater than right nonspecific. Possible mid small bowel ileus/nonspecific enteritis. No small bowel obstruction. Avalos catheter in the bladder. Diffuse bladder wall thickening indicating cystitis. General prostatic enlargement.
MRI Noted Post-ablation changes of the prostate without convincing evidence for intraprostatic abscess.
Moderate free fluid in the pelvis, likely reactive.
Findings throughout the prostate gland peripheral zone compatible with PI-RADS 2 (the presence of clinically significant cancer is unlikely).
Moderate to severe BPH changes.
Echo 10/26/2023-normal LV systolic function. EF 55% mild concentric LVH. Mild to moderate MR. Mild TR
# Septic shock requiring pressors initially
# Leukocytosis/leukopenia-secondary sepsis
-E Coli Sepsis- source -Likely secondary to recent procedure
-Was on IV antibiotics-Zosyn changed to meropenem then Rocephin, later transitioned to oral abx cefuroxime 500 mg QD till 11/05/23 as per ID
-Blood and urine cultures positive for E. coli, repeat blood cultures ngtd
-CT MRI abdomen pelvis as above
# Acute kidney injury/Renal Failure
-Likely secondary to septic shock and renal hypoperfusion/prerenal
-ATN Possible
-Ruled out postrenal-Avalos catheter placed
-Serologies negative. Normal Complements
-Started on HD, continue as per nephro
-USS no obstruction
-11/03 HD cath placed
-Dialysis again continued today because of the creatinine even though he is making urine
-Avalos taken out 11/05/23- Had retention so Avalos had to go back in . Avalos again taken out on 11/08/2023
-Flomax started
#10/29 New Herpetic Lesions Nostril Area
Valacyclovir renally dosed, completed recommended 2 doses
Resolving
#New Afib
Patient since spontaneously converted back to NSR 11/03
Not a candidate for AC per [facility] given recent bleed
Went back in Afib for short duration 11/05/23. Required Cardizem gtt. Then back in SR now
Cardio eval appreciated, Currently on metoprolol tartrate 100 mg BID, chadvasc score 0, anticoagulation not indicated at this time.
No Anti arrythmics per
Cardiology note states to continue metoprolol 50 twice daily.
Patient has a new cough which started after increasing the dose of metoprolol-therefore will go back to 50 twice daily.
He denies any history of asthma, COPD or bronchospasm but this is possible
Check chest x-ray
# Mucous in stool and diarrhea, Bloating
Loose stools- GI eval appreciated
Diet changed to low lactose and low residue-patient is complaining about the diet
Stool studies neg so far
C. difficile negative, norovirus negative, Giardia neg
repeat Cultures NGTD
Imodium prn started with subsequent improvement
? Post infectious Lactose intolerance? Discussed to lower lactose.
# Lactic acidosis-resolved
# Hematuria
-Status post aqua ablation of the prostate 10/18/2023 at [facility]
-Large clot in the bladder on 10/19/2023 needed OR evacuation at [facility]
-S/P CBI here at
-Clear at this time
# Coagulopathy-secondary to sepsis-Resolved
# Hyponatremia- volume overload,
# Thrombocytopenia secondary to sepsis
Normal fibrinogen level
Possibly also consumptive from clotting of the filter?
Hematology eval appreciated
Resolved
# Anemia likely secondary to acute blood loss secondary to hematuria, also iron deficiency, anemia of chronic disease, and sepsis contributing
-H&H 7.4
Repeat
# Elevated LFTs-likely secondary to septic shock and decreased perfusion
-Improving/resolved
# Hypokalemia- monitor and replete as necessary
# Hypocalcemia
#Vit D deficiency
Vit D supplementation
monitor and replete calcium as necessary, correct for low albumin before repleting
# Hypomagnesemia-replaced
# History of back surgery for disc herniation
# Hypoalbuminemia
# Alcohol use 3 to 4 glasses 3 times a week
# DVT prophylaxis-SCDs given recent bleeding/hematuria/anemia
# Full code
Discussed with nursing
Anticipated Discharge: > 48 hours
Subjective/Interval History
-
Date of Service: November 08, 2023
Objective Data
-
Labs:
Laboratory Results
11/08/23
07:29
WBC 10.3
Hgb 7.9 L
Hct 23.5 L
Plt Count 473 H
Sodium 133 L
Potassium 3.6
Chloride 96 L
Carbon Dioxide 27
BUN 40 H
Creatinine 7.3 H*
Glucose 113 H
Calcium 8.5
Total Bilirubin 0.5
AST 25
ALT 19
Alkaline Phosphatase 139 H
Vital Signs:
Vital Signs
Temp Pulse Resp BP Pulse Ox
98.4 F 68 18 153/77 95
11/08/23 07:10 11/08/23 07:10 11/08/23 07:10 11/08/23 07:10 11/08/23 10:41
I&O
11/07/23 11/08/23 11/09/23
06:59 06:59 06:59
Intake Total 1080 / 1080 1120 / 1120
Output Total 1750 / 1750 3155 / 3155
Balance -670 / -670 -2034 / -2034
--- NOTE | 2023-11-08 11:36 | W.PN.NEPH.HD ---
Assessment
-
- will need heparin for next treatment on
- no complaints on HD
- awaiting renal recovery
Progress Note - Hemodialysis
-
Date of Service: November 08, 2023
Duration: 30 minutes and 3 hours
Potassium Bath: 3
Calcium Bath: 2.5
Opti-Dialyzer: 160
Ultrafiltration: Other
Blood Flow: 400
Dialysate Flow: 600
Heparin: none
EPO: 10K
[2023-11-08] MEDS: TYLENOL 650 MG PO (11:50)
[2023-11-08] MEDS: FLOMAX 0.400000000000000022 MG PO (11:50)
[2023-11-08] MEDS: DETROL LA 2 MG PO (11:50)
[2023-11-08] MEDS: VISBIOME 1 CAP PO (11:50)
[2023-11-08] MEDS: PHOSLO PO (11:50)
[2023-11-08] MEDS: VITAMIN C 500 MG PO (11:50)
[2023-11-08] MEDS: VITAMIN D3 (cholecalciferol) 25 MCG PO (11:51)
[2023-11-08] MEDS: OCEAN, SALINE MIST NASAL ×2 (11:57→17:19)
[2023-11-08] MEDS: LOPRESSOR PO (11:59)
--- NOTE | 2023-11-08 14:03 | CM ---
Received call from E-Karla ([phone]) from [facility] requesting update on the patient. Per notes, patient no ready for discharge today. Patient has a reserved chair time at [facility] for -- at 4:30pm. Ken to follow-up tomorrow
with CM. CM continues to be available to patient/family and is monitoring medical plan for needs at discharge.
Plan: Discharge to home with Jeronimo ALMEIDA.
Jeronimo
[2023-11-08 15:27] VITALS: BP 157/55
[2023-11-08] MEDS: LIPITOR 40 MG PO (17:04)
[2023-11-08 19:48] VITALS: BP 145/74
[2023-11-08] MEDS: LOPRESSOR 50 MG PO (21:03)
[2023-11-08 23:32] VITALS: BP 143/74
[2023-11-09 03:37] VITALS: BP 155/69
[2023-11-09 04:40] VITALS: BMI 23.7
[2023-11-09 05:01] LABS: Hematocrit 25.9 % (39.0-52.0); Hemoglobin 8.5 g/dL (13.0-18.0); Mean Corp Hgb Conc. 32.8 g/dL (33.0-37.0); Mean Corpuscular Hgb 29.7 pg (27.0-31.0); Mean Corpuscular Volume 90.6 fL (80.0-94.0); Mean Platelet Volume 10.1 fL (7.4-10.4); Platelet Count 461 10^3/uL (130-400); Red Blood Cell Count 2.86 10^6/uL (4.70-6.10); Red Cell Dist. Width 12.7 % (11.5-14.5)
[2023-11-09 05:31] LABS: ALT (SGPT) 20 U/L (0-50); AST (SGOT) 27 U/L (17-59); Alkaline Phosphatase 127 U/L (38-126); Blood Urea Nitrogen 22 mg/dl (9-20); Calcium 8.5 mg/dl (8.4-10.2); Carbon Dioxide 30 mmol/L (22-30); Chloride 95 mmol/L (98-107); Estimated Creatinine Clearance 22 ml/min; Glucose 106 mg/dl (70-99); Sodium 133 mmol/L (135-145); Total Bilirubin 0.5 mg/dl (0.2-1.3); Total Protein 5.4 g/dl (6.3-8.2); eGFR 14.69
[2023-11-09 07:14] VITALS: BP 149/79
[2023-11-09] MEDS: FLOMAX 0.400000000000000022 MG PO (08:31)
[2023-11-09] MEDS: DETROL LA 2 MG PO (08:31)
[2023-11-09] MEDS: PHOSLO 667 MG PO ×2 (08:31→17:02)
[2023-11-09] MEDS: VITAMIN D3 (cholecalciferol) 25 MCG PO (08:32)
[2023-11-09] MEDS: OCEAN, SALINE MIST NASAL ×4 (08:32→20:36)
[2023-11-09] MEDS: VISBIOME 1 CAP PO (08:32)
[2023-11-09] MEDS: VITAMIN C 500 MG PO (08:32)
[2023-11-09] MEDS: LOPRESSOR 50 MG PO ×2 (08:32→20:35)
--- NOTE | 2023-11-09 10:08 | W.PN.HOSP.TC ---
Today's Communication/Plan
-
Continue to follow creatinine and urine output
Bladder scan with the slightest suspicion of any retention as retention can impair his renal recovery
Assessment / Plan
Assessment / Plan
CVS: S1-S2 normal
Chest: CTA B/L
Abdomen: Soft, NT / Bowel sounds present
Extremities: No edema
63-year-old male prostate recently was seen at [facility] for aqua ablation of prostate on Tuesday. Tuesday had large bladder clot which required evacuation in the OR. He was discharged home on . Catheter was removed on 10/22/2023. Early
morning he woke up with fevers and chills. Urine bloody appearing in the ER.
CT of the abdomen and pelvis mild asymmetric left adrenal gland diffuse thickening and. Renal fat stranding possible adrenal congestion. 1 mm calcific focus in each kidney no ureteral calculus no hydronephrosis. Mild perinephric soft tissue
stranding left greater than right nonspecific. Possible mid small bowel ileus/nonspecific enteritis. No small bowel obstruction. Avalos catheter in the bladder. Diffuse bladder wall thickening indicating cystitis. General prostatic enlargement.
MRI Noted Post-ablation changes of the prostate without convincing evidence for intraprostatic abscess.
Moderate free fluid in the pelvis, likely reactive.
Findings throughout the prostate gland peripheral zone compatible with PI-RADS 2 (the presence of clinically significant cancer is unlikely).
Moderate to severe BPH changes.
Echo 10/26/2023-normal LV systolic function. EF 55% mild concentric LVH. Mild to moderate MR. Mild TR
Chest x-ray reviewed by me-small effusions but no infiltrates
# Septic shock requiring pressors initially
# Leukocytosis/leukopenia-secondary sepsis
-E Coli Sepsis- source -Likely secondary to recent procedure
-Was on IV antibiotics-Zosyn changed to meropenem then Rocephin, later transitioned to oral abx cefuroxime 500 mg QD till 11/05/23 as per ID
-Blood and urine cultures positive for E. coli, repeat blood cultures ngtd
-CT MRI abdomen pelvis as above
# Acute kidney injury/Renal Failure
-Likely secondary to septic shock and renal hypoperfusion/prerenal
-ATN Possible
-Ruled out postrenal-Avalos catheter placed
-Serologies negative. Normal Complements
-Started on HD, catheter placed on 11/03/2023
-USS no obstruction
-Avalos taken out 11/05/23- Had retention so Avalos had to go back in . Avalos again taken out on 11/08/2023
-Voiding well
-Flomax started
-Bladder scan less than 350 mL x 4
#10/29 New Herpetic Lesions Nostril Area
Valacyclovir renally dosed, completed recommended 2 doses
Resolving
#New Afib
Patient since spontaneously converted back to NSR 11/03
Not a candidate for AC per [facility] given recent bleed
Went back in Afib for short duration 11/05/23. Required Cardizem gtt. Then back in SR now
Cardio eval appreciated, Currently on metoprolol tartrate 100 mg BID, chadvasc score 0, anticoagulation not indicated at this time.
No Anti arrythmics per
Cardiology note states to continue metoprolol 50 twice daily.-Changed
#Patient has a new cough which started after increasing the dose of metoprolol-therefore will go back to 50 twice daily.
He denies any history of asthma, COPD or bronchospasm but this is possible
Chest x-ray unremarkable except for some mild effusions
# Mucous in stool and diarrhea, Bloating
Loose stools- GI eval appreciated
Diet changed to low lactose and low residue-patient is complaining about the diet
Stool studies neg so far
C. difficile negative, norovirus negative, Giardia neg
repeat Cultures NGTD
Imodium prn started with subsequent improvement
? Post infectious Lactose intolerance? Discussed to lower lactose.
# Lactic acidosis-resolved
# Hematuria
-Status post aqua ablation of the prostate 10/18/2023 at [facility]
-Large clot in the bladder on 10/19/2023 needed OR evacuation at [facility]
-S/P CBI here at
-Clear at this time
# Coagulopathy-secondary to sepsis-Resolved
# Hyponatremia- volume overload,
# Thrombocytopenia secondary to sepsis
Normal fibrinogen level
Possibly also consumptive from clotting of the filter?
Hematology eval appreciated
Resolved
# Anemia likely secondary to acute blood loss secondary to hematuria, also iron deficiency, anemia of chronic disease, and sepsis contributing
# Elevated LFTs-likely secondary to septic shock and decreased perfusion
-Improving/resolved
# Hypokalemia- monitor and replete as necessary
# Hypocalcemia
#Vit D deficiency
Vit D supplementation
monitor and replete calcium as necessary, correct for low albumin before repleting
# Hypomagnesemia-replaced
# History of back surgery for disc herniation
# Hypoalbuminemia
# Alcohol use 3 to 4 glasses 3 times a week
# DVT prophylaxis-SCDs given recent bleeding/hematuria/anemia
# Full code
Anticipated Discharge: 24 - 48 hours
Subjective/Interval History
-
Date of Service: November 09, 2023
Objective Data
-
Labs:
Laboratory Results
11/09/23
04:37
WBC 9.0
Hgb 8.5 L
Hct 25.9 L
Plt Count 461 H
Sodium 133 L
Potassium 4.0
Chloride 95 L
Carbon Dioxide 30
BUN 22 H
Creatinine 4.3 H*
Glucose 106 H
Calcium 8.5
Total Bilirubin 0.5
AST 27
ALT 20
Alkaline Phosphatase 127 H
Vital Signs:
Vital Signs
Temp Pulse Resp BP Pulse Ox
98.0 F 69 16 149/79 98
11/09/23 07:14 02/14/24 08:32 11/09/23 07:14 11/09/23 08:32 11/09/23 07:14
I&O
11/08/23 11/09/23 11/10/23
06:59 06:59 06:59
Intake Total 1120 / 1120 790 / 790
Output Total 3155 / 3155 1850 / 1850
Balance -2035 / -2035 -1060 / -1060
[2023-11-09 11:05] VITALS: BP 154/73
[2023-11-09] MEDS: PHOSLO PO (11:54)
--- NOTE | 2023-11-09 13:48 | W.PN.NEPH.PH ---
Today's Communication / Plan
-
HD daily evaluation
planned for tomorrow
Assessment/Plan
-
Assessment
-Septic shock
-Ecoli sepsis s/p prostate aqua-ablation
-Hyponatremia
-metabolic/lactic acidosis
-hypomagnesemia
-urinary retention now on CBI
-[place]
Plan
creatinine 4.3 after Hd yesterday
nonoliguric
no u/f on HD
Follow-up BMP tomorrow prior to HD
Patient had to have Avalos reinserted on 11/05/2023 for urinary retention
Hyponatremia etiology remains elusive: FR is on and HD length extended. likely from volume issues as worsens between HD treatments
-
-
Date of Service: November 09, 2023
CC / HPI / ROS
-
Chief Complaint:
[place]
History of Present Illness:
tolerated HD on Sat
BP stable
on abx for ecoli sepsis
Na low at 133
WBC remains elevated stable
He had to have Avalos reinserted on 11/05/2023 for urinary retention, plan for removal tomorrow
Review of Systems:
no CP/SOB
Avalos: nonoliguric
weights stable
Labs
-
Labs:
WBC 9.0 10^3/uL (4.8-10.8) 11/09/23 04:37
RBC 2.86 10^6/uL (4.70-6.10) L 11/09/23 04:37
Hgb 8.5 g/dL (13.0-18.0) L 11/09/23 04:37
Hct 25.9 % (39.0-52.0) L 11/09/23 04:37
Plt Count 461 10^3/uL (130-400) H 11/09/23 04:37
Sodium 133 mmol/L (135-145) L 11/09/23 04:37
Potassium 4.0 mmol/L (3.5-5.1) 11/09/23 04:37
Chloride 95 mmol/L (98-107) L 11/09/23 04:37
Carbon Dioxide 30 mmol/L (22-30) 11/09/23 04:37
BUN 22 mg/dl (9-20) H 11/09/23 04:37
Creatinine 4.3 mg/dL (0.7-1.3) H* 11/09/23 04:37
eGFR 14.69 11/09/23 04:37
Glucose 106 mg/dl (70-99) H 11/09/23 04:37
Calcium 8.5 mg/dl (8.4-10.2) 11/09/23 04:37
Phosphorus 5.0 mg/dl (2.5-4.5) H 11/09/23 04:37
Albumin 3.0 g/dl (3.5-5.0) L 11/09/23 04:37
Physical Exam
-
Vital Signs:
Vital Signs
Temp Pulse Resp BP Pulse Ox
97.5 F 67 18 154/73 98
11/09/23 11:05 11/09/23 11:05 11/09/23 11:05 11/09/23 11:05 11/09/23 11:05
Cardiovascular:: Regular rate and rhythm
Respiratory:: Bilateral: CTA
Lung Excursion:: Normal
Abdomen:: Nontender and Soft
Bowel Sounds:: Normal
Extremity Edema:: None: Bilateral:
Avalos Catheter: No
--- NOTE | 2023-11-09 15:06 | PTOTSP ---
Patient is independent with functional mobility. No skilled PT needs at this time. Will D/C PT services.
[2023-11-09 15:15] VITALS: BP 154/79
--- NOTE | 2023-11-09 16:04 | CM ---
Received call from Lalitha ([phone]) from [facility] requesting update on the patient. Per notes, patient no ready for discharge today. Patient has a reserved chair time at [facility] for - at 4:30pm. CM continues to be
available to patient/family and is monitoring medical plan for needs at discharge.
Plan: Discharge to home with Jeronimo ALMEIDA.
Jeronimo
[2023-11-09] MEDS: LIPITOR 40 MG PO (17:00)
[2023-11-09 19:27] VITALS: BP 139/67
[2023-11-09 23:13] VITALS: BP 140/74
[2023-11-10] VITALS (7 sets, daily range): BP systolic 126–167; BP diastolic 61–81; BMI 23.2
[2023-11-10 06:19] LABS: Hematocrit 22.3 % (39.0-52.0); Hemoglobin 7.4 g/dL (13.0-18.0); Mean Corp Hgb Conc. 33.2 g/dL (33.0-37.0); Mean Corpuscular Hgb 29.1 pg (27.0-31.0); Mean Corpuscular Volume 87.8 fL (80.0-94.0); Platelet Count 387 10^3/uL (130-400); Red Blood Cell Count 2.54 10^6/uL (4.70-6.10)
[2023-11-10 07:04] LABS: Blood Urea Nitrogen 27 mg/dl (9-20); Calcium 8.2 mg/dl (8.4-10.2); Carbon Dioxide 27 mmol/L (22-30); Chloride 98 mmol/L (98-107); Estimated Creatinine Clearance 21 ml/min; Glucose 81 mg/dl (70-99); Potassium 4.1 mmol/L (3.5-5.1); Sodium 135 mmol/L (135-145); eGFR 13.55
[2023-11-10] MEDS: LOPRESSOR 50 MG PO ×2 (09:03→20:26)
[2023-11-10] MEDS: VITAMIN C 500 MG PO (09:03)
[2023-11-10] MEDS: VISBIOME 1 CAP PO (09:03)
[2023-11-10] MEDS: PHOSLO 667 MG PO ×2 (09:03→19:14)
[2023-11-10] MEDS: VITAMIN D3 (cholecalciferol) 25 MCG PO (09:03)
[2023-11-10] MEDS: FLOMAX 0.400000000000000022 MG PO (09:03)
[2023-11-10] MEDS: OCEAN, SALINE MIST NASAL ×4 (09:04→20:28)
--- NOTE | 2023-11-10 10:59 | W.PN.HOSP.TC ---
Today's Communication/Plan
-
Dialysis today
Hemoglobin in the morning
If stable discharge and Pt to start HD as OP Tuesday
Patient wants to liberalize diet he has no more diarrhea. We did discuss to watch if he has lactose intolerance if so he has to limit.
Assessment / Plan
Assessment / Plan
CVS: S1-S2 normal
Chest: CTA B/L
Abdomen: Soft, NT / Bowel sounds present
Extremities: No edema
63-year-old male prostate recently was seen at [facility] for aqua ablation of prostate on Tuesday. Tuesday had large bladder clot which required evacuation in the OR. He was discharged home on . Catheter was removed on 10/22/2023. Early
morning he woke up with fevers and chills. Urine bloody appearing in the ER.
CT of the abdomen and pelvis mild asymmetric left adrenal gland diffuse thickening and. Renal fat stranding possible adrenal congestion. 1 mm calcific focus in each kidney no ureteral calculus no hydronephrosis. Mild perinephric soft tissue
stranding left greater than right nonspecific. Possible mid small bowel ileus/nonspecific enteritis. No small bowel obstruction. Avalos catheter in the bladder. Diffuse bladder wall thickening indicating cystitis. General prostatic enlargement.
MRI Noted Post-ablation changes of the prostate without convincing evidence for intraprostatic abscess.
Moderate free fluid in the pelvis, likely reactive.
Findings throughout the prostate gland peripheral zone compatible with PI-RADS 2 (the presence of clinically significant cancer is unlikely).
Moderate to severe BPH changes.
Echo 10/26/2023-normal LV systolic function. EF 55% mild concentric LVH. Mild to moderate MR. Mild TR
Chest x-ray reviewed by me-small effusions but no infiltrates
# Septic shock requiring pressors initially
# Leukocytosis/leukopenia-secondary sepsis
-E Coli Sepsis- source -Likely secondary to recent procedure
-Was on IV antibiotics-Zosyn changed to meropenem then Rocephin, later transitioned to oral abx cefuroxime 500 mg QD till 11/05/23 as per ID
-Blood and urine cultures positive for E. coli, repeat blood cultures ngtd
-CT MRI abdomen pelvis as above
# Acute kidney injury/Renal Failure
-Likely secondary to septic shock and renal hypoperfusion/prerenal
-ATN Possible
-Ruled out postrenal-Avalos catheter placed
-Serologies negative. Normal Complements
-Started on HD, catheter placed on 11/03/2023
-USS no obstruction
-Avalos taken out 11/05/23- Had retention so Avalos had to go back in . Avalos again taken out on 11/08/2023
-Voiding well, making urine but creatinine not coming down proportionate to the urine output
-Patient has a dialysis place set up as outpatient
-Flomax started
#10/29 New Herpetic Lesions Nostril Area
Valacyclovir renally dosed, completed recommended 2 doses
Resolving
#New Afib
Patient since spontaneously converted back to NSR 11/03
Not a candidate for AC per D/W Urology given recent bleed
Went back in Afib for short duration 11/05/23. Required Cardizem gtt. Then back in SR now
Cardio eval appreciated, Currently on metoprolol tartrate 100 mg BID, chadvasc score 0, anticoagulation not indicated at this time.
No Anti arrythmics per
Cardiology note states to continue metoprolol 50 twice daily.-Changed
#Patient has a new cough which started after increasing the dose of metoprolol-therefore will go back to 50 twice daily.
He denies any history of asthma, COPD or bronchospasm but this is possible
Chest x-ray unremarkable except for some mild effusions
# Mucous in stool and diarrhea, Bloating
Loose stools- GI eval appreciated
Diet changed to low lactose and low residue-patient is complaining about the diet
Stool studies neg so far
C. difficile negative, norovirus negative, Giardia neg
repeat Cultures NGTD
Imodium prn started with subsequent improvement
? Post infectious Lactose intolerance? Discussed to lower lactose.
# Lactic acidosis-resolved
# Hematuria
-Status post aqua ablation of the prostate 10/18/2023 at [facility]
-Large clot in the bladder on 10/19/2023 needed OR evacuation at [facility]
-S/P CBI here at
-Clear at this time
# Coagulopathy-secondary to sepsis-Resolved
# Hyponatremia- volume overload,
# Thrombocytopenia secondary to sepsis
Normal fibrinogen level
Possibly also consumptive from clotting of the filter?
Hematology eval appreciated
Resolved
# Anemia likely secondary to acute blood loss secondary to hematuria, also iron deficiency, anemia of chronic disease, and sepsis contributing
# Elevated LFTs-likely secondary to septic shock and decreased perfusion
-Improving/resolved
# Hypokalemia- monitor and replete as necessary
# Hypocalcemia
#Vit D deficiency
Vit D supplementation
monitor and replete calcium as necessary, correct for low albumin before repleting
# Hypomagnesemia-replaced
# History of back surgery for disc herniation
# Hypoalbuminemia
# Alcohol use 3 to 4 glasses 3 times a week
# DVT prophylaxis-SCDs given recent bleeding/hematuria/anemia
# Full code
Discussed with nephrology
Anticipated Discharge: Within 24 hours
Subjective/Interval History
-
Date of Service: November 10, 2023
Objective Data
-
Labs:
Laboratory Results
11/10/23
04:55
WBC 8.0
Hgb 7.4 L
Hct 22.3 L
Plt Count 387
Sodium 135
Potassium 4.1
Chloride 98
Carbon Dioxide 27
BUN 27 H
Creatinine 4.6 H*
Glucose 81
Calcium 8.2 L
Vital Signs:
Vital Signs
Temp Pulse Resp BP Pulse Ox
98.4 F 74 12 145/68 98
11/10/23 07:30 11/10/23 09:03 11/10/23 07:30 11/10/23 09:03 11/10/23 07:30
I&O
11/09/23 11/10/23 11/11/23
06:59 06:59 06:59
Intake Total 790 / 790 1320 / 1320
Output Total 1850 / 1850 3300 / 3300
Balance -1060 / -1060 -1979 /
[2023-11-10] MEDS: PHOSLO PO (12:19)
--- NOTE | 2023-11-10 14:59 | CM ---
Patient has a reserved chair time at [facility] for M-W-F at 4:30pm. CM continues to be available to patient/family and is monitoring medical plan for needs at discharge.
Plan: Discharge to home with Jeronimo ALMEIDA.
Jeronimo
[2023-11-10] MEDS: HEPARIN 500 UNITS IV ×2 (15:25→17:23)
[2023-11-10] MEDS: ProAmatine 10 MG PO (15:48)
[2023-11-10] MEDS: RETACRIT 8000 UNITS IV (16:00)
--- NOTE | 2023-11-10 16:11 | W.PN.NEPH.HD ---
Assessment
-
Patient seen on HD
sbp stable at 170
hgb ~7.4
march out
creatinine up to 4.6 but uop >3liters
check bmp in am
next HD will be planned for Tuesday to assess for recovery
possible d/c in am if hgb stable
Progress Note - Hemodialysis
-
Date of Service: November 10, 2023
Duration: 30 minutes and 3 hours
Potassium Bath: 3
Calcium Bath: 2.5
Opti-Dialyzer: 160
Ultrafiltration: Other (net negative)
Blood Flow: 400
Dialysate Flow: 600
Heparin: 500 times two
EPO: 8K
[2023-11-10] MEDS: HEPARIN 4300 UNITS INTRACATH (18:49)
[2023-11-10] MEDS: LIPITOR 40 MG PO (19:14)
[2023-11-10] MEDS: TYLENOL PO (19:15)
[2023-11-10] MEDS: APRESOLINE 5 MG IV (19:18)
[2023-11-11 03:10] VITALS: BP 140/62
[2023-11-11 05:40] VITALS: BMI 22.8
[2023-11-11 07:25] VITALS: BP 145/74
[2023-11-11 07:33] LABS: Glucose - Point of Care 86 mg/dl (70-99)
--- NOTE | 2023-11-11 07:54 | W.PN.URO.CBU ---
Today's Communication / Plan
-
cleared for discharge urologically
Assessment / Plan
-
sepsis after aqua-ablation- resolved/wbc normalized /off antibx
afib- back in sinus- no plan for anti-coagulation at this time
renal failure
pt seems stable urologically for discharge without catheter
would continue flomax 0.4mg
pt should schedule f/u with [place] for post op follow up
Diagnosis
-
Date of Service: November 11, 2023
-
Patient Diagnosis:
s/p aqua-ablation
post op sepsis- ecoli
hematuria
renal failure
afib
urinary retention
NOTE- URINARY TRACT INFECTION/SEPSIS SUSPECT DUE TO RECENT PROSTATE PROCEDURE AND RIBEIRO CATHETER REQUIREMENT
Subjective
-
pt looks goood
no hematuria
pvr's consistently under 150cc- some expected freq and urgency
great urine volume- cr down- but still around 4-5- dialysis yesterday
Objective
-
Vital Signs
Temp Pulse Resp BP Pulse Ox
99.6 F 70 14 140/62 94
11/11/23 03:10 11/11/23 03:10 11/11/23 03:10 11/11/23 03:10 11/11/23 03:10
Intake and Output
11/10/23 11/11/23 11/12/23
06:59 06:59 06:59
Intake Total 1320 / 1320 1440 / 1440
Output Total 3300 / 3300 3100 / 3100
Balance -1979 / -1979 -1659 / -1659
Intake:
Oral fluids 1320 / 1320 1440 / 1440
IV fluids (Total) 0 / 0
IV piggybacks 0 / 0
Output:
Urine, Voided 3300 / 3300 3100 / 3100
Review of Systems
-
Constitutional: No Symptoms
Respiratory: No Symptoms
Cardiac: No Symptoms
Abdomen/GI: No Symptoms
Physical Exam
-
General - no acute distress
[2023-11-11 08:04] LABS: Blood Urea Nitrogen 16 mg/dl (9-20); Calcium 8.6 mg/dl (8.4-10.2); Carbon Dioxide 31 mmol/L (22-30); Chloride 101 mmol/L (98-107); Estimated Creatinine Clearance 30 ml/min; Glucose 88 mg/dl (70-99); Potassium 4.1 mmol/L (3.5-5.1); Sodium 137 mmol/L (135-145); eGFR 21.76
[2023-11-11 08:12] LABS: Hematocrit 26.7 % (39.0-52.0); Hemoglobin 8.6 g/dL (13.0-18.0); Mean Corp Hgb Conc. 32.2 g/dL (33.0-37.0); Mean Corpuscular Volume 89.9 fL (80.0-94.0); Mean Platelet Volume 9.8 fL (7.4-10.4); Platelet Count 417 10^3/uL (130-400); Red Blood Cell Count 2.97 10^6/uL (4.70-6.10); Red Cell Dist. Width 12.9 % (11.5-14.5); White Blood Cell Count 7.5 10^3/uL (4.8-10.8)
[2023-11-11] MEDS: VISBIOME 1 CAP PO (08:15)
[2023-11-11] MEDS: LOPRESSOR 50 MG PO (08:15)
[2023-11-11] MEDS: FLOMAX 0.400000000000000022 MG PO (08:15)
[2023-11-11] MEDS: OCEAN, SALINE MIST NASAL ×2 (08:15→11:43)
[2023-11-11] MEDS: VITAMIN D3 (cholecalciferol) 25 MCG PO (08:15)
[2023-11-11] MEDS: VITAMIN C 500 MG PO (08:15)
[2023-11-11] MEDS: PHOSLO 667 MG PO (08:16)
--- NOTE | 2023-11-11 09:44 | W.PN.HOSP.TC ---
Addendum entered and electronically signed by Poonam Loya MD 11/11/23 10:02:
Will stop Statin as no clear indication per Lipid panel.
Original Note:
Today's Communication/Plan
-
Discharge
Assessment / Plan
Assessment / Plan
CVS: S1-S2 normal
Chest: CTA B/L
Abdomen: Soft, NT / Bowel sounds present
Extremities: No edema
63-year-old male prostate recently was seen at [facility] for aqua ablation of prostate on Tuesday. Tuesday had large bladder clot which required evacuation in the OR. He was discharged home on . Catheter was removed on 10/22/2023. Early
morning he woke up with fevers and chills. Urine bloody appearing in the ER.
CT of the abdomen and pelvis mild asymmetric left adrenal gland diffuse thickening and. Renal fat stranding possible adrenal congestion. 1 mm calcific focus in each kidney no ureteral calculus no hydronephrosis. Mild perinephric soft tissue
stranding left greater than right nonspecific. Possible mid small bowel ileus/nonspecific enteritis. No small bowel obstruction. Avalos catheter in the bladder. Diffuse bladder wall thickening indicating cystitis. General prostatic enlargement.
MRI Noted Post-ablation changes of the prostate without convincing evidence for intraprostatic abscess.
Moderate free fluid in the pelvis, likely reactive.
Findings throughout the prostate gland peripheral zone compatible with PI-RADS 2 (the presence of clinically significant cancer is unlikely).
Moderate to severe BPH changes.
Echo 10/26/2023-normal LV systolic function. EF 55% mild concentric LVH. Mild to moderate MR. Mild TR
Chest x-ray reviewed by me-small effusions but no infiltrates
# Septic shock requiring pressors initially
# Leukocytosis/leukopenia-secondary sepsis
-E Coli Sepsis- source -Likely secondary to recent procedure
-Was on IV antibiotics-Zosyn changed to meropenem then Rocephin, later transitioned to oral abx cefuroxime 500 mg QD till 11/05/23 as per ID
-Blood and urine cultures positive for E. coli, repeat blood cultures neg
-CT MRI abdomen pelvis as above
# Acute kidney injury/Renal Failure
-Likely secondary to septic shock and renal hypoperfusion/prerenal
-ATN Likely as well
-USS no obstruction
-Serologies negative. Normal Complements
-Started on HD, catheter placed on 11/03/2023
-Avalos taken out 11/05/23- Had retention so Avalos had to go back in . Avalos again taken out on 11/08/2023
-Voiding well, making urine creat 3.1 today
-Patient has a dialysis place set up as outpatient
-Flomax started
#10/29 New Herpetic Lesions Nostril Area
S/P Valtrex
#New Afib
Patient since spontaneously converted back to NSR 11/03
Not a candidate for AC per D/W Urology given recent bleed
Went back in Afib for short duration 11/05/23. Required Cardizem gtt. Then back in SR now
Cardio eval appreciated, Currently on metoprolol tartrate 100 mg BID, chadvasc score 0, anticoagulation not indicated at this time.
No Anti arrythmics per
Cardiology note states to continue metoprolol 50 twice daily.-Changed
#Patient has a new cough which started after increasing the dose of metoprolol-therefore back to 50 twice daily.
He denies any history of asthma, COPD or bronchospasm but this is possible
Chest x-ray unremarkable except for some mild effusions
# Mucous in stool and diarrhea, Bloating
Loose stools- GI eval appreciated
Diet changed to low lactose and low residue-patient is complaining about the diet
Stool studies neg so far
C. difficile negative, norovirus negative, Giardia neg
repeat Cultures NGTD
BM better
# Lactic acidosis-resolved
# Hematuria
-Status post aqua ablation of the prostate 10/18/2023 at [facility]
-Large clot in the bladder on 10/19/2023 needed OR evacuation at [facility]
-S/P CBI here at
-Clear at this time
# Coagulopathy-secondary to sepsis-Resolved
# Hyponatremia- resolved
# Thrombocytopenia secondary to sepsis
Normal fibrinogen level
Possibly also consumptive from clotting of the filter?
Hematology eval appreciated
Resolved
# Anemia likely secondary to acute blood loss secondary to hematuria, also iron deficiency, anemia of chronic disease, and sepsis contributing
# Elevated LFTs-likely secondary to septic shock and decreased perfusion
-Improving/resolved
# Hypokalemia- monitor and replete as necessary
# Hypocalcemia
#Vit D deficiency
Vit D supplementation
# Hypomagnesemia-replaced
# History of back surgery for disc herniation
# Hypoalbuminemia
# Alcohol use 3 to 4 glasses 3 times a week
# DVT prophylaxis-SCDs given recent bleeding/hematuria/anemia
# Full code
Discussed with nephrology
D/W RN
D/W Case management
All follow up care discussed with the patient. Patient is aware that he needs to follow-up with dialysis on Tuesday. With his creatinine trending down I do not think he may need long-term dialysis. Lab work again on Tuesday. Patient was very
appreciative and thankful of the and his own words ' Good care ' he got .
Discharge time 45 min
Anticipated Discharge: Today
Subjective/Interval History
-
Date of Service: November 11, 2023
Objective Data
-
Labs:
Laboratory Results
11/11/23
07:41
WBC 7.5
Hgb 8.6 L
Hct 26.7 L
Plt Count 417 H
Sodium 137
Potassium 4.1
Chloride 101
Carbon Dioxide 31 H
BUN 16
Creatinine 3.1 H
Glucose 88
Calcium 8.6
Vital Signs:
Vital Signs
Temp Pulse Resp BP Pulse Ox
98.4 F 70 18 145/74 98
11/11/23 07:25 11/11/23 08:15 11/11/23 07:25 11/11/23 08:15 11/11/23 07:25
I&O
11/10/23 11/11/23 11/12/23
06:59 06:59 06:59
Intake Total 1320 / 1320 1440 / 1440
Output Total 3300 / 3300 3100 / 3100
Balance -1979 / -1979 -1659 / -1659
--- NOTE | 2023-11-11 10:09 | W.DS.TRANS ---
Addendum entered and electronically signed by Poonam Loya MD 11/11/23 16:22:
Dictation- [id number]
Original Note:
DC Summary - [employer]ing [employer]
-
Discharge Instructions:
Discharge Diagnosis/Procedures Acute renal failure, septic shock, enlarged
prostate, bladder wall thickening, E. coli
sepsis, atrial fibrillation-paroxysmal, diarrhea
, hematuria, thrombocytopenia and anemia,
vitamin D deficiency
Diet Low Sodium
Additional Diets 4 g potassium,
Activity As tolerated
Driving Restrictions No driving for 24 hours
Blood Work CBC and BMP on Tuesday with dialysis
Instructions:
Stand-Alone Forms:
Changes to Home Medications: Yes
Discharge Medications:
DC Medications w/original date entered in [facility]
docusate sodium 100 mg capsule 100 mg PO DAILY PRN constipation 10/23/23
ascorbic acid (vitamin C) 500 mg tablet (Vitamin C) 500 mg PO DAILY Supplement #30 tabs 11/11/23
calcium acetate 667 mg tablet 667 mg PO MEALS elevated phosphorous #30 tabs 11/11/23
cholecalciferol (vitamin D3) 25 mcg (1,000 unit) tablet 25 mcg PO DAILY Supplement #30 tabs 11/11/23
ferrous sulfate 325 mg (65 mg iron) tablet 325 mg PO DAILY anemia #30 tabs 11/11/23
metoprolol tartrate 50 mg tablet 50 mg PO BID Arrhythmia #60 tabs 11/11/23
tamsulosin 0.4 mg capsule 0.4 mg PO DAILY Urinary issue #30 caps 11/11/23
Home Medication Changes
yes
new
ascorbic acid (vitamin C) 500 mg tablet (Vitamin C) 500 mg PO DAILY Supplement #30 tabs 11/11/23
calcium acetate 667 mg tablet 667 mg PO MEALS elevated phosphorous #30 tabs 11/11/23
cholecalciferol (vitamin D3) 25 mcg (1,000 unit) tablet 25 mcg PO DAILY Supplement #30 tabs 11/11/23
ferrous sulfate 325 mg (65 mg iron) tablet 325 mg PO DAILY anemia #30 tabs 11/11/23
metoprolol tartrate 50 mg tablet 50 mg PO BID Arrhythmia #60 tabs 11/11/23
tamsulosin 0.4 mg capsule 0.4 mg PO DAILY Urinary issue #30 caps 11/11/23
Pending Results: No
--- NOTE | 2023-11-11 10:40 | CM ---
Reviewed the chart notes and spoke with the patient at the bedside. Patient for discharge today to home. Patient no long with march, no need for VN. Patient's spouse to provide transportation. Spoke with Lalitha at [facility] to inform of discharge and
confirm chair time of M-W-F at [facility] at 4:30pm. CM continues to be available to patient/family and is monitoring medical plan for needs at discharge.
Plan: Discharge to home today with no needs.
[2023-11-11] MEDS: PHOSLO PO (11:22)
--- NOTE | 2023-11-11 13:46 | W.PN.NEPH.PH ---
Today's Communication / Plan
-
- Cr downtrending after HD
- will need Cr prior to next HD session
Assessment/Plan
-
Assessment
-Septic shock
-Ecoli sepsis s/p prostate aqua-ablation
-Hyponatremia
-metabolic/lactic acidosis
-hypomagnesemia
-urinary retention now on CBI
-[place]
Plan
creatinine 3.1 after Hd yesterday
nonoliguric, UOP 3.1L
no u/f on HD
Plan for next HD on Tuesday at outpatient unit
hyponatremia resolved
-
-
Date of Service: November 11, 2023
CC / HPI / ROS
-
Chief Complaint:
[place]
History of Present Illness:
tolerated HD on Sat
BP stable
on abx for ecoli sepsis
Na improved at 137
WBC remains elevated stable
Avalos d/c
Review of Systems:
no CP/SOB
nonoliguric
weights stable
Labs
-
Labs:
WBC 7.5 10^3/uL (4.8-10.8) 11/11/23 07:41
RBC 2.97 10^6/uL (4.70-6.10) L 11/11/23 07:41
Hgb 8.6 g/dL (13.0-18.0) L 11/11/23 07:41
Hct 26.7 % (39.0-52.0) L 11/11/23 07:41
Plt Count 417 10^3/uL (130-400) H 11/11/23 07:41
Sodium 137 mmol/L (135-145) 11/11/23 07:41
Potassium 4.1 mmol/L (3.5-5.1) 11/11/23 07:41
Chloride 101 mmol/L (98-107) 11/11/23 07:41
Carbon Dioxide 31 mmol/L (22-30) H 11/11/23 07:41
BUN 16 mg/dl (9-20) 11/11/23 07:41
Creatinine 3.1 mg/dL (0.7-1.3) H 11/11/23 07:41
eGFR 21.76 11/11/23 07:41
Glucose 88 mg/dl (70-99) 11/11/23 07:41
Calcium 8.6 mg/dl (8.4-10.2) 11/11/23 07:41
Phosphorus 5.0 mg/dl (2.5-4.5) H 11/09/23 04:37
Albumin 3.0 g/dl (3.5-5.0) L 11/09/23 04:37
Physical Exam
-
Vital Signs:
Vital Signs
Temp Pulse Resp BP Pulse Ox
98.4 F 70 18 145/74 98
11/11/23 07:25 11/11/23 08:15 11/11/23 07:25 11/11/23 08:15 11/11/23 07:25
Cardiovascular:: Regular rate and rhythm
Respiratory:: Bilateral: CTA
Lung Excursion:: Normal
Abdomen:: Nontender and Soft
Bowel Sounds:: Normal
Extremity Edema:: None: Bilateral:
Avalos Catheter: No
== END 2023-11-11 12:28 | disposition home or self-care (01) | DRG 862 ==
LOC: 2 NORTH 06:37
PROVIDERS: Internal Medicine; Internal Medicine Pulmonary Disease; Nurse Practitioner Family; Nurse Practitioner Primary Care; Radiology Diagnostic Radiology; Radiology Vascular & Interventional Radiology; Specialist; ADMITTING PHYSICIAN Hospitalist; ATTENDING PHYSICIAN Hospitalist; CONSULT PHYSICIAN Internal Medicine Cardiovascular Disease; CONSULT PHYSICIAN Internal Medicine Gastroenterology; CONSULT PHYSICIAN Internal Medicine Infectious Disease; CONSULT PHYSICIAN Specialist; EMERGENCY PHYSICIAN Emergency Medicine; FAMILY PHYSICIAN Family Medicine; OTHER PHYSICIAN Internal Medicine Critical Care Medicine; OTHER PHYSICIAN Internal Medicine Hematology & Oncology
PROC: 0JH63XZ Insertion of Tunneled Vascular Access Device into Chest Subcutaneous Tissue and Fascia, Percutaneous Approach (ICD-10-PCS; 2023-10-25)
PROC: 0J2TXYZ Change Other Device in Trunk Subcutaneous Tissue and Fascia, External Approach (ICD-10-PCS; 2023-10-26)
PROC: 5A1D70Z Performance of Urinary Filtration, Intermittent, Less than 6 Hours Per Day (ICD-10-PCS; 2023-11-03)
DX: T81.44XA Sepsis following a procedure, initial encounter (principal); A41.51 Sepsis due to Escherichia coli [E. coli]; R65.21 Severe sepsis with septic shock; N39.0 Urinary tract infection, site not specified; E87.20 Acidosis, unspecified; N17.9 Acute kidney failure, unspecified; D62 Acute posthemorrhagic anemia; D68.9 Coagulation defect, unspecified; E87.1 Hypo-osmolality and hyponatremia; I48.0 Paroxysmal atrial fibrillation; D64.9 Anemia, unspecified; D69.59 Other secondary thrombocytopenia; E55.9 Vitamin D deficiency, unspecified; K62.1 Rectal polyp; E83.42 Hypomagnesemia
CPT/HCPCS: 36556; 36558; 36580; 51701; 71045; 71046; 72197; 74018; 74176; 76770; 76937; 77001; 80048; 80053; 80061; 80069; 81003; 81015; 82248; 82306; 82330; 82533; 82550; 82607; 82705; 82728; 82746; 82962; 83036; 83516; 83540; 83550; 83605; 83690; 83735; 84100; 84443; 84484; 85014; 85018; 85025; 85027; 85384; 85610; 85613; 85730; 85732; 86023; 86038; 86146; 86147; 86148; 86160; 86704; 86706; 86803; 86850; 86900; 86901; 87040; 87045; 87046; 87077; 87086; 87186; 87205; 87324; 87328; 87329; 87340; 87427; 87449; 87502; 87798; 87811; 89055; 93005; 93306; 96365; 96375; 97116; 97162; 97167; 97530; 97535; 99152; 99153; 99291; A9575; C1752; C1769; C1788; G0257; J0885; J2185; P9047; Q5106

== ENCOUNTER → 2023-12-01 10:00 | Outpatient (REF) | payer OTHER, SELFPAY | LOC: RADI 10:00 | PROVIDERS: ATTENDING PHYSICIAN Specialist; FAMILY PHYSICIAN Family Medicine | DX: Z49.01 Encounter for fitting and adjustment of extracorporeal dialysis catheter (principal); N18.6 End stage renal disease | CPT/HCPCS: 36589 ==

== ENCOUNTER → 2024-01-06 13:18 | Outpatient (REF) | payer OTHER, SELFPAY | LOC: HWRAD 13:18 | PROVIDERS: ATTENDING PHYSICIAN Urology; FAMILY PHYSICIAN Family Medicine; REFERRING PHYSICIAN Specialist | DX: N40.1 Benign prostatic hyperplasia with lower urinary tract symptoms (principal); N13.8 Other obstructive and reflux uropathy | CPT/HCPCS: 76770 ==

== ENCOUNTER 2024-01-06 17:44 | Emergency (ER) | payer OTHER, SELFPAY ==
[2024-01-06 17:45] VITALS: BP 180/106
--- NOTE | 2024-01-06 19:40 | ED.GENMED ---
History of Present Illness
<Govind Smith DO - Last Filed: 01/06/24 20:31>
General
Chief Complaint: Male Genito-Urinary Symptoms
Source: patient
Exam Limitations: none
Time Seen by Provider: 01/06/24 18:34
Travel History
Have you had any contact with someone who has COVID-19?: No
Do you have any symptoms of coronavirus? Fever > 100 degrees, chills, cough, shortness of breath, sore throat, loss of taste or smell, muscle aches, or headache?: No
History of Present Illness
History of Present Illness:
63-year-old male who presents with difficulty urinating. The patient states he in the past has had an aqua ablation for prostamegaly. States he is complicated by developing sepsis and was admitted to the hospital for weeks. In fact, he had renal
failure with dialysis. Patient states he was getting an ultrasound repeat today and had to fill his bladder. He was able to urinate a little bit at the time but since has not been able to urinate. He states he tried to straight cath himself and
could not pass the catheter past a few centimeters into his urethra. He states it feels like something is blocking it. No fevers. No vomiting.
Past History
<Govind Smith DO - Last Filed: 01/06/24 20:31>
Past History
ED Past Medical History: Other (Sepsis, prostamegaly)
ED Past Surgical History: Orthopedic (lumbar laminectomy, right knee) and Urological (Aqua ablation prostate)
Social History
Tobacco: Non-smoker
Alcohol: None
Living: with family
Phy Exam
<Govind Smith DO - Last Filed: 01/06/24 20:31>
Physical Exam
Physical Exam:
CONSTITUTIONAL Patient alert and oriented to person, place and time. Well-appearing. Vital signs reviewed.
HEAD atraumatic, normocephalic.
EYES eyelids normal to inspection, Extraocular muscles intact, Conjunctiva normal, Sclera normal.
NECK normal range of motion, Trachea midline, no jugular venous distention.
RESPIRATORY CHEST No respiratory distress noted, Chest expansion equal
ABDOMEN mild distention, mild suprapubic tenderness
BACK normal inspection, no obvious deformities
UPPER EXTREMITY range of motion normal, Motor strength normal, no cyanosis, no edema.
LOWER EXTREMITY range of motion normal, Motor strength normal, no cyanosis, no edema.
NEURO Speech normal, No focal motor deficits, Bill coma scale 15, Memory normal, Cranial Nerves intact to screening exam.
SKIN skin warm, dry, and normal in color.
PSYCHIATRIC patient oriented to person place and time, Normal affect.
Course
<Govind Smith, DO - Last Filed: 01/06/24 20:31>
Orders/Labs/Results
Orders:
Orders
01/06/24 19:05
Lidocaine 2% [Lidocaine Uro-Jet 2%] 1 syringe .ROUTE .STK-MED ONE
01/06/24 19:37
Lidocaine 2% [Lidocaine Uro-Jet 2%] 1 syringe .ROUTE .STK-MED ONE
01/06/24 19:53
Lidocaine 2% [Lidocaine Uro-Jet 2%] 1 syringe .ROUTE .STK-MED ONE
01/06/24 20:17
Basic Metabolic Panel Urgent
Complete Blood Count/With Diff Urgent
01/06/24 20:59
HYDROmorphone [Dilaudid] 0.5 mg .ROUTE .STK-MED ONE
01/06/24 21:02
HYDROmorphone [Dilaudid] 0.5 mg IV NOW STA
01/06/24 21:11
Lidocaine 2% [Lidocaine Uro-Jet 2%] 1 syringe .ROUTE .STK-MED ONE
01/06/24 21:16
Urinalysis Reflex To Culture Stat
Date Specimen was Collected: 01/06/24
Time Specimen was Collected: 21:14
Urine Microscopic Reflex Cult Stat
Urine Culture Stat
[place] Source: U
Specimen Description:
Date Specimen was Collected: 01/06/24
Time Specimen was Collected: 21:14
01/06/24 21:38
Ciprofloxacin 400 mg/[id number] [Cipro 400 mg] 200 ml IV NOW
Abnormal Lab Results
01/06/24 01/06/24
20:17 21:16
RBC 4.03 L 10^6/uL
(4.70-6.10)
Hgb 10.7 L g/dL
(13.0-18.0)
Hct 32.7 L %
(39.0-52.0)
MCH 26.6 L pg
(27.0-31.0)
MCHC 32.7 L g/dL
(33.0-37.0)
RDW 15.8 H %
(11.5-14.5)
Absolute Monos (auto) 0.9 H 10^3/uL
(0.1-0.6)
Monocytes % 16.1 H %
(1.7-9.3)
Leukocyte Esterase Rfl 2+ A
(Negative)
Urine WBC (Reflex) 50-60 A /HPF
(0-5)
Urine Bacteria (Reflex) Few A
(Negative)
01/06/24 20:17
01/06/24 20:17
Vital Signs
Initial and Last Documented VS:
Initial Vital Signs
Temp Pulse Resp BP Pulse Ox
98.7 F 85 18 180/106 100
01/06/24 17:45 01/06/24 17:45 01/06/24 17:45 01/06/24 17:45 01/06/24 17:45
Last Documented Vital Signs
Temp Pulse Resp BP Pulse Ox
98.7 F 79 18 154/88 99
01/06/24 17:45 01/06/24 20:00 01/06/24 20:00 01/06/24 20:00 01/06/24 20:00
<Ismael Odom, DO - Last Filed: 01/06/24 21:41>
Orders/Labs/Results
Orders:
Orders
01/06/24 19:05
Lidocaine 2% [Lidocaine Uro-Jet 2%] 1 syringe .ROUTE .STK-MED ONE
01/06/24 19:37
Lidocaine 2% [Lidocaine Uro-Jet 2%] 1 syringe .ROUTE .STK-MED ONE
01/06/24 19:53
Lidocaine 2% [Lidocaine Uro-Jet 2%] 1 syringe .ROUTE .STK-MED ONE
01/06/24 20:17
Basic Metabolic Panel Urgent
Complete Blood Count/With Diff Urgent
01/06/24 20:59
HYDROmorphone [Dilaudid] 0.5 mg .ROUTE .STK-MED ONE
01/06/24 21:02
HYDROmorphone [Dilaudid] 0.5 mg IV NOW STA
01/06/24 21:11
Lidocaine 2% [Lidocaine Uro-Jet 2%] 1 syringe .ROUTE .STK-MED ONE
01/06/24 21:16
Urinalysis Reflex To Culture Stat
Date Specimen was Collected: 01/06/24
Time Specimen was Collected: 21:14
Urine Microscopic Reflex Cult Stat
Urine Culture Stat
[place] Source: U
Specimen Description:
Date Specimen was Collected: 01/06/24
Time Specimen was Collected: 21:14
01/06/24 21:38
Ciprofloxacin 400 mg/[id number] [Cipro 400 mg] 200 ml IV NOW
Abnormal Lab Results
01/06/24 01/06/24
20:17 21:16
RBC 4.03 L 10^6/uL
(4.70-6.10)
Hgb 10.7 L g/dL
(13.0-18.0)
Hct 32.7 L %
(39.0-52.0)
MCH 26.6 L pg
(27.0-31.0)
MCHC 32.7 L g/dL
(33.0-37.0)
RDW 15.8 H %
(11.5-14.5)
Absolute Monos (auto) 0.9 H 10^3/uL
(0.1-0.6)
Monocytes % 16.1 H %
(1.7-9.3)
Leukocyte Esterase Rfl 2+ A
(Negative)
Urine WBC (Reflex) 50-60 A /HPF
(0-5)
Urine Bacteria (Reflex) Few A
(Negative)
01/06/24 20:17
01/06/24 20:17
Vital Signs
Initial and Last Documented VS:
Initial Vital Signs
Temp Pulse Resp BP Pulse Ox
98.7 F 85 18 180/106 100
01/06/24 17:45 01/06/24 17:45 01/06/24 17:45 01/06/24 17:45 01/06/24 17:45
Last Documented Vital Signs
Temp Pulse Resp BP Pulse Ox
98.7 F 79 18 154/88 99
01/06/24 17:45 01/06/24 20:00 01/06/24 20:00 01/06/24 20:00 01/06/24 20:00
Procedures
<Govind Smith, DO - Last Filed: 01/06/24 20:31>
Urinary Catheter
Procedure completed by: Dr. Smith
Type of urinary catheter: indwelling catheter
Catheter size (divehi): 14
Additional information:
Attempted 14 [place] and 20 [place]an coud� catheter with no success. Unable to pass past just inside the meatus. Clearly a stricture. Urology consulted
<Govind Smith DO - Last Filed: 01/06/24 20:31>
MDM/Problems Addressed
MDM/Problems Addressed:
Urinary outflow obstruction
<Govind Smith, DO - Last Filed: 01/06/24 20:31>
*Pulse Oximetry
Patient hypoxic: no
<Ismael Odom, DO - Last Filed: 01/06/24 21:41>
*Critical Care Note
Total Time (30-74mins, 75-104mins- exclusive of procedures): Not Applicable
<Govind Smith, DO - Last Filed: 01/06/24 20:31>
Patient Management
Discussion with other providers: Business Transformation Analyst (urology, will come to bedside as we are unable to pass catheter)
<Ismael Odom, DO - Last Filed: 01/06/24 21:41>
Update Note
Update Note:
dw dr renee
iv cipro
then dc ,f/u tuesday in office
ED Attending Note
<Govind Smith, DO - Last Filed: 01/06/24 20:31>
-
Portions of this chart may have been created with voice recognition software.� Occasional wrong word or��sound alike� substitutions may have occurred due to the inherent limitations of voice recognition software.
Discharge Plan
Departure
Patient Disposition: Home (Routine Discharge)
Date of Disposition: 01/06/24
Time of Disposition: 21:41
Patient with high blood pressure during this ER visit?: No
Condition: Good
Covid-19: Not Applicable
Discharge Problem:
Acute urinary retention
Instructions: How to Care for Your Avalos Catheter, Male, Urinary Retention (DC)
Prescriptions:
No Action
docusate sodium 100 mg Capsule
100 mg PO DAILY PRN (Reason: constipation)
tamsulosin 0.4 mg Capsule
0.4 mg PO DAILY Qty: 30 0RF
metoprolol tartrate 50 mg Tablet
50 mg PO BID Qty: 60 0RF
calcium acetate 667 mg Tablet
667 mg PO MEALS Qty: 30 0RF
ascorbic acid (vitamin C) [Vitamin C] 500 mg Tablet
500 mg PO DAILY Qty: 30 0RF
cholecalciferol (vitamin D3) 25 mcg (1,000 unit) Tablet
25 mcg PO DAILY Qty: 30 0RF
ferrous sulfate 325 mg (65 mg iron) tablet
325 mg PO DAILY Qty: 30 0RF
Referrals:
Patricia Toussaint DO [Family Provider] -
Interventions
Interventions:
*General Assessment Last Done: 01/06/24 19:11
*Neglect/Abuse Screening Last Done: 01/06/24 19:11
*ED COVID-19 Vaccine History Last Done: 01/06/24 19:11
Discharge Date and Time
Print Language: SWEDISH
[2024-01-06 20:00] VITALS: BP 154/88
[2024-01-06 20:25] LABS: % Basophils 1.1 % (0-2); % Eosinophils 0.7 % (0-6); % Immature Granulocytes 0.4 % (0-0.5); % Lymphocytes 32.3 % (20.5-51.1); % Monocytes 16.1 % (1.7-9.3); % Neutrophils 49.4 % (42.2-75.2); Absolute Basophils 0.1 10^3/uL (0-0.2); Absolute Lymphocytes 1.8 10^3/uL (1.2-3.4); Absolute Monocytes 0.9 10^3/uL (0.1-0.6); Absolute Neutrophils 2.8 10^3/uL (1.4-6.5); Hematocrit 32.7 % (39.0-52.0); Hemoglobin 10.7 g/dL (13.0-18.0); Mean Corp Hgb Conc. 32.7 g/dL (33.0-37.0); Mean Corpuscular Hgb 26.6 pg (27.0-31.0); Mean Corpuscular Volume 81.1 fL (80.0-94.0); Mean Platelet Volume 10.2 fL (7.4-10.4); Nucleated Red Blood Cells % 0 % (-); Platelet Count 293 10^3/uL (130-400); Red Blood Cell Count 4.03 10^6/uL (4.70-6.10); Red Cell Dist. Width 15.8 % (11.5-14.5); White Blood Cell Count 5.7 10^3/uL (4.8-10.8)
[2024-01-06 20:46] LABS: Blood Urea Nitrogen 17 mg/dl (9-20); Calcium 9.8 mg/dl (8.4-10.2); Carbon Dioxide 25 mmol/L (22-30); Chloride 103 mmol/L (98-107); Glucose 87 mg/dl (70-99); Potassium 4.2 mmol/L (3.5-5.1); Sodium 137 mmol/L (135-145); eGFR > 60.00
[2024-01-06] MEDS: DILAUDID 0.5 MG IV (21:02)
[2024-01-06 21:23] LABS: Urine Albumin Trace (Neg - Trace); Urine Bilirubin Negative (Negative); Urine Character Clear (Clear); Urine Color Yellow; Urine Glucose Negative (Negative); Urine Ketone Negative (Negative); Urine Leukocyte 2+ (Negative); Urine Nitrite Negative (Negative); Urine Occult Blood Negative (Negative); Urine Specific Gravity 1.015 (<1.030); Urine Urobilinogen Negative (Neg - 1+)
[2024-01-06 21:35] LABS: Urine Red Blood Cell None Seen /HPF (0-2); Urine White Cell 50-60 /HPF (0-5)
[2024-01-06 21:36] LABS: Urine Bacteria Few (Negative)
[2024-01-06 21:56] VITALS: BMI 22.8
[2024-01-06] MEDS: CIPRO 400 MG 200 IV (22:10)
[2024-01-06 22:30] VITALS: BP 158/75
== END 2024-01-06 23:50 | disposition home or self-care (01) ==
LOC: EMR 17:44
PROVIDERS: Emergency Medicine; EMERGENCY PHYSICIAN Emergency Medicine; FAMILY PHYSICIAN Family Medicine
DX: R33.9 Retention of urine, unspecified (principal); N19 Unspecified kidney failure; Z99.2 Dependence on renal dialysis
CPT/HCPCS: 99283; 96374; 96375; 80048; 81003; 81015; 85025; 87086

== ENCOUNTER 2024-01-20 15:18 | Inpatient (IN) | payer OTHER, SELFPAY ==
[2024-01-20] VITALS (11 sets, daily range): BP systolic 114–151; BP diastolic 59–96; BMI 25.4; BMI 22.8
[2024-01-20 09:54] LABS: % Basophils 1.1 % (0-2); % Eosinophils 1.6 % (0-6); % Immature Granulocytes 0.3 % (0-0.5); % Lymphocytes 37.6 % (20.5-51.1); % Neutrophils 48.4 % (42.2-75.2); Absolute Basophils 0.1 10^3/uL (0-0.2); Absolute Eosinophils 0.1 10^3/uL (0-0.7); Absolute Lymphocytes 2.4 10^3/uL (1.2-3.4); Absolute Monocytes 0.7 10^3/uL (0.1-0.6); Absolute Neutrophils 3.1 10^3/uL (1.4-6.5); Hematocrit 36.3 % (39.0-52.0); Hemoglobin 11.6 g/dL (13.0-18.0); Mean Corpuscular Hgb 26.2 pg (27.0-31.0); Mean Corpuscular Volume 82.1 fL (80.0-94.0); Mean Platelet Volume 10.1 fL (7.4-10.4); Nucleated Red Blood Cells % 0 % (-); Platelet Count 349 10^3/uL (130-400); Red Blood Cell Count 4.42 10^6/uL (4.70-6.10); Red Cell Dist. Width 16.9 % (11.5-14.5); White Blood Cell Count 6.3 10^3/uL (4.8-10.8)
--- NOTE | 2024-01-20 09:57 | ED.GENMED ---
History of Present Illness
General
Chief Complaint: Heart Rate Problem
Source: patient, records and previous hospital records
Exam Limitations: none
Time Seen by Provider: 01/20/24 09:23
Nursing documentation reviewed up to this point in time: agreed with
Travel History
Have you had any contact with someone who has COVID-19?: No
Do you have any symptoms of coronavirus? Fever > 100 degrees, chills, cough, shortness of breath, sore throat, loss of taste or smell, muscle aches, or headache?: No
History of Present Illness
History of Present Illness:
63-year-old male presents with fast heart rate, he is unsure exactly when it started his gave him a hug last night felt his heart rate beating fast he took 50 mg of metoprolol did have 4 beers last night and some pizza prior to the fast heart
rate being noticed by his no chest pain no shortness of breath no fever or chills he is very active does not typically get tachycardic was admitted with urosepsis requiring temporary dialysis few months ago, did have A-fib at that time he is
followed by [facility] cardiology on no meds, chronically
Past History
Past History
ED Past Medical History: Arrthythmia and Other (Sepsis, prostamegaly)
ED Past Surgical History: Orthopedic (lumbar laminectomy, right knee) and Urological (Aqua ablation prostate)
Social History
Tobacco: Non-smoker
Alcohol: Occasional
Drug: None
Personal:
Living: with family
Employment: Employed
Review of Systems
Review of Systems
All Other Systems: Not applicable
Constitutional: Denies fever or fatigue
EENT: Reports no symptoms
Respiratory: Reports no symptoms
Cardiac: Reports no symptoms
ABD/GI: Reports no symptoms
: Reports no symptoms
Musculoskeletal: Reports no symptoms
Skin: Reports no symptoms
Phy Exam
Physical Exam
Physical Exam:
Physical Exam
General: no apparent distress, not acutely ill
Neck: No jaundice
Heart: Tachycardia
Lungs: no acute respiratory distress.
Neuro: alert and oriented. no focal neurological deficits
Skin: no rash
Psychiatric: well kept. interactive and cooperative
Extremities: no edema. no calf tenderness.
Course
Orders/Labs/Results
Orders:
Orders
01/20/24 09:11
ECG [Electrocardiogram (*1)] Urgent
Reason for Study: Tachycardia
EKG- Treatment ONCE
01/20/24 09:23
Cardiac Monitoring- Treatment ONCE
01/20/24 09:44
Complete Blood Count/With Diff Urgent
Comprehensive Metabolic Panel Urgent
Magnesium Urgent
Comment: ADD
PTT Urgent
Prothrombin Time Urgent
01/20/24 09:48
Diltiazem HCl [Cardizem] 10 mg IV NOW STA
01/20/24 09:49
Add On- LAB Urgent
Tests Added?: magnesium
01/20/24 10:00
Diltiazem 125 mg/125 ml Nss [Cardizem] 125 mg in 125 ml IV PER PROTOCOL
Initial dose in mg/hr, then titrate:: 5
Titrate to keep:: Heart rate 80-100 bpm
Titrate by mg/hr:: 5 mg/hr
Frequency of titrations (minutes):: 15
Maximum dose in mg/hr:: 15
01/20/24 10:17
CARDIOLOGY CONSULT Urgent
Consulting Provider: Bernardo Patrick
Was physician already notified: Yes
01/20/24 11:23
Add On- LAB Urgent
Tests Added?: tsh
Abnormal Lab Results
01/20/24
09:44
RBC 4.42 L 10^6/uL
(4.70-6.10)
Hgb 11.6 L g/dL
(13.0-18.0)
Hct 36.3 L %
(39.0-52.0)
MCH 26.2 L pg
(27.0-31.0)
MCHC 32.0 L g/dL
(33.0-37.0)
RDW 16.9 H %
(11.5-14.5)
Absolute Monos (auto) 0.7 H 10^3/uL
(0.1-0.6)
Monocytes % 11.0 H %
(1.7-9.3)
Chloride 109 H mmol/L
(98-107)
Glucose 100 H mg/dl
(70-99)
01/20/24 09:44
01/20/24 09:44
Vital Signs
Initial and Last Documented VS:
Initial Vital Signs
Temp Pulse Resp BP Pulse Ox
97.6 F 137 18 144/88 100
01/20/24 09:14 01/20/24 09:14 01/20/24 09:14 01/20/24 09:14 01/20/24 09:14
Last Documented Vital Signs
Temp Pulse Resp BP Pulse Ox
97.6 F 129 15 117/72 99
01/20/24 09:14 01/20/24 10:00 01/20/24 10:00 01/20/24 10:00 01/20/24 10:00
MDM/Problems Addressed
Differential Diagnosis Includes:
PAF, SVT no infectious symptoms,
MDM/Problems Addressed:
Tachycardia
Chronic conditions affecting care: Arrhythmia
Acute Exacerbation and/or Progression of Chronic Illness: Arrhythmia
*EKG
Interpreted by ED Provider?: Yes
Interpretation: abnormal
Comparison EKG: no comparison EKG present
Heart Rate: 135
Rate: tachycardiac
Rhythm: a-fib
Ischemia: non-specific ST changes
*Director Of Conservation Interpretation
Rate: tachycardiac
Interpretation: abnormal
Heart Rate: 140
Rhythm: a-fib
*Critical Care Note
Total Time (30-74mins, 75-104mins- exclusive of procedures): 12
Data Reviewed
Review of Other/Old Records Reveals: Labs, Records, Progress Notes and Discharge Summary
Source: patient and records
Patient Management
Social determinants of health affecting care: Living situation and Strong social support
Discussion with other providers: Fabrication And Layout Craftsman
Update Note
Update Note:
Update reviewed with cardiology will be admitted to hospitalist service, plan for ITALO cardioversion on Tuesday if he does not convert message sent to hospitalist
ED Attending Note
-
Portions of this chart may have been created with voice recognition software.� Occasional wrong word or��sound alike� substitutions may have occurred due to the inherent limitations of voice recognition software.
Discharge Plan
Departure
Patient Disposition: Admit
Date of Disposition: 01/20/24
Time of Disposition: 11:24
Admit to: Telemetry
Presentation/result/management discussed w/ accepting MD/DO: Hospitalist
Patient with high blood pressure during this ER visit?: No
Condition: Good
Discharge Problem:
Afib, Paroxysmal atrial fibrillation
Prescriptions:
No Action
ascorbic acid (vitamin C) [Vitamin C] 500 mg Tablet
500 mg PO DAILY Qty: 30 0RF
cholecalciferol (vitamin D3) 25 mcg (1,000 unit) Tablet
25 mcg PO DAILY Qty: 30 0RF
ferrous sulfate 325 mg (65 mg iron) tablet
325 mg PO QPM
metoprolol tartrate 50 mg tablet
50 mg PO ONCE PRN (Reason: a-fib)
Patient Comments:
01/20/2024, used 's Rx.
Referrals:
Patricia Toussaint DO [Family Provider] -
Interventions
Interventions:
*Risk Screen - Suicide Last Done: 01/20/24 09:34
*General Assessment Last Done: 01/20/24 09:36
*Neglect/Abuse Screening Last Done: 01/20/24 09:34
ED- Fall Risk Assessment Last Done: 01/20/24 09:34
*ED COVID-19 Vaccine History Last Done: 01/20/24 09:14
ED- Cardiac Assessment Last Done: 01/20/24 09:34
ED- Pulmonary Assessment Last Done: 01/20/24 09:34
Discharge Date and Time
Print Language: CANADIAN
[2024-01-20] MEDS: CARDIZEM 10 MG IV (09:59)
[2024-01-20] MEDS: CARDIZEM 125 IV ×2 (09:59→21:07)
[2024-01-20 10:01] LABS: INR 1.02; PT 13.2 Sec (11.4-14.6)
[2024-01-20 10:02] LABS: APTT 29.1 Sec (23.4-35.0)
[2024-01-20 10:08] LABS: ALT (SGPT) 18 U/L (0-50); AST (SGOT) 27 U/L (17-59); Alkaline Phosphatase 55 U/L (38-126); Blood Urea Nitrogen 20 mg/dl (9-20); Calcium 9.6 mg/dl (8.4-10.2); Carbon Dioxide 28 mmol/L (22-30); Chloride 109 mmol/L (98-107); Estimated Creatinine Clearance 87 ml/min; Glucose 100 mg/dl (70-99); Potassium 4.6 mmol/L (3.5-5.1); Sodium 138 mmol/L (135-145); Total Bilirubin 0.3 mg/dl (0.2-1.3); Total Protein 6.4 g/dl (6.3-8.2); eGFR > 60.00
[2024-01-20 10:49] LABS: Magnesium 1.9 mg/dl (1.6-2.3)
--- NOTE | 2024-01-20 11:27 | CON.CAR ---
Addendum entered and electronically signed by Bernardo Patrick MD 01/20/24 15:11:
Per Urology given hematuria they do not consider AC at this time an option. We will rate control for now, until OK to AC from urologic perspective.
Addendum entered and electronically signed by Bernardo Patrick MD 01/20/24 12:53:
I saw and examined the patient.
The HEALTH COORDINATOR's note was reviewed and I agree with the note.
Comment: Mr. 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 He was found to be in A-fib
with RVR and started on diltiazem drip.
-Continue diltiazem drip
-Transition to p.o. tomorrow
-Continue Eliquis 5 mg twice daily
-Plan on ITALO cardioversion on Tuesday
Original Note:
Consultation
Consultation Request
Date/Time Consultation Requested: 01/20/24 10:30a
Date/Time Consultation Performed: 01/20/24 11a
Requesting Provider: Dr. Odom
Performing Provider: ROMULO Perez for Dr. Patrick
Reason for Consultation: Afib
Medical History
-
Chief Complaint: Afib
History of Present Illness:
Mr. 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 He states last night at 10pm his
hugged him and heard his heart racing. He did not feel it racing and went to bed. This am he checked his heart rate with his exercise heart monitor and read 120s-140s, so he came into the ER for evaluation. EKG showed AFib with RVR 137 bpm, he
was given IV Cardizem and initiated on a Cardizem drip. Currently he denies any palpitations or cardiac symptoms. His [id number] VASc score is 0 and he is not on OAC therapy currently. At last cardiology visit 11/30/[address] Ceravntes, his Lopressor
50mg BID was stopped. He requested to stop Lopressor because he wanted to be able to exercise and get his heart rate higher than it was. He admits to having a URI 2 weeks ago and PCP started him on antibiotics, which he finished last week.
Past Medical History
Past Medical History: Arrhythmias (paroxysmal Afib) and Other (elevated PSA, BPH)
Past Surgical History: Other (water prostatectomy 09/2023 complicated by sepsis post procedure)
Social History
Tobacco: Non-Smoker
Alcohol: Occasional
Personal:
Living: With Family
Employment: Employed
Family History
Family History: Reviewed & Not Pertinent
Allergies / Home Medications
Allergy/AdvReac Type Severity Reaction Status Date / Time
No Known Allergies Allergy Verified 01/20/24 09:15
�Medication �Instructions �Recorded �Confirmed �Type
ascorbic acid (vitamin C) 500 mg 500 mg PO DAILY Supplement #30 tabs 11/11/23 01/20/24 Rx
tablet (Vitamin C)
cholecalciferol (vitamin D3) 25 25 mcg PO DAILY Supplement #30 tabs 11/11/23 01/20/24 Rx
mcg (1,000 unit) tablet
ferrous sulfate 325 mg (65 mg 325 mg PO QPM anemia 01/20/24 01/20/24 History
iron) tablet
metoprolol tartrate 50 mg tablet 50 mg PO ONCE PRN a-fib 01/20/24 01/20/24 History
Review of Systems
-
History Source: Patient
All other systems: Negative unless noted
Physical Exam
Vital Signs
Temp Pulse Resp BP Pulse Ox
97.6 F 129 15 117/72 99
01/20/24 09:14 01/20/24 10:00 01/20/24 10:00 01/20/24 10:00 01/20/24 10:00
Lab Results
01/20/24 09:44
01/20/24 09:44
Physical Exam
General: Well Developed, Well Nourished and No Apparent Distress
HEENT: Normocephalic, Anicteric and Moist Mucous Membranes
Respiratory: Clear and Non Labored Respirations
Cardiac: S1/S2 and Irregular Rhythm (tachycardia)
Breast: Deferred by me
GI: Soft, Non Tender, Non Distended and Normal Bowel Sounds
Rectal: Deferred by Provider
Genito-urinary: No Costovertebral Tender
Musculoskeletal: No Clubbing, No Cyanosis and No Edema
Neuro: Awake and Alert
Hematologic/Lymphatic: No Lymphadenopathy
Psych: Calm
Impression / Plan
-
Afib - recurrent with rapid rates.
- duration unknown, he thinks this began last night at 10p, noticed by his , he denies any symptoms.
- unaware of irregular heart rates and denies any cardiac symptoms.
- he tracks his heart rate during his workouts and rates were good at 6pm workout last night.
- rates improved with IV Cardizem in the ER, still in Afib.
- [id number] VASc is 0.
- continue IV Cardizem drip and plan for ITALO/DCCV Tuesday unless he converts on his own.
- we discussed role of OAC, Eliquis, for 30 days post cardioversion/resumption of NSR and he verbalized understanding.
- will initiate Eliquis 5mg BID now.
- he was on Lopressor 50mg BID but this was stopped at OV 11/30/[address] Cervantes as patient requested to stop so he could have higher heart rates with exercise.
- echo 09/2023: EF 55%, mild cLVH, mild to mod MR, mild TR, no change from echo 09/2022.
- possibly consider PVI as an outpatient.
HLD - diet controlled.
- managed by Dr. Cervantes with recent LDL 157 and HDL 87.
- he has refused statin in the past.
URI - 2 weeks ago treated with ABX per PCP, finished 1 week ago.
Data Reviewed
-
EKG: Tracing Personally Visualized and interpreted (Afib with RVR 137 bpm)
Medical Tests (Nuc Med, Echo etc): Report Reviewed by me (09/2023: EF 55%, mild cLVH, mild to mod MR, mild TR, no change from echo 09/2022.)
Labs: Labs Reviewed by me
Old Records: Reviewed
[2024-01-20 13:14] LABS: TSH 2.19 uIU/ml (0.47-4.68)
[2024-01-20 14:18] LABS: Urine Albumin Negative (Neg - Trace); Urine Bilirubin Negative (Negative); Urine Character Clear (Clear); Urine Color Yellow; Urine Glucose Negative (Negative); Urine Ketone Negative (Negative); Urine Leukocyte Negative (Negative); Urine Nitrite Negative (Negative); Urine Occult Blood Negative (Negative); Urine Specific Gravity 1.005 (<1.030); Urine Urobilinogen Negative (Neg - 1+)
--- NOTE | 2024-01-20 15:13 | HPS.HSE ---
Family Physician
-
Family Physician: Patricia Toussaint
Chief Complaint
-
Heart rate problem
History of Present Illness
63 y/o male presented to the hospital because of heart rate problem. His helped him last night and felt that his heart rate was too fast and he measured it it was 135. Patient stated that he had seen vocational psychologist in November who stopped his
beta-blockers. He has not had any hematuria. Recently had difficulty passing urine and needed urethral stricture dilatation. Patient denies any chest pain. He stated that he has had left hand tremors since last hospitalization
Medical History
Past Medical History
Past Medical History: Reports Other
Additional Past Medical History:
Septic shock secondary to infection, acute renal failure requiring temporary dialysis, atrial fibrillation-paroxysmal, significant hematuria requiring or evacuation of bladder clot at [facility] [facility] in September, vitamin D deficiency
Past Surgical History: Reports Urological (Echo procedure for the prostate followed by significant hematuria requiring clot evacuation in the OR at [facility], colonoscopy, herniated disks and back surgery, right knee surgery, hip surgery,
appendectomy, cataract surgery)
Social History
Tobacco: Non-smoker
Alcohol: Daily (2-3 drinks daily could be either beer or wine or a martini)
Drug: None
Personal:
Living: With Family
Employment: Employed
Family History
Family History: Cancer (Father had melanoma mother uterine cancer and breast cancer)
Allergies / Home Medications
Allergies reflects when Allergies were last updated in [employer].
Home Medications with original date entered in [employer]
Allergy/Medication List:
Allergies
Allergy/AdvReac Type Severity Reaction Status Date / Time
No Known Allergies Allergy Verified 01/20/24 09:15
Home Medications
ascorbic acid (vitamin C) 500 mg tablet (Vitamin C) 500 mg PO DAILY Supplement #30 tabs 11/11/23
cholecalciferol (vitamin D3) 25 mcg (1,000 unit) tablet 25 mcg PO DAILY Supplement #30 tabs 11/11/23
ferrous sulfate 325 mg (65 mg iron) tablet 325 mg PO QPM anemia 01/20/24
metoprolol tartrate 50 mg tablet 50 mg PO ONCE PRN a-fib 01/20/24
Review of Systems
-
A 12 point ROS was completed and negative except as noted: Yes
EENT: Denies Mouth Pain
Cardiac: Denies Chest Pain or Palpitations
Abdomen/GI: Denies Abdominal Pain
: Denies Dysuria, Flank Pain or Bleeding
Neurological: Reports Other (Tremors on the left hand)
Physical Exam
Vital Signs
Vital Signs
Temp Pulse Resp BP Pulse Ox
97.6 F 101 10 127/66 99
01/20/24 09:14 01/20/24 15:00 01/20/24 15:00 01/20/24 15:00 01/20/24 12:00
Physical Exam
General: Comfortable and Conversant
Respiratory: Clear
Cardiac: S1/S2, Irregular Rhythm and Murmur (sm apex)
GI: Soft, Non Tender and Normal Bowel Sounds
Neuro: AO x 3, Facial Droop (? Left vs normal for patient) and Tremors (left hand); No Slurred Speech
Laboratory Results
-
01/20/24 09:44
01/20/24 09:44
Laboratory Results
PT 13.2 Sec (11.4-14.6) 01/20/24 09:44
INR 1.02 01/20/24 09:44
APTT 29.1 Sec (23.4-35.0) 01/20/24 09:44
Total Bilirubin 0.3 mg/dl (0.2-1.3) 01/20/24 09:44
AST 27 U/L (17-59) 01/20/24 09:44
ALT 18 U/L (0-50) 01/20/24 09:44
Alkaline Phosphatase 55 U/L (38-126) 01/20/24 09:44
Data Reviewed
-
Ultrasound: Report Reviewed by me (Renal ultrasound 01/06/2024-echogenic lesion in the central portion of the right kidney likely corresponding to vascular calcification. No hydro. Enlargement of the prostate. Retention of urine with trabeculation
of the bladder wall suggestive of chronic outlet obstruction with homogeneously hyper)
Impression/Plan
-
IMPRESSION/PLAN:
# Rapid A-fib
Patient had one-time episode of atrial fibrillation during the hospitalization here in September at that time he had significant bleeding from source therefore he was not discharged on any anticoagulation.
Patient was discharged on metoprolol 50 twice daily. Patient states that he was taken off of that by his outpatient vocational psychologist Dr. Pelayo.
He took 1 dose of metoprolol last night when he saw his heart rate was fast.
Alcohol use may be contributing thiamine
Admit to IVU
IV Cardizem drip
Risks and benefits of anticoagulation discussed with the patient aware about stroke risk
I have reached out to Dr. Hazel from urology who is recommending against anticoagulation given how significant patient's bleeding was last time. Patient is aware about this.
I have discussed this with cardiology also.
ECHO Sep 2023- EF 55%, mild LVH, mild to mod MR, mild TR
Troponin 0.05 seconds set pending
TSH Normal.
CHADSVASC2 score -0 now.
May not be able to get CV as cannot be anticoagulated.
#Tremors
Since last hospitalization per pt.
Will get an MRI brain
# Hyperlipidemia-managed by Dr. Cervantes he refuses to be on a statin.
# URI 2 weeks ago treated with antibiotics by PCP
# Admission for septic shock secondary to urinary source after aqua therapy for prostatomegaly
Also required OR evacuation of clot secondary to hematuria at [facility]
Recent urethral stricture 2 weeks ago
# Acute renal failure requiring temporary dialysis in September
# Vitamin D deficiency-replace
# History of back surgery for disc herniation
# Alcohol use 2 to 3 glasses a day could be beer or wine or martini
Thiamine
MSAS SCORE
# DVT prophylaxis-SCDs
# Full code
D/W RN
D/W Urology
D/W Cardiology
time spent over 75 min
--- NOTE | 2024-01-20 15:15 | W.PN.UPDATE ---
Update Note
Progress Note Update
Given patient's complicated urologic history stemming from complications following aqua-ablation of the prostate at an outside hospital (against our collective advice) he is not an ideal candidate for anticoagulation at this time as he was just
recently in urine retention and required a Avalos catheter and has persistent massive prostatism despite his surgical intervention.
I would advise all treating physicians to familiarize themselves with the details of his protracted hospitalization before initiating therapies that would increase the likelihood of gross hematuria
[2024-01-20 15:19] LABS: Troponin I 0.051 ng/ml
--- NOTE | 2024-01-20 19:22 | PTCARENOTE ---
Received pt from ED via stretcher. Cardizem drip infusing at 10 mg/hr. Pt remains in a fib. Pt denies chest pain or sob. Will monitor.
--- NOTE | 2024-01-20 20:00 | PTCARENOTE ---
Addendum entered by Clarence Ramírez, RN 01/20/24 23:30:
Assumed care. patient awake in bed, Cardizem infusing at 10mg/hr, A-FIB 80-110, a 5 beat run of VT at change of shift, some couplets, triplets and PVC's. VSS, denies pain, call damon in reach
Original Note:
Assumed care. patient awake in bed, Cardizem infusing at 10mg/hr, A-FIB 80-110. VSS, denies pain, call damon in reach
[2024-01-20] MEDS: VITAMIN B1 200 MG PO (21:04)
[2024-01-20] MEDS: FEOSOL 325 MG PO (21:04)
[2024-01-20] MEDS: LOPRESSOR 50 MG PO (21:04)
[2024-01-20 21:53] LABS: Troponin I 0.027 ng/ml
--- NOTE | 2024-01-20 23:29 | PTCARENOTE ---
Cardizem decreased to 5mg/hr, A-FIB HR 60-80's, couplets and occasional PVC's, patient asleep on his side
[2024-01-21] VITALS (9 sets, daily range): BP systolic 65–130; BP diastolic 57–87; BMI 22.8
[2024-01-21 05:18] LABS: Hematocrit 37.6 % (39.0-52.0); Hemoglobin 11.8 g/dL (13.0-18.0); Mean Corp Hgb Conc. 31.4 g/dL (33.0-37.0); Mean Corpuscular Hgb 26.2 pg (27.0-31.0); Mean Corpuscular Volume 83.6 fL (80.0-94.0); Mean Platelet Volume 10.4 fL (7.4-10.4); Platelet Count 330 10^3/uL (130-400); Red Cell Dist. Width 17.1 % (11.5-14.5); White Blood Cell Count 8.2 10^3/uL (4.8-10.8)
[2024-01-21 05:40] LABS: Blood Urea Nitrogen 20 mg/dl (9-20); Calcium 9.7 mg/dl (8.4-10.2); Carbon Dioxide 26 mmol/L (22-30); Chloride 108 mmol/L (98-107); Estimated Creatinine Clearance 85 ml/min; Glucose 95 mg/dl (70-99); Magnesium 1.9 mg/dl (1.6-2.3); Potassium 4.3 mmol/L (3.5-5.1); Sodium 139 mmol/L (135-145); eGFR > 60.00
[2024-01-21 05:51] LABS: Troponin I 0.027 ng/ml
[2024-01-21 06:30] LABS: Vitamin B12 250 pg/ml (239-931)
--- NOTE | 2024-01-21 08:03 | W.PN.HOSP.TC ---
Today's Communication/Plan
-
HR control
Cardizem gtt
Metoprolol 50 BID
Assessment / Plan
Assessment / Plan
63 y/o male with Afib
On examination awake alert
Cardiovascular system S1-S2 regular slightly tachycardic
Chest clear to auscultation
Abdomen soft and nontender
# Rapid A-fib
Patient had one-time episode of atrial fibrillation during the hospitalization here in September when admitted with septic shock , at that time he had significant bleeding from source therefore he was not discharged on any anticoagulation.
Patient was discharged on metoprolol 50 twice daily. Patient states that he was taken off of that by his outpatient floor refinisher Dr. Pelayo.
He took 1 dose of metoprolol night SENIOR COGNOS DEVELOPER when he saw his heart rate was fast.
Alcohol use may be contributing
On IV Cardizem drip
I have reached out to Dr. Hazel from urology who is recommending against anticoagulation given how significant patient's bleeding was last time. Patient is aware about this.
ECHO Sep 2023- EF 55%, mild LVH, mild to mod MR, mild TR
Troponin 0.05 trended down
Non Ischemic Trop elevation
TSH Normal.
CHADSVASC2 score -0 now.
Not be able to get CV as cannot be anticoagulated.
# 1 episode of NSVT-electrolytes are stable
Cardiology following
# Tremors
Since last hospitalization per pt.
Will get an MRI brain
# Hyperlipidemia-managed by Dr. Cervantes he refuses to be on a statin.
# URI 2 weeks ago treated with antibiotics by PCP
# Admission for septic shock secondary to urinary source after aqua therapy for prostatomegaly
Also required OR evacuation of clot secondary to hematuria at [facility]
Recent urethral stricture 2 weeks ago
# Acute renal failure requiring temporary dialysis in September
# Vitamin D deficiency-replace
# History of back surgery for disc herniation
# Low normal B 12- replace
# Alcohol use 2 to 3 glasses a day could be beer or wine or martini
Thiamine
MSAS SCORE
# DVT prophylaxis-SCDs
# Full code
Anticipated Discharge: 24 - 48 hours
Subjective/Interval History
-
Date of Service: January 21, 2024
Objective Data
-
Labs:
Laboratory Results
01/21/24 01/21/24
04:56 04:57
WBC 8.2
Hgb 11.8 L
Hct 37.6 L
Plt Count 330
Sodium 139
Potassium 4.3
Chloride 108 H
Carbon Dioxide 26
BUN 20
Creatinine 1.1
Glucose 95
Calcium 9.7
Vital Signs:
Vital Signs
Temp Pulse Resp BP Pulse Ox
98.0 F 95 18 130/66 98
01/21/24 07:56 01/21/24 05:15 01/21/24 07:56 01/21/24 04:48 01/21/24 07:56
I&O
01/20/24 01/21/24 01/22/24
06:59 06:59 06:59
Intake Total 792 / 792
Balance 792 / 792
--- NOTE | 2024-01-21 08:04 | W.PN.CD ---
Today's Communication / Plan
-
-Plan for ITALO/DC cardioversion on Tuesday
Impression / Plan
-
Afib - recurrent with rapid rates.
-Started as paroxysmal episodes. Initially diagnosed earlier this year.
-Now present persistently without coming off for the past 2 days.
- unaware of irregular heart rates and denies any cardiac symptoms.
- he tracks his heart rate during his workouts and rates were good at 6pm workout last night.
- rates improved with IV Cardizem in the ER, still in Afib.
- [id number] VASc is 0.
- continue IV Cardizem drip and plan for ITALO/DCCV Tuesday unless he converts on his own.
- we discussed role of OAC, Eliquis, for 30 days post cardioversion/resumption of NSR and he verbalized understanding.
- will initiate Eliquis 5mg BID now.
- he was on Lopressor 50mg BID but this was stopped at OV 11/30/[address] Cervantes as patient requested to stop so he could have higher heart rates with exercise.
- echo 09/2023: EF 55%, mild cLVH, mild to mod MR, mild TR, no change from echo 09/2022.
- He is extremely interested in pursuing A-fib ablation and wants it done 'yesterday'.
- Will plan for A-fib ablation consultation after discharge.
HLD - diet controlled.
- managed by Dr. Cervantes with recent LDL 157 and HDL 87.
- he has refused statin in the past.
URI - 2 weeks ago treated with ABX per PCP, finished 1 week ago.
Physical Exam
Vital Signs/Labs
Vital Signs
Temp Pulse Resp BP Pulse Ox
98.0 F 128 18 110/70 98
01/21/24 07:56 01/21/24 08:00 01/21/24 07:56 01/21/24 07:48 01/21/24 07:56
01/20/24 01/21/24 01/22/24
06:59 06:59 06:59
Actual Weight 87.3 kg
01/21/24 04:57
01/21/24 04:56
PT 13.2 Sec (11.4-14.6) 01/20/24 09:44
INR 1.02 01/20/24 09:44
APTT 29.1 Sec (23.4-35.0) 01/20/24 09:44
Magnesium 1.9 mg/dl (1.6-2.3) 01/21/24 04:56
TSH 2.19 uIU/ml (0.47-4.68) 01/20/24 09:44
LAB Results
01/20/24 01/20/24 01/21/24
14:41 21:15 04:57
Troponin I 0.051 H* 0.027 D 0.027
Physical Exam
Constitutional: No acute distress and Comfortable
EENT: Anicteric and Moist mucous membranes
Cardiovascular: Rhythm/rate is irregular and Systolic murmur present
Respiratory: Respiratory effort normal, Lungs clear to auscul. and Wheeze Absent
GI: Soft, Distention absent and Non tender
Neuro/Psych: Alert, Oriented and AO x 3
Data Reviewed
-
Date of Service: January 21, 2024
Medical Decision Making: Reviewed Test Results, Independent Historian Assessment and Test Interpretation
EKG: Tracing Personally Visualized and interpreted
Echo: Report Reviewed by me
Medical Tests (PFT, Pathology etc): Image Personally Visualized and interpreted
Labs: Labs Reviewed by me
Old Records: Reviewed
[2024-01-21] MEDS: VITAMIN C 500 MG PO (08:05)
[2024-01-21] MEDS: LOPRESSOR 50 MG PO ×2 (08:06→19:48)
[2024-01-21] MEDS: VITAMIN B1 200 MG PO (08:06)
[2024-01-21] MEDS: VITAMIN B-12 1000 MCG PO (08:15)
[2024-01-21] MEDS: CARDIZEM 30 MG PO ×3 (09:15→17:56)
[2024-01-21] MEDS: VITAMIN D3 (cholecalciferol) 25 MCG PO (11:37)
[2024-01-21] MEDS: FEOSOL 325 MG PO (17:56)
--- NOTE | 2024-01-21 20:25 | PTCARENOTE ---
Sustained HR 120-140's. Order received from Dr. Suarez to increase PO Cardizem from 30mg to 60mg PO QID. Patient and family updated
[2024-01-21] MEDS: CARDIZEM 60 MG PO (21:04)
--- NOTE | 2024-01-21 21:25 | PTCARENOTE ---
Rate controlled with PO medications HR 90-100
[2024-01-22] VITALS (8 sets, daily range): BP systolic 105–150; BP diastolic 62–89
[2024-01-22 05:52] LABS: Blood Urea Nitrogen 21 mg/dl (9-20); Calcium 9.3 mg/dl (8.4-10.2); Carbon Dioxide 25 mmol/L (22-30); Chloride 111 mmol/L (98-107); Estimated Creatinine Clearance 93 ml/min; Glucose 96 mg/dl (70-99); Potassium 4.4 mmol/L (3.5-5.1); Sodium 137 mmol/L (135-145); eGFR > 60.00
[2024-01-22] MEDS: VITAMIN B1 200 MG PO (07:53)
[2024-01-22] MEDS: VITAMIN D3 (cholecalciferol) 25 MCG PO (07:53)
[2024-01-22] MEDS: LOPRESSOR 50 MG PO ×2 (07:53→19:14)
[2024-01-22] MEDS: CARDIZEM 60 MG PO ×3 (07:53→19:14)
[2024-01-22] MEDS: VITAMIN C 500 MG PO (07:53)
[2024-01-22] MEDS: VITAMIN B-12 1000 MCG PO (07:53)
--- NOTE | 2024-01-22 08:38 | W.PN.HOSP.TC ---
Today's Communication/Plan
-
Rate control
Assessment / Plan
Assessment / Plan
63 y/o male with Afib
On examination awake alert
Cardiovascular system S1-S2 regular slightly tachycardic
Chest clear to auscultation
Abdomen soft and nontender
# Rapid A-fib
Patient had one-time episode of atrial fibrillation during the hospitalization here in September when admitted with septic shock , at that time he had significant bleeding from source therefore he was not discharged on any anticoagulation.
Patient was discharged on metoprolol 50 twice daily. Patient states that he was taken off of that by his outpatient mill roll operator Dr. Pelayo.
He took 1 dose of metoprolol night PATHOLOGY TECHNOLOGIST when he saw his heart rate was fast.
Alcohol use may be contributing
On IV Cardizem drip
I have reached out to Dr. Hazel from urology who is recommending against anticoagulation given how significant patient's bleeding was last time. Patient is aware about this.
ECHO Sep 2023- EF 55%, mild LVH, mild to mod MR, mild TR
Troponin 0.05 trended down
Non Ischemic Trop elevation
TSH Normal.
CHADSVASC2 score -0 now.
Arrythmia control per cards
# 1 episode of NSVT-electrolytes are stable
Cardiology following
# Tremors
Since last hospitalization per pt.
MRI Brain with out acute changes
Hypoplastic vertebral, volume loss, sinus disease-discussed with the patient
Discussed about follow-up with neurology
Discussed about importance of statin
# Hyperlipidemia-managed by Dr. Cervantes he refuses to be on a statin.
# URI 2 weeks ago treated with antibiotics by PCP
# Admission for septic shock secondary to urinary source after aqua therapy for prostatomegaly
Also required OR evacuation of clot secondary to hematuria at [facility]
Recent urethral stricture 2 weeks ago
# Acute renal failure requiring temporary dialysis in September
# Vitamin D deficiency-replace
# History of back surgery for disc herniation
# Low normal B 12- replace
# Alcohol use 2 to 3 glasses a day could be beer or wine or martini
Thiamine
MSAS SCORE
# DVT prophylaxis-SCDs
# Full code
See the cardiology plans for cardioversion with [facility]. Patient is aware about the fact that he needs to choose between bleeding risk and heart rate management. If gets cardioversion he needs uninterrupted anticoagulation he has enlarged prostate
And is aware that at some point he needs to address this. I also told pt to stop daily alcohol use as this can cause tremors and arrhythmias.
Anticipated Discharge: 24 - 48 hours
Subjective/Interval History
-
Date of Service: January 22, 2024
Objective Data
-
Labs:
Laboratory Results
01/22/24
04:19
Sodium 137
Potassium 4.4
Chloride 111 H
Carbon Dioxide 25
BUN 21 H
Creatinine 1.0
Glucose 96
Calcium 9.3
Vital Signs:
Vital Signs
Temp Pulse Resp BP Pulse Ox
98.4 F 97 20 129/83 97
01/22/24 07:11 01/22/24 07:13 01/22/24 07:11 01/22/24 07:13 01/22/24 07:13
I&O
01/21/24 01/22/24 01/23/24
06:59 06:59 06:59
Intake Total 792 / 792
Balance 792 / 792
--- NOTE | 2024-01-22 09:32 | W.PN.CD ---
Today's Communication / Plan
-
-N.p.o. after midnight with plan for DC cardioversion/ITALO in the morning
Impression / Plan
-
Afib - recurrent with rapid rates.
-Started as paroxysmal episodes. Initially diagnosed earlier this year.
-Now present persistently without coming off for the past 2 days.
- unaware of irregular heart rates and denies any cardiac symptoms.
- he tracks his heart rate during his workouts and rates were good at 6pm workout last night.
- rates improved with IV Cardizem in the ER, still in Afib.
- [id number] VASc is 0.
- continue IV Cardizem drip and plan for ITALO/DCCV Tuesday unless he converts on his own.
- we discussed role of OAC, Eliquis, for 30 days post cardioversion/resumption of NSR and he verbalized understanding.
- will initiate Eliquis 5mg BID now.
- he was on Lopressor 50mg BID but this was stopped at OV 11/30/[address] Cervantes as patient requested to stop so he could have higher heart rates with exercise.
- echo 09/2023: EF 55%, mild cLVH, mild to mod MR, mild TR, no change from echo 09/2022.
- He is extremely interested in pursuing A-fib ablation and wants it done 'yesterday'.
- Will plan for A-fib ablation consultation after discharge.
Prostate cryotherapy
-Patient urologist is extremely worried about bleeding and him with Eliquis.
-Explained to the patient that cardioversion warrants him to be on anticoagulation for 30 days.
-Alternatively we can keep him rate controlled without cardioverting.
-After long discussion he will discuss again with his urologist
-Tentative plan is to have ITALO/DC cardioversion in the morning.
-Will keep him on Eliquis 5 mg twice a day for 30 days.
HLD - diet controlled.
- managed by Dr. Cervantes with recent LDL 157 and HDL 87.
- he has refused statin in the past.
URI - 2 weeks ago treated with ABX per PCP, finished 1 week ago.
Physical Exam
Vital Signs/Labs
Vital Signs
Temp Pulse Resp BP Pulse Ox
98.4 F 97 20 129/83 97
01/22/24 07:11 01/22/24 07:13 01/22/24 07:11 01/22/24 07:13 01/22/24 07:13
01/21/24 01/22/24 01/23/24
06:59 06:59 06:59
Actual Weight 87.3 kg
01/21/24 04:57
01/22/24 04:19
PT 13.2 Sec (11.4-14.6) 01/20/24 09:44
INR 1.02 01/20/24 09:44
APTT 29.1 Sec (23.4-35.0) 01/20/24 09:44
Magnesium 1.9 mg/dl (1.6-2.3) 01/21/24 04:56
TSH 2.19 uIU/ml (0.47-4.68) 01/20/24 09:44
LAB Results
01/20/24 01/20/24 01/21/24
14:41 21:15 04:57
Troponin I 0.051 H* 0.027 D 0.027
Physical Exam
Constitutional: No acute distress and Comfortable
EENT: Anicteric and Moist mucous membranes
Cardiovascular: Pedal edema is absent, JVD pressure is normal, Systolic murmur absent and Rhythm/rate is irregular
Respiratory: Respiratory effort normal, Lungs clear to auscul. and Wheeze Absent
GI: Soft, Distention absent, Non tender and Normal bowel sounds
Neuro/Psych: Alert, Oriented and AO x 3
Data Reviewed
-
Date of Service: January 22, 2024
Medical Decision Making: Reviewed Test Results, Independent Historian Assessment, Test Interpretation and Review of Case with other Provider
EKG: Tracing Personally Visualized and interpreted
Echo: Report Reviewed by me
Labs: Labs Reviewed by me
Old Records: Reviewed
--- NOTE | 2024-01-22 11:38 | PTCARENOTE ---
Assumed care at 0700. AOx4. VSS. AFIB w/ PVCs couplets, HR 90-100s at rest prior to AM med pass. With activity, has bursts of tachycardia, HR 120s-150s. Patient requesting urology consult this afternoon given urologic history and discussion of OAC
use. Dr. Loya aware, urology consult ordered.
--- NOTE | 2024-01-22 12:46 | CONS.URO ---
Consultation
-
Date/Time Consultation Requested: 01/22/24
Date/Time Consultation Performed: 01/22/24 1235
Reason for Consultation: massive prostatomegaly
Medical History
History of Present Illness
63-year-old male evaluated by Dr Michaud in 2018 for a very enlarged prostate (almost 200
cubic centimeters) and an elevated PSA. A biopsy was obtained which
was negative. He was very reluctant to take medicines and he was
evaluated at [facility] for robotic partial prostatectomy. He subsequently
saw Dr. Hazel who also recommended robotic partial prostatectomy. He elected to go
back to the [facility] symptom system. He would undergo an
aqua-ablation of his prostate with Dr. Melvin during September. He
developed clot retention requiring return to the operating room for clot evacuation and fulguration.
He was subsequently hospitalized at for urosepsis with ARF.
He now is admitted for rapid afib.
Dr Hazel has firmly recommended against anticoagulation given the significant risk of gross hematuria.
The patient again request urologic input.
Past Medical History
Past Surgical History: Other (herniated disks and back surgery, right knee surgery, hip surgery, appendectomy, cataract surgery)
Social History
Personal:
Family History
Family History: Reviewed & Not Pertinent
Allergies/Home Medications
Allergies
Allergy/AdvReac Type Severity Reaction Status Date / Time
No Known Allergies Allergy Verified 01/20/24 09:15
Home Medications
�Medication �Instructions �Recorded �Confirmed �Type
ascorbic acid (vitamin C) 500 mg 500 mg PO DAILY Supplement #30 tabs 11/11/23 01/20/24 Rx
tablet (Vitamin C)
cholecalciferol (vitamin D3) 25 25 mcg PO DAILY Supplement #30 tabs 11/11/23 01/20/24 Rx
mcg (1,000 unit) tablet
ferrous sulfate 325 mg (65 mg 325 mg PO QPM anemia 01/20/24 01/20/24 History
iron) tablet
metoprolol tartrate 50 mg tablet 50 mg PO ONCE PRN a-fib 01/20/24 01/20/24 History
Physical Exam
Vital Signs
Vital Signs
Temp Pulse Resp BP Pulse Ox
98.2 F 110 20 105/89 96
01/22/24 12:10 01/22/24 12:13 01/22/24 12:10 01/22/24 12:13 01/22/24 12:10
Lab / Testing Results
Laboratory Results
01/21/24 04:57
01/22/24 04:19
Physical Exam
adult male in NAD
HEENT: Normocephalic
Assessment / Plan
-
massive prostatomegaly s/p aqua-ablation at [facility] complicated by post-op prostatic hemorrhage, uro-sepsis and acute renal failure
anticoagulation would significantly raise the risk of repeating the events of September
Data Reviewed
-
CT Scan: Image personally visualized and interpreted (massive, heterogenous prostate)
Old Records: Reviewed
[2024-01-22] MEDS: FEOSOL 325 MG PO (17:54)
--- NOTE | 2024-01-22 20:39 | PTCARENOTE ---
Assumed care. Watching educational videos with his . A-Fib HR 100-140's. Lopressor and Cardizem given PO, call damon in reach
[2024-01-23] MEDS: CARDIZEM 60 MG PO ×2 (02:17→08:04)
[2024-01-23 02:18] VITALS: BP 109/77
[2024-01-23 02:56] LABS: Blood Urea Nitrogen 24 mg/dl (9-20); Calcium 9.1 mg/dl (8.4-10.2); Carbon Dioxide 22 mmol/L (22-30); Chloride 110 mmol/L (98-107); Estimated Creatinine Clearance 93 ml/min; Glucose 92 mg/dl (70-99); Potassium 4.3 mmol/L (3.5-5.1); Sodium 137 mmol/L (135-145); eGFR > 60.00
[2024-01-23 07:11] VITALS: BP 134/79
[2024-01-23] MEDS: VITAMIN D3 (cholecalciferol) 25 MCG PO (08:04)
[2024-01-23] MEDS: VITAMIN B1 200 MG PO (08:04)
[2024-01-23] MEDS: VITAMIN B-12 1000 MCG PO (08:05)
[2024-01-23] MEDS: LOPRESSOR 50 MG PO ×2 (08:05→20:06)
[2024-01-23] MEDS: VITAMIN C 500 MG PO (08:05)
[2024-01-23] MEDS: ELIQUIS 5 MG PO ×2 (10:02→20:06)
--- NOTE | 2024-01-23 10:08 | W.PN.CD ---
Today's Communication / Plan
-
start eliquis 5mg bid now with plans for ITALO/DCCV this AM
- monitor for bleeding overnight
- then will have follow up in office with expedited evaluation for ablation
Impression / Plan
-
Afib - recurrent with rapid rates.
-echo 09/2023: EF 55%, mild cLVH, mild to mod MR, mild TR, no change from echo 09/2022.
-Started as paroxysmal episodes. Initially diagnosed earlier this year.
-now becoming persistent
- unaware of irregular heart rates and denies any cardiac symptoms.
- [id number] VASc is 0.
- start eliquis 5mg bid now with plans for ITALO/DCCV this AM
- monitor for bleeding overnight
- then will have follow up in office with expedited evaluation for ablation
-cont diltiazem and metoprolol
Prostate cryotherapy
-elevated risk of bleeding with OAC
-Explained to the patient that cardioversion warrants him to be on anticoagulation for 30 days.
-Will keep him on Eliquis 5 mg twice a day for at least 30 days.
HLD - diet controlled.
- managed by Dr. Cervantes with recent LDL 157 and HDL 87.
- he has declined statin in the past.
Physical Exam
Vital Signs/Labs
Vital Signs
Temp Pulse Resp BP Pulse Ox
98.0 F 94 16 134/79 97
01/23/24 07:56 01/23/24 10:00 01/23/24 07:56 01/23/24 07:11 01/23/24 07:56
01/21/24 04:57
01/23/24 02:24
PT 13.2 Sec (11.4-14.6) 01/20/24 09:44
INR 1.02 01/20/24 09:44
APTT 29.1 Sec (23.4-35.0) 01/20/24 09:44
Magnesium 1.9 mg/dl (1.6-2.3) 01/21/24 04:56
TSH 2.19 uIU/ml (0.47-4.68) 01/20/24 09:44
LAB Results
01/20/24 01/20/24 01/21/24
14:41 21:15 04:57
Troponin I 0.051 H* 0.027 D 0.027
Physical Exam
Constitutional: No acute distress and Comfortable
EENT: Moist mucous membranes
Cardiovascular: Pedal edema is absent, JVD pressure is normal, Systolic murmur absent and Rhythm/rate is irregular
Respiratory: Respiratory effort normal, Lungs clear to auscul. and Wheeze Absent
GI: Soft, Distention absent and Flat
Neuro/Psych: AO x 3
Data Reviewed
-
Date of Service: January 23, 2024
EKG: Other (Tele: A fib 80s-90s)
Labs: Labs Reviewed by me
--- NOTE | 2024-01-23 10:43 | W.PN.HOSP.TC ---
Today's Communication/Plan
-
see bold
Assessment / Plan
Assessment / Plan
Gen: NAD, AAOx3.
Eyes: EOMI, PERRLA, no scleral icterus.
Neck: supple.
CV: RRR, +S1/S2, no m/r/g.
Resp: CTAB, no rales, wheezes, or rhonchi.
Abd: +BS, soft, NT, ND
Skin: No rashes.
Neuro: CN 2-12 intact, non-focal.
Psych: Normal mood and affect.
MRI brain:
1. No MRI evidence for acute infarct or intracranial hemorrhage.
2. Minimal white matter leukoaraiosis in both frontal lobes.
3. Mild diffuse cerebral and cerebellar volume loss.
4. Moderate mucosal disease in the right maxillary sinus.
Afib with RVR:
-Patient had one-time episode of atrial fibrillation during the hospitalization here in September when admitted with septic shock , at that time he had significant bleeding from source therefore he was not discharged on any anticoagulation. He was
discharged on metoprolol 50 twice daily. Patient states that he was taken off of that by his outpatient sales program manager Dr. Pelayo.
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
-Alcohol likely contributed to afib with RVR
-was on Cardizem gtt, now off and on PO Cardizem
-Dr. Loya reached out to Dr. Hazel from urology who recommended against anticoagulation given how significant patient's bleeding was last time. Patient is aware about this.
-ECHO Sep 2023- EF 55%, mild LVH, mild to mod MR, mild TR
-minimally elevated trop was nonischemic myocardial injury
-TSH Normal
-one episode of NSVT
-Cardiology has started Eliquis
-s/p ITALO/CV to SR this AM.
Other problems:
Tremors: MRI brain above. Outpt neuro follow up.
Hyperlipidemia: pt refuses to be on a statin
[place] in September 2023
Alcohol abuse disorder: cont thiamine
Recent admission for septic shock secondary to urinary source after aqua therapy for prostatomegaly. Also required OR evacuation of clot secondary to hematuria at [facility]. Recent urethral stricture 2 weeks ago.
I had an extensive discussion with the patient at bedside regarding the risk-benefit analysis of being on Eliquis at this time. Many questions were asked and answered.
FULL/Eliquis
Total time spent on d/c = 31 min. This included today's physical exam, progress note, review of laboratory and diagnostic data, preparation of discharge documents and prescriptions, and discussions about the pt's hospital course and discharge plan
with the patient and other manager medical affairs involved in the patient's care.
Anticipated Discharge: Within 24 hours
Subjective/Interval History
-
Date of Service: January 23, 2024
Denies chest pain or shortness of breath.
Objective Data
-
Labs:
Laboratory Results
01/23/24
02:24
Sodium 137
Potassium 4.3
Chloride 110 H
Carbon Dioxide 22
BUN 24 H
Creatinine 1.0
Glucose 92
Calcium 9.1
Vital Signs:
Vital Signs
Temp Pulse Resp BP Pulse Ox
98.0 F 94 16 134/79 97
01/23/24 07:56 01/23/24 10:00 01/23/24 07:56 01/23/24 07:11 01/23/24 07:56
I&O
01/22/24 01/23/24 01/24/24
06:59 06:59 06:59
Intake Total 1440 / 1440
Output Total 675 / 675
Balance 1440 / 1440 -675 / -675
[2024-01-23 12:17] VITALS: BP 103/66
[2024-01-23] MEDS: CARDIZEM CD 240 MG PO (14:05)
[2024-01-23 16:21] VITALS: BP 128/80
--- NOTE | 2024-01-23 16:49 | CM ---
spoke to pt in room, he is prev indep, lives with his in a 2 story home with 4 steps to enter. he denies any dc planning needs. plan is for dc to home when medically stable.
[2024-01-23] MEDS: FEOSOL 325 MG PO (17:43)
[2024-01-23 20:23] VITALS: BP 121/71
[2024-01-23 22:51] VITALS: BP 108/64
[2024-01-24 04:33] VITALS: BP 126/75
[2024-01-24 06:51] VITALS: BP 115/71
[2024-01-24] MEDS: VITAMIN B-12 1000 MCG PO (07:21)
[2024-01-24] MEDS: LOPRESSOR 50 MG PO (07:21)
[2024-01-24] MEDS: CARDIZEM CD 240 MG PO (07:21)
[2024-01-24] MEDS: VITAMIN C 500 MG PO (07:21)
[2024-01-24] MEDS: VITAMIN B1 200 MG PO (07:21)
[2024-01-24] MEDS: VITAMIN D3 (cholecalciferol) 25 MCG PO (07:22)
[2024-01-24] MEDS: ELIQUIS 5 MG PO (07:22)
[2024-01-24 08:00] VITALS: BP 148/74
--- NOTE | 2024-01-24 09:45 | W.PN.CD ---
Today's Communication / Plan
-
- stable for discharge
Impression / Plan
-
Afib - recurrent with rapid rates.
-echo 09/2023: EF 55%, mild cLVH, mild to mod MR, mild TR, no change from echo 09/2022.
-Started as paroxysmal episodes. Initially diagnosed earlier this year.
-now becoming persistent
- unaware of irregular heart rates and denies any cardiac symptoms.
- [id number] VASc is 0.
- On Eliquis 5mg bid now
- s/p ITALO/DCCV 01/23/24
- monitor for bleeding overnight
- then will have follow up in office with expedited evaluation for ablation
-cont diltiazem and metoprolol
Prostate cryotherapy
-elevated risk of bleeding with OAC
-Explained to the patient that cardioversion warrants him to be on anticoagulation for 30 days.
-Will keep him on Eliquis 5 mg twice a day for at least 30 days.
HLD - diet controlled.
- managed by Dr. Cervantes with recent LDL 157 and HDL 87.
- he has declined statin in the past.
Physical Exam
Vital Signs/Labs
Vital Signs
Temp Pulse Resp BP Pulse Ox
97.8 F 71 16 115/71 98
01/24/24 06:50 01/24/24 08:00 01/24/24 06:50 01/24/24 06:51 01/24/24 08:36
01/21/24 04:57
01/23/24 02:24
PT 13.2 Sec (11.4-14.6) 01/20/24 09:44
INR 1.02 01/20/24 09:44
APTT 29.1 Sec (23.4-35.0) 01/20/24 09:44
Magnesium 1.9 mg/dl (1.6-2.3) 01/21/24 04:56
TSH 2.19 uIU/ml (0.47-4.68) 01/20/24 09:44
Physical Exam
Constitutional: No acute distress and Comfortable
EENT: Anicteric and Moist mucous membranes
Cardiovascular: Rhythm & rate is regular, Pedal edema is absent and JVD pressure is normal
Respiratory: Respiratory effort normal, Lungs clear to auscul. and Wheeze Absent
GI: Soft, Non tender and Normal bowel sounds
Neuro/Psych: Alert, Oriented and AO x 3
Data Reviewed
-
Date of Service: January 24, 2024
Medical Decision Making: Reviewed Test Results, Independent Historian Assessment, Test Interpretation and Review of Case with other Provider
EKG: Tracing Personally Visualized and interpreted
Echo: Report Reviewed by me
Labs: Labs Reviewed by me
Old Records: Reviewed
--- NOTE | 2024-01-24 11:08 | W.PN.HOSP.TC ---
Today's Communication/Plan
-
d/c
Assessment / Plan
Assessment / Plan
Gen: NAD, AAOx3.
Eyes: EOMI, PERRLA, no scleral icterus.
Neck: supple.
CV: Remains RRR, +S1/S2, no m/r/g.
Resp: Remains CTAB, no rales, wheezes, or rhonchi.
Abd: Remains +BS, soft, NT, ND
Skin: No rashes.
Neuro: CN 2-12 intact, non-focal.
Psych: Normal mood and affect.
MRI brain:
1. No MRI evidence for acute infarct or intracranial hemorrhage.
2. Minimal white matter leukoaraiosis in both frontal lobes.
3. Mild diffuse cerebral and cerebellar volume loss.
4. Moderate mucosal disease in the right maxillary sinus.
Afib with RVR:
-Patient had one-time episode of atrial fibrillation during the hospitalization here in September when admitted with septic shock , at that time he had significant bleeding from source therefore he was not discharged on any anticoagulation. He was
discharged on metoprolol 50 twice daily. Patient states that he was taken off of that by his outpatient lead tinner Dr. Pelayo.
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
-Alcohol likely contributed to afib with RVR
-was on Cardizem gtt, now off and on PO Cardizem
-Dr. Lyoa reached out to Dr. Hazel from urology who recommended against anticoagulation given how significant patient's bleeding was last time. Patient is aware about this.
-ECHO Sep 2023- EF 55%, mild LVH, mild to mod MR, mild TR
-minimally elevated trop was nonischemic myocardial injury
-TSH Normal
-one episode of NSVT
-Cardiology started Eliquis on 01/23/24
-s/p ITALO/CV to SR 01/23/24AM
Other problems:
Tremors: MRI brain above. Outpt neuro follow up.
Hyperlipidemia: pt refuses to be on a statin
[place] requiring temporary dialysis in September 2023
Alcohol abuse disorder: cont thiamine
Recent admission for septic shock secondary to urinary source after aqua therapy for prostatomegaly. Also required OR evacuation of clot secondary to hematuria at [facility]. Recent urethral stricture 2 weeks ago.
I had an extensive discussion with the patient at bedside on 01/23/24 regarding the risk-benefit analysis of being on Eliquis at this time. Many questions were asked and answered.
FULL/Eliquis
Total time spent on d/c = 31 min. This included today's physical exam, progress note, review of laboratory and diagnostic data, preparation of discharge documents and prescriptions, and discussions about the pt's hospital course and discharge plan
with the patient and other biomedical scientist involved in the patient's care.
Anticipated Discharge: Today
Subjective/Interval History
-
Date of Service: January 24, 2024
No new complaints. Denies bleeding.
Objective Data
-
Vital Signs:
Vital Signs
Temp Pulse Resp BP Pulse Ox
97.8 F 71 16 115/71 98
01/24/24 06:50 01/24/24 08:00 01/24/24 06:50 01/24/24 06:51 01/24/24 08:36
I&O
01/23/24 01/24/24 01/25/24
06:59 06:59 06:59
Intake Total 1440 / 1440 480 / 480
Output Total 675 / 675
Balance 1440 / 1440 -195 / -195
[2024-01-24 12:15] VITALS: BP 148/74
--- NOTE | 2024-01-24 13:30 | PTCARENOTE ---
Pt oob ambulating in the room and hallway. Remains in SR. Denies any sob or palpitations. Pt discharged to home. Pt to be driving himself. Discharge instructions given and reviewed with good understanding.
--- NOTE | 2024-01-24 13:59 | W.DCSUMMARY ---
Discharge Summary
Discharge Data
Date of Admission: 01/20/24
Date of Discharge: 01/24/24
-
Pending Results: No
Hospital Course
Primary diagnoses:
Atrial fibrillation with rapid ventricular response s/p transesophageal echo with cardioversion to sinus rhythm
Secondary diagnoses:
Nonischemic myocardial injury
Tremors
Hyperlipidemia
Alcohol abuse disorder
Consultants:
Imaging:
MRI brain:
1. No MRI evidence for acute infarct or intracranial hemorrhage.
2. Minimal white matter leukoaraiosis in both frontal lobes.
3. Mild diffuse cerebral and cerebellar volume loss.
4. Moderate mucosal disease in the right maxillary sinus.
Hospital course: 63-year-old male who presented with chief complaint of 'heart rate problem' as outlined in the H&P done on admission. Patient was in atrial fibrillation with rapid ventricular response on admission.
The patient had one-time episode of atrial fibrillation during the hospitalization at [facility] in September when admitted with septic shock. At that time he had significant bleeding from a genitourinary source therefore he was not discharged on
any anticoagulation. He was discharged on metoprolol 50 twice daily. Patient states that he was taken off of that by his outpatient knowledge management consultant Dr. Pelayo. 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
was fast. Alcohol likely contributed to afib with RVR. Patient was placed on a Cardizem drip which was weaned to off and he was converted to oral Cardizem
The patient's beta-se was increased. He was started on Eliquis on January 23, 2024. He also had a ITALO/CV to sinus rhythm on January 23, 2024. The patient had no bleeding while hospitalized. He was discharged in medically stable condition
Discharge Plan
-
Patient Disposition: Home (Routine Discharge)
Discharge Diagnosis/Procedures: Atrial fibrillation with rapid ventricular response s/p transesophageal echo with cardioversion to sinus rhythm
Condition: Good
Diet: Low Cholesterol
Additional Diets: Heart healthy
Activity: As tolerated
Driving Restrictions: As prior to admission
Bathing Restrictions: None
Referrals:
Patricia Toussaint DO [Family Provider] - in less than 1 week
Juanjo Hazel MD [Active] -
Lisa Fleming DO [Active] - (Hypoplastic vertebral artery, tremors)
Additional Discharge Medication Instructions: Please follow up with Dr. Pantoja as scheduled tomorrow
Prescriptions:
New
Eliquis 5 mg Tablet
5 mg PO BID Qty: 60 0RF
diltiazem HCl 240 mg Capsule,Extended Release 24hr
240 mg PO DAILY Qty: 30 0RF
cyanocobalamin (vitamin B-12) 1,000 mcg Tablet
1,000 mcg PO DAILY Qty: 0 0RF
metoprolol tartrate 50 mg Tablet
50 mg PO BID Qty: 60 0RF
thiamine HCl (vitamin B1) 100 mg Tablet
200 mg PO DAILY Qty: 0 0RF
Continued
ascorbic acid (vitamin C) [Vitamin C] 500 mg Tablet
500 mg PO DAILY Qty: 30 0RF
cholecalciferol (vitamin D3) 25 mcg (1,000 unit) Tablet
25 mcg PO DAILY Qty: 30 0RF
ferrous sulfate 325 mg (65 mg iron) tablet
325 mg PO QPM
Discontinued
metoprolol tartrate 50 mg tablet
50 mg PO ONCE PRN (Reason: a-fib)
Patient Comments:
01/20/2024, used 's Rx.
Discharge Orders:
Discharge Patient (As Directed); Ordered 01/24/24
Ordered By: Juancarlos Eller
Care Plan Goals
Care Plan Goals:
Problem: Readiness for enhanced knowledge related to diagnosis and treatment plan
Goal: Understand your diagnosis and treatment plan needs, including medications if applicable.
Instructions: Know your diagnosis, underlying causes and treatment plan options, including medications if applicable. Consult with your health care team to learn about your diagnosis and treatment plan, including medications if applicable.
Discharge Date and Time
Discharge Date/Time: 01/24/24 13:33
Print Language: MALTESE
== END 2024-01-24 13:33 | disposition home or self-care (01) | DRG 309 ==
LOC: IVU 15:18
PROVIDERS: Internal Medicine; ADMITTING PHYSICIAN Hospitalist; ATTENDING PHYSICIAN Internal Medicine; CONSULT PHYSICIAN Internal Medicine Cardiovascular Disease; CONSULT PHYSICIAN Specialist; EMERGENCY PHYSICIAN Emergency Medicine; FAMILY PHYSICIAN Family Medicine
PROC: 5A2204Z Restoration of Cardiac Rhythm, Single (ICD-10-PCS; 2024-01-23)
PROC: B24BZZ4 Ultrasonography of Heart with Aorta, Transesophageal (ICD-10-PCS; 2024-01-23)
DX: I48.0 Paroxysmal atrial fibrillation (principal); I5A Non-ischemic myocardial injury (non-traumatic); E78.5 Hyperlipidemia, unspecified; N40.1 Benign prostatic hyperplasia with lower urinary tract symptoms; R33.9 Retention of urine, unspecified; R25.1 Tremor, unspecified; I77.810 Thoracic aortic ectasia; F10.10 Alcohol abuse, uncomplicated; E55.9 Vitamin D deficiency, unspecified; I47.20 Ventricular tachycardia, unspecified; Z79.01 Long term (current) use of anticoagulants
CPT/HCPCS: 70551; 80048; 80053; 81003; 82607; 83735; 84443; 84484; 85025; 85027; 85610; 85730; 92960; 93005; 93312; 93320; 93325; 96365; 96366; 99285

== ENCOUNTER 2024-02-06 05:57 | Day surgery (SDC) | payer OTHER, SELFPAY ==
[2024-02-06] VITALS (13 sets, daily range): BP systolic 129–142; BP diastolic 68–93; BMI 23.5
--- NOTE | 2024-02-06 07:31 | PTCARENOTE ---
Call placed to pt's and message left on answering machine to review timing/ expectations for today.
[2024-02-06 08:48] LABS: ACT-LR - POC 258 Seconds (116-155)
[2024-02-06 09:08] LABS: ACT-LR - POC 322 Seconds (116-155)
--- NOTE | 2024-02-06 10:03 | ITS.CL.ABL ---
[facility] - Ablation
Ablation
Procedure Report:
AFIB ablation:
Mr. Romero is a very pleasant 63 yr old gentleman with medical history significant for symptomatic paroxysmal atrial fibrillation, on Dilitazem and Eliquis presented now in the EP lab for atrial fibrillation ablation
Date of Procedure:
02/06/24
Indications:
Symptomatic atrial fibrillation
Pre-Operative Diagnosis:
Paroxysmal Atrial fibrillation
Post-Operative Diagnosis:
Paroxysmal Atrial fibrillation
Procedure Performed:
Atrial fibrillation ablation with wide area circumferential ablation (WACA) approach for pulmonary vein isolation
Performing Physician:
Shanae Pantoja MD
Assistants:
EP staff
Anesthesia:
See anesthesia records
Detailed Description of the Procedure:
Written informed consent was obtained from the patient after a full explanation of the risks and benefits of the procedure including the risks of sedation and anesthesia.
The patient was brought to the electrophysiology laboratory in stable condition in fasting state. Continuous electrocardiographic and hemodynamic monitoring was initiated.
The initial rhythm was normal sinus rhythm.
The procedure site was meticulously prepared with surgical scrub and allowed to dry with no pooling. Sterile draping was applied to cover the procedure site. The image intensifier was draped with sterile bag and positioned over the patient. After
infusion of local anesthetic, vascular access was obtained under ultrasound guidance and sheaths were placed over guide wire as detailed below.
Sheath and Catheter Placement:
The sheaths were upgraded as needed during the case. Intracardiac catheters were positioned using direct EAM guidance.� ICE catheter was placed in RA. The following catheters / sheaths were placed
Sheaths:
��������������� Carto VISIGO sheath in right femoral vein upgraded from 8Fr in right femoral vein
��������������� 9Fr in right femoral vein
���������������
Catheters:
������������� [employer] Thermocool STSF bidirectional (D/F) - at locations of HRA, RV, LA and LV.
������������� Pentaray catheter � at locations of RA, CS and LA
������������� ICE catheter - at locations of RA, SVC, and RV.
Heparin was initiated and infused to maintain appropriate ACT.
Intracardiac ECHO:
An 8-[place] Islander AcuNav intracardiac ECHO (ICE) probe was advanced through the 9-[place] Islander sheath in the femoral vein into the right atrium under EAM and ICE ultrasound image guidance and a baseline ECHO study was performed. The left atrial size was
enlarged. There was mild tricuspid regurgitation. The aortic valve was grossly normal. There was normal left ventricular systolic functions. There was no pericardial effusion. The GILDA has normal velocities noted on Doppler. All the veins were
identified and good flow noted.
During the procedure, ICE was used for monitoring of complications, guidance of trans-septal puncture, monitor the catheter position and tracking ablation lesions. No change in the pericardial space noted throughout the procedure.
Electroanatomic mapping (EAM) of the right atrium:
A J-tipped guidewire was advanced through the 8-[place] Islander sheath in the right femoral vein into the superior vena cava under EAM and ICE guidance. The 8-[place] Islander sheath was exchanged for a VIZIGO sheath which was advanced into the superior vena cava.
�Using the Pentaray catheter advanced through VIZIGO sheath into the right atrium, an electroanatomic map (EAM) of the right atrium was created using [employer] Carto mapping system. The map was used to identify the trans-septal location.
Trans-septal Puncture:
A J-tipped guidewire with dilator was advanced through VIZIGO sheath into the superior vena cava under EAM and ICE guidance. A TSX needle was advanced until the tip was slightly behind the tip of the dilator inside the Visigo sheath. The apparatus
was withdrawn until it was in contact with the fossa ovalis. The position was adjusted based on EAM and ultrasound images from ICE. Under EAM, hemodynamic and ICE ultrasound and Fluoroscopic guidance, left atrium was cannulated by advancing the
needle. Once atrial septum was cannulated, the needle was pulled back and a BMW was advanced into the RSPV. A saline injection was done into the left atrium. The saline bubbles were noted on the ICE confirming the trans-septal puncture. Both the
sheath and the dilator was advanced into the left atrium. The dilator with the needle was withdrawn. Blood was aspirated from the sheath and arterial blood confirmed. The sheath was flushed. Saline injection noted into the left atrium on ICE. The
pressure waveform was checked and LA pressure measured. The penta-ray catheter was advanced in the sheath into the left pulmonary vein.
The 3-D mapping was done and then the penta-ray was switched to ablation catheter and back to penta-ray as needed.
3D Electroanatomic Mapping - LA:
Using the Pentaray catheter advanced through VIZIGO sheath into the left atrium, an electroanatomic map (EAM) of the left atrium was created using [employer] Carto mapping system. The map was used for localization of catheter position and
tacking of ablation lesions. The EAM of the left atrium showed a 2 left sided veins with 2 right sided veins with all electrically connected to the body the LA. It showed no significant scar. The LA was mildly dilated in size. �
Following the EAM, preparations were made for ablation.
Phrenic nerve stimulation:
The right sided pulmonary veins were identified and the anterior antrum and the deep anterior locations of the PVs were check with high output stimulation 20mA for 4 milliseconds that showed no phrenic nerve capture in any of the potential ablation
areas.
No phrenic nerve capture was noted and the safe areas were marked and a design line was created through the areas of tested antral myocardium for ablation lesions.
Ablation:
Ablation # 1: Pulmonary vein Isolation:
Radiofrequency ablation was performed using an open irrigation, force-sensing 3.5mm radiofrequency ablation catheter (Thermocool STSF) by completing the circumferential lesions around the left and right pulmonary veins achieving pulmonary vein
isolation.
All the ablation lesions were guided by the [employer] SURPOINT module with the posterior lesions were limited to 45 ellis for SURPOINT lesion index goal of 400 and anterior wall lesions were limited to SURPOINT index goal of 450.
The esophagus was noted to be on the left side of the LA near the PV antra based on the locations of the esophageal temperature probe. Ablation was stopped for any temperature increase of 0.1 degree C. Max esophageal temperature was 37.8C.
Confirmation of the PVI and bidirectional block:
Following achievement of entrance block at the pulmonary veins, pacing from the pentaray catheter in each of the four veins at 10 milliamps for 2 milliseconds showed entrance and exit block. All PVI were rechecked at the end of the case and remained
isolated with dissociated and local capture with pacing. Entrance and exit block were demonstrated in all veins.
The LA was mapped with Carto EAM in sinus rhythm confirming the line of block at the ablation lesions lines.
EP study:
Sinus Node Function: The sinus node functions are within acceptable normal range.
The AV geovani functions are deemed within normal range.
Arrhythmia Induction:
No sustained arrhythmia was induced at the end of the study.�
Procedure End
ICE study was done again that showed no epicardial accumulation. No complications noted.
Following the completion of the EP study, catheters were removed. Protamine 40 mg was given at the end of the procedure and ACT was checked repeatedly. The sheaths were removed and hemostasis achieved with �VASCADE� and manual compression after
acceptable ACT is achieved.
Left atrial Pressure:
Pre-ablation: Mean LA pressure was 3mmHg
Post-ablation: Mean LA pressure was 4mmHg
Post ablation RA pressure: 2 mmHg
Estimated Blood loss:
<10 cc
Specimens Removed:
None.
Implants / Devices:
None
Urine output:
None
Packs / Drains/ Tubes:
None
Instrument / Sponge Count Correct:
Yes
Complications of the Procedure:
None
Condition of Patient at Time of Transfer:
Hemodynamically stable with no neurological or vascular compromise.
Summary:
Successful atrial fibrillation ablation with circumferential bidirectional line of block at pulmonary vein antra (Pulmonary vein isolation)
--- NOTE | 2024-02-06 12:13 | W.PN.UPDATE ---
Update Note
Progress Note Update
Pt seen post PVI. Right groin with vascade closure, no ht/bleeding, non tender. OOB ambulating, urinating without difficulty. Post EKG NSR 70s, no acute changes. Resume eliquis today, continue other meds as before. Followup at [facility] arranged. Home
today if groin site/tele remain stable.
--- NOTE | 2024-02-06 12:18 | PTCARENOTE ---
Dr. Pantoja in to speak with pt and .
== END 2024-02-06 12:30 | disposition home or self-care (01) ==
LOC: CATH 05:57
PROVIDERS: ATTENDING PHYSICIAN Internal Medicine Cardiovascular Disease; FAMILY PHYSICIAN Family Medicine
DX: I48.0 Paroxysmal atrial fibrillation (principal); E78.5 Hyperlipidemia, unspecified; Z79.01 Long term (current) use of anticoagulants
CPT/HCPCS: C1769; C1732; C1892; C1759; C1894; 76937; 85347; 86850; 86900; 86901; 93005; 93656; C1760

== ENCOUNTER → 2024-06-05 10:54 | Outpatient (REF) | payer OTHER, SELFPAY | LOC: RAD 10:54 | PROVIDERS: ATTENDING PHYSICIAN Family Medicine | DX: N28.89 Other specified disorders of kidney and ureter (principal) | CPT/HCPCS: 76770 ==

== ENCOUNTER → 2024-07-05 06:36 | Day surgery (SDC) | payer OTHER, SELFPAY | LOC: GI 06:36 | PROVIDERS: ATTENDING PHYSICIAN Specialist; FAMILY PHYSICIAN Family Medicine | DX: Z12.11 Encounter for screening for malignant neoplasm of colon (principal); Z86.0101 Personal history of adenomatous and serrated colon polyps; D12.2 Benign neoplasm of ascending colon; D12.3 Benign neoplasm of transverse colon; K63.5 Polyp of colon | CPT/HCPCS: 45385; 45381; 45380; 88305 ==

== ENCOUNTER 2024-12-28 06:19 | Day surgery (SDC) | payer OTHER, SELFPAY | END 2024-12-28 09:22 | disposition home or self-care (01) | LOC: GI 06:19 | PROVIDERS: ATTENDING PHYSICIAN Specialist; FAMILY PHYSICIAN Family Medicine | DX: Z09 Encounter for follow-up examination after completed treatment for conditions other than malignant neoplasm (principal); K57.30 Diverticulosis of large intestine without perforation or abscess without bleeding; D12.2 Benign neoplasm of ascending colon; D12.3 Benign neoplasm of transverse colon; K62.1 Rectal polyp; Z86.0101 Personal history of adenomatous and serrated colon polyps | CPT/HCPCS: 45385; 45380; 88305 ==